=== PATIENT | female | born 1970 | race Caucasian/White ===

== ENCOUNTER 2016-12-24 16:49 | Emergency (ER) | payer OTHER ==
[~2016-12-24] VITALS: Ht 170.2 cm; Wt 71.0 kg
[~2016-12-24 16:49] MED LIST: CIPR-231 PO; CRANBERRY PILLS; OMEP20TA86 PO; OMEP40CA36 PO; ONDA4TAB9 PO; ONDA8TAB10 PO; OXYC1TAB24 PO; PREN-51 PO; TRAZ-118 PO
[2016-12-24 17:05] VITALS: BP 139/92; PULSE 101; RESP 16; O2SAT 97
[2016-12-24 17:50] LABS: EOSINOPHILS % (AUTO) 1.2 % (0-5); MONOCYTES % (AUTO) 9.7 % (4-12); Mean Corpuscular Hemoglobin 34.8 pg (27.0-35.0); NEUTROPHILS % (AUTO) 58.5 % (40-74); Platelet Count 59 bil/L (150-400)
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
[2016-12-24 19:29] VITALS: BP 134/83; PULSE 101; RESP 19; O2SAT 97
[2016-12-24] MEDS ORDERED: 0.9% Sodium Chloride 1,000 ML IV ONE (19:30)
[2016-12-24 22:37] VITALS: BP 122/77; PULSE 98; RESP 17; O2SAT 94
== END 2016-12-24 22:39 | disposition home or self-care (01) ==
LOC: SED 16:49
DX: F10.20 Alcohol dependence, uncomplicated (principal); K72.90 Hepatic failure, unspecified without coma; R17 Unspecified jaundice; I78.1 Nevus, non-neoplastic; E80.7 Disorder of bilirubin metabolism, unspecified; R74.0 Nonspecific elevation of levels of transaminase and lactic acid dehydrogenase [LDH]; E10.9 Type 1 diabetes mellitus without complications; Y90.7 Blood alcohol level of 200-239 mg/100 ml; Z87.19 Personal history of other diseases of the digestive system; Z88.0 Allergy status to penicillin; Z88.5 Allergy status to narcotic agent
CPT/HCPCS: 36415; 80053; 81025; 82075; 85025; 96361; 96374; 99284; G0480; J2060; J7030

== ENCOUNTER 2016-12-28 13:40 | Inpatient (IN) | payer OTHER ==
[~2016-12-28] VITALS: Ht 170.2 cm; Wt 72.4 kg
[2016-12-28 13:44] VITALS: BP 138/91; PULSE 96; RESP 16; O2SAT 98
[2016-12-28] MEDS ORDERED: MILK1CAP3 PO (13:48)
[2016-12-28] MEDS ORDERED: Ondansetron 2 mg/mL 2 mL Inj IVPUSH ONE (15:45)
--- NOTE | 2016-12-28 16:02 | ED.REPORT ---
HPI-General Illness Date of Service Dec 28, 2016 ED Provider: Vic Gonzalez PA-C Katerina is a 46-year-old female with a history of alcohol abuse, pancreatitis, DM who presents with chief complaint of a rash. Complains of a new rash that is worsening in her armpits. She reports that she has been trying to wean herself from alcohol but is finding it difficult. She states that she has cut her consumption by half the last 4 days. She reports that she had been drinking approximately 6 glasses of wine daily. She recently noticed a rash on her chest as well as yellow eyes. Reports right upper quadrant as well as left upper quadrant pain. She also reports frequent light-colored stools, " different colored" urine she describes as cold, heart palpitations and nosebleeds. Denies vomiting, fever, chills, melena, hematochezia, , or other symptoms. Last menstrual period was 11/21/2016. She has a history of seizures with alcohol detox. She was seen in this department approximately 4 days ago for similar complaint. Dr. josie Hannon wanted to admit her at that time but she felt she was not able to do that. She is amenable to admission at this time. Nursing Notes Stated Complaint: RASH Chief Complaint: General Complaint Nursing Notes Reviewed: Yes Allergies: Coded Allergies: Penicillins (Verified Allergy, Unknown, 12/28/16) codeine (Verified Allergy, Unknown, Rash,Itching,, 12/28/16) Scheduled Milk Thistle Seed Extract (Milk Thistle) 140 Mg Capsule 140 MG PO DAILY General Time Seen by MD: 15:25 Chief Complaint Rash Past Medical History Past Medical History Ovarian cyst Alcoholism Liver cirrhosis Reports: Diabetes mellitus Reports: Pancreatitis Past Surgical History none reported Family History Noncontributory Smoking History Never Smoker Social History Alcohol Use: In recovery Drug Use: Denies drug use Other Social History: Local resident Ambulatory Status Independent Review of Systems General: Denies fever, chills, malaise. HEENT: Denies congestion, headache, sore throat. Respiratory: Denies dyspnea, cough, shortness of breath, wheezing. Cardiovascular: Denies chest pain, palpitations. Gastrointestinal: Admits abdominal pain. Denies vomiting, diarrhea. Genitourinary: Denies frequency, urgency, dysuria, hematuria. Otherwise as noted in HPI. Physical Exam General: Well developed, well nourished, no acute distress. Head: Atraumatic, normocephalic. Eyes: As did scleral icterus. No injection. No discharge. Vision grossly intact. ENT: Voice clear, hearing grossly intact. Respiratory: Regular rate and rhythm. Breath sounds present, clear to auscultation and equal bilaterally. No respiratory distress. No increased work of breathing, speaks in complete sentences. Cardiovascular: Regular rate and rhythm, without murmur, gallop or rub. Gastrointestinal: Abdomen flat and mildly tender over right upper quadrant and left upper quadrant without guarding or rebound. Liver edge palpable 4 cm below costal margin. Bowel sounds normoactive. Skin: Jaundice. Telangiectasias over anterior chest. Warm and dry. Several 2 cm raised annular lesions in bilateral armpits with light scale. Legs: 1+ pitting edema bilaterally to mid turner. Neurological: Grossly nonfocal. Psychological: Alert and oriented. Speech appropriate, linear and logical. Behavior appropriate. Vital Signs Vital Signs Date Time Temp Pulse Resp B/P Pulse Ox O2 Delivery O2 Flow Rate FiO2 12/28/16 16:53 91 16 136/88 97 Room Air 12/28/16 16:20 91 16 136/88 97 Room Air 12/28/16 13:44 37.0 96 16 138/91 98 Room Air Initial VS: Reviewed, Vital signs normal Interpretation & Diagnostics Lab Results Interpretation Result Diagram: 12/28/16 1550 12/28/16 1550 Test 12/28/16 15:50 White Blood Count 5.5th/mm3 (3.8-10.1) Red Blood Count 3.40mil/mm3 (3.90-5.20) Hemoglobin 11.9g/dL (12.0-15.6) Hematocrit 34.6% (35.0-46.0) Mean Corpuscular Volume 101.8fL (81-100) Mean Corpuscular Hemoglobin 35.0pg (27.0-35.0) Mean Corpuscular Hemoglobin Concent 34.4% (32.0-37.0) Red Cell Distribution Width 14.1% (12.3-15.4) Platelet Count 63bil/L (150-400) Neutrophils (%) (Auto) 59.3% (40-74) Lymphocytes (%) (Auto) 27.4% (14-46) Monocytes (%) (Auto) 11.3% (4-12) Eosinophils (%) (Auto) 0.9% (0-5) Basophils (%) (Auto) 0.9% (0-3) Prothrombin Time 15.8sec (8.1-12.5) Prothromb Time International Ratio 1.47ratio Activated Partial Thromboplast Time 33.2sec (22.8-33.0) Sodium Level 138mEq/L (134-144) Potassium Level 3.2mEq/L (3.5-5.2) Chloride Level 96mEq/L (97-108) Carbon Dioxide Level 23mmol/L (18-29) Blood Urea Nitrogen 3mg/dL (6-24) Creatinine < 0.30mg/dL (0.57-1.00) Estimat Glomerular Filtration Rate 346mL/min (>59) Glucose Level 189mg/dL (60-99) Calcium Level 8.4mg/dL (8.5-10.1) Magnesium Level 1.5mg/dL (1.6-2.6) Total Bilirubin 9.2mg/dL (0.0-1.2) Aspartate Amino Transf (AST/SGOT) 357U/L (0-50) Alanine Aminotransferase (ALT/SGPT) 55U/L (0-32) Alkaline Phosphatase 184U/L (25-150) Total Protein 6.8g/dL (6.4-8.4) Albumin 3.5g/dL (3.4-5.0) Lipase 19U/L (13-60) Hold Ritchie Top Tube Received (Received) Re-Eval/Medical Decision Med Decision/Clinical Course 46-year-old female with a history of alcohol abuse, pancreatitis and diabetes mellitus presents with a chief complaint of a rash. She was in his apartment approximate 4 days ago and diagnosed with liver failure as well as alcohol addiction. She was offered admission at that time and declined preferring to treat herself outpatient. She attempted to arrange GI follow-up but was unable to until February. She is amenable to admission now. She also reports a worsening pruritic rash in her bilateral armpits. Physical examination reveals both jaundice and scleral icterus as well as telangiectasias over her anterior chest. Liver is palpable well below the costal margin and mildly tender. Mild tenderness in the left upper quadrant. Several erythematous plaques with fine scale are noted in her bilateral axilla. CBC reveals mild anemia CMP reveals elevated bilirubin 9.2, which is increased since 4 days ago. AST of 375 and ALT of 55 . Alkaline phosphatase of 184. Hypokalemia at 3.2 hypochloremia at 96 BUN of 3 creatinine of less than 0.3, hypocalcemia at 8.4 PT of 15.8 and a PTT of 33.2 WINSOME 0.08. This patient is suffering liver failure, secondary to alcoholic hepatitis and cirrhosis. I discussed this case with the hospitalist who accepts the patient for admission. Consultation : Referral / Consult Name: Kathleen Lopez MD Consulted With: Hospitalist Computer Information Systems Instructor: Accepts admit Discharge & Departure Primary Impression: Alcoholic hepatitis Ascites presence: without ascites Qualified Code: K70.10 - Alcoholic hepatitis without ascites Additional Impressions: Liver failure Liver failure chronicity: unspecified chronicity Hepatic coma status: with hepatic coma Qualified Code: K72.91 - Hepatic failure, unspecified with coma Alcohol abuse Disposition: ADMITTED TO HOSPITAL Discharge Condition All VS Reviewed: Yes Referrals: Rito Thorne MD (PCP) EDSupervising Provider for APC: Lynsey Conway MD copies to: Rito Thorne MD, Seth PA-C Dec 28, 2016 16:01
[2016-12-28 16:10] LABS: Mean Corpuscular Volume 101.8 fL (81-100)
[2016-12-28 16:14] LABS: BASOPHILS % (AUTO) 0.9 % (0-3); EOSINOPHILS % (AUTO) 0.9 % (0-5); MONOCYTES % (AUTO) 11.3 % (4-12); NEUTROPHILS % (AUTO) 59.3 % (40-74); Platelet Count 63 bil/L (150-400)
[2016-12-28 16:20] VITALS: BP 136/88; PULSE 91; RESP 16; O2SAT 97
[2016-12-28 16:28] LABS: Lipase 19 U/L (13-60)
[2016-12-28 16:53] VITALS: BP 136/88; PULSE 91; RESP 16; O2SAT 97
[2016-12-28 17:03] LABS: INR 1.47 ratio
[2016-12-28] MEDS ORDERED: Thiamine Inj 100 MG, Folic Acid Inj 1 MG, Magnesium Sulfate 50% Inj 2 GM, Multivitamins... IV ONE ×5 (17:05)
[2016-12-28] MEDS ORDERED: Polyethylene Glycol (PEG) 17 Gm Powder PO PRN (17:05)
[2016-12-28] MEDS ORDERED: Alum-Mag Hydrox-Simeth 30 mL Suspension PO PRN (17:05)
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
[2016-12-28] MEDS ORDERED: Potassium Chloride 20 mEq/15 mL 15mL Oral Soln PO ONE (17:35)
[2016-12-28] MEDS ORDERED: Glucose 40% Oral Gel 15 Gm Tube PO PRN (17:45)
--- NOTE | 2016-12-28 18:00 | NUR ---
Admit from ER Pt comes from ER via WC. A&OX4, ambulates with steady gait independently. Denies CP, SOB, Nausea. Endorses RUQ pain in ABD and some Left. as well. IV delicate but patent in Left hand. EKG being performed at this time. Ultrasounds waiting as well. Care continues
[2016-12-28 20:06] VITALS: PULSE 88
[2016-12-28] MEDS: Insulin LISPRO 300 Unit/3 mL Inj SUBQ SCH (20:27)
--- NOTE | 2016-12-28 20:33 | DRSVH ---
PROCEDURE: US ABDOMEN, LIMITED ([id number]) INDICATIONS: 46 year-old female with alcoholic cirrhosis. Assess for gallbladder pathology. TECHNIQUE: Real-time focused scanning was performed of the abdomen, with image documentation. COMPARISON: [facility], CT, CT ABD PELVIS W CON, 12/06/2015, 20:47. FINDINGS: Liver is normal in overall size, and diffusely heterogeneous in echotexture. No discrete he patic mass lesions identified. Color and pulsed Doppler interrogation demonstrates hepatofugal flow w ithin the main portal vein. No gallstones or biliary sludge. Gallbladder wall thickness is normal. No pericholecystic fluid. Extrahepatic bile duct is nondilated at 3.4 mm. Visualized portions of the pa ncreas appear unremarkable. IMPRESSION: 1. No gallbladder pathology identified. 2. Heterogeneous liver echotexture, a nonspecific finding that would be consistent with stated histor y of cirrhosis. Hepatofugal flow direction of the main portal vein would be consistent with portal hy pertension. Dictated by: Poncho Hankins M.D. on 12/28/2016 at 19:47 Approved by: Poncho Hankins M.D. on 12/28/2016 at 20:32
[2016-12-28 20:42] VITALS: BP 129/76; PULSE 93; RESP 18; O2SAT 93
[2016-12-28] MEDS: Ondansetron 2 mg/mL 2 mL Inj IVPUSH PRN (22:27)
[2016-12-29 00:47] VITALS: BP 132/76; PULSE 98; RESP 16; O2SAT 93
--- NOTE | 2016-12-29 01:20 | NUR ---
Abdominal Pain Pt has complaint of abdominal pain most of shift, receiving IV morphine Q2 hours with adequate relief. CIWA scores have remained below 10 so far this shift.
[2016-12-29 05:01] VITALS: BP 128/80; PULSE 87; RESP 16; O2SAT 94
[2016-12-29 06:36] LABS: BASOPHILS % (AUTO) 0.7 % (0-3); EOSINOPHILS % (AUTO) 1.1 % (0-5); MONOCYTES % (AUTO) 12.7 % (4-12); Mean Corpuscular Volume 103.3 fL (81-100); NEUTROPHILS % (AUTO) 63.6 % (40-74); Platelet Count 63 bil/L (150-400)
[2016-12-29] MEDS: Ondansetron 2 mg/mL 2 mL Inj IVPUSH PRN (07:53)
[2016-12-29] MEDS: Insulin LISPRO 300 Unit/3 mL Inj SUBQ SCH ×3 (08:00→17:19)
[2016-12-29] MEDS: Heparin 5,000 Unit/mL Inj SUBQ SCH ×2 (08:23→17:18)
[2016-12-29] MEDS ORDERED: Multivit-Miner-Folic Acid-Iron Tablet PO SCH (08:30)
[2016-12-29] MEDS: chlordiazePOXIDE 25 mg Capsule PO SCH ×2 (10:55→15:27)
--- NOTE | 2016-12-29 10:59 | PCM.PNMED ---
Subjective Date of Service Dec 29, 2016 Subjective Patient complains of rash on chest and in axillary region, and generalized pruritus. Abdominal pain associated with eating but radiate from the middle initial both on the right and left flank. She denies chest pain, dyspnea, nausea or vomiting. She has complaints of anxiety and insomnia. Exam Vital Signs Vital Sign - Last Date Time Temp Pulse Resp B/P Pulse Ox O2 Delivery O2 Flow Rate FiO2 12/29/16 05:01 36.8 87 16 128/80 94 Room Air Intake and Output 12/28/16 12/28/16 12/29/16 Cumulative From/Thru 15:00 23:00 07:00 12/28/16 13:44 - 12/29/16 06:44 Intake Total 1000 ml 1400 ml 2400 ml Output Total 3 ml 3 ml Balance 1000 ml 1397 ml 2397 ml Intake Oral 400 ml 400 ml IV Total 1000 ml 1000 ml 2000 ml Output Urine Total 3 ml 3 ml # Bowel Movements 0 0 Exam Gen. no acute distress, thin female initially sleeping when I saw her but easily aroused when I came back because I was told she wanted to speak to the doctor. Oriented 3 HEENT: Normocephalic atraumatic, Eyes- pupils equal round, positive scleral icterus, no drainage from either eye Neck: No JVD, no significant lymphadenopathy Cardiovascular: Normal rate Pulmonary: Normal rate no accessory muscle usage GI: Soft not distended Extremities: Trace edema bilaterally, pulses intact and equal bilaterally, good cap refill Neuro: No nerves II through XII grossly intact, no focal deficits Psych: Mood appropriate,normal speech, normal affect Skin : Raised circular erythematous lesions in the axillary region, maculopapular rash in the middle of chest slightly erythematous Lab and Diagnostics Result Diagram: 12/29/1615 12/29/16614 X-Rays, CTs and MRIs Ultrasound abdomen pending 12-lead ECG EKG pending Assessment & Plan 46-year-old female with history of alcoholic pancreatitis and alcohol withdrawal with history of seizures admitted now for alcoholic detox and abdominal pain with differential including acute cholecystitis by likely secondary to acute hepatitis, alcohol induced. #History of alcoholic withdrawal hx seizures no seizures -Patient was admitted to CCU 12/28 on CIWA protocol transfer to floor 12/29 she had tapered herself down from 3/10 L per day to 3 glasses of wine a day so her withdrawal is not going to be as bad -Starting Librium 25 mg 3 times a day, gabapentin 300 g 3 times a day, hydroxyzine 25 mg 3 times a day, and clonidine 0.1 mg twice a day hold SBP less than 110 or patient with orthostatic symptoms #Abdominal pain,likely secondary to alcoholic gastritis, possible chronic pancreatitis -no evidence of acute pancreatitis-could be chronic have recommended she start with liquids and advance to low-fat low protein diet to see how she tolerates this, -Stopping famotidine putting her back on PPI -Abdominal ultrasound shows heterogenous liver consistent with cirrhosis -Nausea meds when necessary #alcoholic hepatitis/possible cirrhosis-even at 46 seems a bit early to have developed cirrhosis without other causes therefore I am working this up. She will need outpatient follow-up with GI scheduled on discharge -Social work for [email or web address] resources -Trend liver panel -avoid hepatotoxic agents -I have sent ceruloplasmin, DIMITRY, Anca, hepatitis viral profile and transfer levels to rule out other etiologies 12/29 #Diabetes mellitus, type I, no home insulin regimen. Blood sugars have been 120s since admit -Poor PCP follow-up -Hypoglycemic protocol, insulin sliding scale -A1c 5.7 12/28 -Sliding scale, low-dose for now may need to uptitrate and may consider mealtime insulin if sugars remain elevated #Anxiety/depression- starting patient on gabapentin 300 mg 3 times a day and hydroxyzine as indicated above as well as Celexa 20 mg daily #Pruritus-prescribed hydroxyzine this is likely secondary to hyperbilirubinemia #Rash-on chest may be secondary to rosacea, axillary looks fungal in nature. I am prescribing Lotrisone with the warning that if the patient needs a refill on the cream I have provided here that likely she needs better follow-up as this medication contains both an antifungal which may be treating a fungal infection as well as a steroid which may be suppressing infection therefore if it is needed on a regular basis within a few days of discontinuing it further evaluation with primary care provider and/or developmental education instructor would be warranted. Unfortunately this patient has a plan to be at work 12/30 by 1 p.m. I am not sure we can take care of everything we need to here today or even by tomorrow. So I am starting her on a medical regimen in the hopes that she may abstain from alcohol however I do not think she has adequate support nor a good plan as she does not have an AA group that she has decided to join much less a sponsor. On the positive side she did manage to wean herself down to 3 glasses of wine per day if her story is to be believed. I had an extensive discussion with her about regarding cirrhosis and the fact that the liver can recover. She will need her labs followed up in perhaps a month's time and a visit with a draw operator if they are not resolving or any of the serologies I ordered come back positive. Other than that abstinence is her best course of action however she can maintain that. Greater than 35 minutes spent with patient evaluating and speaking with this medically complex patient GI Prophylaxis: H2 marlene, Proton Pump Inhibitor VTE Prophylaxis: Sub-Q Heparin (Unfractionated) VTE Mechanical Devices: Intermittant Pneumatic CD Resuscitation Status: CPR: Attempt Resuscitation Chirag Dey MD Dec 29, 2016 10:59
[2016-12-29] MEDS: Betameth Dip-Clotrimazole 15 Gm Cream TOPICAL SCH ×2 (11:41→11:45)
[2016-12-29] MEDS: cloNIDine 0.1 mg Tablet PO SCH ×2 (11:44→11:45)
[2016-12-29] MEDS ORDERED: Pantoprazole 40 mg ER24 Tablet PO ONE (12:30)
--- NOTE | 2016-12-29 12:54 | PCM.DIMED ---
Discharge Instructions Date of Service Dec 29, 2016 Dates of Hospitalization Dec 28, 2016 at 17:16 Discharge Diagnosis Discharge Diagnosis Alcohol withdrawal, acute alcoholic hepatitis, acute alcoholic gastritis Diet Other (low fat/low protein perhaps even just liquid and full liquid pill stomach feeling better) Activity No restrictions Call your provider Excessive diarrhea, Other (abdominal pain) Patient Instructions Abstain from alcohol Follow-up plan See primary care provider, follow-up on hepatitis serologies, all up on liver function tests after at least a month of abstinence from alcohol Follow-up Provider: Rito Thorne MD Follow-up with PCP in: 1 week Follow-up in: Other Chirag Dey MD Dec 29, 2016 12:54
[2016-12-29] MEDS ORDERED: HYDR-3797 PO (13:02)
[2016-12-29] MEDS ORDERED: CLOT15CR5 TOPICAL (13:02)
[2016-12-29] MEDS ORDERED: CITA20TA PO (13:02)
[2016-12-29] MEDS ORDERED: GABA300C PO (13:02)
[2016-12-29] MEDS ORDERED: PREN1TAB25 PO (13:02)
[2016-12-29] MEDS ORDERED: Thiamine PO (13:02)
[2016-12-29] MEDS ORDERED: CLON0.1T14 PO (13:04)
[2016-12-29] MEDS ORDERED: CHLO25CA10 PO (13:04)
[2016-12-29 14:29] VITALS: BP 102/64; PULSE 78; RESP 18; O2SAT 92
[2016-12-29] MEDS ORDERED: hydrOXYzine Pamoate 25 mg Capsule PO SCH (14:30)
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
--- NOTE | 2016-12-29 20:10 | NUR ---
Discharge At 1930 Pt asked if she was going to D/C yet. Pt said the doctor had promised her she could D/C tonight. Dr Dey had written discharge note and provided discharge order as well as instructions, but did not finalize discharge packet. This RN called night hospitalist who was kind enough to finalize discharge so packet could be printed. Pt was given packet as well as prescriptions and belonging was was escorted off floor. Iv removed by my self.
[2016-12-30 05:08] LABS: Alpha-1-Antitrypsin, Serum 152 mg/dL (90-200); Transferrin 140 mg/dL (200-370)
[2016-12-31 14:11] LABS: Antiproteinase 3 (PR-3) Abs <3.5 U/mL (0.0-3.5); Perinuclear (P-ANCA) <1:20 titer (Neg:<1:20)
[2016-12-31 17:08] LABS: Transferrin 136 mg/dL (.)
--- NOTE | 2016-12-31 18:47 | PCM.DC.MED ---
Discharge Summary Date of Service Dec 31, 2016 Dates of Hospitalization Date of Hospital Admission Dec 28, 2016 at 17:16 Date of Discharge: Dec 29, 2016 Providers: Admitting Physician: Art Arizmendi MD Primary Care Physician: Rito Thorne MD Attending Physician: Art Arizmendi MD Diagnosis at Time of Discharge Diagnosis at Time of Discharge Alcohol withdrawal, acute alcoholic hepatitis, acute alcoholic gastritis Procedures XRay, CTs & MRIs Ultrasound abdomen pending ECG 12 Lead EKG pending Brief History 46-year-old female with significant history of DM type I, not on insulin, alcohol abuse and alcoholic pancreatitis along with alcohol withdrawal seizures presenting to ER with complaints of rash and arm. And on chest. Also complaints of worsening jaundice and alcoholism, requesting detox. Hospital Course 46-year-old female with history of alcoholic pancreatitis and alcohol withdrawal with history of seizures admitted now for alcoholic detox and abdominal pain with differential including acute cholecystitis by likely secondary to acute hepatitis, alcohol induced. #History of alcoholic withdrawal hx seizures no seizures -Patient was admitted to CCU 12/28 on CIWA protocol transfer to floor 12/29 she had tapered herself down from 3/10 L per day to 3 glasses of wine a day so her withdrawal is not going to be as bad -Starting Librium 25 mg 3 times a day, gabapentin 300 g 3 times a day, hydroxyzine 25 mg 3 times a day, and clonidine 0.1 mg twice a day hold SBP less than 110 or patient with orthostatic symptoms #Abdominal pain,likely secondary to alcoholic gastritis, possible chronic pancreatitis -no evidence of acute pancreatitis-could be chronic have recommended she start with liquids and advance to low-fat low protein diet to see how she tolerates this, -Stopping famotidine putting her back on PPI -Abdominal ultrasound shows heterogenous liver consistent with cirrhosis -Nausea meds when necessary #alcoholic hepatitis/possible cirrhosis-even at 46 seems a bit early to have developed cirrhosis without other causes therefore I am working this up. She will need outpatient follow-up with GI scheduled on discharge -Social work for AA resources -Trend liver panel -avoid hepatotoxic agents -I have sent ceruloplasmin, DIMITRY, Anca, hepatitis viral profile and transfer levels to rule out other etiologies 12/29 #Diabetes mellitus, type I, no home insulin regimen. Blood sugars have been 120s since admit -Poor PCP follow-up -Hypoglycemic protocol, insulin sliding scale -A1c 5.7 12/28 -Sliding scale, low-dose for now may need to uptitrate and may consider mealtime insulin if sugars remain elevated #Anxiety/depression- starting patient on gabapentin 300 mg 3 times a day and hydroxyzine as indicated above as well as Celexa 20 mg daily #Pruritus-prescribed hydroxyzine this is likely secondary to hyperbilirubinemia #Rash-on chest may be secondary to rosacea, axillary looks fungal in nature. I am prescribing Lotrisone with the warning that if the patient needs a refill on the cream I have provided here that likely she needs better follow-up as this medication contains both an antifungal which may be treating a fungal infection as well as a steroid which may be suppressing infection therefore if it is needed on a regular basis within a few days of discontinuing it further evaluation with primary care provider and/or house principal would be warranted. Unfortunately this patient has a plan to be at work 12/30 by 1 p.m. I am not sure we can take care of everything we need to here today or even by tomorrow. So I am starting her on a medical regimen in the hopes that she may abstain from alcohol however I do not think she has adequate support nor a good plan as she does not have an AA group that she has decided to join much less a sponsor. On the positive side she did manage to wean herself down to 3 glasses of wine per day if her story is to be believed. I had an extensive discussion with her about regarding cirrhosis and the fact that the liver can recover. She will need her labs followed up in perhaps a month's time and a visit with a wrapper hands sprayer if they are not resolving or any of the serologies I ordered come back positive. Other than that abstinence is her best course of action however she can maintain that. Greater than 35 minutes spent with patient evaluating and speaking with this medically complex patient patient opted to discharge later in the evening the same day I saw her for the first time. Doesn't surprise me at all. I think it is a terrible plan which I told her that she felt very strongly that she needed to be at work the following day by 1 PM. I don't think that it matter whether she discharged on the or the 16 in the morning given the total lack of support and follow- up plan that she had. I suspect we'll see her again and she may be worse off as she relapses. Exam Vital Signs (Last) Date Time Temp Pulse Resp B/P Pulse Ox O2 Delivery O2 Flow Rate FiO2 12/29/16 14:29 36.6 78 18 102/64 92 Room Air Test 12/28/16 15:50 12/29/16 06:15 12/29/16 11:15 12/29/16 16:58 Prothrombin Time 15.8sec (8.1-12.5) Prothromb Time International Ratio 1.47ratio Activated Partial Thromboplast Time 33.2sec (22.8-33.0) Hemoglobin A1c 5.7% (4.8-5.6) Lipase 19U/L (13-60) Hold Ritchie Top Tube Received (Received) White Blood Count 5.7th/mm3 (3.8-10.1) Red Blood Count 3.37mil/mm3 (3.90-5.20) Hemoglobin 11.8g/dL (12.0-15.6) Hematocrit 34.8% (35.0-46.0) Mean Corpuscular Volume 103.3fL (81-100) Mean Corpuscular Hemoglobin 35.0pg (27.0-35.0) Mean Corpuscular Hemoglobin Concent 33.9% (32.0-37.0) Red Cell Distribution Width 14.6% (12.3-15.4) Platelet Count 63bil/L (150-400) Neutrophils (%) (Auto) 63.6% (40-74) Lymphocytes (%) (Auto) 21.7% (14-46) Monocytes (%) (Auto) 12.7% (4-12) Eosinophils (%) (Auto) 1.1% (0-5) Basophils (%) (Auto) 0.7% (0-3) Sodium Level 136mEq/L (134-144) Potassium Level 3.5mEq/L (3.5-5.2) Chloride Level 99mEq/L (97-108) Carbon Dioxide Level 23mmol/L (18-29) Blood Urea Nitrogen 4mg/dL (6-24) Creatinine < 0.30mg/dL (0.57-1.00) Estimat Glomerular Filtration Rate 346mL/min (>59) Glucose Level 128mg/dL (60-99) Calcium Level 7.4mg/dL (8.5-10.1) Total Bilirubin 9.3mg/dL (0.0-1.2) Aspartate Amino Transf (AST/SGOT) 310U/L (0-50) Alanine Aminotransferase (ALT/SGPT) 47U/L (0-32) Alkaline Phosphatase 170U/L (25-150) Total Protein 5.9g/dL (6.4-8.4) Albumin 3.0g/dL (3.4-5.0) Triglycerides Level 206mg/dL (0-149) Cholesterol Level 198mg/dL (100-199) LDL Cholesterol, Calculated 149.800mg/dL (0-99) VLDL Cholesterol 41.200mg/dL HDL Cholesterol 7mg/dL (>39) Cholesterol/HDL Ratio 28.29 (0.0-4.4) Iron Level 177ug/dL (.) Transferrin 136mg/dL (.) Transferrin % Saturation 93 (.) Myeloperoxidase <9.0U/mL (0.0-9.0) Kgncr-1-Vgtrejgzqea 152mg/dL (90-200) Ceruloplasmin 30.5mg/dL (19.0-39.0) Anti-Nuclear Antibody Screen Negative (Negative) Cytoplasmic ANCA (c-ANCA) Antibody <1:20titer (Neg:<1:20) Proteinase 3 (PR3) Antibodies <3.5U/mL (0.0-3.5) Atypical p-ANCA <1:20titer (Neg:<1:20) Perinuclear ANCA (p-ANCA) Antibody <1:20titer (Neg:<1:20) Mitochondrial/Smooth Musc Ab Titer 5.3Units (0.0-20.0) Hepatitis B Surface Antigen Negative (Negative) Hepatitis B Surface Antibody Reactive (.) Hepatitis B Core Total Antibody Negative (Negative) Hepatitis C Antibody <0.1s/co ratio (0.0-0.9) Magnesium Level 1.8mg/dL (1.6-2.6) Discharge Medications Discharge Medications ([Thiamine]) 100 MG TABLET 100 MG PO DAILY Prescribed by: JAYLEN DEY MD Chlordiazepoxide (Chlordiazepoxide) 25 Mg Capsule 25 MG PO TID Prescribed by: JAYLEN DEY MD Citalopram Hydrobromide (Celexa) 20 Mg Tablet 20 MG PO DAILY Prescribed by: JAYLEN DEY MD Clonidine (Catapres) 0.1 Mg Tablet 0.1 MG PO BID Prescribed by: JAYLEN DEY MD Clotrimazole/Betamethasone Dip (Lotrisone) 15 Gm Cream..g. 1 APPLIC TOPICAL BID Prescribed by: JAYLEN DEY MD Milk Thistle Seed Extract (Milk Thistle) 140 Mg Capsule 140 MG PO DAILY ( Reported) Vit#96/Ferrous Fum/FA ( Tablet) 1 Each Tablet 1 TABLET PO DAILY Prescribed by: JAYLEN DEY MD As needed Gabapentin (Neurontin) 300 Mg Capsule 300 MG PO TID PRN PRN For Anxiety Prescribed by: JAYLEN DEY MD Hydroxyzine Pamoate (HydrOXYzine Pamoate) 25 Mg Capsule 25 MG PO TID PRN PRN For Itching Prescribed by: JAYLEN DEY MD Followup Plan Follow-up plan See primary care provider, follow-up on hepatitis serologies, all up on liver function tests after at least a month of abstinence from alcohol Discharge Diet: Other (low fat/low protein perhaps even just liquid and full liquid pill stomach feeling better) Discharge Activity: No restrictions Patient Instructions Abstain from alcohol Follow-up Provider: Rito Thorne MD Follow-up with PCP in: 1 week Follow-up in: Other Time spent reater than 30 minutes Attending Statement i encourage the patient to stay so that we could bring her through withdrawal and, with the better plan. I send serologies for other reversible/treatable causes of hepatitis/cirrhosis. I am not optimistic about herrecovery/sustained abstinenceand expressed this to her feeling that she needed to stay in the hospital longer however she felt quite strongly that she needed to be at work the following day by 1 PM therefore I anticipated her potential discharge the same day I saw her and wrote her medications in the hope that this might help her. I feel that an additional 12 hours was not going to change the course here therefore I discharged her and did not ask for against medical advice paperwork. Jaylen Dey MD Dec 31, 2016 18:46
== END 2016-12-29 20:05 | disposition home or self-care (01) | DRG 433 ==
LOC: SED 13:40 → MPC 17:16
PROVIDERS: ADMIT Internal Medicine; ATTEND Internal Medicine
DX: K70.10 Alcoholic hepatitis without ascites (principal); F10.239 Alcohol dependence with withdrawal, unspecified; K70.40 Alcoholic hepatic failure without coma; E10.9 Type 1 diabetes mellitus without complications; K29.20 Alcoholic gastritis without bleeding

== ENCOUNTER 2017-01-05 10:42 | Emergency (ER) | payer OTHER ==
[~2017-01-05] VITALS: Ht 170.2 cm; Wt 72.7 kg
[~2017-01-05 10:42] MED LIST changes: +CHLO25CA10 PO; -CIPR-231 PO; +CITA20TA PO; +CLON0.1T14 PO; +CLOT15CR5 TOPICAL; -CRANBERRY PILLS; +GABA300C PO; +HYDR-3797 PO; +MILK1CAP3 PO; -OMEP20TA86 PO; -OMEP40CA36 PO; -ONDA4TAB9 PO; -ONDA8TAB10 PO; -OXYC1TAB24 PO; -PREN-51 PO; +PREN1TAB25 PO; -TRAZ-118 PO; +Thiamine PO
--- NOTE | 2017-01-05 11:02 | ED.REPORT ---
HPI-General Illness Date of Service Jan 05, 2017 ED Provider: Ana Marquez History of Present Illness: tired all the time, neck pain liver pain 4/10, feels abd is swollen dizzy hard time walking. primary care is ignacio. discharged Tuesday last week. started taking meds on . symptoms started"the minute she started the medication. took no medications this am. admitted for alcohol withdrawal, last drink 2 weeks ago Nursing Notes Stated Complaint: LOW BLOOD PRESSURE Chief Complaint: Neuro Symptoms/ Deficits Nursing Notes Reviewed: Yes Allergies: Coded Allergies: Penicillins (Verified Allergy, Unknown, 01/05/17) codeine (Verified Allergy, Unknown, Rash,Itching,, 01/05/17) Scheduled ([Thiamine]) 100 MG TABLET 100 MG PO DAILY Chlordiazepoxide (Chlordiazepoxide) 25 Mg Capsule 25 MG PO TID Citalopram Hydrobromide (Celexa) 20 Mg Tablet 20 MG PO DAILY Clonidine (Catapres) 0.1 Mg Tablet 0.1 MG PO BID Clotrimazole/Betamethasone Dip (Lotrisone) 15 Gm Cream..g. 1 APPLIC TOPICAL BID Milk Thistle Seed Extract (Milk Thistle) 140 Mg Capsule 140 MG PO DAILY Vit#96/Ferrous Fum/FA ( Tablet) 1 Each Tablet 1 TABLET PO DAILY Scheduled PRN Gabapentin (Neurontin) 300 Mg Capsule 300 MG PO TID PRN PRN For Anxiety Hydroxyzine Pamoate (HydrOXYzine Pamoate) 25 Mg Capsule 25 MG PO TID PRN PRN For Itching General Time Seen by MD: 10:55 Chief Complaint Not feeling well, Other (low blood pressure) Hx Obtained From: Patient Sudden in Onset?: Yes Onset Occurred: 1 week ago Past Medical History Past Medical History Ovarian cyst Alcoholism Liver cirrhosis Reports: Diabetes mellitus Reports: Pancreatitis Past Surgical History none reported Family History Noncontributory Smoking History Never Smoker Social History Alcohol Use: In recovery Drug Use: Denies drug use Other Social History: Local resident Occupation lives with parents, [place] [employer] [place] Amb[place] Status Independent Review of Systems Full Review of Systems Constitutional: Reports: Fatigue, Malaise Respiratory: Denies: Dyspnea on exertion GI: Reports: Abdominal pain Female: Denies: Flank pain Musculoskeletal: Denies: Back pain Endocrine: Denies: Cold intolerance Physical Exam Vital Signs Vital Signs Date Time Temp Pulse Resp B/P Pulse Ox O2 Delivery O2 Flow Rate FiO2 01/05/17 13:38 105/67 01/05/17 13:00 66 16 99/67 93 Room Air 01/05/17 11:09 36.4 62 12 99/53 94 Room Air Initial VS: Reviewed, Vital signs normal General/Constitutional: Well-developed, Well-nourished Head / Eyes: Atraumatic, Normocephalic, PERRL ENT: Mucous membranes moist, Conjunctiva normal, No scleral icterus Neck: Supple, Non-tender, Full range of motion Respiratory: Breath sounds normal, Clear to auscultation, No respiratory distress Cardiovascular: Regular rate & rhythm, Heart sounds normal, Intact distal pulses Abdomen / GI: Soft, Non-tender, No guarding, No rebound, No distention Back: No CVA tenderness Lymphatic: No lymphadenopathy Extremities: Vascular intact, Neuro intact, No swelling, No tenderness Skin: Warm, Dry, No cyanosis Neurologic: Alert, Oriented, Nonfocal Psychiatric: Mood/affect normal, Behavior normal, Normal thought content General/Constitutional: Awake, Alert, No acute distress, Well appearing, Well developed, Well hydrated ENT: Atraumatic, Airway patent, Mucous membranes moist, Pharynx NL Respiratory / Chest: Atraumatic, Breath sounds NL, Breath sounds = bilat, No respiratory distress Cardiovascular: Heart rate NL, Regular rhythm, Heart sounds NL, No gallop Abdomen: Atraumatic, Soft, Non-tender Organomegaly / Mass / Hernia: Positive: Hepatomegaly Interpretation & Diagnostics Lab Results Interpretation Result Diagram: 01/05/17 1109 01/05/17 1109 Test 01/05/17 11:09 01/05/17 12:25 01/05/17 12:45 White Blood Count 6.7th/mm3 (3.8-10.1) Red Blood Count 3.63mil/mm3 (3.90-5.20) Hemoglobin 12.9g/dL (12.0-15.6) Hematocrit 37.6% (35.0-46.0) Mean Corpuscular Volume 103.6fL (81-100) Mean Corpuscular Hemoglobin 35.5pg (27.0-35.0) Mean Corpuscular Hemoglobin Concent 34.3% (32.0-37.0) Red Cell Distribution Width 16.4% (12.3-15.4) Platelet Count 115bil/L (150-400) Neutrophils (%) (Auto) 56.5% (40-74) Lymphocytes (%) (Auto) 22.0% (14-46) Monocytes (%) (Auto) 18.5% (4-12) Eosinophils (%) (Auto) 2.0% (0-5) Basophils (%) (Auto) 0.8% (0-3) Sodium Level 135mEq/L (134-144) Potassium Level 3.6mEq/L (3.5-5.2) Chloride Level 97mEq/L (97-108) Carbon Dioxide Level 24mmol/L (18-29) Blood Urea Nitrogen 8mg/dL (6-24) Creatinine < 0.30mg/dL (0.57-1.00) Estimat Glomerular Filtration Rate 346mL/min (>59) Glucose Level 85mg/dL (60-99) Calcium Level 8.3mg/dL (8.5-10.1) Magnesium Level 1.6mg/dL (1.6-2.6) Total Bilirubin 9.3mg/dL (0.0-1.2) Aspartate Amino Transf (AST/SGOT) 228U/L (0-50) Alanine Aminotransferase (ALT/SGPT) 54U/L (0-32) Alkaline Phosphatase 134U/L (25-150) Ammonia 150ug/dL (18-53) Troponin T < 0.010ug/L (0.0-0.011) Total Protein 6.2g/dL (6.4-8.4) Albumin 3.0g/dL (3.4-5.0) Lipase 10U/L (13-60) Alcohols < 10mg/dL (0-10) Lactic Acid Level 0.9mmol/L (0.4-2.0) Urine Color Dark yellow (YELLOW) Urine Appearance Hazy (CLEAR,HAZY) Urine pH 6.0 (5.0-8.0) Urine Specific [place] 1.020 (1.003-1.035) Urine Protein Negativemg/dL (NEG,TRACE) Urine Glucose (UA) Negativemg/dL (NEGATIVE) Urine Ketones Tracemg/dL (NEGATIVE) Urine Occult Blood Trace (NEGATIVE) Urine Nitrite Positive (NEGATIVE) Urine Bilirubin Large (NEGATIVE) Urine Ictotest Positive (Negative) Urine Urobilinogen 8.0mg/dL (NORMAL) Urine Leukocyte Esterase Negative (NEGATIVE) Urine RBC 0-2/hpf (0-2) Urine WBC 6-10/hpf (0-5) Urine Epithelial Cells Occasional/hpf (NONE-MOD) Urine Crystals None seen (NONE SEEN) Urine Bacteria Many/hpf (NONE-FEW) Urine Hyaline Casts None/lpf (NONE) Urine Granular Casts None seen (NONE SEEN) Urine Waxy Casts None seen (NONE SEEN) Urine Red Blood Cell Casts None seen (NONE SEEN) Urine White Blood Cell Casts None seen (NONE SEEN) Urine Mucus Present (None Seen) Urine Trichomonas None seen (NONE SEEN) Urine Yeast None (NONE SEEN) Urinalysis Comment None Urine Culture Reflexed Indicated Re-Eval/Medical Decision Med Decision/Clinical Course 46 year old presents for evualation of walking difficulties. Symptoms started when she started taking discharge medication [address] is negaitve. labs are at her baseline. No sign of hematoma or abrasions Discharge & Departure Primary Impression: Drug side effects Additional Impression: Increased ammonia level Disposition: Home Discharge Condition All VS Reviewed: Yes Patient Instructions: Chlordiazepoxide (By mouth), Clonidine (By mouth) Additional Instructions: As your signs and symptoms started with taking the medication, please stop clonidine. This medication is used off label for addiction issues and causes low blood pressure and low heart rate and feeling tired. Gapabentin causes you to walk like a drunken sailer and memory loss. Chlordiazepoxide is used for alcohol withdrawal and also causes jaundice, walking like a drunken sailer and increases your liver enzymes. Your ammonia level is also elevated at 150. There are no previous numbers to compare to. It likely was high and is coming down. Lactulose will help it come down also. Please follow with primary care. Also get connected to an AA group and get a counselor. You may need to meeting shop till you find a good group that feels good. Return with any concerns. Referrals: Rito Thorne MD (PCP) EDSupervising Provider for APC: Angel Marcelo MD copies to: Rito Thorne MD, Sue ARNP Jan 05, 2017 11:02
[2017-01-05 11:09] VITALS: BP 99/53; PULSE 62; RESP 12; O2SAT 94
[2017-01-05] MEDS ORDERED: 0.9% Sodium Chloride 1,000 ML IV ONE (11:10)
[2017-01-05 11:12] LABS: BASOPHILS % (AUTO) 0.8 % (0-3); MONOCYTES % (AUTO) 18.5 % (4-12); Mean Corpuscular Hemoglobin 35.5 pg (27.0-35.0); Mean Corpuscular Volume 103.6 fL (81-100); NEUTROPHILS % (AUTO) 56.5 % (40-74); Platelet Count 115 bil/L (150-400)
[2017-01-05 11:41] LABS: Magnesium 1.6 mg/dL (1.6-2.6)
[2017-01-05 11:51] LABS: Lipase 10 U/L (13-60)
--- NOTE | 2017-01-05 11:54 | DRSVH ---
PROCEDURE: X-RAY CHEST ONE VIEW, PORTABLE ([id number]) INDICATIONS: altered mental status TECHNIQUE: One view of the chest was acquired. COMPARISON: [facility], , CHEST 1VW (PORTABLE), 04/29/2012, 12:46. FINDINGS: Surgical changes and devices: None. Lungs and pleura: 1 cm rounded nodule projected over the left upper lobe adjacent to the left second anterior lateral rib. Lungs otherwise are clear. Mediastinum: Mediastinal contours appear normal. Heart size is normal. Bones and chest wall: No suspicious bony lesions. Overlying soft tissues appear unremarkable. IMPRESSION: Possible left upper lobe nodule. When clinically feasible recommend non-urgent noncontra st chest CT scan for further characterization. Dictated by: Torey Rehman A Interpreted: Ayala Mosquera MD on 01/05/2017 at 11:53 Transcribed by: ESTRADA on 01/05/2017 at 11:54 Approved by: Ayala Mosquera MD, PhD on 01/05/2017 at 16:14
--- NOTE | 2017-01-05 11:56 | DRSVH ---
PROCEDURE: CT BRAIN WITHOUT CONTRAST ([id number]) INDICATIONS: confusion TECHNIQUE: Noncontrast 4.5 mm thick angled axial sections acquired from the foramen magnum to the vertex, with c oronal reformats. COMPARISON: [facility], CT, BRAIN W/O CONTRAST, 04/29/2012, 12:01. FINDINGS: Image quality: Excellent. CSF spaces: Basal cisterns are patent. No extra-axial fluid collections. Ventricles are normal in size and shape. Brain: No midline shift. No intracranial masses or hemorrhage. Wilkerson-white matter interface is norm al. Skull and face: Calvarium and visualized facial bones are intact, without suspicious lesions. Sinuses: Visualized sinuses and mastoids are clear. IMPRESSION: No acute intracranial abnormality. Dictated by: Favian Armstrong M.D. on 01/05/2017 at 11:54 Approved by: Favian Armstrong M.D. on 01/05/2017 at 11:55
[2017-01-05 12:00] LABS: TROPONIN T < 0.010 ug/L (0.0-0.011)
[2017-01-05 13:00] VITALS: BP 99/67; PULSE 66; RESP 16; O2SAT 93
[2017-01-05 13:35] LABS: APPEARANCE,URINE HAZY (CLEAR,HAZY); COLOR,URINE DARK YELLOW (YELLOW); OCCULT BLOOD,URINE TRACE (NEGATIVE)
[2017-01-05 13:38] VITALS: BP 105/67
[2017-01-05 13:44] LABS: ICTOTEST,URINE POSITIVE (Negative)
== END 2017-01-05 13:35 | disposition home or self-care (01) ==
LOC: EDBD 10:42 → SED 10:42
DX: R53.83 Other fatigue (principal); T46.5X5A Adverse effect of other antihypertensive drugs, initial encounter; E72.20 Disorder of urea cycle metabolism, unspecified; F10.20 Alcohol dependence, uncomplicated; E11.9 Type 2 diabetes mellitus without complications; K74.60 Unspecified cirrhosis of liver; X58.XXXA Exposure to other specified factors, initial encounter; Y93.89 Activity, other specified; Y99.8 Other external cause status; Y92.9 Unspecified place or not applicable; Z88.5 Allergy status to narcotic agent; Z88.0 Allergy status to penicillin
CPT/HCPCS: 36415; 70450; 71010; 80053; 81000; 81025; 82140; 82948; 83605; 83690; 83735; 84484; 85025; 87086; 87088; 87186; 93005; 96360; 99285; G0480; J7030

== ENCOUNTER 2017-02-14 14:27 | Inpatient (IN) | payer MEDICAID, OTHER ==
[2017-02-14] VITALS (7 sets, daily range): BP systolic 121–144; BP diastolic 77–90; PULSE 102–112; RESP 14–22; O2SAT 96–98
[~2017-02-14] VITALS: Ht 170.2 cm; Wt 64.6 kg
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
[2017-02-14] MEDS ORDERED: 0.9% Sodium Chloride 500 ML IV ONE (15:30)
[2017-02-14 15:58] LABS: BASOPHILS % (AUTO) 0.2 % (0-3); EOSINOPHILS % (AUTO) 0.9 % (0-5); MONOCYTES % (AUTO) 7.2 % (4-12); Mean Corpuscular Hemoglobin 35.9 pg (27.0-35.0); Mean Corpuscular Volume 103.1 fL (81-100); NEUTROPHILS % (AUTO) 60.6 % (40-74); Platelet Count 70 bil/L (150-400)
[2017-02-14 16:12] LABS: INR 1.5 ratio
[2017-02-14 17:18] LABS: Magnesium 1.2 mg/dL (1.6-2.6)
[2017-02-14] MEDS ORDERED: Magnesium Sulf 4 Gm/100 mL H2O 4 GM in IV Premix 1 EACH IV ONE (17:25)
[2017-02-14] MEDS ORDERED: Alum-Mag Hydrox-Simeth 30 mL Suspension PO PRN (17:55)
[2017-02-14] MEDS ORDERED: Thiamine Inj 100 MG, Folic Acid Inj 1 MG, Magnesium Sulfate 50% Inj 2 GM, Multivitamins... IV ONE ×5 (17:55)
[2017-02-14] MEDS ORDERED: Polyethylene Glycol (PEG) 17 Gm Powder PO PRN (17:55)
[2017-02-14] MEDS ORDERED: CYAN500 PO (18:02)
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
[2017-02-14] MEDS ORDERED: Glucose 40% Oral Gel 15 Gm Tube PO PRN (18:40)
[2017-02-14] MEDS: Ondansetron 2 mg/mL 2 mL Inj IVPUSH PRN (21:31)
[2017-02-14] MEDS: Insulin LISPRO 300 Unit/3 mL Inj SUBQ SCH (22:00)
[2017-02-15] VITALS (8 sets, daily range): BP systolic 107–125; BP diastolic 68–82; PULSE 92–108; RESP 18–20; O2SAT 96–97
[2017-02-15] MEDS: 0.9% Sodium Chloride 1,000 ML IV SCH ×6 (00:33→21:01)
[2017-02-15] MEDS: Ondansetron 2 mg/mL 2 mL Inj IVPUSH PRN ×4 (08:05→21:09)
[2017-02-15 08:12] LABS: Magnesium 1.5 mg/dL (1.6-2.6)
[2017-02-15] MEDS: Insulin LISPRO 300 Unit/3 mL Inj SUBQ SCH ×4 (09:15→21:08)
--- NOTE | 2017-02-15 11:19 | PCM.PNMED ---
Subjective Date of Service February 15, 2017 Subjective Patient continues to endorse general symptoms while culture all including: Generalized chills sweats shakes, some nausea with abdominal pain which has been worsened by eating. It has any dizziness or lightheadedness however. Denies any chest pains or shortness of breath. Exam Vital Signs Vital Sign - Last Date Time Temp Pulse Resp B/P Pulse Ox O2 Delivery O2 Flow Rate FiO2 02/15/17 09:38 37.1 107 18 116/76 97 Room Air Intake and Output 02/14/17 02/14/17 02/15/17 Cumulative From/Thru 15:00 23:00 07:00 02/14/17 14:40 - 02/15/17 06:49 Intake Total 500 ml 2258 ml 2758 ml Output Total 500 ml 500 ml Balance 500 ml 1758 ml 2258 ml Intake Oral 550 ml 550 ml IV Total 500 ml 1708 ml 2208 ml Output Urine Total 500 ml 500 ml # Bowel Movements 1 1 General: Alert, Oriented X3, Cooperative, Moderate Distress Chest & Lungs: Clear to auscultation & percussion Cardiovascular: Regular Rate/Rhythm Abdomen: Tender, Non-distended, Other (no guarding) Neurological: Grossly Neurologically Intact IVs and Medications Medications Reviewed: Medications were reviewed in detail Lab and Diagnostics Result Diagram: 02/14/17 1543 02/15/17 0730 Assessment & Plan Patient is a 46-year-old female past medical history significant for alcohol dependence and mood disorder presenting following alcohol relapses desire to quit, admitted for medical detoxification at this time. 1. Alcohol dependence/all withdrawal syndrome - Patient will be considered intermediate to high risk based on her past history of alcohol withdrawal seizures, addition to chronicity and quantity of volume drank over past many months. - Patient will be placed on CIWA protocol without standing Valium at this time though that may be considered if withdrawal symptoms become more severe - We will taper IVFs to 100mL per hour of normal saline in addition to banana bag daily given good PO in take of fluids. - Continue to monitor on continuous telemetry and according to CIWA protocol. 2. Mood disorder - Patient should of course consider outpatient therapy for long-term treatment of substance dependence in addition to depression and anxiety conditions/ - We will continue home Celexa. 3. Hyperbilirubinemia - As noted in problem 1 this is likely a toxic effect of alcohol liver leading to impaired functioning - Condition is imrpomving with alcohol cessation and hydration - Continue to trend, hydrate aggressively 4. Transaminitis - As noted in problem 1, weight effect of a toxicity of alcohol and liver cells , as indicated by a more significant elevation in AST - Downward trending overnight. - Again we will continue to trend, providing intravenous fluids, consider further hepatic studies only if condition does not resolve with supportive care and alcohol cessation/ Pain Evaluation: Adequate Pain Control GI Prophylaxis: Not indicated VTE Prophylaxis: Other (patient will be ambulating routinely) VTE Mechanical Devices: Intermittant Pneumatic CD Resuscitation Status: CPR: Attempt Resuscitation Time spent 25 minutes Nain Mcclain DO February 15, 2017 11:19
[2017-02-16] VITALS (8 sets, daily range): BP systolic 111–125; BP diastolic 72–81; PULSE 90–110; RESP 18–20; O2SAT 93–99
[2017-02-16] MEDS: 0.9% Sodium Chloride 1,000 ML IV SCH ×8 (01:15→23:41)
[2017-02-16] MEDS: Ondansetron 2 mg/mL 2 mL Inj IVPUSH PRN ×6 (01:34→22:54)
[2017-02-16 06:19] LABS: BASOPHILS % (AUTO) 0.3 % (0-3); Mean Corpuscular Volume 104.4 fL (81-100); Platelet Count 46 bil/L (150-400)
[2017-02-16 06:29] LABS: EOSINOPHILS % (AUTO) 1.9 % (0-5); MONOCYTES % (AUTO) 9.9 % (4-12); Mean Corpuscular Hemoglobin 35.9 pg (27.0-35.0); NEUTROPHILS % (AUTO) 54.9 % (40-74)
[2017-02-16] MEDS: Insulin LISPRO 300 Unit/3 mL Inj SUBQ SCH ×4 (07:36→22:54)
[2017-02-16 08:02] LABS: Magnesium 1.2 mg/dL (1.6-2.6)
--- NOTE | 2017-02-16 08:43 | PCM.PNMED ---
Subjective Date of Service February 16, 2017 Subjective CIWA scores of improved overnight, patient notes condition is improving, appetite is greater, she hopes to be ready to leave as early as tomorrow. No central symptoms are certainly much improved. Denies any tremulousness nausea today. Still feeling a bit weak and queasy, will try to walk around more today also to advance diet, though she does still experience some abdominal pain with eating. Exam Vital Signs Vital Sign - Last Date Time Temp Pulse Resp B/P Pulse Ox O2 Delivery O2 Flow Rate FiO2 02/16/17 05:39 36.7 99 18 116/78 93 Room Air Intake and Output 02/15/17 02/15/17 02/16/17 Cumulative From/Thru 15:00 23:00 07:00 02/14/17 14:40 - 02/16/17 06:15 Intake Total 2208 ml 1385 ml 6351 ml Output Total 650 ml 450 ml 1600 ml Balance 1558 ml 935 ml 4751 ml Intake Oral 500 ml 320 ml 1370 ml IV Total 1708 ml 1065 ml 4981 ml Output Urine Total 650 ml 450 ml 1600 ml # Voids 2 2 # Bowel Movements 1 Exam General: Alert, Oriented X3, Cooperative, Moderate Distress Chest & Lungs: Clear to auscultation & percussion Cardiovascular: Regular Rate/Rhythm Abdomen: Tender, Non-distended, No guarding) Neurological: Grossly Neurologically Intact IVs and Medications Medications Reviewed: Medications were reviewed in detail Lab and Diagnostics Result Diagram: 02/16/17 0600 02/16/17 0600 Assessment & Plan Patient is a 46-year-old female past medical history significant for alcohol dependence and mood disorder presenting following alcohol relapses desire to quit, admitted for medical detoxification at this time. 1. Alcohol dependence/all withdrawal syndrome - Patient will be considered intermediate to high risk based on her past history of alcohol withdrawal seizures, addition to chronicity and quantity of volume drank over past many months. - Patient will be placed on CIWA protocol without standing Valium at this time though that may be considered if withdrawal symptoms become more severe - We will taper IVFs to KVO given good oral intake. Continue to assess volume status - Continue to monitor on continuous telemetry and according to CIWA protocol. 2. Mood disorder - Patient should of course consider outpatient therapy for long-term treatment of substance dependence in addition to depression and anxiety conditions/ - We will continue home Celexa. 3. Hyperbilirubinemia - As noted in problem 1 this is likely a toxic effect of alcohol liver leading to impaired functioning - Condition is continuing to imrpomve with alcohol cessation and hydration - Scleral icterus is resolved - Continue to trend, hydrate aggressively, now only oral 4. Transaminitis - As noted in problem 1, weight effect of a toxicity of alcohol and liver cells , as indicated by a more significant elevation in AST - Downward trending overnight. - Again we will continue to trend with discontinuation of intravenous fluids, consider further hepatic studies only if condition does not resolve with supportive care and alcohol cessation/ 5. Hypomagnesemia - We will replete IV this morning and then continue oral supplementation - Anticipate improved levels with increased by mouth intake. Pain Evaluation: Adequate Pain Control GI Prophylaxis: Not indicated VTE Prophylaxis: Other (patient will be ambulating routinely) VTE Mechanical Devices: Intermittant Pneumatic CD Resuscitation Status: CPR: Attempt Resuscitation Time spent 30 minutes Nain Mcclain DO February 16, 2017 08:43
[2017-02-16] MEDS ORDERED: Magnesium Sulf 4 Gm/100 mL H2O 4 GM in IV Premix 1 EACH IV ONE (08:45)
[2017-02-17] VITALS (8 sets, daily range): BP systolic 107–124; BP diastolic 67–73; PULSE 97–102; RESP 18; O2SAT 95–98
[2017-02-17] MEDS: Ondansetron 2 mg/mL 2 mL Inj IVPUSH PRN ×5 (02:56→21:20)
[2017-02-17 06:39] LABS: BASOPHILS % (AUTO) 0.5 % (0-3); EOSINOPHILS % (AUTO) 1.9 % (0-5); Mean Corpuscular Hemoglobin 36.2 pg (27.0-35.0); Mean Corpuscular Volume 104.8 fL (81-100); NEUTROPHILS % (AUTO) 57.9 % (40-74); Platelet Count 55 bil/L (150-400)
[2017-02-17 06:45] LABS: Magnesium 1.4 mg/dL (1.6-2.6)
[2017-02-17] MEDS ORDERED: Magnesium Sulf 4 Gm/100 mL H2O 4 GM in IV Premix 1 EACH IV ONE (07:30)
[2017-02-17] MEDS ORDERED: KCl 40 mEq/D5W 500 mL 40 MEQ in IV Premix 1 EACH IV ONE (07:30)
[2017-02-17] MEDS: Insulin LISPRO 300 Unit/3 mL Inj SUBQ SCH ×4 (08:00→22:00)
[2017-02-17 08:40] LABS: Bilirubin, Direct 3.9 mg/dL (0.0-0.3)
--- NOTE | 2017-02-17 08:59 | PCM.PNMED ---
Subjective Date of Service February 17, 2017 Subjective Patient continues to experience abdominal pain both right and left sided when eating. He has been able to drink water and simple liquids, Jell-O, soup broth without as much complication. Overall however she feels better. She began ambulating more around hospital unit notes energy levels improved as well. As any current alcohol cravings. Readings committed to continued recovery. No chest pains or shortness of breath. Denies any dark tarry or bloody stools. Normal bladder function as well Exam Vital Signs Vital Sign - Last Date Time Temp Pulse Resp B/P Pulse Ox O2 Delivery O2 Flow Rate FiO2 02/17/17 06:27 97 02/17/17 05:04 36.3 18 108/72 97 Room Air Intake and Output 02/16/17 02/16/17 02/17/17 Cumulative From/Thru 15:00 23:00 07:00 02/14/17 14:40 - 02/17/17 05:57 Intake Total 1952 ml 802 ml 9105 ml Output Total 700 ml 2300 ml Balance 1252 ml 802 ml 6805 ml Intake Oral 1120 ml 2490 ml IV Total 832 ml 802 ml 6615 ml Output Urine Total 700 ml 2300 ml # Voids 2 4 # Bowel Movements 0 1 Exam General: Alert, Oriented X3, Cooperative, Moderate Distress Chest & Lungs: Clear to auscultation & percussion Cardiovascular: Regular Rate/Rhythm Abdomen: Tender, Non-distended, No guarding Neurological: Grossly Neurologically Intact IVs and Medications Medications Reviewed: Medications were reviewed in detail Lab and Diagnostics Result Diagram: 02/17/17 0602/17/17 06 Assessment & Plan Patient is a 46-year-old female past medical history significant for alcohol dependence and mood disorder presenting following alcohol relapses desire to quit, admitted for medical detoxification at this time. 1. Alcohol dependence/all withdrawal syndrome - Patient will be considered intermediate to high risk based on her past history of alcohol withdrawal seizures, addition to chronicity and quantity of volume drank over past many months. - Patient will be placed on CIWA protocol without standing Valium at this time though that may be considered if withdrawal symptoms become more severe - Given difficulties of by mouth intake we will continue intravenous fluid therapy at 75 mL to help supplement oral hydration - Continue to monitor on continuous telemetry and according to CIWA protocol. May consider taking patient off protocol shortly if CIWA scores contained to be downward trending. 2. Mood disorder - Patient should of course consider outpatient therapy for long-term treatment of substance dependence in addition to depression and anxiety conditions/ - We will continue home Celexa. 3. Hyperbilirubinemia - As noted in problem 1 this is likely a toxic effect of alcohol liver leading to impaired functioning - Condition is not currently improving with alcohol cessation and hydration. Level remains elevated and upward trending. - Scleral icterus is present - Continue to trend, hydrate aggressively, now only oral as well - CT scan abdomen pending to rule out obstruction or other underlying hepatic disease. - Gastroenterology has been consulted for further evaluation and consideration 4. Transaminitis - As noted in problem 1, weight effect of a toxicity of alcohol and liver cells , as indicated by a more significant elevation in AST - Numbers appear to have stabilized, both remain elevated asking more significantly. - Again we will continue to trend with discontinuation of intravenous fluids, consider further hepatic studies only if condition does not resolve with supportive care and alcohol cessation/ - As noted in problem 3 CT scans pending GI consult. 5. Hypomagnesemia - We will replete IV this morning and then continue oral supplementation - Anticipate improved levels with increased by mouth intake. 6. Hypokalemia - Again we will replete the IV supplementation continue to monitor. - Hoping for improvement with increased by mouth intake. Pain Evaluation: Adequate Pain Control GI Prophylaxis: Not indicated VTE Prophylaxis: Other (patient will be ambulating routinely) VTE Mechanical Devices: Intermittant Pneumatic CD Resuscitation Status: CPR: Attempt Resuscitation Time spent 30 minutes Nain Mcclain DO February 17, 2017 08:58
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
--- NOTE | 2017-02-17 13:13 | DRSVH ---
PROCEDURE: CT ABDOMEN AND PELVIS WITH CONTRAST ([id number]) INDICATIONS: persistent elevation of LFTs/bili and abd pain TECHNIQUE: After the administration of oral and intravenous contrast, 5 mm thick sections acquired from the diap hragms to the symphysis. 5 mm thick coronal and sagittal reformats were performed. For radiation do se reduction, the following was used: automated exposure control, adjustment of mA and/or kV accordi ng to patient size. COMPARISON: [facility], CT, CT ABD PELVIS W CON, 12/06/2015, 20:47. FINDINGS: Image quality: Diagnostic. ABDOMEN: Lung bases: Mild atelectasis is noted within the bilateral lung bases. The heart is normal in size w ithout a pericardial effusion. Bilateral breast implants are present. Solid organs: The liver is diffusely hypodense and moderately heterogeneous, when compared to the sp joe. No definite liver lesion is appreciated. The gallbladder is enlarged and has significantly in creased in size since the previous exam. There is thickening of the gallbladder wall with edema note d within the gallbladder fossa adjacent to the gallbladder itself. The common bile duct is not signi ficantly enlarged, however. The spleen, adrenals, and kidneys are unremarkable. There is no hydrone phrosis. The pancreas is small in size. No definite pancreatic lesions are appreciated. However, t he head of the pancreas is not well evident. There is edema adjacent to the tail of the pancreas. Peritoneum and bowel: Mild prominence of the wall of the distal esophagus is noted. No significant h iatal hernia is evident. The stomach is unremarkable. Borderline prominent fluid-filled proximal sm all bowel loops are present without mirza dilatation. Patchy areas of bowel wall thickening are note d involving the ascending, transverse, and descending colon. No complete bowel obstruction is eviden t. There is free fluid identified within the abdomen, which is more prominent within the right upper quadrant adjacent to the liver and within the right paracolic gutter. No loculated fluid collection s are identified. There is no definite free air. Nodes and vessels: No retroperitoneal or mesenteric adenopathy. Aorta and inferior vena cava are no rmal in caliber. Miscellaneous: No ventral hernias. PELVIS: Genitourinary: Bladder wall thickness is normal. The uterus and ovaries are not well evaluated on t his examination; however, are similar to the prior study. Miscellaneous: No inguinal hernias or adenopathy. A moderate amount of free fluid is seen within th e pelvis. No definite loculated fluid collection is evident. Bones: No suspicious bony lesions. No vertebral body compression fractures. IMPRESSION: 1. Marked enlargement of the gallbladder with wall thickening and pericholecystic edema. These find ings are suspicious for acute cholecystitis and clinical correlation is recommended. 2. Decreased density the liver is most often seen in the setting of hepatic steatosis. Clinical cor relation to exclude other chronic liver disease is recommended. 3. Multifocal areas of colonic wall thickening are suggestive of colitis, more pronounced involving the ascending colon An inflammatory or infectious process may result in this appearance. Additional ly, reactive inflammation from an acute gallbladder process may also result in this appearance. Clin ical correlation is recommended. 4. Moderate abdominal ascites is more prominent within the right upper quadrant. No loculated fluid collections. 5. Minimal edema about the pancreas probably is related to the inflammatory processes involving eith er the gallbladder or colon. However, please correlate clinically to exclude superimposed pancreatit is. Dictated by: Alfredo Gonzalez M.D. on 02/17/2017 at 11:59 Approved by: Alfredo Gonzalez M.D. on 02/17/2017 at 12:11
--- NOTE | 2017-02-17 15:07 | DRSVH ---
PROCEDURE: US ABDOMEN INDICATIONS: hepatitis TECHNIQUE: Real-time scanning was performed of the abdominal and retroperitoneal organs, with image documentatio n. COMPARISON: [facility], US, ABDOMEN SONOGRAM, 07/01/2012, 11:19. [facility], US, ABDOMEN SONOGRAM, 05/16/2011, 23:24. [facility], CT, CT ABD PELVIS W CO N, 12/06/2015, 20:47. [facility], US, ABDOMEN LTD, 12/28/2016, 17:24. FINDINGS: Liver length: 17.24 cm Gallbladder Wall Thickness: 3.20 mm CHD: 1.80 mm CBD: 5.50 mm Spleen length: 14.69 cm Right kidney length: 12.22 cm Left kidney length: 13.87 cm Aorta(Proximal): 1.94 cm Aorta(Mid): 1.71 cm Aorta(Distal): 1.57 cm RCIA: 1.24 cm LCIA: 1.03 cm Liver: Liver is normal in overall size, and diffusely heterogeneous in echotexture. No discrete hepatic mass lesions identified. Color and pulsed Doppler interrogation demonstrates hepatofugal flow within the main portal vein Gallbladder: Gallbladder sludge is present and gallbladder wall is mildly thickened measuring 3.2 mm. Biliary ducts: Intrahepatic bile ducts are non-dilated. Extrahepatic bile duct caliber is normal. Normal is 6-7 mm or less in diameter, or 10 mm or less post-cholecystectomy. Pancreas: Visualized portions of the pancreas are sonographically normal. Spleen: Spleen is enlarged in size and homogeneous in echotexture. Kidneys: Kidneys are normal in size and echotexture. No hydronephrosis or nephrolithiasis. No diaz d masses. Aorta: Visualized aorta is normal in caliber at less than 3 cm. Iliacs: Proximal common iliac arteries are normal in caliber at less than 2.5 cm. IVC: Intrahepatic inferior vena cava is patent. Miscellaneous: Mild perihepatic and perisplenic fluid. No fluid seen within the mid abdomen or pelvi s. IMPRESSION: 1. Gallbladder sludge present and gallbladder wall is mildly thickened perirectal and clinical correl ation to exclude early developing cholecystitis. 2. Heterogeneous liver echotexture redemonstrated, which is a nonspecific finding that would be consi stent with stated history of cirrhosis. 3. Hepatofugal flow direction of the main portal vein suggesting portal hypertension as was seen on p rior examination. 4. Mild perihepatic and perisplenic ascites. Dictated by: Torey DASILVA Interpreted: Favian Armstrong MD on 02/17/2017 at 15:01 Transcribed by: WILLIAM on 02/17/2017 at 15:07 Approved by: Favian Armstrong M.D. on 02/17/2017 at 15:27
[2017-02-17] MEDS: Lactulose 20 Gm/30 mL 30 mL Syrup PO SCH ×2 (15:51→19:54)
[2017-02-17] MEDS: 0.9% Sodium Chloride 1,000 ML IV SCH (17:35)
[2017-02-17] MEDS: levoFLOXacin Inj 750 MG in IV Premix 1 EACH IV SCH (19:53)
[2017-02-17] MEDS ORDERED: metroNIDAZOLE Inj 500 MG in IV Premix 1 EACH IV SCH (20:30)
[2017-02-17] MEDS: metroNIDAZOLE Inj 500 MG in IV Premix 1 EACH IV SCH (21:19)
[2017-02-18] MEDS: Ondansetron 2 mg/mL 2 mL Inj IVPUSH PRN ×4 (01:31→20:49)
[2017-02-18] MEDS: metroNIDAZOLE Inj 500 MG in IV Premix 1 EACH IV SCH ×3 (05:12→21:20)
[2017-02-18 05:14] VITALS: BP 113/73; PULSE 94; RESP 18; O2SAT 97
[2017-02-18 06:26] LABS: BASOPHILS % (AUTO) 0.2 % (0-3); EOSINOPHILS % (AUTO) 1.6 % (0-5); MONOCYTES % (AUTO) 10.5 % (4-12); Mean Corpuscular Hemoglobin 36.4 pg (27.0-35.0); Mean Corpuscular Volume 104.9 fL (81-100); NEUTROPHILS % (AUTO) 53.6 % (40-74); Platelet Count 48 bil/L (150-400)
[2017-02-18 06:46] LABS: Magnesium 1.6 mg/dL (1.6-2.6)
[2017-02-18] MEDS: Insulin LISPRO 300 Unit/3 mL Inj SUBQ SCH ×4 (08:00→21:25)
[2017-02-18 08:03] LABS: Bilirubin, Direct 4.1 mg/dL (0.0-0.3)
[2017-02-18] MEDS: Lactulose 20 Gm/30 mL 30 mL Syrup PO SCH ×3 (08:49→21:01)
--- NOTE | 2017-02-18 09:31 | PCM.PNMED ---
Subjective Date of Service February 18, 2017 Subjective GI progress note Now noted patient did well with mild reduction in abdominal pain more on the right than left. Discussed with hospitalist yesterday evening the need for surgical consult due to patient meeting criteria on imaging for acute cholecystitis along with clinical symptoms including postprandial nausea, and right upper abdominal pain. Patient has ongoing alcoholic hepatitis with liver dysfunction and is now stable but increased bilirubin. Discussion was had about transfer has patient's liver dysfunction complicates possible cholecystectomy. Patient denies fevers, chills, vomiting, chest pain, increased abdominal pain. Flatulence was started yesterday patient has responded pretty well with 5-8 bowel movements, although they seem to be small at the moment. Guaiac stool is negative This afternoon patient had a regular bowel movement and rectal exam was performed blood small hemorrhoids. Exam Vital Signs Vital Sign - Last Date Time Temp Pulse Resp B/P Pulse Ox O2 Delivery O2 Flow Rate FiO2 02/18/17 05:14 36.6 94 18 113/73 97 Room Air Intake and Output 02/17/17 02/17/17 02/18/17 Cumulative From/Thru 15:00 23:00 07:00 02/14/17 14:40 - 02/18/17 06:50 Intake Total 450 ml 2446 ml 824 ml 33728 ml Output Total 300 ml 1050 ml 8 ml 3658 ml Balance 150 ml 1396 ml 816 ml 9167 ml Intake Oral 450 ml 1440 ml 100 ml 4480 ml IV Total 1006 ml 724 ml 8345 ml Output Urine Total 300 ml 1050 ml 3650 ml Urine/Stool Mix 8 ml 8 ml # Voids 2 2 8 # Bowel Movements 0 0 1 Exam Gen.: Patient awake and sitting in bed with mild anxiety and agitation HEENT: Scleral icterus, PERRLA, mucous membranes mildly moist, neck supple Cardiac: Regular rate and rhythm Respiratory: CTA bilaterally Abdomen: Positive fluid wave, mild abdominal tenderness in the lower quadrants, moderate pain in the epigastric regions implants bilaterally Extremities: No edema, moving all 4 extremities Skin: Jaundiced; palmar erythema, spider nevi Psychiatric: Agitated and anxious. Neuro: Mild to moderate encephalopathic; no asterixis present GI: Rectal exam revealed small hemorrhoids, no blood around and as; IVs and Medications Medications Reviewed: Medications were reviewed in detail Lab and Diagnostics Result Diagram: 02/18/1745 02/18/17544 Assessment & Plan Problem list: Acute alcoholic hepatitis with suspected cirrhosis Acute versus chronic acalculous cholecystitis Hyperammonemia Hyperbilirubinemia Hypokalemia Megaloblastic anemia Elevated INR secondary to liver dysfunction Assessment/plan 46-year-old female with alcohol abuse, liver dysfunction, and acute cholecystitis. From blood work patient seems to be stabilizing and LFTs are returning to normal. Alkaline phosphatase was never elevated however acute cholecystitis is made after evaluation of CT and ultrasound of the right upper quadrant with lindy-hepatic/cholecystic fluid, increased gallbladder wall thickness, and edema. No tappable ascites was noted on ultrasound. GGT is currently pending we will wait those results. Surgical consult was discussed with hospitalist yesterday evening and we await surgery's opinion on the matter. Concern is status patient wants to be transferred due to liver dysfunction and need for cholecystitis. Patient will remain on antibiotics per hospitalist. Patient's B12 level was actually elevated suggesting that the megaloblastic anemia is due to liver dysfunction and possibly some form of bone marrow suppression or could be pseudo-megaloblastic due to release of premature red blood cells. We will continue to follow this patient. HIDA scan planned for this afternoon and pending those results will recommend transfer for intervention on 2 versus chronic acalculous cholecystitis. Thank you for allowing us to participate in the care of this interesting patient. GI Prophylaxis: Not indicated VTE Prophylaxis: Other (patient will be ambulating routinely) VTE Mechanical Devices: Intermittant Pneumatic CD Resuscitation Status: CPR: Attempt Resuscitation Arnav Stark DO February 18, 2017 09:31 5. Hypomagnesemia - We will replete IV this morning and then continue oral supplementation - Anticipate improved levels with increased by mouth intake. 6. Hypokalemia - Again we will replete the IV supplementation continue to monitor. - Hoping for improvement with increased by mouth intake. GI Prophylaxis: Not indicated VTE Prophylaxis: Other (patient will be ambulating routinely) VTE Mechanical Devices: Intermittant Pneumatic CD Resuscitation Status: CPR: Attempt Resuscitation Arnav Stark DO February 18, 2017 09:31
[2017-02-18] MEDS ORDERED: KCl 40 mEq/D5W 500 mL 40 MEQ in IV Premix 1 EACH IV ONE (11:35)
--- NOTE | 2017-02-18 11:41 | PCM.PNMED ---
Subjective Date of Service February 18, 2017 Subjective Patient reports feeling no worse this morning and yesterday. Denies still been difficult to advance she continues he only Jell-O fruit and water, concerning food more substantial does not have a ties and cause abdominal pain. Even the thought of you over to states makes her feel nauseated and trigger some spasms stomach. Denies any fever or chills however, denies any sweats or shakes. Has no chest pains or shortness of breath. Abdominal pain is intermittent and generally worsened with eating. She has been stooling more normally has a past 24 hours. Exam Vital Signs Vital Sign - Last Date Time Temp Pulse Resp B/P Pulse Ox O2 Delivery O2 Flow Rate FiO2 02/18/17 05:14 36.6 94 18 113/73 97 Room Air Intake and Output 02/17/17 02/17/17 02/18/17 Cumulative From/Thru 15:00 23:00 07:00 02/14/17 14:40 - 02/18/17 06:50 Intake Total 450 ml 2446 ml 824 ml 70553 ml Output Total 300 ml 1050 ml 8 ml 3658 ml Balance 150 ml 1396 ml 816 ml 9167 ml Intake Oral 450 ml 1440 ml 100 ml 4480 ml IV Total 1006 ml 724 ml 8345 ml Output Urine Total 300 ml 1050 ml 3650 ml Urine/Stool Mix 8 ml 8 ml # Voids 2 2 8 # Bowel Movements 0 0 1 Exam General: Alert, Oriented X3, Cooperative, Moderate Distress HEENT: Scleral icterus present. Chest & Lungs: Clear to auscultation & percussion Cardiovascular: Regular Rate/Rhythm Abdomen: Tender, Non-distended, No guarding Neurological: Grossly Neurologically Intact IVs and Medications Medications Reviewed: Medications were reviewed in detail Lab and Diagnostics Result Diagram: 02/18/17 0545 02/18/17 0545 Assessment & Plan Patient is a 46-year-old female past medical history significant for alcohol dependence and mood disorder presenting following alcohol relapses desire to quit, admitted for medical detoxification at this time. #Abdominal pain /suspected Acute cholecystitis - This diagnosis remains in question but is certainly possible supported most by imaging studies patient's persistent right upper abdominal pain exacerbated with eating. - No lab findings and lack of acute vital sign changes supportive of infection with this diagnosis in question, it may be patient's chronic liver disease and immunocompromised state as a result have resulted in an attenuated response. - We have initiated patient on antibiotic therapy, Levaquin and Flagyl due to penicillin allergy, and continue to consider possible treatment options including surgical versus expectant management and medication therapy. - Patient remains clinically stable however, which is reassuring. Continue to discuss case with GI his consultation is appreciated, additional review case with infectious disease specialist Dr. Gudino for further recommendations. #. Hyperbilirubinemia - Likely a toxic effect of alcohol liver leading to impaired functioning. Patient's underlying chronic liver disease may also be playing a role. - Based on direct bilirubin levels this appears to be an obstructive type of hyperbilirubinemia, the source of impaired clearance is not yet clear - Condition is not currently improving with alcohol cessation and hydration. Level remains elevated and direct bili is upward trending. - Scleral icterus is still present - Continue to trend, hydrate aggressively twice a day and when necessary -HIDA scan pending for later today to assess gallbladder drainage #. Transaminitis with chronic liver disease/( - As noted in problem 1, weight effect of a toxicity of alcohol and liver cells , as indicated by a more significant elevation in AST - Numbers appear to have stabilized, both remain elevated AST more significantly. - So certainly an acute on chronic process as indicated by impaired clotting function. Continue to monitor closely, the assistance of GI consult. #. Alcohol dependence/all withdrawal syndrome - Patient will be considered intermediate to high risk based on her past history of alcohol withdrawal seizures, addition to chronicity and quantity of volume drank over past many months. - Patient will be placed on CIWA protocol without standing Valium at this time though that may be considered if withdrawal symptoms become more severe - Given difficulties of by mouth intake we will continue intravenous fluid therapy at 75 mL to help supplement oral hydration - Given negative scoring patient be discontinued and she will protocol. Also she has demonstrated reassuring heart rhythms and we will discontinue telemetry. - Acute risk of withdrawal seems to have resolved, she will certainly require continued behavioral support and therapy occasion long-term cessation of alcohol use. #. Mood disorder - Patient should of course consider outpatient therapy for long-term treatment of substance dependence in addition to depression and anxiety conditions/ - We will continue home Celexa. #. Hypomagnesemia - We will replete IV this morning and then continue oral supplementation - Anticipate improved levels with increased by mouth intake. #. Hypokalemia - Again we will replete the IV supplementation continue to monitor. - Hoping for improvement with increased by mouth intake. Pain Evaluation: Adequate Pain Control GI Prophylaxis: Not indicated VTE Prophylaxis: Other (patient will be ambulating routinely) VTE Mechanical Devices: Intermittant Pneumatic CD Resuscitation Status: CPR: Attempt Resuscitation Time spent 35 minutes Nain Mcclain DO February 18, 2017 11:41
[2017-02-18] MEDS ORDERED: 0.9% Sodium Chloride 0 ML ONE (12:38)
[2017-02-18] MEDS: 0.9% Sodium Chloride 1,000 ML IV SCH ×2 (12:44→16:44)
[2017-02-18 13:29] VITALS: BP 119/74; PULSE 92; RESP 16; O2SAT 100
--- NOTE | 2017-02-18 16:39 | DRSVH ---
PROCEDURE: NM HIDA SCAN WITH CCK PHARMACEUTICAL: 5.7 mCi Tc-99m mebrofenin IV; 1.3 mcg CCK IV. INDICATIONS: Cholecystitis. TECHNIQUE: Following intravenous administration of Tc-99m mebrofenin, sequential anterior abdominal images were obtained. To evaluate the contractile response of the gallbladder in response to Cholecystokinin (CC K), sincalide (0.02 g/kg) was administered by slow intravenous infusion approximately 60 minutes aft er the administration of the radiopharmaceutical. Sequential imaging was continued for [address] the start of CCK infusion. Gallbladder ejection fraction was calculated. COMPARISON: None. FINDINGS: Biliary scan: There is normal tracer uptake and excretion by the liver. There is normal visualizati on of the intrahepatic ducts, common bile duct, and gallbladder. There is normal tracer transit into the duodenum. CCK stimulation: There is diminished contractile response of the gallbladder to CCK infusion. The c alculated gallbladder ejection fraction is 23.9%; normal values are above 35%. It has been shown that any patient abdominal pain after CCK administration is related to the rate of CCK injection, rather than to any underlying gallbladder disease (Clinical Nuclear Medicine 2012; 37: 63-70. Journal of Nuclear Medicine 2014; 55: 1-9). IMPRESSION: 1. Normal hepatobiliary scan. 2. Hypokinetic gallbladder with ejection fraction of 23.9% Dictated by: Ja Merino M.D. on 02/18/2017 at 16:36 Approved by: Ja Merino M.D. on 02/18/2017 at 16:38
[2017-02-18] MEDS: Pantoprazole 4 mg/mL 10 mL Inj IVPUSH SCH (16:47)
[2017-02-18] MEDS: levoFLOXacin Inj 750 MG in IV Premix 1 EACH IV SCH (17:50)
--- NOTE | 2017-02-18 17:50 | CONS ---
[address] [address] CONSULTATION REPORT PATIENT: NICOLE PEREZ : 1970 MR#: [id number] ADMIT: 02/14/2017 JOB ID: [id number] INFECTIOUS DISEASE CONSULTATION: DATE OF SERVICE: 02/18/[address] Mcclain for this timely consult. REASON FOR CONSULTATION: Possible cholecystitis. HISTORY OF PRESENT ILLNESS: The patient is a 46-year-old woman with a longstanding history of heavy alcohol consumption with resultant alcoholic cirrhosis and recurrent pancreatitis. She also has underlying history of diabetes and is known to have advanced complications of cirrhosis including a history of ascites, portal hypertension, and possible encephalopathy. The patient was admitted to this facility back on February 14 asking for help with alcohol detoxication. The patient reports she has had a lot of life stress and has been drinking alcohol very heavily for many months. She noted she was also started to have some pain on the right side of her abdomen and also noticed for the first time that she had some scleral icterus. Her last drink was in fact on February 14 before she decided to come to the emergency department and was therefore admitted. At the time she was admitted, she was afebrile and complained of some nausea, as well as some right upper quadrant and right flank pain. Since she started to withdraw and stop drinking, she has also developed quite severe headaches and diarrhea which is manmade which is iatrogenic and due to lactulose for very elevated ammonia level. During the course of her admission, there has been increasing concerns about possible cholecystitis and that is the reason ID was involved in this case. The patient states that she had quite severe right upper quadrant pain with nausea, but that this has gradually shifted and now she has pain all across her upper abdomen but is clearly worse on the left than the right the past two or three days. The patient notes this afternoon that she has continued nausea without vomiting and continues to have the lactulose induced diarrhea. The abdominal pain is moderately severe, but in spite of all this she is inquiring about dinner and wondered if she can eat as she is now hungry. She has not had fevers or chills with this process, though she does get some shaking when she withdraws from alcohol. She has considerable headache but no visual change and she often gets the headaches when she withdraws from alcohol. She denies significant sore throat, cough, chest pain, and she has had no genitourinary symptoms such as dysuria, though she has noticed her urine is unusually yellow/orange. No significant lesions on the lower extremities. PAST MEDICAL HISTORY: 1. Alcoholism with history of alcohol-withdrawal seizures and alcohol withdrawal syndrome. 2. Alcoholic liver disease. a. Ascites. b. Portal hypertension. c. Possible encephalopathy. 3. Diabetes mellitus. 4. Recurrent and now chronic pancreatitis. SOCIAL HISTORY: The patient is a heavy consumer of wine and tells us she drinks one or two of the half boxes of wine per day which is the equivalent of 6-12 glasses of wine. She does not smoke cigarettes and does not use other substances. 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 FAMILY HISTORY: Negative for tuberculosis in first and second-degree relatives. REVIEW OF SYSTEMS: The patient notes that she has considerable headache which she attributes to alcohol withdrawal. She has no visual changes. She denies sore throat, trouble swallowing, cough, shortness of breath or chest pain. She had right upper quadrant pain when she came in, but now she has generalized upper abdominal pain, perhaps worse on the left. She has considerable nausea, but in spite of that is hungry at times. No vomiting. She has diarrhea which started only after admission and the institution of lactulose. She has bright yellow urine and has some dysuria she reports, but no urgency or frequency. She denies pain in the joints. She denies weakness in the extremities. She has not had any seizures during this admission. Remainder of the review of systems negative. PHYSICAL EXAMINATION: Reveals an afebrile woman. Temperature 36.8 C. Interestingly she has been afebrile since her admission now five full days ago. Pulse 92, respiratory rate 16, blood pressure 119/74. She is saturating 100% on room air. Mental status is completely clear. She is lucid and a compelling historian. Head without trauma. Eyes with obvious scleral icterus which is immediately noticeable when one walks into the room. Nose is normal. Oral cavity: No thrush or pharyngitis. Teeth in good repair. Neck is supple. No adenopathy. Her upper anterior chest is covered with spider angiomata. She has clear lung barton. Cardiac tones regular rate and rhythm without murmurs, rubs, or gallops. She has a slightly distended and diffusely tender abdomen. It is especially tender in the upper quadrants both right and left. There is no evidence for massive ascites however, and no hepatosplenomegaly is appreciated. She does not have a Siddiqui catheter. She does not have a caput medusa. She does not have suprapubic tenderness. She does not have evidence of any synovitis or lymphadenopathy. Her skin is normal except for the appearance of the extensive spiders on her upper chest. Her feet are well perfused with good peripheral pulses. Neurologically she is intact. LABORATORY DATA: Labs include white count of 4500 with normal diff, platelets are low 48,000. Creatinine less than 0.3. Hemoglobin A1c is 5.5. Bilirubin is 7.4, direct is 4.1, GGT is pending but the AST is 144, ALT 31, alk phos 81. Ammonia level 180. Albumin 2.7. Urinalysis not done yet but we just ordered it. Alcohol level 290 on admission and it is worth noting that was done about 3 in the afternoon. Stool was without blood. Blood cultures are negative. IMAGING DATA: HIDA scan was just completed within the last hour. I have spoken personally to the radiologist about it. He calls it a normal scan with a somewhat hypokinetic gallbladder but no evidence of cholecystitis. Abdominal ultrasound shows gallbladder sludge, mildly thickened gallbladder wall. There is evidence of portal hypertension and cirrhosis and there is a minimal amount of perihepatic and perisplenic ascites. CT scan of the abdomen was also done and that shows an enlarged gallbladder with some wall thickening and trace cholecystic edema. This could be consistent with acute cholecystitis, hepatic steatosis, or alcoholic hepatitis is also noted. There are areas of colonic wall thickening as well. Also noted is edema adjacent to the tail of the pancreas which could be consistent of course with pancreatitis. The patient has a history of life-threatening ALLERGY TO PENICILLIN which apparently precipitated respiratory arrest. IMPRESSION: This unfortunate patient has advanced complications of alcoholic liver disease. She now presents with alcoholic hepatitis superimposed on her baseline cirrhosis. She has considerable abdominal pain which could be compatible with pancreatitis. Her lipase is normal but this can be seen in patients with chronic pancreatitis who continue to drink and pancreas is simply burned out and they do not produce elevated pancreatic enzymes. I doubt that the patient has cholecystitis based upon the ultrasound which showed only mild thickening of the wall and the negative HIDA scan. It is difficult to read the ultrasound or CT scans of the gallbladder in the presence of ascitic fluid and advanced liver disease as well often appear to be thickening of the wall or some minimal surrounding fluid. The patient did describe right upper quadrant pain when she came in, but since it has migrated mainly to the left which does not does not make sense. Additionally she has no fever, no leukocytosis, no elevation of the alkaline phosphatase, and her tenderness is no greater on the right than the left this afternoon. These findings combined with the HIDA scan make me doubt the diagnosis of cholecystitis. RECOMMENDATIONS: 1. Antibiotics could be continued until the MRCP is done to further help to exclude the diagnosis of cholecystitis. 2. Once cholecystitis has been conclusively ruled out, I would stop the antibiotics. Both quinolones and metronidazole on occasion can cause or worsen pancreatitis, and I do not see any reason beyond our rapidly diminishing suspicion of cholecystitis to continue these antibiotics in this woman. 3. If the various consultants feel that there is really no chance of cholecystitis and an MRCP will not be done, then I would simply stop antibiotics. This case discussed with Dr. Mcclain.
[2017-02-18 20:59] VITALS: BP 106/68; PULSE 92; RESP 16; O2SAT 96
--- NOTE | 2017-02-18 21:06 | DRSVH ---
PROCEDURE: MR ABDOMEN MRCP INDICATIONS: possible cholecystitis TECHNIQUE: Coronal HASTE through the abdomen, axial 2-D FLASH in- and [id number]-elpnd, and breath-hold T2 FSE with fat saturation through the biliary system and pancreas. Oblique coronal and axial thin-slice HASTE, radial thick-slab HASTE centered on the extrahepatic bile ducts. Intravenous secretin: Not requested. COMPARISON: [facility], NM, NM HIDA SCAN W CCK STD, 02/18/2017, 15:03. [facility], US, US ABDOMEN, 02/17/2017, 14:09. [facility], CT, CT ABD PELVIS W CON, 02/17/2017, 12:27. FINDINGS: Image quality: Partially degraded by motion artifact. Pancreas and biliary system: Intra- and extra-hepatic biliary ducts are non dilated. Pancreas is no rmal in morphology, without adjacent soft tissue edema. Pancreatic duct is normal in caliber, withou t developmental anomalies. Gallbladder wall is mildly thickened, as seen by ultrasound examination. Gallbladder sludge is present.. Other solid organs: Liver and spleen are normal in size. No adrenal nodules. Both kidneys are norm al in size, without hydronephrosis. Nodes and vessels: No retroperitoneal or mesenteric adenopathy by size criteria. Aorta and inferior vena cava are normal in size. Bowel and peritoneum: Unenhanced bowel loops are normal in caliber. There is a small amount of ascit es. Lung bases: No basal pleural effusions. Heart size is normal. Bones and soft tissues: No ventral hernias. Bone marrow is of normal overall signal. IMPRESSION: 1. Mild gallbladder wall thickening and gallbladder sludge. However, HIDA scan from same day is not c onsistent with acute cholecystitis. Thus, this may be secondary to portal hypertension. 2. Small amount of ascites. 3. No biliary ductal dilatation. Dictated by: Favian Armstrong M.D. on 02/18/2017 at 21:00 Approved by: Favian Armstrong M.D. on 02/18/2017 at 21:04
[2017-02-19] MEDS: Ondansetron 2 mg/mL 2 mL Inj IVPUSH PRN ×4 (01:54→23:03)
[2017-02-19] MEDS: metroNIDAZOLE Inj 500 MG in IV Premix 1 EACH IV SCH (04:35)
[2017-02-19 05:57] LABS: BASOPHILS % (AUTO) 0.3 % (0-3); EOSINOPHILS % (AUTO) 1.5 % (0-5); Mean Corpuscular Hemoglobin 36.5 pg (27.0-35.0); Mean Corpuscular Volume 105.9 fL (81-100); NEUTROPHILS % (AUTO) 49.4 % (40-74); Platelet Count 50 bil/L (150-400)
[2017-02-19] MEDS: 0.9% Sodium Chloride 1,000 ML IV SCH ×3 (06:04→23:16)
[2017-02-19 06:25] LABS: Bilirubin, Direct 3.4 mg/dL (0.0-0.3); Magnesium 1.3 mg/dL (1.6-2.6)
[2017-02-19 06:42] VITALS: BP 103/67; PULSE 91; RESP 18; O2SAT 95
[2017-02-19] MEDS: Insulin LISPRO 300 Unit/3 mL Inj SUBQ SCH ×4 (08:00→23:15)
[2017-02-19] MEDS ORDERED: metroNIDAZOLE Inj 500 MG in IV Premix 1 EACH IV SCH (08:05)
[2017-02-19] MEDS ORDERED: levoFLOXacin Inj 750 MG in IV Premix 1 EACH IV SCH (08:30)
[2017-02-19] MEDS: Pantoprazole 4 mg/mL 10 mL Inj IVPUSH SCH ×2 (08:42→17:28)
[2017-02-19] MEDS: Lactulose 20 Gm/30 mL 30 mL Syrup PO SCH ×3 (08:42→20:16)
--- NOTE | 2017-02-19 10:16 | PCM.PNMED ---
Subjective Date of Service February 19, 2017 Subjective Patient feels more awake alert. She felt better so she decided some makeup on. However she is still complaining of postprandial abdominal pain. Exam Vital Signs Vital Sign - Last Date Time Temp Pulse Resp B/P Pulse Ox O2 Delivery O2 Flow Rate FiO2 02/19/17 06:42 36.9 91 18 103/67 95 Room Air Intake and Output 02/18/17 02/18/17 02/19/17 Cumulative From/Thru 15:00 23:00 07:00 02/14/17 14:40 - 02/18/17 18:23 Intake Total 1019 ml 65684 ml Output Total 3658 ml Balance 1019 ml 46334 ml Intake Oral 640 ml 5120 ml IV Total 379 ml 8724 ml Output Urine Total 3650 ml Urine/Stool Mix 8 ml # Voids 6 14 # Bowel Movements 8 9 Exam The patient is alert and oriented comfortable. Head and Neck icterus Lungs clear Cardiovascular regular rate and rhythm with normal S1-S2 Abdomen soft abdominal tenderness in the upper quadrant mostly on the right. Positive Odom sign. Nondistended with normoactive bowel sounds. No guarding rebound or firmness. Skin shows jaundice Lab and Diagnostics Result Diagram: 02/19/17 0535 02/19/17 0535 Assessment & Plan 46-year-old female with alcohol abuse, liver dysfunction, and biliary dyskinesia. From blood work patient seems to be stabilizing and LFTs.46-year- old female with alcohol abuse, liver dysfunction, and acute cholecystitis. From blood work patient seems to be stabilizing and LFTs and total bilirubin improving. Hida scan reviewed. Low EF. MRCP was also unremarkable. EGD recommended but again agreed to think about it.She wants to speak with the surgeon first. She should have US guided tap of the fluid collection. She again declined but agreed to think about it. Actually I am not sure if there is enough fluids to tap. If she agrees, then we can formally request tap to the radiologist. Patient will remain on antibiotics per hospitalist. We will continue to follow this patient. LFTs and bilirubin improving; total bili 7.4-6.1. AST 129 ALT 29. Hemoglobin 9.3 this morning GGT elevated which could be due to the alcohol. At this point because the gallbladder filled, its reassuring. We will await her decision about the EGD and possible ascites tap if possible. If you agree to the we will proceed and if she agrees to the ascites tap, please send a formal requests for ascites test. Again I am having bouts whether or not this is tap or not. But we should formally ask the radiologist. Finally if she has persistent diarrhea decreased the lactulose by another half and continue rifaximin 550 twice a day. She has no asterixis on today's examination. GI Prophylaxis: Not indicated VTE Prophylaxis: Other (patient will be ambulating routinely) VTE Mechanical Devices: Intermittant Pneumatic CD Resuscitation Status: CPR: Attempt Resuscitation Dylan Smith MD February 19, 2017 10:16
--- NOTE | 2017-02-19 11:05 | PCM.PNMED ---
Subjective Date of Service February 19, 2017 Subjective Patient stable overnight. She denies fever chills. No chest pains or shortness of breath. Appetite actually somewhat improved, is to eat broccoli and potatoes last night with dinner, first FOOD IN SOME TIME. Still having a significant amount of abdominal discomfort pain approximately 5-10 in severity. Denies any nausea or vomiting however. Some loose stools. Exam Vital Signs Vital Sign - Last Date Time Temp Pulse Resp B/P Pulse Ox O2 Delivery O2 Flow Rate FiO2 02/19/17 06:42 36.9 91 18 103/67 95 Room Air Intake and Output 02/18/17 02/18/17 02/19/17 Cumulative From/Thru 15:00 23:00 07:00 02/14/17 14:40 - 02/18/17 18:23 Intake Total 1019 ml 43525 ml Output Total 3658 ml Balance 1019 ml 54517 ml Intake Oral 640 ml 5120 ml IV Total 379 ml 8724 ml Output Urine Total 3650 ml Urine/Stool Mix 8 ml # Voids 6 14 # Bowel Movements 8 9 Exam General: Alert, Oriented X3, Cooperative, Moderate Distress HEENT: Scleral icterus still present. Chest & Lungs: Clear to auscultation & percussion Cardiovascular: Regular Rate/Rhythm Abdomen: Tender, mildly distended, No guarding. Positive bowel sounds. No overt organomegaly. Neurological: Grossly Neurologically Intact IVs and Medications Medications Reviewed: Medications were reviewed in detail Lab and Diagnostics Result Diagram: 02/19/17 0535 02/19/17 0535 Assessment & Plan Patient is a 46-year-old female past medical history significant for alcohol dependence and mood disorder presenting following alcohol relapses desire to quit, admitted for medical detoxification at this time. #Abdominal pain - This diagnosis is unclear . CT scan initially suggestive of cholecystitis however all additional studies have not supported this diagnosis . - Patient remains afebrile , without leukocytosis , nontoxic appearance , with persistent abdominal pain . -That has finally been advanced however which is encouraging, though typically abdominal pain has been worsened with eating. - Continue close observation, consider further evaluation pending blood cultures and patient condition. #. Hyperbilirubinemia - Likely a toxic effect of alcohol liver leading to impaired functioning. Patient's underlying chronic liver disease may also be playing a role. - Based on direct bilirubin levels this appears to be an obstructive type of hyperbilirubinemia, the source of impaired clearance is not yet clear - Condition is finally improving with alcohol cessation and hydration. Total and direct bilirubin are now downward trending - Scleral icterus is still present - Continue to trend, hydrate aggressively -HIDA scan demonstrated delayed but sufficient gallbladder emptying, MRCP showed no evidence of acute infection or obstruction. #. Transaminitis with chronic liver disease/( - As noted in problem 1, weight effect of a toxicity of alcohol and liver cells , as indicated by a more significant elevation in AST - Numbers appear to have stabilized, continue to slowly downward trend - So certainly an acute on chronic process as indicated by impaired clotting function. Continue to monitor closely, the assistance of GI consult. #Gram-positive bacteremia - Possible contaminant does not fit with diagnosis of cholecystitis or other GI pathology - Waiting speciation have obtained an additional 2 sets of blood cultures - Discontinue Levaquin and metronidazole this time is GI infection appears less likely based on follow-up imaging studies - Consider initiation of a gram positive antibiotic should patient demonstrates symptoms of infection, or repeat blood cultures support diagnosis of a true gram -positive bacteremia #. Alcohol dependence/all withdrawal syndrome - Patient will be considered intermediate to high risk based on her past history of alcohol withdrawal seizures, addition to chronicity and quantity of volume drank over past many months. - Patient will be placed on CIWA protocol without standing Valium at this time though that may be considered if withdrawal symptoms become more severe - Given difficulties of by mouth intake we will continue intravenous fluid therapy at 75 mL to help supplement oral hydration - Given negative scoring patient be discontinued and she will protocol. Also she has demonstrated reassuring heart rhythms and we will discontinue telemetry. - Acute risk of withdrawal seems to have resolved, she will certainly require continued behavioral support and therapy occasion long-term cessation of alcohol use. #. Mood disorder - Patient should of course consider outpatient therapy for long-term treatment of substance dependence in addition to depression and anxiety conditions/ - We will continue home Celexa. #. Hypomagnesemia - We will replete IV this morning and then continue oral supplementation - Anticipate improved levels with increased by mouth intake. #. Hypokalemia - Again we will replete orally at this time - Hoping for improvement with increased by mouth intake. Pain Evaluation: Adequate Pain Control GI Prophylaxis: Not indicated VTE Prophylaxis: Other (patient will be ambulating routinely) VTE Mechanical Devices: Intermittant Pneumatic CD Resuscitation Status: CPR: Attempt Resuscitation Time spent 30 minutes Nain Mcclain DO February 19, 2017 11:05
[2017-02-19 20:15] VITALS: BP_SYST 102; BP_DIAS 4; BP_DIAS 64; PULSE 81; RESP 16; O2SAT 98
[2017-02-20] MEDS: Ondansetron 2 mg/mL 2 mL Inj IVPUSH PRN (04:16)
[2017-02-20 05:35] VITALS: BP 117/76; PULSE 89; RESP 16; O2SAT 96
[2017-02-20 05:57] LABS: APPEARANCE,URINE CLEAR (CLEAR,HAZY); COLOR,URINE DARK YELLOW (YELLOW); OCCULT BLOOD,URINE NEGATIVE (NEGATIVE); UROBILINOGEN,URINE NORMAL (NORMAL)
[2017-02-20 05:58] LABS: ICTOTEST,URINE POSITIVE (Negative)
[2017-02-20 06:28] LABS: BASOPHILS % (AUTO) 0.3 % (0-3); EOSINOPHILS % (AUTO) 1.9 % (0-5); MONOCYTES % (AUTO) 13.5 % (4-12); Mean Corpuscular Hemoglobin 36.2 pg (27.0-35.0); Mean Corpuscular Volume 107.1 fL (81-100); Platelet Count 51 bil/L (150-400)
[2017-02-20 07:51] LABS: Magnesium 1.2 mg/dL (1.6-2.6)
[2017-02-20] MEDS ORDERED: Magnesium Sulf 4 Gm/100 mL H2O 4 GM in IV Premix 1 EACH IV ONE (08:05)
[2017-02-20] MEDS ORDERED: KCl 40 mEq/D5W 500 mL 40 MEQ in IV Premix 1 EACH IV ONE (08:05)
--- NOTE | 2017-02-20 08:08 | PCM.PNMED ---
Subjective Date of Service February 20, 2017 Subjective Pt still endorsing some abdominal pains, worsening with eating in addition to abdominal bloating, which is not better, perhaps a little worse. She has been eating a little more at least. Denies fever/chills. Denies shortness of breath or chest pains. NO other acute complaints. Hopeful to go home, but understanding of need for more time. On IVFs overnight, but states she is drinking/eating a good amount more in addition. Exam Vital Signs Vital Sign - Last Date Time Temp Pulse Resp B/P Pulse Ox O2 Delivery O2 Flow Rate FiO2 02/20/17 05:35 37.2 89 16 117/76 96 Room Air Intake and Output 02/19/17 02/19/17 02/20/17 Cumulative From/Thru 15:00 23:00 07:00 02/14/17 14:40 - 02/20/17 05:35 Intake Total 236 ml 1072 ml 1001 ml 87849 ml Output Total 1500 ml 450 ml 1200 ml 6808 ml Balance -1264 ml 622 ml -199 ml 9345 ml Intake Oral 236 ml 1072 ml 200 ml 6628 ml IV Total 801 ml 9525 ml Output Urine Total 850 ml 500 ml 5000 ml Stool Total 200 ml 200 ml Urine/Stool Mix 650 ml 450 ml 500 ml 1608 ml # Voids 3 17 # Bowel Movements 1 10 General: Alert, Oriented X3, Cooperative, No Acute Distress Eyes: PERRLA, Scleral Icterus Mouth: Mucous Membr Moist/[place] Cardiovascular: Regular Rate/Rhythm Abdomen: Tender, Distended, Other (B/L upper quadrants tender, without overt organomegally. (+)BS) Extremities: No cyanosis/clubbing/edma bilat Neurological: Grossly Neurologically Intact IVs and Medications Medications Reviewed: Medications were reviewed in detail Lab and Diagnostics Result Diagram: 02/20/1710 02/20/1710 Assessment & Plan Patient is a 46-year-old female past medical history significant for alcohol dependence and mood disorder presenting following alcohol relapses desire to quit, admitted for medical detoxification at this time. #Abdominal pain - This diagnosis is unclear . CT scan initially suggestive of cholecystitis however all additional studies have not supported this diagnosis . - Patient remains afebrile , without leukocytosis , nontoxic appearance , with persistent abdominal pain . -That has finally been advanced however which is encouraging, though typically abdominal pain has been worsened with eating. - Continue close observation, consider further evaluation pending blood cultures (inital samples show likely contaminant) and patient condition. #. Hyperbilirubinemia - Likely a toxic effect of alcohol liver leading to impaired functioning. Patient's underlying chronic liver disease may also be playing a role. - Based on direct bilirubin levels this appears to be an obstructive type of hyperbilirubinemia, the source of impaired clearance is not yet clear - Condition is finally improving with alcohol cessation and hydration. Total and direct bilirubin are continuing to be downward trending - Scleral icterus is still present but improved, lesser degree than previous. - Continue to trend, hydrate aggressively. -HIDA scan demonstrated delayed but sufficient gallbladder emptying, MRCP showed no evidence of acute infection or obstruction. #. Transaminitis with chronic liver disease/( - As noted in problem 1, effect of a toxicity of alcohol and liver cells as indicated by a more significant elevation in AST - Numbers appear to have stabilized, continue to slowly downward trend, now ALT normal. - So certainly an acute on chronic process as indicated by impaired clotting function. Continue to monitor closely, the assistance of GI consult. #Gram-positive bacteremia - Possible contaminant does not fit with diagnosis of cholecystitis or other GI pathology - Waiting speciation have obtained an additional 2 sets of blood cultures - Discontinue Levaquin and metronidazole discontinued - Consider initiation of a gram positive antibiotic should patient demonstrates symptoms of infection, or repeat blood cultures support diagnosis of a true gram -positive bacteremia #. Alcohol dependence/all withdrawal syndrome - Patient will be considered intermediate to high risk based on her past history of alcohol withdrawal seizures, addition to chronicity and quantity of volume drank over past many months. - Patient will be placed on CIWA protocol without standing Valium at this time though that may be considered if withdrawal symptoms become more severe - Given difficulties of by mouth intake we will continue intravenous fluid therapy at 75 mL to help supplement oral hydration - Given negative scoring patient be discontinued and she will protocol. Also she has demonstrated reassuring heart rhythms and we will discontinue telemetry. - Acute risk of withdrawal seems to have resolved, she will certainly require continued behavioral support and therapy occasion long-term cessation of alcohol use. #. Mood disorder - Patient should of course consider outpatient therapy for long-term treatment of substance dependence in addition to depression and anxiety conditions/ - We will continue home Celexa. #. Hypomagnesemia - We will replete IV this morning and then continue oral supplementation - Anticipate improved levels with increased by mouth intake. #. Hypokalemia - Again we will replete orally at this time follow IV infusion. - Also anticipating improvement with increased by mouth intake. Pain Evaluation: Adequate Pain Control GI Prophylaxis: Not indicated VTE Prophylaxis: Other (patient will be ambulating routinely) VTE Mechanical Devices: Intermittant Pneumatic CD Resuscitation Status: CPR: Attempt Resuscitation Time spent 30 minutes Nain Mcclain DO February 20, 2017 08:08
[2017-02-20] MEDS: Potassium Chloride 20 mEq SR Tablet PO SCH (08:22)
[2017-02-20] MEDS: Lactulose 20 Gm/30 mL 30 mL Syrup PO SCH ×3 (08:23→19:47)
[2017-02-20] MEDS: Pantoprazole 4 mg/mL 10 mL Inj IVPUSH SCH ×2 (08:23→17:32)
[2017-02-20] MEDS: Insulin LISPRO 300 Unit/3 mL Inj SUBQ SCH ×4 (08:24→22:14)
--- NOTE | 2017-02-20 10:08 | PCM.PNMED ---
Subjective Date of Service February 20, 2017 Subjective Overnight patient did well. Still having some abdominal pain but overall mood and general wellness are improved. Patient still going back and forth about whether or not she wants EGD or fluid sampling by radiology. Exam Vital Signs Vital Sign - Last Date Time Temp Pulse Resp B/P Pulse Ox O2 Delivery O2 Flow Rate FiO2 02/20/17 05:35 37.2 89 16 117/76 96 Room Air Intake and Output 02/19/17 02/19/17 02/20/17 Cumulative From/Thru 15:00 23:00 07:00 02/14/17 14:40 - 02/20/17 05:35 Intake Total 236 ml 1072 ml 1001 ml 73439 ml Output Total 1500 ml 450 ml 1200 ml 6808 ml Balance -1264 ml 622 ml -199 ml 9345 ml Intake Oral 236 ml 1072 ml 200 ml 6628 ml IV Total 801 ml 9525 ml Output Urine Total 850 ml 500 ml 5000 ml Stool Total 200 ml 200 ml Urine/Stool Mix 650 ml 450 ml 500 ml 1608 ml # Voids 3 17 # Bowel Movements 1 10 Exam Gen.: The patient is alert and oriented comfortable. HEENT: Head and Neck icterus Respiratory: CTA bilaterally Cardio: Regular rate and rhythm Abdomen: soft; Positive Odom sign. Nondistended with normoactive bowel sounds. No guarding rebound or firmness. Skin: shows jaundice Psych: Patient appears more clear in mentation IVs and Medications Medications Reviewed: Medications were reviewed in detail Lab and Diagnostics Result Diagram: 02/20/17 0610 02/20/17 0610 Assessment & Plan Assessment/plan 46-year-old female with alcoholic hepatitis and gallbladder dyskinesia who is improving daily. Current LFTs and bilirubin are improving and/or normal. Recommendations are for the patient to undergo EGD to rule out possible gastric or duodenal causes to her postprandial nausea and abd pain and possible diagnostic tap of the fluids around the gallbladder if radiology can obtain the fluids. This been discussed with the patient 3 different occasions in the last 3 days and she remains on the fence, with requesting a second opinion from other doctors including the hospitalist. Patient continues to fluctuate on whether or not she actually wants to move forward with recommendations. At this time we will sign off. Should the patient decided she was not EGD please contact us or reconsult. I saw and examine the patient with the resident and agree with above. Thank you for allowing us participate in the care of this patient GI Prophylaxis: Not indicated VTE Prophylaxis: Other (patient will be ambulating routinely) VTE Mechanical Devices: Intermittant Pneumatic CD Resuscitation Status: CPR: Attempt Resuscitation Arnav Stark DO February 20, 2017 10:07 Dylan Smith MD February 20, 2017 13:57
[2017-02-20 15:01] VITALS: BP 108/70; PULSE 83; RESP 16; O2SAT 95
[2017-02-20 20:34] VITALS: BP 112/74; PULSE 83; RESP 16; O2SAT 99
[2017-02-21] VITALS (7 sets, daily range): BP systolic 88–107; BP diastolic 54–72; PULSE 74–86; RESP 16–18; O2SAT 94–99
[2017-02-21 06:05] LABS: BASOPHILS % (AUTO) 0.6 % (0-3); EOSINOPHILS % (AUTO) 1.7 % (0-5); MONOCYTES % (AUTO) 15.7 % (4-12); Mean Corpuscular Hemoglobin 36.4 pg (27.0-35.0); Mean Corpuscular Volume 107.7 fL (81-100); NEUTROPHILS % (AUTO) 43.4 % (40-74); Platelet Count 58 bil/L (150-400)
[2017-02-21 06:32] LABS: Magnesium 1.5 mg/dL (1.6-2.6)
[2017-02-21] MEDS ORDERED: Magnesium Sulf 4 Gm/100 mL H2O 4 GM in IV Premix 1 EACH IV ONE (07:20)
[2017-02-21] MEDS ORDERED: Potassium Chloride 20 mEq SR Tablet PO ONE (07:20)
[2017-02-21] MEDS ORDERED: KCl 40 mEq/D5W 500 mL 40 MEQ in IV Premix 1 EACH IV ONE (07:20)
[2017-02-21] MEDS: Pantoprazole 4 mg/mL 10 mL Inj IVPUSH SCH ×2 (07:59→17:09)
[2017-02-21] MEDS: Insulin LISPRO 300 Unit/3 mL Inj SUBQ SCH ×4 (08:00→22:00)
[2017-02-21] MEDS: Potassium Chloride 20 mEq SR Tablet PO SCH (08:00)
[2017-02-21] MEDS ORDERED: Propofol 10,000 mCg/mL 20 mL Inj ONE (08:11)
[2017-02-21] MEDS ORDERED: fentaNYL-PF 50 mCg/mL 2 mL Inj ONE (08:11)
[2017-02-21] MEDS ORDERED: Ketamine 10 mg/mL 20 mL Inj ONE (08:11)
[2017-02-21] MEDS: Lactulose 20 Gm/30 mL 30 mL Syrup PO SCH ×3 (08:30→20:30)
[2017-02-21] MEDS: Ondansetron 2 mg/mL 2 mL Inj IVPUSH PRN ×2 (11:24→19:04)
[2017-02-21] MEDS: Lactated Ringer's 1,000 ML IV SCH ×2 (13:36→15:44)
[2017-02-21] MEDS ORDERED: Lactated Ringer's 500 ML IV PRN (13:36)
[2017-02-21] MEDS ORDERED: Phenylephrine 10,000 mCg/mL Inj IVPUSH PRN (13:40)
[2017-02-21] MEDS ORDERED: hydrALAZINE 20 mg/mL Inj IVPUSH PRN (13:40)
[2017-02-21] MEDS ORDERED: Labetalol 5 mg/mL 4 mL Inj IV PRN (13:40)
[2017-02-21] MEDS ORDERED: EPHEDrine Sulfate 50 mg/mL Inj IVPUSH PRN (13:40)
[2017-02-21] MEDS ORDERED: Ondansetron 2 mg/mL 2 mL Inj IVPUSH PRN (13:40)
[2017-02-21] MEDS ORDERED: MetoCLOpramide 5 mg/mL 2 mL Inj IVPUSH PRN (13:40)
[2017-02-21] MEDS ORDERED: Dexamethasone 4 mg/mL Inj IVPUSH PRN (13:40)
[2017-02-21] MEDS ORDERED: fentaNYL-PF 50 mCg/mL 2 mL Inj IVPUSH PRN (13:40)
[2017-02-21] MEDS ORDERED: HYDROmorphone 1 mg/mL Inj IVPUSH PRN (13:40)
--- NOTE | 2017-02-21 15:32 | PCM.HPANE ---
Patient Data Date of Service: February 21, 2017 Surgeon Admitting Provider:Nain Mcclain DO Attending Provider:Nain Mcclain DO Primary Care Physician:Rito Thorne MD Other Provider: Reason for Visit Acute Liver Failure,Hypomagnesemia,Alcohol Abuse ACUTE LIVER FAILURE,HYPOMAGNESEMIA,ALCOHOL ABUSE Ht/WT & BMI Height (Feet): 5 Height (Inches): 7.00 Weight (Kilograms): 64.600 Body Mass Index 22.00 Allergies Coded Allergies: Penicillins (Verified Allergy, Unknown, 01/05/17) codeine (Verified Allergy, Unknown, Rash,Itching,, 01/05/17) Past Anesthesia History Anesthesia History: Denies:: Anesthesia Reactions Diabetes History Hx Diabetes?: Yes Current Bedside Blood Glucose: 139 MRSA MRSA: No Medications Active Scripts Chlordiazepoxide 25 Mg [id number] Mg PO TID #40 CAPSULE Prov:Chirag Dey MD 12/29/16 Clonidine (Catapres)0.1 Mg Tablet0.1 Mg PO BID #30 TABLET Prov:Chirag Dey MD 12/29/16 Vit#96/Ferrous Fum/FA ( Tablet)1 Each Tablet1 Tablet PO DAILY # 90 TABLET Prov:Chirag Dey MD 12/29/16 Clotrimazole/Betamethasone Dip (Lotrisone)15 Gm Cream..g.1 Applic TOPICAL BID rash #30 GM Prov:Chirag Dey MD 12/29/16 Hydroxyzine Pamoate (HydrOXYzine Pamoate)25 Mg [id number] Mg PO TID PRN For Itching #90 CAPSULE Prov:Chirag Dey MD 12/29/16 Gabapentin (Neurontin)300 Mg [id number] Mg PO TID PRN For Anxiety #90 CAPSULE Ref 3 Prov:Chirag Dey MD 12/29/16 Citalopram Hydrobromide (Celexa)20 Mg Cbuyfr43 Mg PO DAILY #90 TABLET Ref 3 Prov:Chirag Dey MD 12/29/16 Reported Medications Cyanocobalamin (Vitamin B12)500 Mcg Tablet1,000 Mcg PO DAILY 02/14/17 Discontinued Reported Medications Milk Thistle Seed Extract (Milk Thistle)140 Mg [id number] Mg PO DAILY 12/28/16 Discontinued Scripts [Thiamine] (Vitamin B1)100 MG TABLET No Conflict Efqnh495 Mg PO DAILY #90 Prov:Chirag Dey MD 12/29/16 History History of ENT Problems?: No HEENT History: Denies:: Cataracts Dysphagia Sinus Problem Denture Type: None Teeth Condition: Within Normal Limits Hx of Heart Problems?: Yes Cardiovascular History: Positive for:: Irregular Heartbeat (palpitations with detox) Denies:: AICD Cardiac Surgery Chest Pain Congestive Heart Failure Edema Heart Murmur Hypertension Pacemaker Thrombophlebitis Valvular Heart Disease Hx of Respiratory Problem?: No Respiratory History: Positive for:: Asthma ("as a child") Denies:: COPD Chest Surgery Dyspnea Emphysema Hemoptysis Pneumonia Tuberculosis Hx Neurologic Problems?: Yes Neurological History: Positive for:: Dizziness (with detox) Headaches Seizures (from alcohol withdrawal.) Denies:: Alzheimer's Disease CVA Dementia Parkinson's Disease Hx of GI Problems?: Yes Gastrointestinal History: Positive for:: Cirrhosis Other GI Pertinent History: liver cirrhosis and pancreatitis Hx of Problems?: No Genitourinary History: Positive for:: Kidney Stones Urinary Tract Infection Denies:: HX of Hemodialysis HX of Peritoneal Dialysis: No Female Hx: Denies:: Currently Endometriosis Pelvic Inflammatory Problems with Breasts? Hx Musculoskeletal Problems?: No Musculoskeletal History: Denies:: Back Injury Joint Replacement Musculoskeletal Trauma Hx of Psycho/Social Problems?: Yes Psycho Social History: Positive for:: Anxiety (worried about ex boyfriend) Hx Depression Denies:: Bipolar Disorder Suicide Attempt Hx Surgeries?: No (OVARIAN CYST and breast implants) Hx Any Other Health Problems?: No Other History: Positive for:: Endocrine Disease Hospitalization Denies:: Cancer Thyroid Disease History Blood Transfusions: Positive for:: Accept Blood Products? Denies:: Blood Transfuse Reaction Blood Transfusions Hx Diabetes: YesBedside Blood Glucose: 139 Hx Alcohol Use: Yes (6 glasses of wine daily)Alcoholic Drinks Per Day: date of admission Hx Substance Use: No Smoking Status: Never Smoker Have You Smoked inLast 12 mo: No Stop/Bang Treated for Sleep Apnea?: No Do You Have a CPAP Machine?: No S-Snoring: Do You Snore Loudly: No T-Tired: feel tired, fatigued: No O-Obsered: Observed not breath: No P-Blood Pressure: treated: No B- Body Mass Index > 35 kg/m2: No A- Age over 50: No N- Neck Large Circumference: No G- Gender Male: No MANOLO Total Score: 0 MANOLO Risk Assessment: Low Risk, <3 Yes Risk Assessment Category Category 1A: Patient has history of documented sleep apnea, and HAS NOT received any narcotic, sedative or anesthesia administration during this stay. Category 1B: Patient has history of documented sleep apnea, and HAS received any narcotic , sedative or anesthesia administration during this stay Category 2: Patient has SUSPECTED Obstructive Sleep Apnea, and HAS received any narcotic , sedative or anesthesia administration during this stay. Category 3: Patient has SUSPECTED Obstructive Sleep Apnea and HAS NOT received narcotic, sedative or anesthesia administration during this stay. Category 4: Outpatient in Procedural Areas with known sleep apnea or who screen positive for High Risk via the STOP/BANG questionnaire. Exam Exam Vital Signs Vital Signs Date Time Temp Pulse Resp B/P Pulse Ox O2 Delivery O2 Flow Rate FiO2 02/21/17 15:24 36.9 77 16 99/63 98 Room Air 02/21/17 14:24 36.8 79 18 107/72 97 Room Air General Appearance: Alert, Oriented X3, Cooperative, No Acute Distress HEENT/AIRWAY: MP 2 Lungs: Clear to Auscultation, Normal Air Movement Heart: Exam Unremarkable, Regular Rate/Rhythm, No Murmurs/Rubs/Gallops Meds/Labs/Diagnostics Admission Meds Current Medications Potassium Chloride In D5W 40 meq/Premix 500 ml @ 125 mls/hr Q4H ONCE IV Last administered on 02/21/17 08:00; Start 02/21/17 at 07:20; Stop 02/21/17 at 11:19; Status DC Magnesium Sulfate/ Premix (Magnesium Sulf 4 Gm/100 mL H2O/ IV Premix) 100 ml @ 33.333 mls/ hr ONCE ONCE IV Last administered on 02/21/17 07:59; Start at 07:20; Stop 02/21/17 at 10:19; Status DC Bedside Blood Glucose: 139 Labs Test 02/14/17 15:43 02/14/17 16:00 02/17/17 06:01 02/18/17 14:15 Prothrombin Time 16.2sec (8.1-12.5) Prothromb Time International Ratio 1.50ratio Activated Partial Thromboplast Time 34.1sec (22.8-33.0) Hemoglobin A1c 5.5% (4.8-5.6) Alcohols 290mg/dL (0-10) Hold Urine Received (Received) Lipase 10U/L (13-60) Vitamin B12 Level 1376pg/mL (211-946) Folate 9.1ng/mL (>3.0) HCG Beta Subunit < 0.500mIU/mL Gamma Glutamyl Transpeptidase 313IU/L (0-60) Test 02/20/17 05:35 02/20/17 06:10 02/21/17 05:55 Urine Color Dark yellow (YELLOW) Urine Appearance Clear (CLEAR,HAZY) Urine pH 6.0 (5.0-8.0) Urine Specific Melvin 1.008 (1.003-1.035) Urine Protein Negativemg/dL (NEG,TRACE) Urine Glucose (UA) Negativemg/dL (NEGATIVE) Urine Ketones Negativemg/dL (NEGATIVE) Urine Occult Blood Negative (NEGATIVE) Urine Nitrite Negative (NEGATIVE) Urine Bilirubin Moderate (NEGATIVE) Urine Ictotest Positive (Negative) Urine Urobilinogen Normalmg/dL (NORMAL) Urine Leukocyte Esterase Negative (NEGATIVE) Urine RBC 0-2/hpf (0-2) Urine WBC 0-5/hpf (0-5) Urine Epithelial Cells Moderate/hpf (NONE-MOD) Urine Crystals None seen (NONE SEEN) Urine Bacteria None/hpf (NONE-FEW) Urine Hyaline Casts None/lpf (NONE) Urine Granular Casts None seen (NONE SEEN) Urine Waxy Casts None seen (NONE SEEN) Urine Red Blood Cell Casts None seen (NONE SEEN) Urine White Blood Cell Casts None seen (NONE SEEN) Urine Mucus None seen (None Seen) Urine Trichomonas None seen (NONE SEEN) Urine Yeast None (NONE SEEN) Urine Culture Reflexed Not indicated Direct Bilirubin 3.0mg/dL (0.0-0.3) Ammonia 113ug/dL (18-53) White Blood Count 3.5th/mm3 (3.8-10.1) Red Blood Count 2.61mil/mm3 (3.90-5.20) Hemoglobin 9.5g/dL (12.0-15.6) Hematocrit 28.1% (35.0-46.0) Mean Corpuscular Volume 107.7fL (81-100) Mean Corpuscular Hemoglobin 36.4pg (27.0-35.0) Mean Corpuscular Hemoglobin Concent 33.8% (32.0-37.0) Red Cell Distribution Width 19.8% (12.3-15.4) Platelet Count 58bil/L (150-400) Neutrophils (%) (Auto) 43.4% (40-74) Lymphocytes (%) (Auto) 38.3% (14-46) Monocytes (%) (Auto) 15.7% (4-12) Eosinophils (%) (Auto) 1.7% (0-5) Basophils (%) (Auto) 0.6% (0-3) Sodium Level 139mEq/L (134-144) Potassium Level 3.2mEq/L (3.5-5.2) Chloride Level 103mEq/L (97-108) Carbon Dioxide Level 25mmol/L (18-29) Blood Urea Nitrogen 2mg/dL (6-24) Creatinine < 0.30mg/dL (0.57-1.00) Estimat Glomerular Filtration Rate mL/min (>59) Glucose Level 124mg/dL (60-99) Calcium Level 8.0mg/dL (8.5-10.1) Magnesium Level 1.5mg/dL (1.6-2.6) Total Bilirubin 4.7mg/dL (0.0-1.2) Aspartate Amino Transf (AST/SGOT) 99U/L (0-50) Alanine Aminotransferase (ALT/SGPT) 24U/L (0-32) Alkaline Phosphatase 76U/L (25-150) Total Protein 5.6g/dL (6.4-8.4) Albumin 2.6g/dL (3.4-5.0) Plan Impression Patient chart reviewed, patient interviewed and anesthestic plan with risks, benefits, and alternatives discussed, and informed consent obtained. NPO per Anesth. Guidelines: Yes ASA Physical Status: ASA2 Mod Systemic Disease Anesthetic Plan: GA Bene/Risks/Altern/Consents: Yes HP Complete Prior to Induction: Yes Clay Osullivan MD February 21, 2017 15:32
--- NOTE | 2017-02-21 15:56 | PCM.ENDEGD ---
EGD Date of Service: February 21, 2017 Physician Nain Mcclain DO Pre Procedure Diagnosis: Abdominal pain Post Procedure Dx & Findings: Gastritis gastric erosions and healing ulcers Procedure Esophagogastroduodenoscopy PROCEDURE IN DETAIL: After proper sedation, Olympus video endoscope was inserted into patient's mouth and esophagus was successfully intubated. Scope introduced esophagus. Esophagus showed normal shiny whitish mucosa consistent with squamous cell component. Z line was intact at 40 cm from the incisors. Scope advanced to the stomach. Cardia and fundus as well as the body of the stomach showed snakeskin pattern consistent with portal hypertensive gastropathy. The antrum, multiple erosions and clean base as well as healing ulcers noted. There was also surrounding inflammation consistent with gastritis. Several biopsies obtained at the erosion gastritis and healing ulcer. Cardia fundus body antrum pylorus were all visualized. Retroflexion was done. Stomach was easily inflated and deflatable using air. Scope further events to the distal duodenum. Duodenum revealed normal villous structures with normal appearing folds without any mass ulcer erosion. Impression Gastritis gastric erosion and healing gastric ulcer Recommendation Carafate 10 mL by mouth 3 times a day Prilosec 20 mg twice a day Discontinue The IV Protonix Advance diet as tolerated Consider CT or ultrasound-guided tap of the fluid in the abdomen if tapable and sent for cell count with differential as well as culture as well as the albumin and total protein level. Presedation Assessment Risks and Benefits Informed consent was obtained from the patient after all risks and benefits including but not limited to drug reaction, infection, pain, bleeding, perforation, as well as alternatives were discussed. Patient monitoring Continuous pulse oximetry, cardiac monitoring, blood pressure monitoring, IV access, and oxygen at 2L per nasal cannula. Complications There were no periprocedural complications identified. Post Procedure Plan Post Procedure Recommendations 1. Restrict activities today. 2. Resume normal activities in the morning. 3. Resume medications. 4. GERD behavioral modification: - Avoid fatty, acidic, spicy, large meals - Do not lie down after meals - Do not eat or drink anything for at least 2 1/2 hours before going to bed at night - Discontinue tobacco and alcohol - Decrease or avoid caffeine - Avoid chocolate and mints - Decrease weight - Avoid aspirin and non steroidal anti-inflammatory agents (NSAID) such as Aleve, Advil, Mobic, Naproxen, Ibuprofen, etc 5. Add proton pump inhibitor. Take 30 minutes before 1st meal of the day. 6. Patient informed of normal post procedure side effects as bloating, drowsiness, blood streaking in the stool 7. If gastric biopsy reveal H.pylori, continue with appropriate treatment 8. If small bowel biopsy reveals celiac, continue with appropriate treatment 9. Please don't hesitate to call me with any questions Dylan Smith MD February 21, 2017 15:56
--- NOTE | 2017-02-21 19:36 | PCM.PNMED ---
Subjective Date of Service February 21, 2017 Subjective Patient was seen and examined at bedside today. Patient denies any chest pain, shortness of breath, nausea, vomiting, diarrhea. Patient still complains of abdominal pain Overnight events: None Exam Vital Signs Vital Sign - Last Date Time Temp Pulse Resp B/P Pulse Ox O2 Delivery O2 Flow Rate FiO2 02/21/17 16:18 78 16 97/59 97 Room Air 02/21/17 15:58 36.7 Intake and Output 02/20/17 02/20/17 02/21/17 Cumulative From/Thru 15:00 23:00 07:00 02/14/17 14:40 - 02/21/17 04:58 Intake Total 842 ml 1636 ml 500 ml 41017 ml Output Total 700 ml 300 ml 7808 ml Balance 842 ml 936 ml 200 ml 54803 ml Intake Oral 1636 ml 500 ml 8764 ml IV Total 842 ml 71056 ml Output Urine Total 700 ml 300 ml 6000 ml Stool Total 200 ml Urine/Stool Mix 1608 ml # Voids 17 # Bowel Movements 3 2 15 Exam Physical Exam: GEN: Patient was awake, alert, responding appropriately to questions HEENT: Pupils equal round and reactive to light, extraocular eye muscles intact , Neck soft supple, trachea midline, nomocephalic/atraumatic CV: +S1/S2, regular rate and rhythm, no murmurs auscultated Respiratory: CTAB, no wheezes, rales, rhonchi GI: +bowel sounds x4, soft, compressible, tender to palpation EXT: no clubbing, cyanosis, edema Neuro: Cranial nerves II-XII grossly intact Psych: mood and affect were appropriate IVs and Medications Medications Reviewed: Medications were reviewed in detail Lab and Diagnostics Result Diagram: 02/21/17 0555 02/21/17 0555 Assessment & Plan Patient is a 46-year-old female past medical history significant for alcohol dependence and mood disorder presenting following alcohol relapses desire to quit, admitted for medical detoxification at this time. Abdominal pain - This diagnosis is unclear . CT scan initially suggestive of cholecystitis however all additional studies have not supported this diagnosis . - Patient remains afebrile , without leukocytosis , nontoxic appearance , with persistent abdominal pain . -That has finally been advanced however which is encouraging, though typically abdominal pain has been worsened with eating. - Continue close observation, consider further evaluation pending blood cultures (inital samples show likely contaminant) and patient condition. -EGD scheduled for today Hyperbilirubinemia - Likely a toxic effect of alcohol liver leading to impaired functioning. Patient's underlying chronic liver disease may also be playing a role. - Based on direct bilirubin levels this appears to be an obstructive type of hyperbilirubinemia, the source of impaired clearance is not yet clear - Condition is finally improving with alcohol cessation and hydration. Total and direct bilirubin are continuing to be downward trending - Scleral icterus is still present but improved, lesser degree than previous. - Continue to trend, hydrate aggressively. -HIDA scan demonstrated delayed but sufficient gallbladder emptying, MRCP showed no evidence of acute infection or obstruction. Transaminitis with chronic liver disease - As noted in problem 1, effect of a toxicity of alcohol and liver cells as indicated by a more significant elevation in AST - Numbers appear to have stabilized, continue to slowly downward trend, now ALT normal. - So certainly an acute on chronic process as indicated by impaired clotting function. Continue to monitor closely, the assistance of GI consult. Gram-positive bacteremia - Possible contaminant does not fit with diagnosis of cholecystitis or other GI pathology - Waiting speciation have obtained an additional 2 sets of blood cultures - Discontinue Levaquin and metronidazole discontinued - Consider initiation of a gram positive antibiotic should patient demonstrates symptoms of infection, or repeat blood cultures support diagnosis of a true gram -positive bacteremia Alcohol dependence/all withdrawal syndrome - Patient will be considered intermediate to high risk based on her past history of alcohol withdrawal seizures, addition to chronicity and quantity of volume drank over past many months. - Patient will be placed on CIWA protocol without standing Valium at this time though that may be considered if withdrawal symptoms become more severe - Given difficulties of by mouth intake we will continue intravenous fluid therapy at 75 mL to help supplement oral hydration - Given negative scoring patient be discontinued and she will protocol. Also she has demonstrated reassuring heart rhythms and we will discontinue telemetry. - Acute risk of withdrawal seems to have resolved, she will certainly require continued behavioral support and therapy occasion long-term cessation of alcohol use. Mood disorder - Patient should of course consider outpatient therapy for long-term treatment of substance dependence in addition to depression and anxiety conditions/ - We will continue home Celexa. Hypomagnesemia - We will replete IV this morning and then continue oral supplementation - Anticipate improved levels with increased by mouth intake. Hypokalemia - Again we will replete orally at this time follow IV infusion. - Also anticipating improvement with increased by mouth intake. Disposition: Patient states that she is ready for the EGD and would like to find a more answers about this abdominal pain. We will continue to follow up with the patient and treat as medically necessary. GI Prophylaxis: Not indicated VTE Prophylaxis: Other (patient will be ambulating routinely) VTE Mechanical Devices: Intermittant Pneumatic CD Resuscitation Status: CPR: Attempt Resuscitation Leyla Oden DO February 21, 2017 19:36
[2017-02-22 04:36] VITALS: BP 95/60; PULSE 76; RESP 16; O2SAT 95
[2017-02-22 06:28] LABS: Mean Corpuscular Hemoglobin 35.4 pg (27.0-35.0); Mean Corpuscular Volume 108.7 fL (81-100)
[2017-02-22 06:40] LABS: Magnesium 1.6 mg/dL (1.6-2.6)
--- NOTE | 2017-02-22 06:45 | PROG NOTE ---
[address] [address] PROGRESS NOTE PATIENT: NICOLE PEREZ : 1970 MR#: [id number] ADMIT: 02/14/2017 JOB ID: [id number] DATE: 02/21/2017 REASON FOR FOLLOWUP: Possible cholecystitis, now with bacteremia. INTERVAL HISTORY: Over the weekend, the patient has done relatively well and without any antibiotics. Recall that on Tuesday, a HIDA scan was returned negative and overall conclusion was she did not have a cholecystitis but rather some abdominal pain, possibly due to pancreatitis or alcoholic hepatitis or gastritis. Today, she had an EGD which confirmed that she does indeed also have gastritis. The patient reports no fevers, chills, or sweats. No shortness of breath. No nausea, vomiting, diarrhea. She is sitting up, having dinner tonight. She still has some abdominal pain. Her right upper quadrant pain is described as right upper quadrant baseline, left upper quadrant with food. PHYSICAL EXAMINATION: Reveals an afebrile woman. She has been afebrile throughout her hospital stay. Current temp 36.7, pulse 78, respiratory rate 16, blood pressure 97/59, no acute distress. The eyes are yellow. Oral cavity without thrush or pharyngitis. Lungs: Relatively clear. Cardiac tones: Regular rate and rhythm without murmur. No peripheral stigmata of endocarditis. Her abdomen is soft and nontender. LABORATORIES: Include white count 3500, hematocrit 28, platelet count 58 consistent with alcoholic pancytopenia, creatinine 0.3. AST is gradually coming down now at 99. Ammonia level 113. Urinalysis 0-5 white cells. Blood cultures from admission were of interest. One bottle in each of the two sets grew Staph epidermidis which was penicillin susceptible. Two sets of blood cultures repeated on the after I was contacted at home on the weekend have come back negative. Studies include an MRCP which showed mild gallbladder wall thickening and some sludge. Recall that the HIDA scan was negative. IMPRESSION: I see no evidence for cholecystitis or any infection in this patient at this time. It is unusual for two separate sets of blood cultures to grow coag-negative staph, but given the fact she has no evidence clinically of infection and the fact that the followup blood cultures were negative, I still feel reasonably confident in saying these likely represent contaminants. RECOMMENDATIONS: 1. No antibiotics. 2. ID will sign off at this time. Please call if there are questions or problems.
--- NOTE | 2017-02-22 07:14 | PCM.ANEP1 ---
Post Anesthesia Phase 1 PACU Phase 1 Assessment Date of Service: February 21, 2017 Vital Signs Vital Signs Date Time Temp Pulse Resp B/P Pulse Ox O2 Delivery O2 Flow Rate FiO2 02/22/17 04:36 37.2 76 16 95/60 95 Room Air Level of Alertness: Awake, talking Pain: Yes (Level 7 - rt lower side) Pain Scale Score: 8 Nausea or Vomiting: No Oxygen Delivery: Room Air Lungs: Clear to Auscultation, Normal Air Movement Complications: No Clay Osullivan MD February 22, 2017 07:14
[2017-02-22] MEDS ORDERED: Magnesium Sulf 2 Gm/50mL Water 2 GM in IV Premix 1 EACH IV ONE (07:25)
[2017-02-22] MEDS: Insulin LISPRO 300 Unit/3 mL Inj SUBQ SCH ×2 (08:00→11:31)
[2017-02-22] MEDS: Pantoprazole 4 mg/mL 10 mL Inj IVPUSH SCH (08:31)
[2017-02-22] MEDS: Potassium Chloride 20 mEq SR Tablet PO SCH (08:35)
[2017-02-22] MEDS: Lactulose 20 Gm/30 mL 30 mL Syrup PO SCH (08:36)
[2017-02-22 12:20] VITALS: BP 109/66; PULSE 73; RESP 19; O2SAT 97
[2017-02-22] MEDS ORDERED: OMEP40CA36 PO (13:42)
[2017-02-22] MEDS ORDERED: CALC500T9 PO (13:42)
[2017-02-22] MEDS ORDERED: OXYC1TAB24 PO (13:42)
--- NOTE | 2017-02-22 13:47 | PCM.DIMED ---
Discharge Instructions Date of Service February 22, 2017 Dates of Hospitalization February 14, 2017 at 17:58 Discharge Diagnosis Discharge Diagnosis Abdominal pain Hyperbilirubinemia Transaminitis Gram-positive bacteremia (coagulase negative staphylococcus) Alcohol dependence/withdrawal syndrome Mood disorder Hypomagnesemia Hypokalemia Diet Low fat, Low Sodium Activity No restrictions Call your provider Fever or Chills, Chest pain, Weakness (unilateral) Patient Instructions Follow-up Provider: Rito Thorne MD Follow-up with PCP in: 1 week (if an appointment has not been made please call to schedule an appointment) Provider: Dylan Smith MD Follow-up in: 2 weeks (please call to schedule appointment with Dr. Smith for your final results of your biopsy) Additional Information Please continue with alcohol sobriety and follow-up services. Leyla Oden DO February 22, 2017 13:47
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
--- NOTE | 2017-02-23 16:46 | PATH ---
SURGICAL PATHOLOGY Attending Physician:Dylan Smith M.D. CASE STATUS: Signed Out PATIENT NAME: NICOLE PEREZ PID: [id number] : 1970 DATE COLLECTED:02/21/2017 00:00 SPECIMEN: Stomach, Antrum, Biopsy CLINICAL HISTORY: 1). GASTRIC ANTRUM FINAL DIAGNOSIS: Gastric Antrum, Biopsy: Portions of gastric antral mucosa with features of reactive gastropathy and mild chronic gastritis. Negative for intestinal metaplasia, dysplasia, and malignancy. Negative for Helicobacter organisms by H&E stain. Immunohistochemistry studies are pending; results will be reported as an addendum. ICD10: K29.7 GROSS DESCRIPTION: The specimen is received in one formalin filled container labeled with the patient's name, sublabeled "gastric antrum" and consists of a 0.3 x 0.3 x 0.3 CM portion of tissue which is entirely submitted in one cassette. 02/22/2017 [facility] ICD-9 CODES: CPT CODES: 1: 86847, 60618 PROCEDURE/ADDENDA: Immunohistochemistry SPI Interpretation {Not Entered} Results-Comments The gastric mucosa was stained by immunohistochemical technique with monoclonal antibody to Helicobacter pylori (SP48). Positive and negative controls stain appropriately. Result: The patient tissue shows no staining. Interpretation: The gastric mucosa is negative for Helicobacter organisms by immunohistochemical stains. This test was developed and its performance characteristics determined by [facility]. It has not been cleared or approved by the U. S. Food and Drug Administration. The FDA has determined that such clearance or approval is not necessary. This test is used for clinical purposes. It should not be regarded as investigational or for research. Electronically Signed Out Brooke Ashton MD Electronically Signed Out Yesenia Vazquez MD [facility] Pathology [facility] [address], [place] [address] Technical component performed at [facility], [address] [place] [address] Ave[address], [place], [address]
== END 2017-02-22 16:20 | disposition home or self-care (01) | DRG 897 ==
LOC: SED 14:27 → MPC 17:58
PROVIDERS: ADMIT Family Medicine; ATTEND Family Medicine
PROC: 0DB68ZX Excision of Stomach, Via Natural or Artificial Opening Endoscopic, Diagnostic (ICD-10-PCS; principal; 2017-02-21 14:45)
DX: F10.239 Alcohol dependence with withdrawal, unspecified (principal); K76.6 Portal hypertension; E72.20 Disorder of urea cycle metabolism, unspecified; E83.42 Hypomagnesemia; K86.0 Alcohol-induced chronic pancreatitis; D53.1 Other megaloblastic anemias, not elsewhere classified; K25.9 Gastric ulcer, unspecified as acute or chronic, without hemorrhage or perforation; K29.70 Gastritis, unspecified, without bleeding; E87.6 Hypokalemia; Y90.8 Blood alcohol level of 240 mg/100 ml or more; E11.9 Type 2 diabetes mellitus without complications; F39 Unspecified mood [affective] disorder; K31.89 Other diseases of stomach and duodenum

== ENCOUNTER 2017-02-28 10:40 | Emergency (ER) | payer OTHER ==
[~2017-02-28] VITALS: Ht 170.2 cm; Wt 77.3 kg
[~2017-02-28 10:40] MED LIST changes: +CALC500T9 PO; +CYAN500 PO; -MILK1CAP3 PO; +OMEP40CA36 PO; +OXYC1TAB24 PO; -Thiamine PO
[2017-02-28 10:48] VITALS: BP 97/65; PULSE 79; RESP 18; O2SAT 100
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
[2017-02-28] MEDS ORDERED: Furosemide 10 mg/mL 2 mL Inj IVPUSH ONE (11:15)
[2017-02-28 11:30] LABS: BASOPHILS % (AUTO) 0.7 % (0-3); EOSINOPHILS % (AUTO) 0.9 % (0-5); MONOCYTES % (AUTO) 9.5 % (4-12); Mean Corpuscular Hemoglobin 36.2 pg (27.0-35.0); NEUTROPHILS % (AUTO) 65.2 % (40-74); Platelet Count 110 bil/L (150-400)
[2017-02-28 11:50] LABS: INR 1.52 ratio
[2017-02-28 11:57] LABS: Magnesium 1.3 mg/dL (1.6-2.6)
[2017-02-28] MEDS ORDERED: Magnesium Chloride SR 64 mg ER24 Tablet PO ONE (12:50)
[2017-02-28 13:34] VITALS: BP 104/67; PULSE 65; RESP 20; O2SAT 98
[2017-02-28] MEDS ORDERED: LidocaineVisc 2%:Antacid 1:1 10 mL Syringe PO SCH (14:05)
[2017-02-28] MEDS ORDERED: FURO-129 PO (14:44)
[2017-02-28] MEDS ORDERED: SPRN50T PO (14:44)
[2017-02-28] MEDS ORDERED: OXYC-474 PO (14:44)
[2017-02-28] MEDS ORDERED: SLO64 PO (14:44)
[2017-02-28] MEDS: Ondansetron 2 mg/mL 2 mL Inj IVPUSH PRN ×2 (14:53→14:54)
[2017-02-28 14:55] VITALS: BP 111/70; PULSE 69; RESP 20; O2SAT 98
--- NOTE | 2017-02-28 15:19 | DRSVH ---
PROCEDURE: US ABDOMEN, LIMITED ([id number]) INDICATIONS: abd pain ascites TECHNIQUE: Real-time focused scanning was performed of the abdomen, with image documentation. COMPARISON: [facility], US, ABDOMEN LTD, 12/28/2016, 17:24. [facility], US, US ABDOMEN, 02/17/2017, 14:09. FINDINGS: Liver is diffusely increased in echogenicity. No focal hepatic abnormalities identified. Normal hepatic size. Sludge within the gallbladder. No stones or wall thickening. No biliary dilat ation. Mild amount of perihepatic and perisplenic fluid. IMPRESSION: 1. Increased hepatic echogenicity noted likely related to fatty infiltration of the liver but other s ources of hepatocellular disease cannot be excluded. Recommend clinical correlation. 2. Gallbladder sludge. 3. Mild amount of perihepatic and perisplenic fluid. Dictated by: Torey Rehman [facility] Interpreted: Tyrell Dalton MD on 02/28/2017 at 15:15 Transcribed by: TEOFILO on 02/28/2017 at 15:19 Approved by: Tyrell Dalton M.D. on 02/28/2017 at 16:16
[2017-03-01] MEDS ORDERED: PREN1.4T2 PO (23:02)
[2017-03-01] MEDS ORDERED: LACT10SO27 PO (23:04)
== END 2017-02-28 14:56 | disposition home or self-care (01) ==
LOC: SED 10:40
DX: K74.60 Unspecified cirrhosis of liver (principal); E11.9 Type 2 diabetes mellitus without complications; Z88.0 Allergy status to penicillin; Z88.5 Allergy status to narcotic agent

== ENCOUNTER 2017-03-01 16:08 | Inpatient (IN) | payer OTHER ==
[~2017-03-01] VITALS: Ht 170.2 cm; Wt 76.8 kg
[~2017-03-01 16:08] MED LIST changes: +FURO-129 PO; +OXYC-474 PO; +SLO64 PO; +SPRN50T PO
[2017-03-01 16:36] VITALS: BP 118/73; PULSE 79; RESP 18; O2SAT 100
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
[2017-03-01 19:38] LABS: BASOPHILS % (AUTO) 1.1 % (0-3); EOSINOPHILS % (AUTO) 1.5 % (0-5); MONOCYTES % (AUTO) 11.1 % (4-12); Mean Corpuscular Hemoglobin 35.1 pg (27.0-35.0); Mean Corpuscular Volume 106.1 fL (81-100); NEUTROPHILS % (AUTO) 48.4 % (40-74); Platelet Count 109 bil/L (150-400)
[2017-03-01 19:44] LABS: APPEARANCE,URINE CLEAR (CLEAR,HAZY); COLOR,URINE YELLOW (YELLOW); OCCULT BLOOD,URINE NEGATIVE (NEGATIVE); PH,URINE 5.5 (5.0-8.0); UROBILINOGEN,URINE NORMAL (NORMAL)
[2017-03-01 19:57] LABS: INR 1.5 ratio
[2017-03-01] MEDS: HYDROmorphone 0.5 mg/0.5 mL iSecure Syringe IVPUSH PRN ×2 (20:21→21:41)
[2017-03-01] MEDS ORDERED: Magnesium Sulf 2 Gm/50mL Water 2 GM in IV Premix 1 EACH IV ONE ×2 (20:25→20:35)
[2017-03-01] MEDS ORDERED: Potassium Chloride 20 mEq SR Tablet PO ONE (20:25)
[2017-03-01] MEDS ORDERED: Potassium Chloride Inj 20 MEQ in Dextrose 5% 250 ML IV ONE (21:00)
[2017-03-01] MEDS ORDERED: 0.9% Sodium Chloride 1,000 ML IV ONE (22:15)
[2017-03-01 22:24] VITALS: BP 108/64; PULSE 81; RESP 17; O2SAT 99
[2017-03-01] MEDS ORDERED: Polyethylene Glycol (PEG) 17 Gm Powder PO PRN (22:35)
[2017-03-01] MEDS ORDERED: Alum-Mag Hydrox-Simeth 30 mL Suspension PO PRN (22:35)
[2017-03-01] MEDS ORDERED: Promethazine Inj 12.5 MG in 0.9% Sodium Chloride-Pha MIX 100 ML IV ONE (22:35)
[2017-03-01] MEDS ORDERED: PREN1.4T2 PO (23:02)
[2017-03-01] MEDS ORDERED: LACT10SO27 PO (23:04)
[2017-03-01 23:07] VITALS: BP 98/54; PULSE 71; RESP 16; O2SAT 99
[2017-03-01 23:18] VITALS: BP 98/54; PULSE 71; RESP 16; O2SAT 99
[2017-03-01 23:58] VITALS: BP 115/78; PULSE 79; RESP 18; O2SAT 100
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
[2017-03-02] MEDS: Ondansetron 2 mg/mL 2 mL Inj IVPUSH PRN ×4 (00:30→20:09)
[2017-03-02] MEDS: HYDROmorphone 1 mg/mL Inj IVPUSH PRN ×2 (00:30→04:03)
[2017-03-02] MEDS: Heparin 5,000 Unit/mL Inj SUBQ SCH ×3 (00:30→17:07)
[2017-03-02 01:00] VITALS: PULSE 76
--- NOTE | 2017-03-02 01:54 | NUR ---
Admit Note pt arrived to [facility] around 23:25. pt belongings came with pt from the ED. IV x2 are patent, IVF infusing upon arrival to the room. pt is A&Ox3, admission questions/history completed by previous admission recall and pt's verbal recall. Med Rec completed in ED prior to pt's arrival to the room. pt requested that home medications be taken home in AM by mother and father. MD in room around 23:30. pt verbalized understanding of call light use, placed within reach. hourly rounding in effect.
[2017-03-02 02:14] LABS: Magnesium 0.7 mg/dL (1.6-2.6)
[2017-03-02] MEDS ORDERED: KCl 40 mEq/D5W 500 mL 40 MEQ in IV Premix 1 EACH IV ONE (02:30)
[2017-03-02] MEDS ORDERED: Magnesium Sulf 4 Gm/100 mL H2O 4 GM in IV Premix 1 EACH IV ONE (02:30)
[2017-03-02 03:20] LABS: Magnesium 1.4 mg/dL (1.6-2.6)
[2017-03-02 03:56] VITALS: BP 103/69; PULSE 85; RESP 18; O2SAT 99
[2017-03-02] MEDS ORDERED: Morphine PF 1 mg/mL 10 mL Inj IV PRN (07:50)
[2017-03-02] MEDS: Pantoprazole 40 mg ER24 Tablet PO SCH (08:26)
[2017-03-02] MEDS: Magnesium Chloride SR 64 mg ER24 Tablet PO SCH (08:26)
[2017-03-02] MEDS ORDERED: Lactulose 20 Gm/30 mL 30 mL Syrup PO SCH (08:30)
[2017-03-02 08:58] VITALS: BP_SYST 121; BP_SYST 93; BP_DIAS 60; BP_DIAS 72; PULSE 80; PULSE 83; RESP 18; O2SAT 97; O2SAT 99
--- NOTE | 2017-03-02 09:08 | NUR ---
Social Work: Screening Data: Pt is a 46 y/o female admitted for hypokalemia, hypomagnesemia, anasarca. Pt's PCP is Dr Thorne, pt's insurance is [facility]. EMR reviewed. Readmit score not listed. Pt was recently hospitalized for similar reason. Pt was connected with CD resources last hospitalization. LEAN PROCESS DEPLOYMENT CONSULTANT will check in with pt regarding CD resource follow up and assess for needs. LEAN PROCESS DEPLOYMENT CONSULTANT will continue to follow. Assessment: Pt who is independent at baseline. Alcohol use. Plan: Pt will d/c home via POV when medically stable. LEAN PROCESS DEPLOYMENT CONSULTANT will check in with pt regarding CD resource follow up and assess for needs. LEAN PROCESS DEPLOYMENT CONSULTANT will continue to follow. BENY Baptiste
[2017-03-02 09:31] LABS: EOSINOPHILS % (AUTO) 1.7 % (0-5); MONOCYTES % (AUTO) 13.5 % (4-12); Mean Corpuscular Hemoglobin 35.8 pg (27.0-35.0); Mean Corpuscular Volume 104.7 fL (81-100); NEUTROPHILS % (AUTO) 48.8 % (40-74); Platelet Count 112 bil/L (150-400)
[2017-03-02 09:53] LABS: Magnesium 1.9 mg/dL (1.6-2.6)
[2017-03-02 11:27] VITALS: PULSE 83
[2017-03-02 16:40] VITALS: BP 126/71; PULSE 89; RESP 18; O2SAT 96
[2017-03-02] MEDS ORDERED: Furosemide 10 mg/mL 2 mL Inj IVPUSH ONE (17:25)
--- NOTE | 2017-03-02 19:13 | NUR ---
Pain Pt c/o of pain in RUQ 8/10 pain most of the day, pt given PRN Morphine 2 mg with little relief. MD notified, given new order of Morphine 4mg q4, for pain. Pt received first dose of increased Morphine, per pt helped almost immediately, and reported 2/10 pain. Intentional rounding.
[2017-03-02 19:49] VITALS: BP 102/66; PULSE 82; RESP 18; O2SAT 97
[2017-03-02] MEDS: Lactulose 20 Gm/30 mL 30 mL Syrup PO SCH (20:09)
--- NOTE | 2017-03-02 23:30 | PCM.PNMED ---
Subjective Date of Service March 02, 2017 Subjective Patient is seen and examined. She states that she is so swollen and tight that she has pain in her upper abdomen and the legs. States that she had such bad pain when she went home and she does not know what to do for pain relief. Exam Vital Signs Vital Sign - Last Date Time Temp Pulse Resp B/P Pulse Ox O2 Delivery O2 Flow Rate FiO2 03/02/17 19:49 36.2 82 18 102/66 97 Room Air Intake and Output 03/01/17 03/01/17 03/02/17 Cumulative From/Thru 15:00 23:00 07:00 03/01/17 16:36 - 03/02/17 06:32 Intake Total 50 ml 2971 ml 3021 ml Output Total 100 ml 100 ml Balance 50 ml 2871 ml 2921 ml Intake Oral 320 ml 320 ml IV Total 50 ml 2651 ml 2701 ml Output Urine Total 100 ml 100 ml # Voids 1 1 # Bowel Movements 1 1 Exam Gen.: No acute distress she is sitting on the bed knitting HEENT icteric sclera, pale Heart: Regular rate and rhythm no S3-S4 murmurs Lungs: Clear to auscultation no crackles or wheezes Abdomen: Very slight distention non-tympanic to percussion, endorsing pain over the liver as well as epigastrium Extremities: Remarkable for nonpitting edema symmetric, dorsalis pedis not palpable Skin is warm and dry Neck trachea central Psych: Negative for anxiety neuro: No focal deficits IVs and Medications IV Fluids None Medications Reviewed: Medications were reviewed in detail Lab and Diagnostics Result Diagram: 03/02/1791503/02/17 0916 X-Rays, CTs and MRIs Abdominal ultrasound from 02/28 IMPRESSION: 1. Increased hepatic echogenicity noted likely related to fatty infiltration of the liver but other sources of hepatocellular disease cannot be excluded. Recommend clinical correlation. 2. Gallbladder sludge. 3. Mild amount of perihepatic and perisplenic fluid. Dictated by: Torey DASILVA Interpreted: Tyrell Dalton MD on 02/28/2017 at 15:15 Transcribed by: TEOFILO on 02/28/2017 at 15:19 Approved by: Tyrell Dalton M.D. on 02/28/2017 at 16:16 Assessment & Plan Patient is a 46 year old with a history significant for alcohol dependence, liver cirrhosis, and chronic pancreatitis who was seen yesterday at the ED for the same complaint. She presents today to the ED complaining of abdominal pain, flank pain, ankle swelling, nausea and fever. The patient was also seen 9 days ago for alcohol detox, and has remained sober. Abdominal pain, present on admission. Acute. - recent (02/14- hospitalization with HIDA scan negative for cholecystitis, EGD during hospitalization showed gastric erosion with healing ulcers - patient afebrile, no leukocytosis, most likely due to liver cirrhosis with possible ascites -Pain medication is changed to morphine IV -- Patient is a high risk for cholecystectomy. Hypokalemia, present on admission. Acute. - Repleted orally at this time follow IV infusion in ED - on telemetry - recheck pending - promote oral intake -Resolved Hypomagnesemia, present on admission. Acute: Resolved - patient states she picked up her OTC supplement and started taking just yesterday - Repleted IV in ED - recheck pending - will continue oral supplementation - Anticipate improved levels with increased by mouth intake - Lab in am: Normal Hyperbilirubinemia/jaundice, present on admission. Chronic, Stable. - Patient at baseline. Likely a toxic effect of alcohol liver leading to impaired functioning. Patient's underlying chronic liver disease may also be playing a role. - HIDA scan demonstrated delayed but sufficient gallbladder emptying, MRCP showed no evidence of acute infection or obstruction. Elevated AST with chronic liver disease - As noted in problem above, effect of a toxicity of alcohol and liver cells as indicated by a more significant elevation in AST - Numbers appear to have stabilized, AST was in the 400s 12/24/16 continuously trending down currently 77 , ALT now normal. -- titrated lactulose down says that she is going a lot more than 3-4 times a day -- We will consider rifamixin if she continues to be confused Alcohol dependence - Patient states she has remained sober since last admit 02/14, pending alcohol levels - unlikely need CIWA protocol at this time, but will continue to monitor closely Lactic acidosis, present on admission: Secondary to liver disease -- Anion gap normal. Continue to follow Encephalopathy: Hepatic in origin versus pain medication -- Patient described to me that Dr. Smith may revisit, a rectal examination was performed. Upon calling Dr. Smith he denies being in the hospital today, does not even recall the patient. He asks that the GI thermostatic controls supervisor be contacted -- Dr. Katz was contacted, he states that patient can be given low salt diet, she can be diuresed further carefully given her low blood pressure. She can continue lactulose and Aldactone -- 1 time dose of furosemide 20 mg IV Lasix as ordered, will consider albumin infusion. Per GI recommendation. Acetaminophen-fever/headache/mild/moderate pain Antiemetics, as needed Bowel regimen, as needed. Patient status: Patient was admitted under inpatient status with expected length of stay greater than to midnights due to severity of presenting symptoms , risk of adverse event, and complexity of treatment plan. Pain Evaluation: Pain not Controlled VTE Prophylaxis: Sub-Q Heparin (Unfractionated) Resuscitation Status: CPR: Attempt Resuscitation Time spent Half hour Angie Cutler DO March 02, 2017 23:30
[2017-03-03] VITALS (8 sets, daily range): BP systolic 95–118; BP diastolic 60–71; PULSE 74–97; RESP 16–18; O2SAT 93–98
[2017-03-03] MEDS: Heparin 5,000 Unit/mL Inj SUBQ SCH ×3 (00:52→16:38)
[2017-03-03 07:26] LABS: Magnesium 1.4 mg/dL (1.6-2.6)
[2017-03-03] MEDS: Pantoprazole 40 mg ER24 Tablet PO SCH (08:28)
[2017-03-03] MEDS: Lactulose 20 Gm/30 mL 30 mL Syrup PO SCH ×2 (08:32→20:54)
[2017-03-03] MEDS: Magnesium Chloride SR 64 mg ER24 Tablet PO SCH (09:15)
[2017-03-03] MEDS ORDERED: Magnesium Sulf 2 Gm/50mL Water 2 GM in IV Premix 1 EACH IV ONE (09:45)
[2017-03-03] MEDS ORDERED: Furosemide 10 mg/mL 2 mL Inj IVPUSH ONE (09:55)
--- NOTE | 2017-03-03 11:54 | NUR ---
Social Work: Continued d/c planning Data: Pt is on day 2 of hospitalization. EMR reviewed. Pt previously worked with [facility] CDP and is willing to meet with her again. Current LEOBARDO with CDP. CDP met with pt and reported back that pt wants to meet with her every 2 days and continue working on outpt CD treatment for alcohol use. STRAINER TENDER will continue to follow. Plan: Pt will d/c home via POV when medically stable. CDP to follow. STRAINER TENDER will continue to follow. BENY Baptiste
--- NOTE | 2017-03-03 15:43 | PCM.PNMED ---
Subjective Date of Service March 03, 2017 Subjective Patient is seen and examined. Parents were present in the room today. She states that she is feeling a little bit better as she was able to diurese with Lasix. He has a right upper quadrant pain seems to be a continued concern for her. I discussed possible cholecystostomy (as she was previously seen a as a high risk candidate for cholecystectomy). She wants to try oral medication to go home on to control her pain better. And she wants to see a reconciler soon as possible to understand her she could improve her quality of life. Exam Vital Signs Vital Sign - Last Date Time Temp Pulse Resp B/P Pulse Ox O2 Delivery O2 Flow Rate FiO2 03/03/17 05:35 84 03/03/17 05:10 36.4 18 95/60 97 Room Air Intake and Output 03/02/17 03/02/17 03/03/17 Cumulative From/Thru 15:00 23:00 07:00 03/01/17 16:36 - 03/03/17 06:52 Intake Total 391 ml 1154 ml 422 ml 4988 ml Output Total 4 ml 1200 ml 1304 ml Balance 391 ml 1150 ml -778 ml 3684 ml Intake Oral 952 ml 300 ml 1572 ml IV Total 391 ml 202 ml 122 ml 3416 ml Output Urine Total 1200 ml 1300 ml Urine/Stool Mix 4 ml 4 ml # Voids 1 # Bowel Movements 4 5 Exam Gen.: No acute distress Eyes left icteric normal extraocular movements Heart: Regular rate and rhythm no S3-S4 sounds Lungs clear to auscultation no crackles or wheezes Abdomen: Not much change in belly size normal. Soft nondistended Extremities: Improved edema bilaterally Neck: Trachea central Psych: No anxiety Neuro: No focal deficits IVs and Medications IV Fluids None Medications Reviewed: Medications were reviewed in detail Lab and Diagnostics Result Diagram: 03/02/17 0916 03/03/17 0635 X-Rays, CTs and MRIs Abdominal ultrasound from 02/28 IMPRESSION: 1. Increased hepatic echogenicity noted likely related to fatty infiltration of the liver but other sources of hepatocellular disease cannot be excluded. Recommend clinical correlation. 2. Gallbladder sludge. 3. Mild amount of perihepatic and perisplenic fluid. Dictated by: Torey DASILVA Interpreted: Tyrell Dalton MD on 02/28/2017 at 15:15 Transcribed by: TEOFILO on 02/28/2017 at 15:19 Approved by: Tyrell Dalton M.D. on 02/28/2017 at 16:16 Assessment & Plan "Patient" he somewhat W I got a couple of days so for patient back liver failure we discussed I and Subjective cholecystectomy so I will see her if she feels that she could he is currently her symptoms at all this allergies patient wants to go and he states he did not that and the patient is but some as is a 46 year old with a history significant for alcohol dependence, liver cirrhosis, and chronic pancreatitis who was seen yesterday at the ED for the same complaint. She presents today to the ED complaining of abdominal pain, flank pain, ankle swelling, nausea and fever. The patient was also seen 9 days ago for alcohol detox, and has remained sober. Abdominal pain, present on admission. Acute. - recent (02/14- hospitalization with HIDA scan negative for cholecystitis, EGD during hospitalization showed gastric erosion with healing ulcers - patient afebrile, no leukocytosis, most likely due to liver cirrhosis with possible ascites -Pain medication is changed to morphine IV -- Meld score of 15-16 -- Patient is a high risk for cholecystectomy. Consulted general surgery. Dr. Haji saw the patient and says due to high meld score she still had his current candidate for cholecystostomy, he would like for us to consider more GI involvement versus paracentesis for pain relief. We appreciate his recommendations -- Discussed case with Dr. Katz over the phone. He also notes the mild ascites from the abdominal ultrasound on the ( prior abdominal CT showed moderate ascites) -- We contacted [facility] for hepatology to help speed up patient's follow- up, they cannot take patient's insurance. We will try [place] -- Patient is given IV 20 mg Lasix on 03/03 a.m. Hypokalemia, present on admission. Acute. - Repleted orally at this time follow IV infusion in ED - on telemetry - recheck pending - promote oral intake -Resolved Hypomagnesemia, present on admission. Acute: Resolved - patient states she picked up her OTC supplement and started taking just yesterday - Repleted IV in ED - recheck pending - will continue oral supplementation - Anticipate improved levels with increased by mouth intake - Lab in am: Normal -- She is given a 2 g repletion on 03/03 Hyperbilirubinemia/jaundice, present on admission. Chronic, Stable. - Patient at baseline. Likely a toxic effect of alcohol liver leading to impaired functioning. Patient's underlying chronic liver disease may also be playing a role. - HIDA scan demonstrated delayed but sufficient gallbladder emptying, MRCP showed no evidence of acute infection or obstruction. -- Consulted general surgery as above: Appreciate Dr. Haji's recommendations Elevated AST with chronic liver disease - As noted in problem above, effect of a toxicity of alcohol and liver cells as indicated by a more significant elevation in AST - Numbers appear to have stabilized, AST was in the 400s 12/24/16 continuously trending down currently 77 , ALT now normal. -- titrated lactulose down says that she is going a lot more than 3-4 times a day -- We will consider rifamixin if she continues to be confused: She appears to be very clear and oriented on 03/03 Alcohol dependence - Patient states she has remained sober since last admit 02/14, pending alcohol levels - unlikely need CIWA protocol at this time, but will continue to monitor closely Lactic acidosis, present on admission: Secondary to liver disease -- Anion gap normal. Continue to follow Encephalopathy: Hepatic in origin versus pain medication -- Patient described to me that Dr. Smith may revisit, a rectal examination was performed. Upon calling Dr. Smith he denies being in the hospital today, does not even recall the patient. He asks that the GI armor reconnaissance specialist be contacted -- Dr. Katz was contacted, he states that patient can be given low salt diet, she can be diuresed further carefully given her low blood pressure. She can continue lactulose and Aldactone -- 1 time dose of furosemide 20 mg IV Lasix as ordered, will consider albumin infusion. Per GI recommendation. Elevated INR: -- While DVT prophylaxis is recommended for somebody with liver disease, there is no clear consensus and vitamin K unless there is a active bleed. Hyperglycemia: Acetaminophen-fever/headache/mild/moderate pain Antiemetics, as needed Bowel regimen, as needed. Patient status: Patient was admitted under inpatient status with expected length of stay greater than to midnights due to severity of presenting symptoms , risk of adverse event, and complexity of treatment plan. Pain Evaluation: Adequate Pain Control VTE Prophylaxis: Sub-Q Heparin (Unfractionated) Resuscitation Status: CPR: Attempt Resuscitation Time spent 30 minutes Angie Cutler DO March 03, 2017 07:46
[2017-03-04] VITALS (8 sets, daily range): BP systolic 91–105; BP diastolic 58–72; PULSE 79–99; RESP 16–18; O2SAT 92–95
[2017-03-04] MEDS: Heparin 5,000 Unit/mL Inj SUBQ SCH ×3 (00:39→17:03)
[2017-03-04 07:12] LABS: INR 1.65 ratio
[2017-03-04] MEDS: Pantoprazole 40 mg ER24 Tablet PO SCH (08:32)
[2017-03-04] MEDS: Lactulose 20 Gm/30 mL 30 mL Syrup PO SCH ×2 (08:38→20:26)
--- NOTE | 2017-03-04 08:42 | CONS ---
[address] [address] CONSULTATION REPORT PATIENT: NICOLE PEREZ : 1970 MR#: [id number] ADMIT: 03/01/2017 JOB ID: [id number] DATE OF SERVICE: 03/03/2017 CHIEF COMPLAINT: Right upper quadrant pain. HISTORY OF PRESENT ILLNESS: The patient is a 46-year-old female, who was admitted to the hospital two days ago due to abdominal pain. The patient was recently hospitalized here from February 14 to February 22 due to similar issues. The patient has underlying cirrhosis and alcoholic liver disease and chronic pancreatitis and ankle swelling. The patient has been having ongoing right upper quadrant pain, worse after eating. It is described as sharp and it makes it difficult for her to get some sleep. Also feels like there is some pressure feeling in the right upper quadrant. There was quite a bit of workup during her last hospitalization here at [facility] which included a CT scan on February 17, an abdominal ultrasound on February 17, a HIDA scan on February 18, and a MRCP on February 18. A consultation was requested today by the hospitalist, Dr. Cutler. The prior abdominal ultrasound on February 17 shows gallbladder sludge present and there is mild thickened gallbladder wall, mild ascites. There is hepatofugal flow direction of the main portal vein, suggesting portal hypertension. The CT scan on February 17 shows marked enlargement of the gallbladder with wall thickening and pericholecystic edema. Moderate ascites. The HIDA scan on February 18 shows that there is visualization of the gallbladder and the ejection fraction is 23.9%. The MRCP on February 18 shows mild gallbladder wall thickening and gallbladder sludge. The patient was seen by the GI service during her last hospitalization and actually an EGD was performed on February [address] Dylan Smith who discovered some gastritis. Biopsies were negative for H. pylori. After discharge on February 22, the patient continued to have symptoms which prompted another visit back to the emergency department and subsequent readmission. PAST MEDICAL HISTORY: 1. Alcoholic liver disease. 2. Ovarian cyst removal. 3. Liver cirrhosis with portal hypertension. 4. Seizures. 5. Diabetes. 6. Chronic pancreatitis. 7. Breast implants. HOME MEDICATIONS: Include Tums, Lasix, lactulose, magnesium, omeprazole, oxycodone, Aldactone. ALLERGIES: To PENICILLIN and CODEINE. SOCIAL HISTORY: The patient lives in [place]. She is . She has no children. She used to work for [employer]. FAMILY HISTORY: Positive for diabetes. REVIEW OF SYSTEMS: Positive for the postprandial right upper quadrant pain and discomfort. No recent nausea, vomiting. PHYSICAL EXAMINATION: The patient is in no acute distress. Her BMI is 26.7. Head is normocephalic, atraumatic. Eyes are mildly jaundiced. Neck is supple. Heart is regular. Lungs are clear. Abdomen is mildly distended. There is no obvious tenderness to palpation in the right upper quadrant today or in the epigastric region. There is no peritonitis. Extremities show no clubbing and no cyanosis. The ankles are slightly swollen bilaterally. Neurologically the patient is awake and alert and answers appropriately. LABORATORY EXAMINATION: Yesterday shows a white blood count of 4.8, hematocrit 31 and platelet count is 112. Sodium is 138, potassium 3.8, creatinine 0.31, total bilirubin 3.8. Her lipase level on the was 11. Her total bilirubin was 4.0 on the day of admission. The ultrasound report from February 28 shows fatty infiltration, gallbladder sludge and mild ascites. Per my calculation, her MELD score is 16. Her seven day postoperative mortality rate is 1.4% and her 30 day postoperative mortality rate is 5.66%. ASSESSMENT: This is a 46-year-old female with cirrhosis and possible portal hypertension who has symptomatic right upper quadrant postprandial pain. Her recent HIDA scan was negative and showed an ejection fraction of 23.9%. The patient does have a MELD score of 16 and carries an elevated postop surgical mortality risk. I have discussed the case with her hospitalist, Dr. Cutler, today. I would like to have GI reinvolved in her care. Consideration can be given to therapeutic paracentesis to see if this will decrease her right upper quadrant discomfort. The patient is encouraged to followup with a custom car builder. I would not recommend proceeding to laparoscopic cholecystectomy at this time given her elevated postop mortality risk.
[2017-03-04] MEDS: Magnesium Chloride SR 64 mg ER24 Tablet PO SCH (08:45)
[2017-03-04] MEDS ORDERED: Magnesium Sulf 4 Gm/100 mL H2O 4 GM in IV Premix 1 EACH IV ONE ×2 (08:45→20:20)
--- NOTE | 2017-03-04 09:12 | NUR ---
Social Work: Brief Note CDP from [place] met with pt, pt willing to meet with CDP durring stay and to continue with resources regarding outpt CD treatment post d/c. BENY Baptiste
[2017-03-04] MEDS ORDERED: 0.9% Sodium Chloride 100 ML ONE (09:14)
--- NOTE | 2017-03-04 12:15 | PCM.PNSURG ---
Subjective Date of Service: March 04, 2017 Date of Service: March 04, 2017 Visit Information: Reason for Visit Hypokalemia,Hypomagnesemia,Anasarca Surgery/Surgery Date Post-Op Day # Date of Admission: March 01, 2017 at 22:44 Hospital Day # 4 Subjective: Patient describes good appetite and good bowel function without nausea or vomiting. Upset about her swollen condition and desires to have further evaluation of possibility of drawing fluid off her abdomen. Wishes to discontinue EtOH and says she has a plan to overcome this setback. Notes baseline ruq abdominal pain and lower abdominal pain postprandially. Denies fevers, chills, chest pain and sob. Postop General: No Shortness of Breath, No Chest Pain Gastrointestinal: Good Appetite, No N/V, Normal Bowel Movement Pain Management: Continued Pain Issues Postop Activity: Ambulating Independently Objective Vital Sign- Last 8 Hours Date Time Temp Pulse Resp B/P Pulse Ox O2 Delivery O2 Flow Rate FiO2 03/04/17 10:01 37.0 82 18 100/66 95 Room Air 03/04/17 08:00 79 03/04/17 06:21 99 03/04/17 05:08 37.0 91 16 98/58 93 Room Air Intake and Output- Last 8 Hour 03/04/17 Cumulative From/Thru 07:00 03/01/17 16:36 - 03/04/17 05:08 Intake Total 6593 ml Output Total 2204 ml Balance 4389 ml Intake Oral 3152 ml IV Total 3441 ml Output Urine Total 2200 ml Urine/Stool Mix 4 ml # Voids 2 # Bowel Movements 5 General: Oriented X3 Lungs: Clear to Auscultation Heart: Regular Rate/Rhythm Abdomen: Soft, Normoactive bowel tones, Other (mildly tender to palpation in ruq without guarding) Result Diagram: 03/02/17 0916 03/04/17 0610 Assessment & Plan Impression 1. right upper quadrant pain Problems: Plan Surgery continues to recommend GI consult for consideration of non surgical options including therapeutic paracentesis. We will continue to follow. Pain Management: Morphine IV VTE Prophylaxis: Sub-Q Heparin (Unfractionated) Resuscitation Status: CPR: Attempt Resuscitation Papito Howard PA-C March 04, 2017 12:15
[2017-03-04] MEDS ORDERED: Furosemide 10 mg/mL 2 mL Inj IVPUSH SCH (17:35)
[2017-03-04] MEDS: Furosemide 10 mg/mL 2 mL Inj IVPUSH SCH (18:12)
[2017-03-05] VITALS (8 sets, daily range): BP systolic 91–109; BP diastolic 57–72; PULSE 80–87; RESP 16–18; O2SAT 92–97
--- NOTE | 2017-03-05 01:18 | PCM.PNMED ---
Subjective Date of Service March 04, 2017 Subjective Patient states that she is still having abdominal pain though not as bad as when she came in she is able to take by mouth intake. Not actively nauseated or vomiting. States she has had 3 bowel movements today. She is agreeable to discussing paracentesis. She is aware that she is too high risk for cholecystostomy or cholecystectomy. Exam Vital Signs Vital Sign - Last Date Time Temp Pulse Resp B/P Pulse Ox O2 Delivery O2 Flow Rate FiO2 03/04/17 06:21 99 03/04/17 05:08 37.0 16 98/58 93 Room Air Intake and Output 03/03/17 03/03/17 03/04/17 Cumulative From/Thru 15:00 23:00 07:00 03/01/17 16:36 - 03/04/17 05:08 Intake Total 25 ml 1580 ml 6593 ml Output Total 900 ml 2204 ml Balance 25 ml 680 ml 4389 ml Intake Oral 1580 ml 3152 ml IV Total 25 ml 3441 ml Output Urine Total 900 ml 2200 ml Urine/Stool Mix 4 ml # Voids 1 2 # Bowel Movements 5 Exam Gen.: No acute distress Eyes left icteric normal extraocular movements Heart: Regular rate and rhythm no S3-S4 sounds Lungs clear to auscultation no crackles or wheezes Abdomen: Not much change in belly size normal. Soft nondistended Extremities: Improved edema bilaterally Neck: Trachea central Psych: No anxiety Neuro: No focal deficits IVs and Medications IV Fluids None Medications Reviewed: Medications were reviewed in detail Lab and Diagnostics Result Diagram: 03/02/17 0916 03/04/17 0610 X-Rays, CTs and MRIs Abdominal ultrasound from 02/28 IMPRESSION: 1. Increased hepatic echogenicity noted likely related to fatty infiltration of the liver but other sources of hepatocellular disease cannot be excluded. Recommend clinical correlation. 2. Gallbladder sludge. 3. Mild amount of perihepatic and perisplenic fluid. Dictated by: Torey DASILVA Interpreted: Tyrell Dalton MD on 02/28/2017 at 15:15 Transcribed by: TEOFILO on 02/28/2017 at 15:19 Approved by: Tyrell Dalton M.D. on 02/28/2017 at 16:16 Assessment & Plan "Patient" he somewhat W I got a couple of days so for patient back liver failure we discussed I and Subjective cholecystectomy so I will see her if she feels that she could he is currently her symptoms at all this allergies patient wants to go and he states he did not that and the patient is but some as is a 46 year old with a history significant for alcohol dependence, liver cirrhosis, and chronic pancreatitis who was seen yesterday at the ED for the same complaint. She presents today to the ED complaining of abdominal pain, flank pain, ankle swelling, nausea and fever. The patient was also seen 9 days ago for alcohol detox, and has remained sober. Abdominal pain, present on admission. Acute.: Thought to be secondary to the ascites versus biliary colic versus alcoholism - recent (02/14- hospitalization with HIDA scan negative for cholecystitis, EGD during hospitalization showed gastric erosion with healing ulcers - patient afebrile, no leukocytosis, most likely due to liver cirrhosis with possible ascites -Pain medication is changed to morphine IV -- Meld score of 15-16 -- Patient is a high risk for cholecystectomy. Consulted general surgery. Dr. Haji saw the patient and says due to high meld score she still had his current candidate for cholecystostomy, he would like for us to consider more GI involvement versus paracentesis for pain relief. We appreciate his recommendations -- Discussed case with Dr. Katz over the phone. He also notes the mild ascites from the abdominal ultrasound on the ( prior abdominal CT showed moderate ascites): No official consult is placed for Dr. Pham on 03/04. Agreed to see the patient. We appreciate his recommendations -- We contacted [facility], [place] for hepatology to help speed up patient's follow- up, they cannot take patient's insurance. We will try [place]: SHe states that she will talk to her parents -- Patient is given IV 20 mg Lasix on 03/03 a.m. -- Patient is given IV 10 mg Lasix on 03/04 a.m. Hypokalemia, present on admission. Acute. - Repleted orally at this time follow IV infusion in ED - on telemetry - recheck pending - promote oral intake -Resolved Hypomagnesemia, present on admission. Acute: Resolved - patient states she picked up her OTC supplement and started taking just yesterday - Repleted IV in ED - recheck pending - will continue oral supplementation - Anticipate improved levels with increased by mouth intake - Lab in am: Normal -- She is given a 2 g repletion on 03/03 -- Patient is given a total of 8 mg the patient on 03/04: 52 recommend weekly infusions for magnesium as she has proven to be hypomagnesemic while on by mouth repletion Hyperbilirubinemia/jaundice, present on admission. Chronic, Stable. - Patient at baseline. Likely a toxic effect of alcohol liver leading to impaired functioning. Patient's underlying chronic liver disease may also be playing a role. - HIDA scan demonstrated delayed but sufficient gallbladder emptying, MRCP showed no evidence of acute infection or obstruction. -- Consulted general surgery as above: Appreciate Dr. Haji's recommendations. With a meld score of 16 patient is deemed high risk for either cholecystostomy R cholecystectomy Elevated AST with chronic liver disease - As noted in problem above, effect of a toxicity of alcohol and liver cells as indicated by a more significant elevation in AST - Numbers appear to have stabilized, AST was in the 400s 12/24/16 continuously trending down currently 77 , ALT now normal. -- titrated lactulose down says that she is going a lot more than 3-4 times a day -- We will consider rifamixin if she continues to be confused: She appears to be very clear and oriented on 03/03, 03/04 Alcohol dependence - Patient states she has remained sober since last admit 02/14, pending alcohol levels - unlikely need CIWA protocol at this time, but will continue to monitor closely Lactic acidosis, present on admission: Secondary to liver disease -- Anion gap normal. Continue to follow Encephalopathy: Hepatic in origin versus pain medication resolved -- Patient described to me that Dr. Smith may revisit, a rectal examination was performed. Upon calling Dr. Smith he denies being in the hospital today, does not even recall the patient. He asks that the GI artist relationship manager be contacted -- Dr. Katz was contacted, he states that patient can be given low salt diet, she can be diuresed further carefully given her low blood pressure. She can continue lactulose and Aldactone -- 1 time dose of furosemide 20 mg IV Lasix as ordered, will consider albumin infusion. Per GI recommendation. -- Continue to target 2-4 stools per day with lactulose, add rifamixin for prophylaxis if no improvement Elevated INR: -- While DVT prophylaxis is recommended for somebody with liver disease, there is no clear consensus and vitamin K unless there is a active bleed. Hyperglycemia: A1C< 6.5, she is not a diabetic Acetaminophen-fever/headache/mild/moderate pain Antiemetics, as needed Bowel regimen, as needed. Patient status: Patient was admitted under inpatient status with expected length of stay greater than to midnights due to severity of presenting symptoms , risk of adverse event, and complexity of treatment plan. Goal is to get the patient's pain under control, if paracentesis helps that is the procedure to be performed. Patient will need weekly magnesium infusions. We will discuss hyperbilirubinemia with Dr. Katz again will DC to home on 03/06. Pain Evaluation: Adequate Pain Control VTE Prophylaxis: Sub-Q Heparin (Unfractionated) Resuscitation Status: CPR: Attempt Resuscitation Time spent 25 min Angie Cutler DO March 04, 2017 07:37
[2017-03-05] MEDS: Heparin 5,000 Unit/mL Inj SUBQ SCH ×3 (01:53→15:36)
[2017-03-05 06:37] LABS: Mean Corpuscular Hemoglobin 35.4 pg (27.0-35.0)
--- NOTE | 2017-03-05 07:20 | NUR ---
Pain Pt continues to experience abdominal pain requiring Q4 hour morphine, pt states this is effective. BP borderline but maintaining SBP above 90. Pt denies any symptoms of hypotension.
[2017-03-05] MEDS: Furosemide 10 mg/mL 2 mL Inj IVPUSH SCH (07:41)
[2017-03-05] MEDS: Pantoprazole 40 mg ER24 Tablet PO SCH (07:42)
[2017-03-05] MEDS: Lactulose 20 Gm/30 mL 30 mL Syrup PO SCH ×2 (07:42→20:19)
[2017-03-05] MEDS: Magnesium Chloride SR 64 mg ER24 Tablet PO SCH (07:48)
[2017-03-05] MEDS ORDERED: Potassium Chloride 20 mEq SR Tablet PO ONE (08:00)
--- NOTE | 2017-03-05 12:08 | NUR ---
Social Work-readiness for discharge: Data:EMR reviewed. Pt is on day 4 of hospitalization for hypokalemia per H&P. Pt is not medically stable, anticipate 1-2 more days. Pt resides at home with family and has been seen by AURELIO Chaparro. Pt to follow with outpt services through [facility] post discharge. Per RN notes, pt has been up independent in her room. No anticipate discharge needs. SW will continue to follow if needs arise. Assessment:Pt who is independent at baseline. Plan:Pt to discharge home when medically stable via POV. Pt to continue to follow with [facility] as an oupt. No anticipate discharge needs. SW will continue to follow if needs arise. BENY Yee
--- NOTE | 2017-03-05 17:10 | NUR ---
BP/Pain Pt with low BP, AM BP meds held, MD notified. Medicating with IV Morpine q4hrs for R sided abd pain.
--- NOTE | 2017-03-05 17:33 | DRSVH ---
CORRECTED PROCEDURE NAME AND ACCESSION/PLACER NUMBER ON 03/09/17 PROCEDURE: US ABDOMEN, LIMITED ([id number]) INDICATIONS: ascites TECHNIQUE: Limited sonographic images of the abdomen were obtained. FINDINGS: Minimal right upper quadrant and minimal to mild right lower fluid is present. Fluid appear s less prominent when compared to prior exams. IMPRESSION: Minimal to mild abdominal fluid as above. No paracentesis was performed. Dictated by: Palma Brown M.D. on 03/05/2017 at 17:13 Approved by: Palma Brown M.D. on 03/05/2017 at 17:31
--- NOTE | 2017-03-05 20:30 | NUR ---
pain patient watching tv. no distress. rates right upper quadrant abd discomfort a 5 requests additional pain medication. notified night hospitalist of above. dr hammer called back, plans to increase the oxycodone to 10 mg. notified patient.
--- NOTE | 2017-03-06 00:05 | PCM.PNMED ---
Subjective Date of Service March 05, 2017 Subjective Patient states that her pain is slightly better swelling has gotten better. She has received a abdominal ultrasound this a.m. in preparation for a paracentesis, after reviewing the scan Dr. Santamaria, radiologist says that she patient just does not have enough effusion to tap. This has been communicated to the patient. Patient was also seen by Dr. carrera. She states that she is appreciative of our medical measures but, she cannot possibly follow with [facility] or any place in [place] at this time as she does not have rides. She wanted to go to's [facility] hepatology however her insurance does not cover these results Exam Vital Signs Vital Sign - Last Date Time Temp Pulse Resp B/P Pulse Ox O2 Delivery O2 Flow Rate FiO2 03/05/17 05:48 85 03/05/17 04:56 36.8 18 91/57 92 Room Air Intake and Output 03/04/17 03/04/17 03/05/17 Cumulative From/Thru 15:00 23:00 07:00 03/01/17 16:36 - 03/05/17 06:01 Intake Total 528 ml 1072 ml 800 ml 8993 ml Output Total 450 ml 900 ml 450 ml 4004 ml Balance 78 ml 172 ml 350 ml 4989 ml Intake Oral 418 ml 1072 ml 800 ml 5442 ml IV Total 110 ml 3551 ml Output Urine Total 450 ml 900 ml 450 ml 4000 ml Urine/Stool Mix 4 ml # Voids 3 5 # Bowel Movements 0 5 Exam Gen.: No acute distress Eyes left icteric normal extraocular movements Heart: Regular rate and rhythm no S3-S4 sounds Lungs clear to auscultation no crackles or wheezes Abdomen: Not much change in belly size normal. Soft nondistended, normal bowel sounds Extremities: Improved edema bilaterally Neck: Trachea central Psych: No anxiety Neuro: No focal deficits IVs and Medications IV Fluids none Medications Reviewed: Medications were reviewed in detail Lab and Diagnostics Result Diagram: 03/05/1710 03/05/1710 X-Rays, CTs and MRIs Abdominal ultrasound from 02/28 IMPRESSION: 1. Increased hepatic echogenicity noted likely related to fatty infiltration of the liver but other sources of hepatocellular disease cannot be excluded. Recommend clinical correlation. 2. Gallbladder sludge. 3. Mild amount of perihepatic and perisplenic fluid. Dictated by: Torey DASILVA Interpreted: Tyrell Dalton MD on 02/28/2017 at 15:15 Transcribed by: TEOFILO on 02/28/2017 at 15:19 Approved by: Tyrell Dalton M.D. on 02/28/2017 at 16:16 Assessment & Plan "Patient" he somewhat W I got a couple of days so for patient back liver failure we discussed I and Subjective cholecystectomy so I will see her if she feels that she could he is currently her symptoms at all this allergies patient wants to go and he states he did not that and the patient is but some as is a 46 year old with a history significant for alcohol dependence, liver cirrhosis, and chronic pancreatitis who was seen yesterday at the ED for the same complaint. She presents today to the ED complaining of abdominal pain, flank pain, ankle swelling, nausea and fever. The patient was also seen 9 days ago for alcohol detox, and has remained sober. Abdominal pain, present on admission. Acute.: Thought to be secondary to the ascites versus biliary colic versus alcoholism - recent (02/14- hospitalization with HIDA scan negative for cholecystitis, EGD during hospitalization showed gastric erosion with healing ulcers - patient afebrile, no leukocytosis, most likely due to liver cirrhosis with possible ascites -Pain medication is changed to morphine IV -- Meld score of 15-16 -- Patient is a high risk for cholecystectomy. Consulted general surgery. Dr. Haji saw the patient and says due to high meld score she still had his current candidate for cholecystostomy, he would like for us to consider more GI involvement versus paracentesis for pain relief. We appreciate his recommendations -- Discussed case with Dr. Katz over the phone. He also notes the mild ascites from the abdominal ultrasound on the ( prior abdominal CT showed moderate ascites): No official consult is placed for Dr. Pham on 03/04. Agreed to see the patient. We appreciate his recommendations -- We contacted [facility] for hepatology to help speed up patient's follow- up, they cannot take patient's insurance. We will try [facility]: SHe states that she will talk to her parents -- Patient is given IV 20 mg Lasix on 03/03 a.m. -- Patient is given IV 10 mg Lasix on 03/04 a.m. -- Patient is seen by GI specialist Dr. alagurusamy. We will await his recommendations -- Interventional radiology reviewed today's ultrasound and status at that patient does not have enough effusions to tap, thus this is not an option for patient at this time -- This patient back on her by mouth home medications in preparation for her discharge -- Once again I offered her to speed up the follow-up that we will set up in the required hepatology appointments for her but because of her family situation she does not want to pursue this at this time Hypokalemia, present on admission. Acute. - Repleted orally at this time follow IV infusion in ED - on telemetry - recheck pending - promote oral intake -- Patient needed by mouth 40 meq potassium this a.m. per repletion Hypomagnesemia, present on admission. Acute: Resolved - patient states she picked up her OTC supplement and started taking just yesterday - Repleted IV in ED - recheck pending - will continue oral supplementation - Anticipate improved levels with increased by mouth intake - Lab in am: Normal -- She is given a 2 g repletion on 03/03 -- Patient is given a total of 8 mg the patient on 03/04: 52 recommend weekly infusions for magnesium as she has proven to be hypomagnesemic while on by mouth repletion -- The patient needed 4 g of magnesium again this a.m. on 03/05 -- Have advised to her that she will likely need weekly magnesium infusions as she has been chronically low Hyperbilirubinemia/jaundice, present on admission. Chronic, Stable. - Patient at baseline. Likely a toxic effect of alcohol liver leading to impaired functioning. Patient's underlying chronic liver disease may also be playing a role. - HIDA scan demonstrated delayed but sufficient gallbladder emptying, MRCP showed no evidence of acute infection or obstruction. -- Consulted general surgery as above: Appreciate Dr. Haji's recommendations. With a meld score of 16 patient is deemed high risk for either cholecystostomy R cholecystectomy: General surgery has signed off Elevated AST with chronic liver disease - As noted in problem above, effect of a toxicity of alcohol and liver cells as indicated by a more significant elevation in AST - Numbers appear to have stabilized, AST was in the 400s 12/24/16 continuously trending down currently 77 , ALT now normal. -- titrated lactulose down says that she is going a lot more than 3-4 times a day -- We will consider rifamixin if she continues to be confused: She appears to be very clear and oriented on 03/03, 03/04 -- It appears that she is not having of stools and 03/05 increase her lactulose back to her home dose to meet the goal of 3 stools per day Alcohol dependence - Patient states she has remained sober since last admit 02/14, pending alcohol levels - unlikely need CIWA protocol at this time, but will continue to monitor closely Lactic acidosis, present on admission: Secondary to liver disease -- Anion gap normal. Continue to follow Encephalopathy: Hepatic in origin versus pain medication resolved -- Patient described to me that Dr. Smith may revisit, a rectal examination was performed. Upon calling Dr. Smith he denies being in the hospital today, does not even recall the patient. He asks that the GI vp production be contacted -- Dr. Katz was contacted, he states that patient can be given low salt diet, she can be diuresed further carefully given her low blood pressure. She can continue lactulose and Aldactone -- 1 time dose of furosemide 20 mg IV Lasix as ordered, will consider albumin infusion. Per GI recommendation. -- Continue to target 2-4 stools per day with lactulose, add rifamixin for prophylaxis if no improvement Elevated INR: -- While DVT prophylaxis is recommended for somebody with liver disease, there is no clear consensus and vitamin K unless there is a active bleed. Hyperglycemia: A1C< 6.5, she is not a diabetic Acetaminophen-fever/headache/mild/moderate pain Antiemetics, as needed Bowel regimen, as needed. Patient status: Patient was admitted under inpatient status with expected length of stay greater than to midnights due to severity of presenting symptoms , risk of adverse event, and complexity of treatment plan. Goal is to get the patient's pain under control, if paracentesis helps that is the procedure to be performed. Patient will need weekly magnesium infusions. VTE Prophylaxis: Sub-Q Heparin (Unfractionated) Resuscitation Status: CPR: Attempt Resuscitation Time spent 25 min Angie Cutler DO March 05, 2017 07:59
[2017-03-06] MEDS: Heparin 5,000 Unit/mL Inj SUBQ SCH ×2 (00:26→07:31)
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
[2017-03-06 04:51] VITALS: BP 96/53; PULSE 82; RESP 16; O2SAT 92
[2017-03-06 05:23] VITALS: PULSE 82
[2017-03-06] MEDS: Pantoprazole 40 mg ER24 Tablet PO SCH (07:31)
[2017-03-06] MEDS: Lactulose 20 Gm/30 mL 30 mL Syrup PO SCH (07:31)
[2017-03-06 07:49] VITALS: PULSE 90
[2017-03-06 08:43] LABS: Magnesium 1.2 mg/dL (1.6-2.6)
[2017-03-06] MEDS ORDERED: Magnesium Sulf 4 Gm/100 mL H2O 4 GM in IV Premix 1 EACH IV ONE ×2 (08:50→12:05)
[2017-03-06] MEDS ORDERED: Magnesium Chloride SR 64 mg ER24 Tablet PO SCH ×2 (09:00→14:30)
[2017-03-06 09:15] VITALS: BP 103/67; PULSE 82; RESP 16; O2SAT 95
[2017-03-06] MEDS ORDERED: FURO40TA4 PO (09:22)
[2017-03-06] MEDS ORDERED: MAGN64TA7 PO (09:22)
[2017-03-06] MEDS ORDERED: [UNRECOGNIZED DRUG - CODE] IV (09:22)
[2017-03-06] MEDS ORDERED: FAMO20T PO (09:22)
[2017-03-06] MEDS ORDERED: Phytonadione (Adult) 10 mg/1 mL Inj PO ONE (10:20)
[2017-03-06 11:35] LABS: Unsaturated Iron Binding 52.9 ug/dL
[2017-03-06] MEDS ORDERED: hydrOXYzine Pamoate 25 mg Capsule PO PRN (11:40)
[2017-03-06] MEDS ORDERED: HYDR-3797 PO (11:55)
[2017-03-06] MEDS ORDERED: OXYC5TAB72 PO (12:00)
[2017-03-06] MEDS ORDERED: PHYT1LIQ MC (12:01)
[2017-03-06 12:14] VITALS: BP 102/69; PULSE 78; RESP 16; O2SAT 96
--- NOTE | 2017-03-06 12:15 | PCM.DIMED ---
Discharge Instructions Date of Service March 06, 2017 Dates of Hospitalization March 01, 2017 at 22:44 Discharge Diagnosis Discharge Diagnosis Hepatic Encephalopathy, Alcoholic Liver Disease, Hyperbillirubinemia, leg edema Diet Other (2 g sodium restriction and small meals) Activity No restrictions Call your provider Fever or Chills, Shortness of breath, Bleeding, Chest pain, Vomitting, Excessive diarrhea, Weakness (unilateral), Other Patient Instructions Please take your lactulose as prescribed to achieve 3-4 stools daily. May take 10 mg BID if having too many stools. Take two more days of vitamin K and stop. Please use hydroxyzine for itching. May use ice packs for your L hip hematoma. Please note the increased magnesium dose 2 g sodium limitation with diet. Eat small meals to avoid pain. Obtain magnesium lab work and have the lab be verified by the GI specialist Dr. Smith, he will decise if you will need weekly infusions.. Follow-up plan F/U with Dr. Smith in 2-3 days upon discharge from the hospital. He will review your Mag lab and order infusions as needed. F/U with your PCP in one week. Discuss appointment with [facility] with Dr. Smith. Angie Cutler DO March 06, 2017 12:15
--- NOTE | 2017-03-06 12:18 | NUR ---
Social Work-discharge: Data:EMR reviewed. Pt is on day 5 of hospitalization for hypokalemia per H&P. Pt is medically stable to discharge home today. Pt resides at home with family and has been seen by AURELIO Chaparro. Per RN notes, pt has been up independent in her room Pt to follow with outpt services through [facility] post discharge. No anticipate discharge needs. All updated and agreeable to plan. Assessment:Pt who is independent at baseline. Plan:Pt to discharge home today via POV. Pt to continue to follow with [facility] as an oupt. No anticipate discharge needs. All updated and agreeable to plan. BENY Yee
[2017-03-06 15:51] VITALS: BP 107/67; PULSE 76; RESP 16; O2SAT 96
--- NOTE | 2017-03-06 17:49 | NUR ---
Discharge Pt d/c home at 1650 with both parents, ambulating out with primary RN. Pt medicated for pain prior to leaving and IV d/c. All discharge info discussed with pt and later while parents present. All questions answered. OP requisition given for f/u lab Mg+ check. Pt strongly encouraged to f/u with PCP and GI. stated she didn't want to be admitted again, lots of education provided re medication/etoh/diet compliance. Pt seemed eager to stay on track, reported to have a good support system set up.
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
== END 2017-03-06 16:50 | disposition home or self-care (01) | DRG 280 ==
LOC: SED 16:08 → MPC 22:44
PROVIDERS: ADMIT Hospitalist; ATTEND Hospitalist
DX: K70.31 Alcoholic cirrhosis of liver with ascites (principal); K72.00 Acute and subacute hepatic failure without coma; E87.2 Acidosis; E87.6 Hypokalemia; E83.42 Hypomagnesemia; F10.20 Alcohol dependence, uncomplicated; R73.9 Hyperglycemia, unspecified

== ENCOUNTER 2017-03-23 11:06 | Inpatient (IN) | payer OTHER ==
[2017-03-23] VITALS (8 sets, daily range): BP systolic 109–125; BP diastolic 67–80; PULSE 78–94; RESP 12–19; O2SAT 85–99
[~2017-03-23] VITALS: Ht 170.2 cm; Wt 68.7 kg
[~2017-03-23 11:06] MED LIST changes: -CHLO25CA10 PO; -CITA20TA PO; -CLON0.1T14 PO; +FAMO20T PO; -FURO-129 PO; +FURO40TA4 PO; -GABA300C PO; +LACT10SO27 PO; +MAGN64TA7 PO; -OMEP40CA36 PO; -OXYC-474 PO; -OXYC1TAB24 PO; +OXYC5TAB72 PO; +PHYT1LIQ MC; +PREN1.4T2 PO; -PREN1TAB25 PO; -SLO64 PO
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
[2017-03-23] MEDS ORDERED: Thiamine Inj 100 MG, Folic Acid Inj 1 MG, Magnesium Sulfate 50% Inj 2 GM, Multivitamins... IV ONE ×5 (12:30)
[2017-03-23] MEDS ORDERED: Ondansetron 2 mg/mL 2 mL Inj IVPUSH PRN (12:30)
[2017-03-23 13:13] LABS: BASOPHILS % (AUTO) 0.6 % (0-3); EOSINOPHILS % (AUTO) 0.6 % (0-5); MONOCYTES % (AUTO) 6.3 % (4-12); Mean Corpuscular Hemoglobin 35.1 pg (27.0-35.0); Mean Corpuscular Volume 100.6 fL (81-100); Platelet Count 108 bil/L (150-400)
[2017-03-23 13:29] LABS: INR 1.41 ratio
[2017-03-23 13:43] LABS: Lipase 26 U/L (13-60)
[2017-03-23] MEDS ORDERED: Alum-Mag Hydrox-Simeth 30 mL Suspension PO PRN (16:00)
[2017-03-23] MEDS ORDERED: Polyethylene Glycol (PEG) 17 Gm Powder PO PRN (16:00)
[2017-03-23] MEDS ORDERED: Magnesium Sulf 2 Gm/50mL Water 2 GM in IV Premix 1 EACH IV ONE (16:15)
[2017-03-23] MEDS ORDERED: Glucose 40% Oral Gel 15 Gm Tube PO PRN (16:15)
[2017-03-23] MEDS ORDERED: KCl 40 mEq/D5W 500 mL 40 MEQ in IV Premix 1 EACH IV ONE (16:15)
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
[2017-03-23] MEDS: Insulin LISPRO 300 Unit/3 mL Inj SUBQ SCH ×2 (17:08→21:09)
[2017-03-23] MEDS: Multivit-Miner-Folic Acid-Iron Tablet PO SCH (17:21)
[2017-03-23] MEDS: 0.9% Sodium Chloride 1,000 ML IV SCH (17:22)
[2017-03-23 17:27] LABS: APPEARANCE,URINE CLEAR (CLEAR,HAZY); COLOR,URINE YELLOW (YELLOW); PH,URINE 6.5 (5.0-8.0)
[2017-03-23 17:28] LABS: OCCULT BLOOD,URINE NEGATIVE (NEGATIVE)
[2017-03-23] MEDS: Thiamine Inj 100 MG in 0.9% Sodium Chloride 100 ML IV SCH (18:28)
--- NOTE | 2017-03-23 19:19 | NUR ---
Admit Patient arrived in [facility] after 1700 today. Patient was awake and oriented x3. Patient denied having any other complained than a headache/head fullness 5-6/10. After about 20min patient started to complain of having mild nausea. CIWA at the time was 7-8. Patient was medicated with valium 5mg IV x1- symptoms improved; nausea stopped and headache decreased to 2-3/10. At the time patient called for her dinner tray and stated feeling hungry. Blood glucose per finger stick was 127- no insulin coverage was given. Patient appeared to have a generally constrictive behavior. Stated that she had not been drinking alcohol for some months but recent stress caused her to relapse. Patient was encouraged to seek community support groups. Patient stated that she has been involve with her judaism group.
[2017-03-23] MEDS: Ondansetron 2 mg/mL 2 mL Inj IVPUSH PRN (21:11)
[2017-03-24] VITALS (7 sets, daily range): BP systolic 109–126; BP diastolic 68–78; PULSE 76–96; RESP 16–20; O2SAT 95–100
[2017-03-24] MEDS: Ondansetron 2 mg/mL 2 mL Inj IVPUSH PRN ×4 (01:52→22:33)
--- NOTE | 2017-03-24 02:07 | NUR ---
CIWA protocol P: ciwa score 13, mild tremors and moderately anxious, a/o x 3, appropriate. c/o headache and nausea. I: given valium IV prn, morphine 1mg IV for pain and zofran IV for nausea. E: Pain down to 3-4/10, no vomiting, ciwa score down to 9, vital signs stable. s: Pt using call light for assistance. Addendum: 03/24/17 at 0624 by JOELLE MANCIA RN AM K+ 3.4, Mg 1.6, paged Dr. Clemons of results, awaiting for callback or new order.
[2017-03-24 02:35] LABS: BASOPHILS % (AUTO) 0.6 % (0-3); EOSINOPHILS % (AUTO) 1.3 % (0-5); MONOCYTES % (AUTO) 6.6 % (4-12); Mean Corpuscular Volume 101.3 fL (81-100); NEUTROPHILS % (AUTO) 54.1 % (40-74); Platelet Count 88 bil/L (150-400)
[2017-03-24] MEDS: 0.9% Sodium Chloride 1,000 ML IV SCH ×3 (03:26→23:58)
[2017-03-24] MEDS: Thiamine Inj 100 MG in 0.9% Sodium Chloride 100 ML IV SCH (08:43)
[2017-03-24] MEDS: Insulin LISPRO 300 Unit/3 mL Inj SUBQ SCH ×4 (08:43→22:00)
[2017-03-24] MEDS: Multivit-Miner-Folic Acid-Iron Tablet PO SCH (09:21)
[2017-03-24] MEDS ORDERED: Potassium Chloride 20 mEq SR Tablet PO ONE (10:40)
--- NOTE | 2017-03-24 10:40 | PCM.PNMED ---
Subjective Date of Service Mar 24, 2017 Subjective She had a difficult night. Some hallucinations which are better now. Suffered insomnia. She continues to be anxious and shaky. She is also having some abdominal cramping but no dyspepsia. A lot of flatus. No diarrhea. No overnight events Exam Vital Signs Vital Sign - Last Date Time Temp Pulse Resp B/P Pulse Ox O2 Delivery O2 Flow Rate FiO2 03/24/17 08:00 93 03/24/17 02:24 36.7 16 126/68 95 Room Air Intake and Output 03/23/17 03/23/17 03/24/17 Cumulative From/Thru 15:00 23:00 07:00 03/23/17 11:23 - 03/24/17 05:22 Intake Total 1500 ml 1600 ml 3100 ml Output Total 175 ml 600 ml 775 ml Balance 1325 ml 1000 ml 2325 ml Intake Oral 200 ml 140 ml 340 ml IV Total 1300 ml 1460 ml 2760 ml Output Urine Total 175 ml 600 ml 775 ml # Voids 1 1 # Bowel Movements 0 0 Exam Alert and oriented -3, no distress. Fluent speech, anxious in appearance Icteric sclera. Lungs are clear with normal rate and effort Heart is regular without murmur gallop or rub Abdomen soft nontender, flat Extremities are free of edema. Skin is free of rash or lesions. IVs and Medications Medications Reviewed: Medications were reviewed in detail Lab and Diagnostics Result Diagram: 03/24/1722303/24/17223 Assessment & Plan Acute alcohol withdrawal, POA. Active with a CIWA score 13 this morning. Continue the old cold all protocol. Remote alcohol fall seizures. Plan is as above, seizure precautions. Volume depletion, POA and improved.. Fluid resuscitation with crystalloids Hypokalemia, POA and still active.. Replete and follow Hypomagnesemia, POA, resolved. Replete and follow Remote hepatic encephalopathy. Follow clinically and treat as indicated. There is no indication of encephalopathy at this time. Liver cirrhosis, POA. Follow clinically and avoid hepatotoxic agents. Her liver function tests. Be stable at this time. Diabetes mellitus 2, POA. Correctional lispro added glargine as indicated She is full resuscitation Inpatient status with an estimated length of stay over 2 nights Resuscitation Status: CPR: Attempt Resuscitation João Hoskins MD Mar 24, 2017 10:40
--- NOTE | 2017-03-24 17:52 | NUR ---
ETOH withdrawal.. CIWA has been 12-13. Has been given Valium IV and this has been effective in keeping withdrawal sxs down per pt. Pt has had persistent headache and intermittent nausea.. has been given Morphine and Zofran. Pt is willing to try oral pain medication as nausea was noted soon after Morphine dose. Dr Hoskins updated and Oxycodone ordered.
[2017-03-25] VITALS (7 sets, daily range): BP systolic 99–117; BP diastolic 65–74; PULSE 78–88; RESP 12–18; O2SAT 93–98
[2017-03-25] MEDS ORDERED: diphenhydrAMINE 25 mg Capsule PO ONE (01:25)
[2017-03-25] MEDS: Multivit-Miner-Folic Acid-Iron Tablet PO SCH (07:42)
[2017-03-25] MEDS: Insulin LISPRO 300 Unit/3 mL Inj SUBQ SCH ×4 (07:42→20:02)
[2017-03-25] MEDS: Thiamine Inj 100 MG in 0.9% Sodium Chloride 100 ML IV SCH (09:06)
[2017-03-25] MEDS: 0.9% Sodium Chloride 1,000 ML IV SCH ×2 (09:07→20:01)
[2017-03-25] MEDS ORDERED: diphenhydrAMINE 50 mg Capsule PO PRN (09:30)
[2017-03-25] MEDS: diphenhydrAMINE 25 mg Capsule PO PRN (10:24)
--- NOTE | 2017-03-25 11:04 | PCM.PNMED ---
Subjective Date of Service Mar 25, 2017 Subjective She is doing little bit better today. She still anxious and somewhat lethargic. No hallucinations. No nausea or vomiting or diarrhea. No abdominal chest pain or shortness of breath. No overnight events Exam Vital Signs Vital Sign - Last Date Time Temp Pulse Resp B/P Pulse Ox O2 Delivery O2 Flow Rate FiO2 03/25/17 08:00 79 03/25/17 07:30 36.6 14 117/74 93 Room Air Intake and Output 03/24/17 03/24/17 03/25/17 Cumulative From/Thru 15:00 23:00 07:00 03/23/17 11:23 - 03/25/17 05:32 Intake Total 1660 ml 1566 ml 6326 ml Output Total 1100 ml 700 ml 2575 ml Balance 560 ml 866 ml 3751 ml Intake Oral 550 ml 400 ml 1290 ml IV Total 1110 ml 1166 ml 5036 ml Output Urine Total 1100 ml 700 ml 2575 ml # Voids 1 # Bowel Movements 0 0 0 Exam Alert and oriented -3, no distress. Fluent speech, somewhat lethargic Anicteric sclera. Lungs are clear with normal rate and effort Heart is regular without murmur gallop or rub Abdomen soft nontender, flat Extremities are free of edema. Skin is free of rash or lesions. IVs and Medications Medications Reviewed: Medications were reviewed in detail Lab and Diagnostics Result Diagram: 03/24/1722303/24/17223 Assessment & Plan Acute alcohol withdrawal, POA. Active with a CIWA score 13 this morning. She is slowly improving we will continue her withdrawal protocol. Remote alcohol fall seizures. Plan is as above, seizure precautions. Volume depletion, POA resolved. Stop IV fluids. Hypokalemia, POA and resolved replete and follow Hypomagnesemia, POA, resolved. Replete and follow Remote hepatic encephalopathy. Follow clinically and treat as indicated. There is no indication of encephalopathy at this time. Liver cirrhosis, POA. Follow clinically and avoid hepatotoxic agents. Her liver function tests. Be stable at this time. Diabetes mellitus 2, POA. Correctional lispro added glargine as indicated She is full resuscitation Inpatient status with an estimated length of stay over 2 nights VTE Mechanical Devices: Intermittant Pneumatic CD Resuscitation Status: CPR: Attempt Resuscitation João Hoskins MD Mar 25, 2017 11:04
[2017-03-25 12:41] LABS: Magnesium 1.2 mg/dL (1.6-2.6)
[2017-03-25] MEDS ORDERED: Magnesium Sulf 2 Gm/50mL Water 2 GM in IV Premix 1 EACH IV ONE (12:45)
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
--- NOTE | 2017-03-25 17:52 | NUR ---
ETOH withdrawl CIWAs 11 to 13 prior to receiving IV valium, decreased to 5 or 6 post medication. Breakthrough headache controlled with PRN oxycodone. Patient sleeping majority of shift, easily awakens to voice. Oriented to person, place and occasionally time. Itching resolved with po benadryl. Sub-optimal po intake, IVFs continued per orders. Up with SBA to bathroom, steady gait. Voiding adequately. Will continue to monitor.
[2017-03-25] MEDS ORDERED: Potassium Chloride 20 mEq SR Tab(K 3 - 3.7 & Cr 2.1 - 2.9) PO ONE (20:55)
[2017-03-25] MEDS: Ondansetron 2 mg/mL 2 mL Inj IVPUSH PRN (23:03)
[2017-03-26] VITALS (7 sets, daily range): BP systolic 100–119; BP diastolic 68–78; PULSE 81–90; RESP 16–20; O2SAT 96–99
[2017-03-26] MEDS: Ondansetron 2 mg/mL 2 mL Inj IVPUSH PRN ×2 (03:22→09:26)
[2017-03-26] MEDS: 0.9% Sodium Chloride 1,000 ML IV SCH (04:59)
--- NOTE | 2017-03-26 05:36 | NUR ---
CIWA/Pain/Readiness to Learn Pt initial CIWA score was a 5 and no Valium was given at this time. Pt second CIWA score was 11 and pt was given 10mg Valium. Pt continues to have pain 7/10 that is relieved momentarily by 2-4mg of morphine IVP. The pt's pain is primarily in the RUQ of the abdomen. Pt appears ready to learn about how the alcohol has been affecting her health. Pt has been asking questions related to her health that have been affected by the excessive alcohol consumption.
[2017-03-26] MEDS: Insulin LISPRO 300 Unit/3 mL Inj SUBQ SCH ×4 (08:00→22:00)
[2017-03-26] MEDS: Multivit-Miner-Folic Acid-Iron Tablet PO SCH (09:04)
--- NOTE | 2017-03-26 11:40 | PCM.PNMED ---
Subjective Date of Service Mar 26, 2017 Subjective No problems overnight, less anxiety. No hallucinations. Less abdomen pain. No diarrhea. No overnight events. Exam Vital Signs Vital Sign - Last Date Time Temp Pulse Resp B/P Pulse Ox O2 Delivery O2 Flow Rate FiO2 03/26/17 08:52 36.8 86 18 100/68 96 Room Air Intake and Output 03/25/17 03/25/17 03/26/17 Cumulative From/Thru 15:00 23:00 07:00 03/23/17 11:23 - 03/26/17 06:45 Intake Total 1711 ml 1269 ml 9306 ml Output Total 600 ml 400 ml 3575 ml Balance 1111 ml 869 ml 5731 ml Intake Oral 350 ml 200 ml 1840 ml IV Total 1361 ml 1069 ml 7466 ml Output Urine Total 600 ml 400 ml 3575 ml Other 0 ml 0 ml # Voids 1 2 # Bowel Movements 0 Exam Alert and oriented -3, no distress. Fluent speech Anicteric sclera. Lungs are clear with normal rate and effort Heart is regular without murmur gallop or rub Abdomen soft nontender, flat Extremities are free of edema. Skin is free of rash or lesions. IVs and Medications Medications Reviewed: Medications were reviewed in detail Lab and Diagnostics Result Diagram: 03/24/17 0224 03/26/17 0310 Assessment & Plan Acute alcohol withdrawal, POA. Much improved with a CIWA score 3 this morning. She is slowly improving we will continue her withdrawal protocol. Remote alcohol fall seizures. Plan is as above, seizure precautions. Volume depletion, POA resolved. Stop IV fluids. Hypokalemia, POA and resolved replete and follow Hypomagnesemia, POA, resolved. Stable today. Remote hepatic encephalopathy. Follow clinically and treat as indicated. There is no indication of encephalopathy at this time. Liver cirrhosis, POA. Follow clinically and avoid hepatotoxic agents. Her liver function tests. Be stable at this time. Diabetes mellitus 2, POA. Correctional lispro added glargine as indicated She is full resuscitation Inpatient status with an estimated length of stay over 2 nights VTE Mechanical Devices: Intermittant Pneumatic CD Resuscitation Status: CPR: Attempt Resuscitation João Hoskins MD Mar 26, 2017 11:40
--- NOTE | 2017-03-26 15:42 | NUR ---
CIWA/Pain/Activity/Mood Pt initial CIWA score 2 for mild anxiety and restlessness. Pt has had no other symptoms of withdrawal during this shift. Pt continues to complain of pain in her RUQ rated at 8/10. Pt was administered Oxycodone with some relief and approximately 2 hours later she was administered 4mg of morphine with relief. At that time the pt also tried to have a bowel movement with no results, but did experience a large amount of flatus. Pt has been encouraged today to get out of bed and walk. She has walked around unit approximately 4 times and was also able to independently take a shower. Pt mood is still somewhat depressed, however she states that she is feeling much better and looking forward to her alcohol rehab program. Pt also stated that she has enjoyed her meetings with her SW Krysta. Addendum: 03/26/17 at 1829 by PAZ WELLS RN Medication administration Computer in pt's room has not working since approximately 1200. Unable to barcode for medication administration. Charge nurse aware.
[2017-03-26] MEDS: diphenhydrAMINE 25 mg Capsule PO PRN (23:36)
--- NOTE | 2017-03-27 03:24 | NUR ---
UA Sent/Constipation/Pain Pt c/o burning and pain when urinating. Pt also c/o urgency and frequency along with painful urination. Pt's urine is neris in color and is tinged pink. Pt no longer has IV fluids running and is being encouraged to increase PO intake. Pt has not had a BM since the . Pt was given Miralax tonight along with encouraging the pt to increase PO intake. Pt continues to c/o RUQ abdominal pain. Pt says that the pain gets worse when she eats. Pt received 10mg of Roxicodone which took pt's pain from 06/26 to 04/25.
[2017-03-27 03:32] VITALS: BP 101/66; PULSE 82; RESP 16; O2SAT 94
[2017-03-27 03:40] LABS: APPEARANCE,URINE CLEAR (CLEAR,HAZY); COLOR,URINE DARK YELLOW (YELLOW); OCCULT BLOOD,URINE NEGATIVE (NEGATIVE)
[2017-03-27 03:41] LABS: ICTOTEST,URINE POSITIVE (Negative)
[2017-03-27] MEDS: Multivit-Miner-Folic Acid-Iron Tablet PO SCH (07:33)
[2017-03-27 07:34] VITALS: BP 105/67; PULSE 85; O2SAT 100
[2017-03-27] MEDS: Insulin LISPRO 300 Unit/3 mL Inj SUBQ SCH (08:00)
--- NOTE | 2017-03-27 10:29 | PCM.DIMED ---
Discharge Instructions Date of Service Mar 27, 2017 Dates of Hospitalization Mar 23, 2017 at 16:17 Discharge Diagnosis Discharge Diagnosis Acute alcohol withdrawal, resolved. Remote alcohol fall seizures. Volume depletion, resolved. Hypokalemia, resolved . Hypomagnesemia, resolved. Remote hepatic encephalopathy. Liver cirrhosis, stable. Diabetes mellitus 2. Chronic pancreatitis and abdomen pain Diet Discharge Diet: Low fat, Low Sodium Activity Discharge Activity: No restrictions Call your provider Call your provider for: Fever or Chills, Vomitting Patient Instructions Patient Instructions Follow up with [facility] as scheduled on Tuesday No alcohol. Follow-up Provider: Patrick Thorne DO Follow-up with PCP in: 1 week João Hoskins MD Mar 27, 2017 10:29
[2017-03-27] MEDS ORDERED: OXYC5TAB72 PO (10:32)
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
--- NOTE | 2017-03-27 12:44 | NUR ---
Discharge Pt discharged to home with transportation provided by her father. Pt's IV's were dc'd intact. Pt's discharge instructions and follow up appointments were reviewed. All questions were answered and pt voiced understanding. Pt's belongings were gathered for transportation home with pt. Pt was escorted off unit by RN [facility] her father, per pt request.
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
== END 2017-03-27 11:35 | disposition home or self-care (01) | DRG 775 ==
LOC: SED 11:06 → PCC 16:17
PROVIDERS: ADMIT Hospitalist; ATTEND Hospitalist
DX: F10.239 Alcohol dependence with withdrawal, unspecified (principal); F10.251 Alcohol dependence with alcohol-induced psychotic disorder with hallucinations; E83.42 Hypomagnesemia; K70.30 Alcoholic cirrhosis of liver without ascites; E87.6 Hypokalemia; E11.9 Type 2 diabetes mellitus without complications; Y90.8 Blood alcohol level of 240 mg/100 ml or more

== ENCOUNTER 2017-04-08 21:32 | Emergency (ER) | payer OTHER ==
[~2017-04-08] VITALS: Ht 170.2 cm; Wt 68.9 kg
[~2017-04-08 21:32] MED LIST changes: -FURO40TA4 PO; -HYDR-3797 PO; -LACT10SO27 PO; -PHYT1LIQ MC; -SPRN50T PO
[2017-04-08 21:46] VITALS: BP 111/74; PULSE 98; RESP 16; O2SAT 100
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
[2017-04-08 22:35] LABS: BASOPHILS % (AUTO) 0.3 % (0-3); EOSINOPHILS % (AUTO) 1.4 % (0-5); Mean Corpuscular Hemoglobin 34.1 pg (27.0-35.0); Mean Corpuscular Volume 100.3 fL (81-100); NEUTROPHILS % (AUTO) 68.4 % (40-74); Platelet Count 113 bil/L (150-400)
[2017-04-08] MEDS ORDERED: 0.9% Sodium Chloride 1,000 ML IV ONE (22:45)
[2017-04-08] MEDS ORDERED: HYDROmorphone 0.5 mg/0.5 mL iSecure Syringe IVPUSH ONE (22:45)
[2017-04-08] MEDS ORDERED: Ondansetron 2 mg/mL 2 mL Inj IVPUSH ONE ×2 (22:45→23:35)
[2017-04-09] MEDS ORDERED: OXYC5TAB72 PO (00:29)
[2017-04-09 00:42] VITALS: BP 118/71; PULSE 70; RESP 16; O2SAT 99
--- NOTE | 2017-04-09 08:10 | DRSVH ---
PROCEDURE: US ABDOMEN, LIMITED ([id number]) INDICATIONS: 46 year-old female with right upper quadrant abdominal pain and tenderness. TECHNIQUE: Real-time focused scanning was performed of the abdomen, with image documentation. COMPARISON: [facility], US, ABDOMEN LTD, 03/05/2017, 16:57. [facility], US, ABDOMEN LTD, 02/28/2017, 13:08. [facility], MR, MR ABD MRCP, 02/18/2017, 20:00. [facility], NM, NM HIDA SCAN W CCK STD, 02/18/2017, 15:03. [facility], US, US ABDOMEN, 02/17/2017, 14:09. [facility], CT, CT ABD PELVIS W CON, 02/17/2017, 12:27. FINDINGS: Preliminary interpretation rendered by [facility]. Liver is diffusely heterogeneous in echotexture. The gallbladder is partially contracted at the time of scan, with wall thickness of up to 4 mm. Sonographic Odom's sign was noted on real-time scanning . No pericholecystic fluid. IMPRESSION: Suboptimal overall examination due to postprandial gallbladder contraction. Sonographic M urphy's sign may suggest chronic acalculous cholecystitis in conjunction with previous imaging findin gs back to February 17, 2017. Dictated by: Poncho Hankins M.D. on 04/09/2017 at 8:04 Approved by: Poncho Hankins M.D. on 04/09/2017 at 8:09
== END 2017-04-09 00:42 | disposition home or self-care (01) ==
LOC: SED 21:32
DX: R10.11 Right upper quadrant pain (principal); R11.0 Nausea; E11.9 Type 2 diabetes mellitus without complications; Z88.0 Allergy status to penicillin; Z88.5 Allergy status to narcotic agent
CPT/HCPCS: 36415; 76705; 80053; 81025; 83690; 85025; 96361; 96374; 96375; 96376; 99285; J1170; J2405; J7030

== ENCOUNTER 2017-04-19 21:39 | Inpatient (IN) | payer OTHER ==
[~2017-04-19] VITALS: Ht 170.2 cm; Wt 68.7 kg
[2017-04-19 21:41] VITALS: BP 127/84; PULSE 96; RESP 16; O2SAT 98
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
[2017-04-19] MEDS ORDERED: Thiamine Inj 100 MG, Folic Acid Inj 1 MG, Magnesium Sulfate 50% Inj 2 GM, Multivitamins... IV ONE ×5 (22:50)
[2017-04-19 23:21] LABS: BASOPHILS % (AUTO) 0.4 % (0-3); EOSINOPHILS % (AUTO) 1.3 % (0-5); MONOCYTES % (AUTO) 4.5 % (4-12); Mean Corpuscular Volume 97.1 fL (81-100); NEUTROPHILS % (AUTO) 43.3 % (40-74); Platelet Count 104 bil/L (150-400)
[2017-04-19 23:43] LABS: INR 1.35 ratio
[2017-04-19 23:45] LABS: Magnesium 1.6 mg/dL (1.6-2.6)
[2017-04-19] MEDS ORDERED: Ondansetron 2 mg/mL 2 mL Inj ONE (23:52)
[2017-04-20] VITALS (11 sets, daily range): BP systolic 105–129; BP diastolic 63–81; PULSE 76–92; RESP 14–19; O2SAT 92–100
[2017-04-20] MEDS ORDERED: Ondansetron 2 mg/mL 2 mL Inj IVPUSH PRN ×2 (00:35→02:10)
[2017-04-20] MEDS ORDERED: Lactulose 20 Gm/30 mL 30 mL Syrup PO ONE (01:00)
[2017-04-20] MEDS ORDERED: Alum-Mag Hydrox-Simeth 30 mL Suspension PO PRN ×2 (02:10→03:20)
[2017-04-20] MEDS ORDERED: Potassium Chloride Inj 20 MEQ in Dextrose 5% 250 ML IV ONE (03:20)
[2017-04-20] MEDS ORDERED: Polyethylene Glycol (PEG) 17 Gm Powder PO PRN (03:20)
[2017-04-20] MEDS: 0.9% Sodium Chloride 1,000 ML IV SCH ×2 (03:35→15:50)
[2017-04-20] MEDS ORDERED: HYDROmorphone 0.5 mg/0.5 mL iSecure Syringe IVPUSH PRN (04:25)
--- NOTE | 2017-04-20 04:26 | PCM.HPMED ---
Subjective Date of Service Apr 20, 2017 Primary Provider: Admitting Physician: Angelique Vincent MD Primary Care Physician: Rito Thorne MD Attending Physician: Angelique Vincent MD Chief Complaint: Confusion, N/V, abdominal pain History of Present Illness: Pt is a 46 year old female with a history of alcoholism with alcoholic cirrhosis , chronic pancreatitis, and DM who presents complaining of decreased appetite onset 1 week and confusion. She reports weight loss of 10 lbs this week and vomiting onset 1 hour ago. 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 She denies any other symptoms. Per pt, she last drank this morning, and states she had about a fifth of vodka, which is her average daily intake. The family tried to get a blood sugar, but they were unable to get a good reading. Her father reports that she went "crazy today with vomiting and hallucinations." Pt reports that she is interested in detox eventually. On admission, vitals were normal. Hb 11.7, Hct 33.4, plt 104. INR 1.35. Na 146, K 3.4, BUN 3, Cr 0.3, glucose 120, bilirubin 3.9, AST 109, ALT 31, alk phos 109. Ammonia 177. Review of Systems: Comprehensive review of systems conducted and was negative except for the pertinent positives listed above. Allergies Coded Allergies: Penicillins (Verified Allergy, Severe, 04/20/17) "Make me stop breathing." codeine (Verified Allergy, Severe, Rash,Itching,, 04/20/17) Home Medications Calcium carbonate 500 mg BID Vit B12 1000 mcg daily Famotidine 20 mg BID Oxycodone 10 mg q4h PRN vitamin 2 tablets daily PMH Ovarian cyst Alcoholism Alcoholic liver cirrhosis Alcohol withdrawal seizures Diabetes mellitus Chronic pancreatitis Hepatic encephalopathy Hyperbillirubinemia Peripheral edema Surgical History None Family History Father - Alcoholism Grandmother - Colon cancer Social History Hx Alcohol Use: Yes (vodka daily, here for w/drawal symptoms desiring to detox) Alcoholic Drinks Per Day: Fifth of vodka per day Hx Substance Use: No Hx Tobacco Use: No Smoking Status: Never Smoker Exam Vital Signs Vital Sign - Last Date Time Temp Pulse Resp B/P Pulse Ox O2 Delivery O2 Flow Rate FiO2 04/20/17 02:57 87 7/5/17 02:35 36.4 18 121/81 95 Room Air Intake and Output 04/19/17 04/19/17 04/20/17 Cumulative From/Thru 15:00 23:00 07:00 04/19/17 21:41 - 04/20/17 02:35 Intake Total 1000 ml 1000 ml Output Total 300 ml 300 ml Balance 700 ml 700 ml Intake IV Total 1000 ml 1000 ml Output Urine Total 300 ml 300 ml Exam General: Alert, Oriented X3 but appears somewhat intoxicated, Cooperative, No acute distress Head: Normocephalic, atraumatic. External ears normal. Eyes: PERRLA, EOMI. Anicteric sclerae. Mouth: Mouth normal, Mucous membranes moist/pink Neck: Neck supple with full range of motion. Chest& Lungs: Clear to auscultation bilaterally with no crackles, wheezes, or rhonchi. Cardiovascular: Regular rate/rhythm, Normal S1, Normal S2, No murmurs/rubs/ gallops Abdomen: RUQ tenderness to palpation, Non-distended, No masses, Normoactive bowel tones, Soft Musculoskeletal: Normal range of motion Extremities: No cyanosis/clubbing/edema bilaterally Neurological: Grossly neurologically intact. Normal speech Lab and Diagnostics Result Diagram: 04/19/17 2315 04/19/175 Assessment & Plan Pt is a 46 year old female with a history of alcoholism with alcoholic cirrhosis , chronic pancreatitis, and DM who presents complaining of decreased appetite onset 1 week and confusion. Alcohol abuse - Pt presents intoxicated, reported she drank a fifth of vodka today. Hx of delirium tremens and withdrawal seizures. - Alcohol withdrawal protocol - Thiamine 100 mg daily - Social work consult - Case management Abdominal pain, acute on chronic. Present on admission. - Pt presents with RUQ pain, ongoing for months but worsened over the last few days. Per Dr. Gonzalez's note on 02/20/17, she has chronic RUQ pain, possibly secondary to chronic cholecystitis vs liver capsule pain from enlarged fatty liver. She is a high risk for surgery with her MELD score of 17 at the time, and any gallbladder surgery should be done at a liver transplant center. Abd US 02/28/17 showed increased hepatic echogenicity noted likely related to fatty infiltration of the liver, with gallbladder sludge without stones seen. - Lipase ordered - CT abdomen ordered - NPO - NS @ 100 ml/hr - Dilaudid 0.5 mg q4h PRN pain - Zofran PRN nausea Hepatic encephalopathy, acute. Present on admission. - Ammonia 177 - Lactulose 20 g PO TID. Titrate to produce 2-3 bowel movements per day. Alcoholic cirrhosis, chronic. - Pt has elevated INR, thrombocytopenia, AST>ALT. Discriminant function 13.1, indicating no benefit from glucocorticoid therapy. MELD Score 15, conferring a 6 % 3-month mortality. Previous workup includes negative iron panel, ceruloplasmin , alpha-1 antitrypsin, and negative Hepatitis panel. - Bowel regimen as needed - Antiemetic as needed Patient is admitted under inpatient status with expected length of stay greater than 2 midnights due to severity of presenting symptoms, risk of adverse event, and complexity of treatment plan. Resuscitation Status: CPR: Attempt Resuscitation Attending Statement Pt seen and examined by myself and agree with above plan. Khoi Foss Apr 20, 2017 03:24 Angelique Vincent MD Apr 20, 2017 05:57
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
[2017-04-20 06:26] LABS: BASOPHILS % (AUTO) 0.7 % (0-3); EOSINOPHILS % (AUTO) 2.6 % (0-5); MONOCYTES % (AUTO) 4.4 % (4-12); Mean Corpuscular Hemoglobin 33.9 pg (27.0-35.0); Mean Corpuscular Volume 99.7 fL (81-100); NEUTROPHILS % (AUTO) 37.2 % (40-74); Platelet Count 85 bil/L (150-400)
[2017-04-20] MEDS ORDERED: Magnesium Sulf 4 Gm/100 mL H2O 4 GM in IV Premix 1 EACH IV ONE (07:55)
[2017-04-20] MEDS ORDERED: Dextrose 5% 0.45% NaCl 1,000 ML IV SCH (08:00)
[2017-04-20] MEDS: Heparin 5,000 Unit/mL Inj SUBQ SCH ×2 (08:30→16:08)
[2017-04-20] MEDS: Lactulose 20 Gm/30 mL 30 mL Syrup PO SCH ×3 (08:56→20:58)
[2017-04-20] MEDS: Multivit-Miner-Folic Acid-Iron Tablet PO SCH (08:56)
[2017-04-20] MEDS: Ondansetron 2 mg/mL 2 mL Inj IVPUSH PRN ×4 (08:57→20:41)
--- NOTE | 2017-04-20 11:26 | PCM.PNMED ---
Subjective Date of Service Apr 20, 2017 Subjective Katerina Wan is a 46 year old woman with a history of alcoholism with alcoholic cirrhosis, chronic pancreatitis, and DM who presents complaining of decreased appetite onset 1 week and confusion. Currently under treatment for pancreatitis. Hospital day #1. Overnight: Patient was complaining of abdominal pain. Today: The patient states that she is quite hungry this morning and would like to try to drink a little bit of liquids or eat some pudding. She complains of severe epigastric abdominal pain that is worsened with movement. She is also very emotionally distraught about her drinking again. The remainder of review of systems is negative except as noted above. Exam Vital Signs Vital Sign - Last Date Time Temp Pulse Resp B/P Pulse Ox O2 Delivery O2 Flow Rate FiO2 04/20/17 10:02 76 04/20/17 08:52 36.4 18 108/67 96 Room Air Intake and Output 04/19/17 04/19/17 04/20/17 Cumulative From/Thru 15:00 23:00 07:00 04/19/17 21:41 - 04/20/17 06:27 Intake Total 1814 ml 1814 ml Output Total 300 ml 300 ml Balance 1514 ml 1514 ml Intake Oral 0 ml 0 ml IV Total 1814 ml 1814 ml Output Urine Total 300 ml 300 ml # Voids 1 1 Exam General: Alert, Oriented X3 but appears somewhat intoxicated, Cooperative, No acute distress Head: Normocephalic, atraumatic. External ears normal. Eyes: PERRLA, EOMI. Anicteric sclerae. Mouth: Mouth normal, Mucous membranes moist/pink Neck: Neck supple with full range of motion. Chest& Lungs: Clear to auscultation bilaterally with no crackles, wheezes, or rhonchi. Cardiovascular: Regular rate/rhythm, Normal S1, Normal S2, No murmurs/rubs/ gallops Abdomen: RUQ and epigastric tenderness to palpation, Non-distended, No masses, Normoactive bowel tones, Soft Musculoskeletal: Normal range of motion Extremities: No cyanosis/clubbing/edema bilaterally Neurological: Grossly neurologically intact. Normal speech Psych: She appears depressed and anxious. IVs and Medications Medications Reviewed: Medications were reviewed in detail Lab and Diagnostics Result Diagram: 04/20/1761404/20/17614 Assessment & Plan Katerina Wan is a 46 year old woman with a history of alcoholism with alcoholic cirrhosis, chronic pancreatitis, and DM who presents complaining of decreased appetite onset 1 week and confusion. Currently under treatment for pancreatitis. Hospital day #1. Acute alcohol intoxication without evidence of withdrawal, present on admission , active. - Patient presented intoxicated intoxicated, reported she drank a fifth of vodka today. History of delirium tremens and withdrawal seizures. Will continue close monitoring. - Alcohol withdrawal protocol - Thiamine 500 mg daily, daily multivitamin - Social work consult Acute pancreatitis in a patient with history of chronic pancreatitis. Present on admission. Stable. - Pt presents with RUQ pain, ongoing for months but worsened over the last few days. Per Dr. Gonzalez's note on 02/20/17, she has chronic RUQ pain, possibly secondary to chronic cholecystitis vs liver capsule pain from enlarged fatty liver. She is a high risk for surgery with her MELD score of 17 at the time, and any gallbladder surgery should be done at a liver transplant center. Abd US 02/28/17 showed increased hepatic echogenicity noted likely related to fatty infiltration of the liver, with gallbladder sludge without stones seen. - CT abdomen ordered and is pending - Advance diet to clear liquids per patient request, if however she develops worsening pain please go back to ice chips. - NS @ 100 ml/hr - Dilaudid 0.5 mg q2h PRN pain - Zofran PRN nausea Hepatic encephalopathy, acute. Present on admission. - Ammonia 177 - Lactulose 20 g PO TID. Titrate to produce 2-3 bowel movements per day. Hypovolemic hypernatremia, present on admission, worsening -Give 1 L of D5 1/2 NS and recheck her sodium in the afternoon. -She does require hydration due to her pancreatitis will be vigilant with her sodium as she is given IV fluids. Alcoholic cirrhosis, chronic. - Pt has elevated INR, thrombocytopenia, AST>ALT. Discriminant function 13.1, indicating no benefit from glucocorticoid therapy. MELD Score 15, conferring a 6 % 3-month mortality. Previous workup includes negative iron panel, ceruloplasmin , alpha-1 antitrypsin, and negative Hepatitis panel. Diabetes mellitus, diet controlled. -Continue to monitor blood sugars. Currently under goal of less than 180. No treatment required. - Bowel regimen as needed - Antiemetic as needed Disposition: Anticipate patient will be in the hospital for 1-2 more days as she is evaluated and treated for the above conditions. VTE Prophylaxis: Sub-Q Heparin (Unfractionated) Resuscitation Status: CPR: Attempt Resuscitation Attending Statement The patient was seen and examined with staff. Agree with all attached documentation. Marianna Clement DO Apr 20, 2017 11:07 João Hoskins MD Apr 21, 2017 10:54
[2017-04-20] MEDS: HYDROmorphone 0.5 mg/0.5 mL iSecure Syringe IVPUSH PRN ×5 (11:46→23:31)
--- NOTE | 2017-04-20 14:15 | NUR ---
Nausea / telemetry Patient has had two episodes of severe nausea and mild retching. At 1145 patient had nausea and retching requiring 8mg Zofran. At that time cat scan technologist reported a brief pause noted on telemetry. At 1405 patient had severe pain, nausea and retching and was medicated with 0.5mg hydromorphone. Again, while patient was retching, cat scan technologist reported brief pause on telemetry. Discussed finding with cat scan technologist as possible vaso vagal reaction. In both cases, medications are effective at alleviating symptoms. CIWA score 5 - 8 at this time. Primary MD has been paged and awaiting further instructions / orders. Bed low and locked, call light in reach, care and rounding ongoing.
--- NOTE | 2017-04-20 14:58 | NUR ---
Social Work-screening/ CD assessment: Data:EMR Reviewed. Pt is a 46 y/o female who was admitted on 04/20/17 for ETOH withdrawal per H&P. Pt's insurance is [facility] and PCP is Rito Thorne MD. EMR Reviewed. Pt's readmission score is 6-high risk. Pt has been in multiple times in the last month. SW met with pt at bedside, SW role explained. Pt is alert and oriented x3. Pt resides at home with parents where she remains independent with ADLS. Pt has no completed DPOA/ advanced directive and is not interested in any information. Pt has met with CDP from [facility] Krysta multiple times in last admissions. Pt is agreeable to meeting with krysta again. BENNY informed Krysta of pt's admission and Krysta to meet with pt. BENNY provided pt with discharge planing checklist booklet and encouraged pt to call with any questions. SW provided phone number and plan on white board in room. SW will continue to follow. Assessment:Pt who is independent at baseline. Plan:Pt to discharge home when medically stable via POV. CDP from [facility]a to meet with pt and discuss treatment options. SW will continue to follow. BENY Yee
--- NOTE | 2017-04-20 19:16 | DRSVH ---
PROCEDURE: CT ABDOMEN AND PELVIS WITH CONTRAST ([id number]) INDICATIONS: Abd pain, r/o cholecystitis vs pancreatitis TECHNIQUE: After the administration of oral and intravenous contrast, 5 mm thick sections acquired from the diap hragms to the symphysis. 5 mm thick coronal and sagittal reformats were performed. For radiation do se reduction, the following was used: automated exposure control, adjustment of mA and/or kV accordi ng to patient size. COMPARISON: [facility], CT, CT ABD PELVIS W CON, 02/17/2017, 12:27. FINDINGS: Image quality: Suboptimal as the patient was only able to tolerate a small amount of oral contrast ma terial ABDOMEN: Lung bases: Presumed scarring/atelectasis in the visualized lung bases although technically nonspecif ic. Solid organs: Liver and spleen are normal in size and enhancement. Gallbladder appears distended ot herwise unremarkable. Biliary system is non-dilated. There is hazy peripancreatic fat attenuation n ear the head of the pancreas. No adrenal nodules. Kidneys are normal in size and enhancement, withou t hydronephrosis. Peritoneum and bowel: No free identified. There is scattered ascites seen within the left paracolic g utter and right paracolic gutter. No evidence of bowel obstruction. There is questionable long segmen t wall thickening of the ascending, transverse and descending colon raising possibility of colitis. T he appendix is not well-seen. Nodes and vessels: No retroperitoneal or mesenteric adenopathy. Aorta and inferior vena cava are no rmal in caliber. Miscellaneous: No ventral hernias. PELVIS: Genitourinary: Bladder wall thickness is normal. Miscellaneous: No inguinal hernias or adenopathy. Bones: No suspicious bony lesions. No vertebral body compression fractures. IMPRESSION: Appendix not visualized, therefore clinical correlation is required to exclude acute appendicitis. Hazy peripancreatic attenuation near the head of pancreas raises the possibility of pancreatitis. Rec ommend correlation with pancreatic enzymes Possible long segment wall thickening the colon with adjacent fat stranding. Findings suggest infecti ous or inflammatory (less likely ischemic) colitis. Please correlate clinically and with laboratory d cathy Distended appearance of the gallbladder, with adjacent mild fat stranding although this could be rela puja to a colonic process. Please correlate clinically and with LFTs to exclude acute cholecystitis. Of note all of the above findings appear slightly less conspicuous since prior study dated 02/17/17. Dictated by: Tyrell Dalton M.D. on 04/20/2017 at 19:04 Approved by: Tyrell Dalton M.D. on 04/20/2017 at 19:14
--- NOTE | 2017-04-20 19:55 | NUR ---
CIWA Comfort Station Attendant found PT lying in bed shivering with sweat on her forehead and arms, visual tremors complaining of full head/headache, photophobia. She also complained of feeling very anxious as well as RT upper ABD pain. Valium 10mg IV given for a CIWA of 20, PT looked much more comfortable 10min after Valium.
--- NOTE | 2017-04-20 20:15 | NUR ---
O2 Sats PT sleeping quietly after Valium, states she feels better, she still has a visible tremor and diaphoresis, sats on RA 90% while sleeping, 2 L/NC applied and sats increased to 98-100%.
--- NOTE | 2017-04-20 23:41 | NUR ---
CIWA/BMs PT called stated ABD pain was getting worse at a 9 now; she was noted to be having moderate tremors with beads of sweat running down her head. She complained of feeling like she wanted to crawl out of her skin. PT is getting Lactulose but has only had a couple of small soft formed bowel movements. CIWA was 23 this time, Valium 10mg IV given with 0.5mg Dilaudid IV for ABD pain.
[2017-04-21] VITALS (8 sets, daily range): BP systolic 116–147; BP diastolic 77–90; PULSE 73–83; RESP 18–19; O2SAT 92–98
[2017-04-21] MEDS: Heparin 5,000 Unit/mL Inj SUBQ SCH ×3 (00:24→17:30)
[2017-04-21] MEDS: Ondansetron 2 mg/mL 2 mL Inj IVPUSH PRN ×5 (01:27→23:20)
[2017-04-21] MEDS: 0.9% Sodium Chloride 1,000 ML IV SCH ×3 (01:45→23:22)
[2017-04-21] MEDS: HYDROmorphone 0.5 mg/0.5 mL iSecure Syringe IVPUSH PRN ×7 (04:09→23:20)
--- NOTE | 2017-04-21 04:15 | NUR ---
Pain/BM/CIWA PT has been sleeping for the last 1.5hrs; she woke with ABD pain 7/10, nausea, diaphoresis and tremors. She has had a large amount of diarrhea now and complaining of stomach cramps. Valium 10mg IV given for CIWA of 21, Dilaudid 0.5mg IV for pain, its too early for zofran yet, will monitor PT.
--- NOTE | 2017-04-21 06:27 | NUR ---
CIWA Career Development Facilitator was called by Suzanne MITTAL, PT had called the manager front office asking for security saying she had a family emergency and had to leave, PT was reoriented to time and place by the TEST ENG. When sba underwriter entered the room she was diaphoretic, visible tremors and almost in a panic state. She was complaining of ABD pain 7/10 and wanting to leave to find her parents and her wallet. CIWA was 23, Valium and Dilaudid given to help with anxiety and pain. Report give to day shift charge.
[2017-04-21 06:39] LABS: BASOPHILS % (AUTO) 0.5 % (0-3); EOSINOPHILS % (AUTO) 3.3 % (0-5); MONOCYTES % (AUTO) 4.4 % (4-12); Mean Corpuscular Hemoglobin 33.9 pg (27.0-35.0); Mean Corpuscular Volume 98.7 fL (81-100); NEUTROPHILS % (AUTO) 46.6 % (40-74); Platelet Count 74 bil/L (150-400)
[2017-04-21] MEDS: Multivit-Miner-Folic Acid-Iron Tablet PO SCH (08:19)
[2017-04-21] MEDS: Lactulose 20 Gm/30 mL 30 mL Syrup PO SCH ×3 (08:30→20:30)
--- NOTE | 2017-04-21 09:14 | NUR ---
CIWA CIWA this morning was 11, pt itching, mild tremors, and hallucinating that mother was hear talking about pt to the SW, pt given Valium, with moderate relief, gave pt shower which helped considerably. Will continue to monitor.
--- NOTE | 2017-04-21 11:25 | NUR ---
CIWA/Behavior Pt was getting more agitated, stating "I don't want my mom talking to the SW, she's talking about negative things, can't she give me credit this is hard." Mother hasn't been in today. Pt hallucinating mother is out in the hallway, reassured pt mother hasn't been here yet. Pt got Valium and Dilaudid, with good relief. Pt sitting in bed much calmer, and less agitated. SW came in to speak to pt, at pt's request. Will continue to monitor.
--- NOTE | 2017-04-21 12:54 | PCM.PNMED ---
Subjective Date of Service Apr 21, 2017 Subjective Katerina Wan is a 46 year old woman with a history of alcoholism with alcoholic cirrhosis, chronic pancreatitis, and DM who presents complaining of decreased appetite onset 1 week and confusion. Currently under treatment for pancreatitis. Hospital day #2. 04/21/17- tolerated PO intake however did feel some discomfort and nausea. no fecer no chills, no diarrhea. still gets confused at times The remainder of review of systems is negative except as noted above. Exam Vital Signs Vital Sign - Last Date Time Temp Pulse Resp B/P Pulse Ox O2 Delivery O2 Flow Rate FiO2 04/21/17 09:02 36.9 77 19 136/83 92 Room Air Intake and Output 04/20/17 04/20/17 04/21/17 Cumulative From/Thru 15:00 23:00 07:00 04/19/17 21:41 - 04/21/17 06:06 Intake Total 1858 ml 691 ml 4363 ml Output Total 850 ml 1350 ml 2500 ml Balance 1008 ml -659 ml 1863 ml Intake Oral 300 ml 691 ml 991 ml IV Total 1558 ml 3372 ml Output Urine Total 850 ml 1350 ml 2500 ml # Voids 1 # Bowel Movements 6 6 Exam General: Alert, Oriented person, Cooperative, No acute distress Head: Normocephalic, atraumatic. External ears normal. Eyes: PERRLA, EOMI. Anicteric sclerae. Mouth: Mouth normal, Mucous membranes moist/pink Neck: Neck supple with full range of motion. Chest& Lungs: Clear to auscultation bilaterally with no crackles, wheezes, or rhonchi. Cardiovascular: Regular rate/rhythm, Normal S1, Normal S2, No murmurs/rubs/ gallops Abdomen: RUQ and epigastric tenderness to palpation, Non-distended, No masses, Normoactive bowel tones, Soft Musculoskeletal: Normal range of motion Extremities: No cyanosis/clubbing/edema bilaterally Neurological: Grossly neurologically intact. Normal speech, gets confused at times Psych: She appears depressed and anxious. Lab and Diagnostics Result Diagram: 04/21/1725 04/21/17624 Assessment & Plan Katerina Wan is a 46 year old woman with a history of alcoholism with alcoholic cirrhosis, chronic pancreatitis, and DM who presents complaining of decreased appetite onset 1 week and confusion. Currently under treatment for pancreatitis. Hospital day #1. presented with Acute alcohol intoxication, having mild symtpoms of withdrawl - Patient presented intoxicated intoxicated, reported she drank a fifth of vodka today. History of delirium tremens and withdrawal seizures. Will continue close monitoring. - Alcohol withdrawal protocol - Thiamine 500 mg daily, daily multivitamin - Social work consult Acute pancreatitis in a patient with history of chronic pancreatitis. Present on admission. Stable. - Pt presents with RUQ pain, ongoing for months but worsened over the last few days. Per Dr. Gonzalez's note on 02/20/17, she has chronic RUQ pain, possibly secondary to chronic cholecystitis vs liver capsule pain from enlarged fatty liver. She is a high risk for surgery with her MELD score of 17 at the time, and any gallbladder surgery should be done at a liver transplant center. Abd US 02/28/17 showed increased hepatic echogenicity noted likely related to fatty infiltration of the liver, with gallbladder sludge without stones seen. - CT abdomen ordered and is pending - Advance diet to clear liquids per patient request, if however she develops worsening pain please go back to ice chips. - NS @ 100 ml/hr - Dilaudid 0.5 mg q2h PRN pain - Zofran PRN nausea Hepatic encephalopathy, acute. Present on admission. - Ammonia 177 - Lactulose 20 g PO TID. Titrate to produce 2-3 bowel movements per day. Hypovolemic hypernatremia, present on admission, worsening -Give 1 L of D5 1/2 NS and recheck her sodium in the afternoon. -She does require hydration due to her pancreatitis will be vigilant with her sodium as she is given IV fluids. Alcoholic cirrhosis, chronic. - Pt has elevated INR, thrombocytopenia, AST>ALT. Discriminant function 13.1, indicating no benefit from glucocorticoid therapy. MELD Score 15, conferring a 6 % 3-month mortality. Previous workup includes negative iron panel, ceruloplasmin , alpha-1 antitrypsin, and negative Hepatitis panel. Diabetes mellitus, diet controlled. -Continue to monitor blood sugars. Currently under goal of less than 180. No treatment required. - Bowel regimen as needed - Antiemetic as needed Disposition: Anticipate patient will be in the hospital for 1-2 more days as she is evaluated and treated for the above conditions. GI Prophylaxis: Proton Pump Inhibitor VTE Prophylaxis: Sub-Q Heparin (Unfractionated) Resuscitation Status: CPR: Attempt Resuscitation Claudia Crowder MD Apr 21, 2017 12:54
--- NOTE | 2017-04-21 13:25 | NUR ---
Social Work: Continued Discharge Planning/AM Multi-Disciplinary Rounds D: EMR reviewed. Pt is on day 1 of hospitalization. Per MD/RN in AM multi-disciplinary rounds, pt has been agitated this morning and having hallucinations. Pt's CIWA score was at 11 around 0914. RN met with SW after rounds and stated that pt requested to see SW regarding CD. SW met with pt and pt stated "I am very serious and committed to getting sober and just have a bump in the road." SW asked if pt would like to see CDP again and pt requested CDP. Pt stated she was interested in inpt treatment for ETOH. SW contacted CDP and informed CDP that pt would like to see her again. SW to update note once CDP reports on pt's plan. A: Pt for whom a CDP assessment has been deemed medically necessary. P: Per pt request, SW contacted CDP and informed CDP that pt would like to see her again. SW to update note once CDP reports on pt's plan. BENY Holley
--- NOTE | 2017-04-21 21:54 | NUR ---
Pain / CIWA / Mentation 04/25 pain in abdomen. Administered 0.5mg Dilaudid and discussed diet control to allow Pancreatitis to heal by reducing the amount of fats/solid food consumed. CIWA 12. Administered 10mg Valium will continue to monitor. Visual hallucinations, seeing people in room that aren't there. States her $500 purse is missing with wallet and credit cards etc must be outside the window. Oriented to hospital room and possessions in room. Eventually confirmed via phone call by patient to home that possessions were all accounted for. Patient asked me what I was doing for 19 of April. Oriented to current date 04/21/17.
[2017-04-22] VITALS (8 sets, daily range): BP systolic 102–130; BP diastolic 59–81; PULSE 71–85; RESP 16–18; O2SAT 95–100
[2017-04-22] MEDS: Heparin 5,000 Unit/mL Inj SUBQ SCH (00:31)
--- NOTE | 2017-04-22 00:36 | NUR ---
Hematuria / Pain Badger tinged urine started today, not menstruating per patient. Pain controlled down to 2/10 from 04/25 with Dilaudid 0.5mg Q2-3 hours, only eating ice chips and drinking water so far this shift.
[2017-04-22] MEDS: Ondansetron 2 mg/mL 2 mL Inj IVPUSH PRN ×4 (05:26→20:35)
[2017-04-22] MEDS: HYDROmorphone 0.5 mg/0.5 mL iSecure Syringe IVPUSH PRN ×7 (05:28→22:16)
[2017-04-22 07:03] LABS: Mean Corpuscular Hemoglobin 33.6 pg (27.0-35.0); Mean Corpuscular Volume 98.3 fL (81-100)
[2017-04-22] MEDS: Pantoprazole 20 mg ER24 Tablet PO SCH (07:57)
[2017-04-22] MEDS: Lactulose 20 Gm/30 mL 30 mL Syrup PO SCH ×4 (07:58→20:30)
[2017-04-22 08:30] LABS: Magnesium 1.2 mg/dL (1.6-2.6)
[2017-04-22] MEDS: Multivit-Miner-Folic Acid-Iron Tablet PO SCH (08:30)
[2017-04-22] MEDS ORDERED: Potassium Chloride 20 mEq SR Tablet PO ONE (09:20)
[2017-04-22] MEDS ORDERED: Magnesium Sulf 4 Gm/100 mL H2O 4 GM in IV Premix 1 EACH IV ONE (09:20)
[2017-04-22] MEDS ORDERED: Potassium Chloride Inj 20 MEQ in Dextrose 5% 250 ML IV ONE (09:20)
--- NOTE | 2017-04-22 11:13 | PCM.PNMED ---
Subjective Date of Service Apr 22, 2017 Subjective Katerina Wan is a 46 year old woman with a history of alcoholism with alcoholic cirrhosis, chronic pancreatitis, and DM who presents complaining of decreased appetite onset 1 week and confusion. Currently under treatment for pancreatitis. Hospital day #3. 04/22/17- patient continues to get confused at times however much better mental functioning than yesterday. There were some concerns about blood-tinged urine. She did have a drop in her H&H was also thrombocytopenic I have stopped her heparin. Today she denies any abdominal pain no fevers chills no hemoptysis hematuria hematemesis hematochezia.. The remainder of review of systems is negative except as noted above. Exam Vital Signs Vital Sign - Last Date Time Temp Pulse Resp B/P Pulse Ox O2 Delivery O2 Flow Rate FiO2 04/22/17 09:13 36.8 72 18 111/67 98 Room Air Intake and Output 04/21/17 04/21/17 04/22/17 Cumulative From/Thru 15:00 23:00 07:00 04/19/17 21:41 - 04/22/17 06:01 Intake Total 2560 ml 1352 ml 8275 ml Output Total 575 ml 700 ml 3775 ml Balance 1985 ml 652 ml 4500 ml Intake Oral 440 ml 200 ml 1631 ml IV Total 2120 ml 1152 ml 6644 ml Output Urine Total 575 ml 700 ml 3775 ml # Voids 6 7 # Bowel Movements 2 0 8 Exam General: Alert, Oriented person, Cooperative, No acute distress Head: Normocephalic, atraumatic. External ears normal. Eyes: PERRLA, EOMI. Mouth: Mouth normal, Mucous membranes moist/pink Neck: Neck supple with full range of motion. Chest& Lungs: Clear to auscultation bilaterally with no crackles, wheezes, or rhonchi. Cardiovascular: Regular rate/rhythm, Normal S1, Normal S2, No murmurs/rubs/ gallops Abdomen: mild ruq tenderness, Non-distended, No masses, Normoactive bowel tones , Soft Musculoskeletal: Normal range of motion Extremities: No cyanosis/clubbing/edema bilaterally Neurological: Grossly neurologically intact. Normal speech, gets confused at times Psych: She appears depressed and anxious. Lab and Diagnostics Result Diagram: 04/22/1738 04/22/1738 Assessment & Plan Katerina Wan is a 46 year old woman with a history of alcoholism with alcoholic cirrhosis, chronic pancreatitis, and DM who presents complaining of decreased appetite onset 1 week and confusion. Currently under treatment for pancreatitis. Hospital day #3. presented with Acute alcohol intoxication, now having symptoms of withdrawl - Patient presented intoxicated intoxicated, reported she drank a fifth of vodka today. History of delirium tremens and withdrawal seizures. Will continue close monitoring. - Alcohol withdrawal protocol - Thiamine 500 mg daily, daily multivitamin - Social work consult Acute pancreatitis in a patient with history of chronic pancreatitis. Present on admission. Stable. - Pt presents with RUQ pain, ongoing for months but worsened over the last few days. Per Dr. Gonzalez's note on 02/20/17, she has chronic RUQ pain, possibly secondary to chronic cholecystitis vs liver capsule pain from enlarged fatty liver. She is a high risk for surgery with her MELD score of 17 at the time, and any gallbladder surgery should be done at a liver transplant center. Abd US 02/28/17 showed increased hepatic echogenicity noted likely related to fatty infiltration of the liver, with gallbladder sludge without stones seen. - Advance diet to clear liquids per patient request, if however she develops worsening pain please go back to ice chips. Continue with IV fluids will add potassium - Dilaudid 0.5 mg q2h PRN pain - Zofran PRN nausea Most probably her pancreatitis is from her chronic alcohol use however gallstones cannot be ruled out she did have a little bit of bump in her bilirubin. Again this could be secondary to alcoholic liver disease however I will get ultrasound of the upper quadrant to assess the gallbladder as well as the CBD for any dilatation. She has not spiked any fevers not concerned about infection at this point we will keep a close eye on her WBCs and vitals. Cultures have been ordered. Patient is not having any significant pain at this point. Hepatic encephalopathy, acute. Present on admission. - Mental status has improved today - Lactulose 20 g PO TID. Titrate to produce 2-3 bowel movements per day. Acute on chronic anemia and thrombocytopenia It could be from her chronic liver disease. She is also been receiving a fair amount of fluid so there could be dilutional component as well. I do not see an anemia panel. will order that at this point nO indication for transfusion. She is not having any further ongoing bleeding there was some mild blood-tinged urine. I did go ahead and get an urinalysis. We will keep a close eye on her H& H and if for any signs of bleeding. Her heparin has been Stopped continue with SCDs for prophylaxis. Alcoholic cirrhosis, chronic. - Pt has elevated INR, thrombocytopenia, AST>ALT. Discriminant function 13.1, indicating no benefit from glucocorticoid therapy. MELD Score 15, conferring a 6 % 3-month mortality. This has been extensively worked up in the past We will keep a close eye for worsening signs or decompensation. It was expected the patient said she does need to abstain from alcohol use most probably will need follow-up a liver transplant center. Diabetes mellitus, diet controlled. -Continue to monitor blood sugars. Currently under goal of less than 180. No treatment required. Multiple electrolyte abnormalities including hypokalemia and hypomagnesemia potassium as been added to her fluids we will also give her IV and oral potassium. We will give 4 g magnesium - Bowel regimen as needed - Antiemetic as needed Disposition: Patient overall condition has improved. Will correct her electrolytes advance her diet see if she tolerates that. Her slight bump in her bilirubin was concerning. This could be all secondary to her chronic liver disease. Anyhow we will get ultrasound upper quadrant follow-up on that. if she does have CBD dilation she may need further imaging or possible GI evaluation. Otherwise we will follow-up her H&H anemia panel as well as this point no indication for transfusion. I do anticipate 2 to 3 more days in the hospital for this patient. GI Prophylaxis: Proton Pump Inhibitor VTE Prophylaxis: SCDs Resuscitation Status: CPR: Attempt Resuscitation Claudia Crowder MD Apr 22, 2017 11:13
[2017-04-22] MEDS ORDERED: Lactulose 200 GM/Bottle Enema RECTAL STA (11:26)
[2017-04-22] MEDS: 0.9% NaCl + KCl 20 mEq/L 1,000 ML IV SCH ×2 (12:05→19:25)
--- NOTE | 2017-04-22 15:06 | DRSVH ---
PROCEDURE: US ABDOMEN, LIMITED ([id number]) INDICATIONS: ruq pain TECHNIQUE: Real-time focused scanning was performed of the abdomen, with image documentation. COMPARISON: [facility], , ABDOMEN LTD, 04/08/2017, 22:52. FINDINGS: There is mild gallbladder wall thickening without cholelithiasis or definite pericholecysti c fluid. Coarsening of hepatic echotexture may represent chronic parenchymal disease. No hepatic mass es. The pancreas is normal where seen. Ultrasonographic normal right kidney. Trace ascites. IMPRESSION: 1. Ultrasonographic findings do not support acute cholecystitis. If there is continued clinical rita rn for acute cholecystitis recommend a HIDA scan. 2. Trace ascites too small for percutaneous guided sampling. 3. Coarsening of hepatic echotexture may represent chronic hepatic parenchymal disease. Dictated by: Matheus Ronquillo M.D. on 04/22/2017 at 15:01 Approved by: Matheus Ronquillo M.D. on 04/22/2017 at 15:04
--- NOTE | 2017-04-22 19:13 | NUR ---
Mentation/pain/bowel movements Pt confused and drowsy at beginning of shift, CWIA of 12, 10 mg of Valium administered. Pt complaining of abdominal pain 05/26. IV Dilaudid given as ordered. Pt was able to rest quietly, no complains of increased pain. Confusion appeared to be decreasing Pain 03/26 around mid day, IV Dilaudid and 8 mg of Zofran medication administered. Pt able to tolerate clear liquids with no increase in pain. K pad applied provided additional pain relief. Lactulose given, pt had multiple large liquid stools, through out the afternoon Pt continues to complain of nausea and pain, slight increase in agitation noted, 5 Mg of Valium and Dilaudid given. Pt resting quietly. Call light in place, will continue to monitor.
[2017-04-23] MEDS: 0.9% NaCl + KCl 20 mEq/L 1,000 ML IV SCH (00:08)
[2017-04-23 01:17] VITALS: BP 108/70; PULSE 80; RESP 18; O2SAT 93
--- NOTE | 2017-04-23 03:38 | NUR ---
CIWA / Insomnia / Mentation CIWA last scored at 6 trending down. Pain 6/10 but not requiring Q2 pain meds and requesting return to solid food, advised to continue clears until morning and see if pain continues to trend down. Is sleeping more through the night than previous nights, awaking for vitals but generally resting well. Some mention of kittens in room but anxiety over missing belongings and demands from parents to go to school have dissipated.
[2017-04-23] MEDS: Ondansetron 2 mg/mL 2 mL Inj IVPUSH PRN ×4 (04:36→22:30)
[2017-04-23] MEDS: HYDROmorphone 0.5 mg/0.5 mL iSecure Syringe IVPUSH PRN ×3 (04:36→19:52)
[2017-04-23 05:20] VITALS: BP 118/74; PULSE 88; RESP 18; O2SAT 93
[2017-04-23 05:52] VITALS: PULSE 79
[2017-04-23 06:49] LABS: BASOPHILS % (AUTO) 0.4 % (0-3); EOSINOPHILS % (AUTO) 3.4 % (0-5); MONOCYTES % (AUTO) 7.3 % (4-12); Mean Corpuscular Hemoglobin 33.4 pg (27.0-35.0); NEUTROPHILS % (AUTO) 39.5 % (40-74); Platelet Count 58 bil/L (150-400)
[2017-04-23 07:28] LABS: Magnesium 1.3 mg/dL (1.6-2.6); Unsaturated Iron Binding 107.2 ug/dL
[2017-04-23 08:53] VITALS: PULSE 70
[2017-04-23] MEDS: Pantoprazole 20 mg ER24 Tablet PO SCH (09:31)
[2017-04-23] MEDS: Multivit-Miner-Folic Acid-Iron Tablet PO SCH (09:32)
[2017-04-23] MEDS: Lactulose 20 Gm/30 mL 30 mL Syrup PO SCH (09:32)
[2017-04-23] MEDS ORDERED: KCl 40 mEq/D5W 500 mL 40 MEQ in IV Premix 1 EACH IV ONE (11:05)
[2017-04-23] MEDS ORDERED: Magnesium Sulf 4 Gm/100 mL H2O 4 GM in IV Premix 1 EACH IV ONE (11:05)
[2017-04-23] MEDS ORDERED: Potassium Chloride 20 mEq/15 mL 15mL Oral Soln PO ONE ×3 (11:10→17:50)
--- NOTE | 2017-04-23 11:15 | PCM.PNMED ---
Subjective Date of Service Apr 23, 2017 Subjective Still with significant upper abdominal pain which is worse when she eats or drinks anything. Continues to have nausea and does not think she could tolerate oral narcotics. She notes frequent stools due to the lactulose which she says causes rectal bleeding. She is very unhappy being on lactulose and would like to discontinue this. Exam Vital Signs Vital Sign - Last Date Time Temp Pulse Resp B/P Pulse Ox O2 Delivery O2 Flow Rate FiO2 04/23/17 08:53 70 04/23/17 05:20 36.9 18 118/74 93 Room Air Intake and Output 04/22/17 04/22/17 04/23/17 Cumulative From/Thru 15:00 23:00 07:00 04/19/17 21:41 - 04/23/17 06:08 Intake Total 1791 ml 1527 ml 96731 ml Output Total 1250 ml 400 ml 5425 ml Balance 541 ml 1127 ml 6168 ml Intake Oral 720 ml 240 ml 2591 ml IV Total 1071 ml 1287 ml 9002 ml Output Urine Total 450 ml 4225 ml Stool Total 800 ml 800 ml Urine/Stool Mix 400 ml 400 ml # Voids 1 8 # Bowel Movements 1 9 Exam General: Alert and oriented x 3, no acute distress. Can spell world forwards and with just a bit of difficulty can also spell it backwards Heart: Regular Lungs: Clear Abdomen: Soft, complains of tenderness with light to moderate palpation across the upper abdomen but no tensing on exam Extremities: No pedal edema IVs and Medications Medications Reviewed: Medications were reviewed in detail Lab and Diagnostics Result Diagram: 04/23/1761104/23/17611 Assessment & Plan Katerina Wan is a 46 year old woman with a history of alcoholism with alcoholic cirrhosis, chronic pancreatitis, and DM who presents complaining of decreased appetite onset 1 week and confusion. Currently under treatment for pancreatitis. presented with Acute alcohol intoxication, withdrawl symptoms improving - Patient presented intoxicated intoxicated, reported she drank a fifth of vodka day of admission. - History of delirium tremens and withdrawal seizures. - Alcohol withdrawal protocol - Thiamine 500 mg daily, daily multivitamin - Social work consulted, patient says her plan is to stay with her mother at discharge and do an outpatient treatment program Acute pancreatitis in a patient with history of chronic pancreatitis. Present on admission. Stable. - Pt presents with RUQ pain, ongoing for months but worsened over the last few days prior to admission. Per Dr. Gonzalez's note on 02/20/17, she has chronic RUQ pain, possibly secondary to chronic cholecystitis vs liver capsule pain from enlarged fatty liver. She is a high risk for surgery with her MELD score of 17 at the time, and any gallbladder surgery should be done at a liver transplant center. Abd US 02/28/17 showed increased hepatic echogenicity noted likely related to fatty infiltration of the liver, with gallbladder sludge without stones seen. - Currently on clear liquids per patient request, these do cause some increasing pain so will not advanced further at this point - Adequate oral intake of fluids will DC maintenance IV, will get somewhat potassium and magnesium IV doses - Dilaudid 0.5 mg q2h PRN pain - Zofran PRN nausea - Abdominal ultrasound done yesterday IMPRESSION: 1. Ultrasonographic findings do not support acute cholecystitis. If there is continued clinical concern for acute cholecystitis recommend a HIDA scan. 2. Trace ascites too small for percutaneous guided sampling. 3. Coarsening of hepatic echotexture may represent chronic hepatic parenchymal disease. Hepatic encephalopathy, acute. Present on admission, now resolved. - Mental status has improved - Not able to tolerate Lactulose 20 g PO TID, will DC - Begin Rifaximin 550 mg twice a day Multiple electrolyte abnormalities including hypokalemia and hypomagnesemia - We will give another 4 g IV magnesium - potassium 40 meq IV - potassium 20 meq orally to see if can tolerate Alcoholic cirrhosis, chronic. - Pt has elevated INR, thrombocytopenia, AST>ALT. Discriminant function 13.1, indicating no benefit from glucocorticoid therapy. MELD Score 15, conferring a 6 % 3-month mortality. This has been extensively worked up in the past - says her PCP is arranging evaluation at a liver transplant center - discussed with her the need to be off alcohol to be considered for a transplant - total bili improved from 6.0 yesterday to 5.3 today Acute on chronic anemia and thrombocytopenia, stable from yesterday to today - could be from her chronic liver disease. She is also been receiving a fair amount of fluid so there could be dilutional component as well. - Her heparin has been Stopped, continue with SCDs for prophylaxis. - iron panel not consistent with iron deficiency - Vitamin B12 and folate level still pending Diabetes mellitus, diet controlled. -Continue to monitor blood sugars. Currently under goal of less than 180. No treatment required. - Bowel regimen as needed - Antiemetic as needed Disposition: Patient overall condition is slowly improving but it appears she will be in the hospital at least 2 more days GI Prophylaxis: Proton Pump Inhibitor VTE Prophylaxis: SCDs VTE Mechanical Devices: Venous Foot Pump Resuscitation Status: CPR: Attempt Resuscitation Kim Bhatti MD Apr 23, 2017 11:14 Resuscitation Status: CPR: Attempt Resuscitation Kim Bhatti MD Apr 23, 2017 11:14
[2017-04-23 12:53] VITALS: BP 126/68; PULSE 80; RESP 18; O2SAT 99
--- NOTE | 2017-04-23 14:45 | NUR ---
NUTRITION ASSESSMENT: ASSESS: 46 YO female admitted with alcoholic cirrhosis, acute on chronic pancreatitis. Today she endorses significant upper abdominal pain which is worse when she eats or drinks anything. She continues to have nausea and does not think she could tolerate oral narcotics. Patient notes frequent stools due to the lactulose which she says causes rectal bleeding. She is NPO / clear liquids x 3 D. PMHx: Type 2 diabetes, pancreatitis, alcoholism, cirrhosis. DIET: Clear liquids (NPO / clear liquids x 3 D). LABS: Reviewed. K+ 3.3, BUN 2, Cr < 0.30, Ca 8.3, Mg 1.3, AST 71, Alb 2.9. MEDICATIONS: Reviewed. Lactulose. NUTRITION FOCUSED PHYSICAL ASSESSMENT: GI symptoms / stool: BM x 1 today. Thom: 19.0. Skin Integrity: No issues reported. ANTHROPOMETRICS: Current Wt: 68.7 kg BMI: 23.0 kg/m2. Admit weight: 72.7 kg. IBW: 61.4 kg (112% IBW). ESTIMATED NEEDS (ALCOHOLISM): Calories: 1718 - 2061 kcal (25 - 30 kcal / kg BW) Protein: 82 - 103 g protein (1.2 - 1.5 g / kg BW) NUTRITION DIAGNOSIS: 1) Inadequate oral intake related to acute on chronic pancreatitis, as evidenced by NPO/clear liquid status x 3 D. INTERVENTION: 1) Will add Ensure Clear all trays. MONITOR/EVALUATE: NPO / clear liquid status, labs, nutritional status. Follow up per moderate nutrition risk guidelines.
--- NOTE | 2017-04-23 15:37 | NUR ---
Social Work: Multidisciplinary Rounds / Cont d/c planning Data: Pt is on day 3 of hospitalization. EMR reviewed. Pt discussed in rounds. MD states not quite ready for d/c. CDP is following. CONTROLLER REPAIRER AND TESTER will continue to follow. Assessment: Pt with alcohol use. Plan: Pt will d/c home via POV when medically stable. CONTROLLER REPAIRER AND TESTER will continue to follow. BENY Baptiste
--- NOTE | 2017-04-23 18:33 | NUR ---
N/V Requested Zofran x 1 with good effect. No emesis. Tolerating clear liquid diet. Now on full liquid diet and tolerating well.
[2017-04-23 20:33] VITALS: BP 126/75; PULSE 85; RESP 18; O2SAT 97
[2017-04-24] MEDS: HYDROmorphone 0.5 mg/0.5 mL iSecure Syringe IVPUSH PRN ×5 (01:04→23:21)
[2017-04-24 04:59] VITALS: BP 109/70; PULSE 81; RESP 20; O2SAT 96
[2017-04-24 06:01] LABS: Mean Corpuscular Hemoglobin 34.2 pg (27.0-35.0); Mean Corpuscular Volume 99.7 fL (81-100)
[2017-04-24 06:21] LABS: Magnesium 1.3 mg/dL (1.6-2.6)
[2017-04-24] MEDS: Multivit-Miner-Folic Acid-Iron Tablet PO SCH (08:29)
[2017-04-24] MEDS: Pantoprazole 20 mg ER24 Tablet PO SCH (08:29)
[2017-04-24] MEDS ORDERED: KCl 40 mEq/D5W 500 mL 40 MEQ in IV Premix 1 EACH IV ONE (10:15)
[2017-04-24] MEDS ORDERED: Magnesium Sulf 4 Gm/100 mL H2O 4 GM in IV Premix 1 EACH IV ONE (10:15)
[2017-04-24 12:45] VITALS: BP 134/76; PULSE 84; RESP 20; O2SAT 96
[2017-04-24] MEDS: Ondansetron 2 mg/mL 2 mL Inj IVPUSH PRN ×3 (12:59→21:05)
[2017-04-24] MEDS ORDERED: Potassium Chloride 20 mEq SR Tablet PO ONE (14:10)
--- NOTE | 2017-04-24 14:17 | PCM.PNMED ---
Subjective Date of Service Apr 24, 2017 Subjective Continues to have upper abdominal pain. Also some nausea which is limiting her food intake. She is anxious to be discharged home so tried an oral dose of oxycodone today which increased her nausea and did not adequately control pain Exam Vital Signs Vital Sign - Last Date Time Temp Pulse Resp B/P Pulse Ox O2 Delivery O2 Flow Rate FiO2 04/24/17 12:45 36.5 84 20 134/76 96 Room Air Intake and Output 04/23/17 04/23/17 04/24/17 Cumulative From/Thru 15:00 23:00 07:00 04/19/17 21:41 - 04/24/17 00:30 Intake Total 1563 ml 63778 ml Output Total 700 ml 6125 ml Balance 863 ml 7031 ml Intake Oral 520 ml 3111 ml IV Total 1043 ml 92288 ml Output Urine Total 300 ml 4525 ml Stool Total 800 ml Urine/Stool Mix 400 ml 800 ml # Voids 8 # Bowel Movements 1 10 Exam General: Alert and oriented, no acute distress Heart: Regular Lungs: Clear Abdomen: Soft, mild upper abd tenderness but improved Extremities: No pedal edema IVs and Medications Medications Reviewed: Medications were reviewed in detail Lab and Diagnostics Result Diagram: 04/24/17 0530 04/24/17 0530 Assessment & Plan Katerina Wan is a 46 year old woman with a history of alcoholism with alcoholic cirrhosis, chronic pancreatitis, and DM who presents complaining of decreased appetite onset 1 week and confusion. Currently under treatment for pancreatitis. presented with Acute alcohol intoxication, withdrawl symptoms improving - Patient presented intoxicated intoxicated, reported she drank a fifth of vodka day of admission. - History of delirium tremens and withdrawal seizures. - Alcohol withdrawal protocol - Thiamine 500 mg daily, daily multivitamin - Social work consulted, patient says her plan is to stay with her mother at discharge and do an outpatient treatment program Acute pancreatitis in a patient with history of chronic pancreatitis. Present on admission. Stable. - Pt presents with RUQ pain, ongoing for months but worsened over the last few days prior to admission. Per Dr. Gonzalez's note on 02/20/17, she has chronic RUQ pain, possibly secondary to chronic cholecystitis vs liver capsule pain from enlarged fatty liver. She is a high risk for surgery with her MELD score of 17 at the time, and any gallbladder surgery should be done at a liver transplant center. Abd US 02/28/17 showed increased hepatic echogenicity noted likely related to fatty infiltration of the liver, with gallbladder sludge without stones seen. - Currently on full liquids per patient request, these do cause some increasing pain so will not advanced further at this point - Adequate oral intake of fluids so maintenance IV DC'd yesterday, will get some with potassium and magnesium IV doses - Dilaudid 0.5 mg q2h PRN pain, attempting to transition to oxycodone for possible discharge tomorrow - Zofran PRN nausea - lipase 614 on 04/19 and pt wondering how it's doing, will repeat - Abdominal ultrasound done April 22 IMPRESSION: 1. Ultrasonographic findings do not support acute cholecystitis. If there is continued clinical concern for acute cholecystitis recommend a HIDA scan. 2. Trace ascites too small for percutaneous guided sampling. 3. Coarsening of hepatic echotexture may represent chronic hepatic parenchymal disease. Hepatic encephalopathy, acute. Present on admission, now resolved. - Mental status has improved - Not able to tolerate Lactulose 20 g PO TID, will DC - Begin Rifaximin 550 mg twice a day Multiple electrolyte abnormalities including hypokalemia (3.3 today) and hypomagnesemia (1.3 today), neither improved from yesterday - We will give another 4 g IV magnesium, recheck level this chucky and see if another dose needed (karen since hoping for DC tomorrow) - potassium 40 meq IV again - potassium 20 meq liquid orally was tolerated yesterday, will give 20 meq tablet today (in addition to IV dose) Alcoholic cirrhosis, chronic. - Pt has elevated INR, thrombocytopenia, AST>ALT. Discriminant function 13.1, indicating no benefit from glucocorticoid therapy. MELD Score 15, conferring a 6 % 3-month mortality. This has been extensively worked up in the past - says her PCP is arranging evaluation at a liver transplant center - discussed with her the need to be off alcohol to be considered for a transplant - total bili improved from 6.0 April 22 to 5.3 yesterday to 4.2 today Acute on chronic anemia and thrombocytopenia, stable - could be from her chronic liver disease and alcoholism. She also received a fair amount of fluid so there could be dilutional component as well. - Her heparin has been Stopped, continue with SCDs for prophylaxis. - iron panel not consistent with iron deficiency - Vitamin B12 and folate level still pending Diabetes mellitus, diet controlled. -Continue to monitor blood sugars. Currently under goal of less than 180. No treatment required. - Bowel regimen as needed - Antiemetic as needed Disposition: Patient overall condition is slowly improving but it appears she will be in the hospital at least 2 more days GI Prophylaxis: Proton Pump Inhibitor VTE Prophylaxis: SCDs VTE Mechanical Devices: Venous Foot Pump Resuscitation Status: CPR: Attempt Resuscitation Kim Bhatti MD Apr 24, 2017 14:17
[2017-04-24 20:47] VITALS: BP 107/70; PULSE 81; RESP 20; O2SAT 97
--- NOTE | 2017-04-25 04:25 | NUR ---
diet Pt had soft diet for dinner. Ate everything on the plate because she reported, "haven't eaten regular food for days". c/o increased abdominal pain and nausea 2hrs later, relieved by IV Dilaudid and Zofran. Roxicodone given with good pain relief with IV Dilaudid for breakthrough pain. No s/s of ETOH withdrawal. A&Ox3, able to make needs known.
[2017-04-25 06:02] VITALS: BP 105/63; PULSE 69; RESP 20; O2SAT 93
[2017-04-25 07:37] LABS: Magnesium 1.4 mg/dL (1.6-2.6)
[2017-04-25] MEDS ORDERED: Potassium Chloride 20 mEq SR Tablet PO ONE (08:25)
[2017-04-25] MEDS ORDERED: KCl 40 mEq/D5W 500 mL 40 MEQ in IV Premix 500 EACH IV ONE (08:25)
[2017-04-25] MEDS ORDERED: Magnesium Sulf 2 Gm/50mL Water 2 GM in IV Premix 1 EACH IV ONE (08:25)
[2017-04-25] MEDS: Multivit-Miner-Folic Acid-Iron Tablet PO SCH (08:47)
[2017-04-25] MEDS: Pantoprazole 20 mg ER24 Tablet PO SCH (08:47)
[2017-04-25] MEDS: Ondansetron 2 mg/mL 2 mL Inj IVPUSH PRN ×3 (12:20→21:07)
[2017-04-25 13:55] VITALS: BP 113/69; PULSE 72; RESP 20; O2SAT 96
--- NOTE | 2017-04-25 14:33 | NUR ---
Social Work: Multidisciplinary Rounds MD in morning round states pt will likely discharge home today. Pt will return home with family. [facility] from [facility] is following pt's care. BENY Yee
--- NOTE | 2017-04-25 17:36 | PCM.PNMED ---
Subjective Date of Service Apr 25, 2017 Subjective reports continued abdominal pain. mostly right upper and worse with eating. Denies any other new issues/complaints Exam Vital Signs Vital Sign - Last Date Time Temp Pulse Resp B/P Pulse Ox O2 Delivery O2 Flow Rate FiO2 04/25/17 13:55 36.5 72 20 113/69 96 Room Air Intake and Output 04/24/17 04/24/17 04/25/17 Cumulative From/Thru 15:00 23:00 07:00 04/19/17 21:41 - 04/24/17 18:34 Intake Total 475 ml 1143 ml 25569 ml Output Total 6125 ml Balance 475 ml 1143 ml 8649 ml Intake Oral 475 ml 556 ml 4142 ml IV Total 587 ml 17941 ml Output Urine Total 4525 ml Stool Total 800 ml Urine/Stool Mix 800 ml # Voids 3 4 15 # Bowel Movements 1 2 13 General: Alert, Cooperative, No Acute Distress Head: Normal Eyes: Scleral Anicteric Nose: Mucous Membr Moist/[place] Mouth: Mucous Membr Moist/[place] Neck: Supple Chest & Lungs: Chest Wall Normal, Clear to auscultation & percussion Cardiovascular: Regular Rate/Rhythm Pulses: NL carotid, radial, femoral, DP, PT Abdomen: Tender, Non-distended, Normoactive bowel tones, Soft Extremities: No cyanosis/clubbing/edma bilat Neurological: Grossly Neurologically Intact, Normal Speech IVs and Medications Medications Reviewed: Medications were reviewed in detail Lab and Diagnostics Result Diagram: 04/24/17 0530 04/25/17 0628 Assessment & Plan 46 year old woman with a history of alcoholism with alcoholic cirrhosis, chronic pancreatitis, and DM who presents complaining of decreased appetite onset 1 week and confusion. # Acute alcohol intoxication and acute withdrawal symptoms. present on admission - Improving - Patient presented intoxicated intoxicated, reported she drank a fifth of vodka day of admission. - Continue with CIWA protocol - Thiamine 500 mg daily, daily multivitamin - Social work consulted # Acute pancreatitis in a patient with history of chronic pancreatitis. Present on admission. - Pancreatitis likely resolved given location of pain and normalized Lipase. - Pt presents with RUQ pain, ongoing for months but worsened over the last few days prior to admission - Continue to advance diet as tolerated - IV Dilaudid 0.5 mg q2h PRN pain, attempting to transition to oxycodone for possible discharge tomorrow - Further followup with GI at a liver transplant center is recommended # Hepatic encephalopathy, acute. Present on admission, now resolved. - Mental status has improved - Not able to tolerate Lactulose 20 g PO TID - Continue Rifaximin 550 mg twice a day # Multiple electrolyte abnormalities including acute hypokalemia and acute hypomagnesemia. present on admission. Ongoing - Replete and followup # Alcoholic cirrhosis, chronic. - Pt has elevated INR, thrombocytopenia, AST>ALT. Discriminant function 13.1, indicating no benefit from glucocorticoid therapy. MELD Score 15, conferring a 6 % 3-month mortality. This has been extensively worked up in the past - Says her PCP is arranging evaluation at a liver transplant center # Acute on chronic anemia and thrombocytopenia, stable - Could be from her chronic liver disease and alcoholism. She also received a fair amount of fluid so there could be dilutional component as well. - Her heparin has been Stopped, continue with SCDs for prophylaxis. - Iron panel not consistent with iron deficiency - Vitamin B12 and folate level still pending # Diabetes mellitus, diet controlled. - Continue to monitor blood sugars. Dispo: likely home in am GI Prophylaxis: Proton Pump Inhibitor VTE Prophylaxis: SCDs VTE Mechanical Devices: Venous Foot Pump Resuscitation Status: CPR: Attempt Resuscitation Дмитрий Ponce Apr 25, 2017 17:36
--- NOTE | 2017-04-25 18:31 | NUR ---
Pain Patient's abdominal pain tolerable at 7-8/10 maximum with PO oxycodone 10mg. Encouraged patient to avoid IV hydromorphone in anticipation of discharge. Patient agrees and states she wants to "get better". BEd low and locked, call light in reach, care and rounding ongoing.
[2017-04-25 20:18] VITALS: BP 113/75; PULSE 80; RESP 20; O2SAT 97
[2017-04-26 04:06] VITALS: BP 106/68; PULSE 80; RESP 20; O2SAT 97
[2017-04-26] MEDS: Ondansetron 2 mg/mL 2 mL Inj IVPUSH PRN ×3 (05:01→20:34)
--- NOTE | 2017-04-26 06:03 | NUR ---
pain/nausea Pt reported tolerable pain level after getting 2 doses of 10mg oxycodone tonight with 4mg Zofran for nausea. no vomiting noted. able to tolerate soft diet when eating slowly and in intervals.
[2017-04-26 06:44] LABS: BASOPHILS % (AUTO) 0.6 % (0-3); EOSINOPHILS % (AUTO) 3.3 % (0-5); MONOCYTES % (AUTO) 12.8 % (4-12); Mean Corpuscular Hemoglobin 33.7 pg (27.0-35.0); NEUTROPHILS % (AUTO) 40.3 % (40-74); Platelet Count 66 bil/L (150-400)
[2017-04-26 07:10] LABS: Magnesium 1.4 mg/dL (1.6-2.6)
[2017-04-26 07:19] LABS: INR 1.52 ratio
[2017-04-26] MEDS ORDERED: Magnesium Sulf 2 Gm/50mL Water 2 GM in IV Premix 1 EACH IV ONE (08:35)
[2017-04-26] MEDS ORDERED: Potassium Chloride 20 mEq SR Tablet PO ONE (08:35)
[2017-04-26] MEDS: Pantoprazole 20 mg ER24 Tablet PO SCH (09:11)
[2017-04-26] MEDS: Multivit-Miner-Folic Acid-Iron Tablet PO SCH (09:12)
--- NOTE | 2017-04-26 13:04 | NUR ---
Social Work-readiness for discharge: Data:EMR reviewed. Pt is on day 6 of hospitalization for ETOH per H&P. Pt is not medically stable anticipate tomorrow. Pt has been up independent in her room. Krysta from [facility] has seen pt today and they have created plan of discharge home with family and outpt services at [facility]. BENNY updated pt and she is agreeable to plan. Pt requesting mental health resources which SW has provided to pt. Pt's family to provide transport home. No anticipated discharge needs. SW will continue to follow if needs arise. Assessment:Pt who is independent at baseline. Plan:Pt to discharge home when medically stable via pOV. SW provided pt with mental health resources. Pt to follow up with [facility] recovery outpt.No anticipated discharge needs. SW will continue to follow if needs arise. BENY Yee
[2017-04-26 13:13] VITALS: BP 102/69; PULSE 81; RESP 20; O2SAT 98
--- NOTE | 2017-04-26 16:10 | PCM.PNMED ---
Subjective Date of Service Apr 26, 2017 Subjective reports continued abdominal pain. mostly right upper and worse with eating. Denies any other new issues/complaints Exam Vital Signs Vital Sign - Last Date Time Temp Pulse Resp B/P Pulse Ox O2 Delivery O2 Flow Rate FiO2 04/26/17 13:13 36.7 81 20 102/69 98 Room Air Intake and Output 04/25/17 04/25/17 04/26/17 Cumulative From/Thru 15:00 23:00 07:00 04/19/17 21:41 - 04/26/17 06:40 Intake Total 732 ml 800 ml 600 ml 44634 ml Output Total 6125 ml Balance 732 ml 800 ml 600 ml 28280 ml Intake Oral 200 ml 800 ml 600 ml 5742 ml IV Total 532 ml 51940 ml Output Urine Total 4525 ml Stool Total 800 ml Urine/Stool Mix 800 ml # Voids 2 3 3 23 # Bowel Movements 13 Exam General: Alert, Cooperative, No Acute Distress Head: Normal Eyes: Scleral Anicteric Nose: Mucous Membr Moist/[place] Mouth: Mucous Membr Moist/[place] Neck: Supple Chest & Lungs: Chest Wall Normal, Clear to auscultation bilat Cardiovascular: Regular Rate/Rhythm Pulses: NL radial Abdomen: Tender, Non-distended, Normoactive bowel tones, Soft Extremities: No cyanosis/clubbing/edema bilat Neurological: Grossly Neurologically Intact, Normal Speech IVs and Medications Medications Reviewed: Medications were reviewed in detail Lab and Diagnostics Result Diagram: 04/26/17 0555 04/26/17 0555 Assessment & Plan 46 year old woman with a history of alcoholism with alcoholic cirrhosis, chronic pancreatitis, and DM who presents complaining of decreased appetite onset 1 week and confusion. # Multiple electrolyte abnormalities including acute hypokalemia and acute hypomagnesemia. present on admission. Ongoing - Continue to replete and followup # Acute alcohol intoxication and acute withdrawal symptoms. present on admission - Improving - Patient presented intoxicated intoxicated, reported she drank a fifth of vodka day of admission. - Continue with CIMD protocol - Thiamine 500 mg daily, daily multivitamin - Social work consulted # Acute pancreatitis in a patient with history of chronic pancreatitis. Present on admission. - Pancreatitis likely resolved given location of pain and normalized Lipase. - Pt presents with RUQ pain, ongoing for months but worsened over the last few days prior to admission - Continue to advance diet as tolerated - IV Dilaudid 0.5 mg q2h PRN pain, attempting to transition to oxycodone for possible discharge tomorrow - Further followup with GI at a liver transplant center is recommended # Hepatic encephalopathy, acute. Present on admission, now resolved. - Mental status has improved - Not able to tolerate Lactulose 20 g PO TID - Continue Rifaximin 550 mg twice a day # Alcoholic cirrhosis, chronic. - Pt has elevated INR, thrombocytopenia, AST>ALT. Discriminant function 13.1, indicating no benefit from glucocorticoid therapy. MELD Score 15, conferring a 6 % 3-month mortality. This has been extensively worked up in the past - Says her PCP is arranging evaluation at a liver transplant center # Acute on chronic anemia and thrombocytopenia, stable - Could be from her chronic liver disease and alcoholism. She also received a fair amount of fluid so there could be dilutional component as well. - Her heparin has been Stopped, continue with SCDs for prophylaxis. - Iron panel not consistent with iron deficiency - Vitamin B12 and folate level still pending # Diabetes mellitus, diet controlled. - Continue to monitor blood sugars. Dispo: likely home in am GI Prophylaxis: Proton Pump Inhibitor VTE Prophylaxis: SCDs VTE Mechanical Devices: Venous Foot Pump Resuscitation Status: CPR: Attempt Resuscitation Дмитрий Ponce Apr 26, 2017 16:10
--- NOTE | 2017-04-26 19:29 | NUR ---
Confusion/Activity Plan of care to have pt discharge tomorrow after monitoring labs. Pt aware of plan and cooperative. Later in shift pt took a nap and upon waking found pt in room dressed up and packed up ready to leave. Reoriented pt about leaving tomorrow, pt had the understanding that that conversation was from the day before, but cooperative with plan of care. Encouraged pt to walk around unit and get some exercise. Pt ambulated several times around unit with incident, strong and steady on feet. No other incidents of confusion during shift.
[2017-04-26 21:14] VITALS: BP 107/68; PULSE 82; RESP 16; O2SAT 96
--- NOTE | 2017-04-26 22:27 | NUR ---
Care Report given and care transferred to Catalina Huerta RN.
[2017-04-26] MEDS: HYDROmorphone 0.5 mg/0.5 mL iSecure Syringe IVPUSH PRN (23:28)
[2017-04-27] MEDS: HYDROmorphone 0.5 mg/0.5 mL iSecure Syringe IVPUSH PRN ×3 (01:34→08:58)
--- NOTE | 2017-04-27 05:15 | NUR ---
Shift Note Assumed pt care at 2245, pt a/o able o make needs known, notable for mild anxiety, redirectable,c/o intermittent abd pain, managed with PRN Oxycodone and Dilaudid, reinforced teaching on using po pain meds, reports nausea relieved by ice chips tonight, call light in reach at all times.
[2017-04-27 05:20] VITALS: BP 96/62; PULSE 70; RESP 16; O2SAT 92
[2017-04-27] MEDS: Ondansetron 2 mg/mL 2 mL Inj IVPUSH PRN ×3 (06:34→12:34)
[2017-04-27 07:36] LABS: Magnesium 1.3 mg/dL (1.6-2.6)
[2017-04-27] MEDS: Magnesium Sulf 4 Gm/100 mL H2O 4 GM in IV Premix 1 EACH IV ONE ×2 (08:20→08:46)
[2017-04-27] MEDS: Multivit-Miner-Folic Acid-Iron Tablet PO SCH (08:46)
[2017-04-27] MEDS: Pantoprazole 20 mg ER24 Tablet PO SCH (08:46)
--- NOTE | 2017-04-27 12:15 | PCM.DIMED ---
Discharge Instructions Date of Service Apr 27, 2017 Dates of Hospitalization Apr 20, 2017 at 01:47 Discharge Diagnosis Discharge Diagnosis # Multiple electrolyte abnormalities including acute hypokalemia and acute hypomagnesemia. present on admission. Improved # Acute alcohol intoxication and acute withdrawal symptoms. present on admission. Resolved # Acute pancreatitis with history of chronic pancreatitis. Present on admission. Improved. # Hepatic encephalopathy, acute. Present on admission. Resolved. # Alcoholic cirrhosis, chronic. # Acute on chronic anemia and thrombocytopenia, stable # Diabetes mellitus, diet controlled. Diet Discharge Diet: Diabetic Activity Discharge Activity: No restrictions Call your provider Call your provider for: Fever or Chills, Shortness of breath, Chest pain, Vomitting, Excessive diarrhea Patient Instructions Patient Instructions Seek immediate medical attention if any new or worsening signs or symptoms occur. Follow-up plan 1. Followup with primary care provider within one week Follow-up Provider: Rito Thorne MD, [place] Apr 27, 2017 12:14
[2017-04-27] MEDS ORDERED: ONDA8TAB7 PO (13:00)
[2017-04-27] MEDS ORDERED: OXYC5TAB72 PO (13:00)
--- NOTE | 2017-04-27 13:51 | NUR ---
Social Work-discharge: Data:EMR reviewed. Pt is on day 7 of hospitalization for ETOH intoxication per H&P. Pt is medically stable for discharge. Pt has met with AURELIO Chaparro from [facility] and is arranged for outpt services. Pt to return home with her family. No discharge needs identified. All updated and agreeable to plan. Assessment:Pt who is independent at baseline. Plan:Pt to discharge home today via POV. Pt to follow up outpt with [facility]. No discharge needs identified. All updated and agreeable to plan. BENY Yee
--- NOTE | 2017-04-27 18:58 | PCM.DC.MED ---
Discharge Summary Date of Service Apr 27, 2017 Dates of Hospitalization Date of Hospital Admission Apr 20, 2017 at 01:47 Date of Discharge: Apr 27, 2017 Providers: Admitting Physician: Angelique Vincent MD Primary Care Physician: Rito Thorne MD Attending Physician: Дмитрий Lim Diagnosis at Time of Discharge Diagnosis at Time of Discharge # Multiple electrolyte abnormalities including acute hypokalemia and acute hypomagnesemia. present on admission. Improved # Acute alcohol intoxication and acute withdrawal symptoms. present on admission. Resolved # Acute pancreatitis with history of chronic pancreatitis. Present on admission. Improved. # Hepatic encephalopathy, acute. Present on admission. Resolved. # Alcoholic cirrhosis, chronic. # Acute on chronic anemia and thrombocytopenia, stable # Diabetes mellitus, diet controlled. Procedures XRay, CTs & MRIs Date of Service: 04/20/17 0420 PROCEDURE: CT ABDOMEN AND PELVIS WITH CONTRAST ([id number]) IMPRESSION: Appendix not visualized, therefore clinical correlation is required to exclude acute appendicitis. Hazy peripancreatic attenuation near the head of pancreas raises the possibility of pancreatitis. Recommend correlation with pancreatic enzymes Possible long segment wall thickening the colon with adjacent fat stranding. Findings suggest infectious or inflammatory (less likely ischemic) colitis. Please correlate clinically and with laboratory data Distended appearance of the gallbladder, with adjacent mild fat stranding although this could be related to a colonic process. Please correlate clinically and with LFTs to exclude acute cholecystitis. Of note all of the above findings appear slightly less conspicuous since prior study dated 02/17/17. Dictated by: Tyrell Dalton M.D. on 04/20/2017 at 19:04 Approved by: Tyrell Dalton M.D. on 04/20/2017 at 19:14 Other Diagnostics Date of Service: 04/22/17 1055 PROCEDURE: US ABDOMEN, LIMITED ([id number]) IMPRESSION: 1. Ultrasonographic findings do not support acute cholecystitis. If there is continued clinical concern for acute cholecystitis recommend a HIDA scan. 2. Trace ascites too small for percutaneous guided sampling. 3. Coarsening of hepatic echotexture may represent chronic hepatic parenchymal disease. Dictated by: Matheus Ronquillo M.D. on 04/22/2017 at 15:01 Approved by: Matheus Ronquillo M.D. on 04/22/2017 at 15:04 Brief History As noted in H&P by Dr. Foss: Pt is a 46 year old female with a history of alcoholism with alcoholic cirrhosis , chronic pancreatitis, and DM who presents complaining of decreased appetite onset 1 week and confusion. She reports weight loss of 10 lbs this week and vomiting onset 1 hour ago. 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 She denies any other symptoms. Per pt, she last drank this morning, and states she had about a fifth of vodka, which is her average daily intake. The family tried to get a blood sugar, but they were unable to get a good reading. Her father reports that she went "crazy today with vomiting and hallucinations." Pt reports that she is interested in detox eventually. On admission, vitals were normal. Hb 11.7, Hct 33.4, plt 104. INR 1.35. Na 146, K 3.4, BUN 3, Cr 0.3, glucose 120, bilirubin 3.9, AST 109, ALT 31, alk phos 109. Ammonia 177. Hospital Course # Multiple electrolyte abnormalities including acute hypokalemia and acute hypomagnesemia. present on admission. - Improved with repletion - She received additional IV Mag supplement by day of discharge # Acute alcohol intoxication and acute withdrawal symptoms. present on admission - Resolved - Patient presented intoxicated, reported she drank a fifth of vodka day of admission. - Continued with [facility] protocol - Thiamine 500 mg daily, daily multivitamin - Social work consulted # Acute pancreatitis in a patient with history of chronic pancreatitis. Present on admission. - Pancreatitis likely resolved given location of pain and normalized Lipase. - Pt presented with RUQ pain, ongoing for months but worsened over the last few days prior to admission - Continued to advance diet as tolerated - IV Dilaudid 0.5 mg q2h PRN pain transitioned to oxycodone - Further followup with GI at a liver transplant center is recommended # Hepatic encephalopathy, acute. Present on admission, now resolved. - Mental status improved - Not able to tolerate Lactulose 20 g PO TID - Treated with Rifaximin 550 mg twice a day # Alcoholic cirrhosis, chronic. - Pt has elevated INR, thrombocytopenia, AST>ALT. Discriminant function 13.1, indicating no benefit from glucocorticoid therapy. MELD Score 15, conferring a 6 % 3-month mortality. This has been extensively worked up in the past - Says her PCP is arranging evaluation at a liver transplant center # Diabetes mellitus, diet controlled. - Continue to monitor blood sugars. by day of discharge reported continued abdominal pain with po intake but expresses eagerness to be discharged home Exam Vital Signs (Last) Date Time Temp Pulse Resp B/P Pulse Ox O2 Delivery O2 Flow Rate FiO2 04/27/17 05:20 36.4 70 16 96/62 92 Room Air Exam General: Alert, Cooperative, No Acute Distress Head: Normal Eyes: Scleral Anicteric Nose: Mucous Membr Moist/[place] Mouth: Mucous Membr Moist/[place] Neck: Supple Chest & Lungs: Chest Wall Normal, Clear to auscultation bilat Cardiovascular: Regular Rate/Rhythm Pulses: NL radial Abdomen: Tender, Non-distended, Normoactive bowel tones, Soft Extremities: No cyanosis/clubbing/edema bilat Neurological: Grossly Neurologically Intact, Normal Speech Test 04/19/17 23:15 04/22/17 06:38 04/23/17 06:12 04/24/17 18:25 Hold Urine Received (Received) Hold Ritchie Top Tube Received (Received) Ammonia 188ug/dL (18-53) Reticulocyte Count,Calculated 1.9% (0.6-2.6) Phosphorus Level 4.0mg/dL (2.5-4.9) Iron Level 85ug/dL (35-150) Total Iron Binding Capacity 192ug/dL (250-450) Percent Iron Saturation 44%sat (15-50) Unsaturated Iron Binding 107.2ug/dL Ferritin 340ng/mL (13-150) Vitamin B12 Level 1426pg/mL (211-946) Folate 15.7ng/mL (>3.0) Lipase 14U/L (13-60) Test 04/25/17 06:28 04/26/17 05:55 04/27/17 06:53 Total Bilirubin 3.5mg/dL (0.0-1.2) Aspartate Amino Transf (AST/SGOT) 61U/L (0-50) Alanine Aminotransferase (ALT/SGPT) 20U/L (0-32) Alkaline Phosphatase 85U/L (25-150) Total Protein 6.1g/dL (6.4-8.4) Albumin 3.2g/dL (3.4-5.0) White Blood Count 3.4th/mm3 (3.8-10.1) Red Blood Count 3.00mil/mm3 (3.90-5.20) Hemoglobin 10.1g/dL (12.0-15.6) Hematocrit 30.6% (35.0-46.0) Mean Corpuscular Volume 102.0fL (81-100) Mean Corpuscular Hemoglobin 33.7pg (27.0-35.0) Mean Corpuscular Hemoglobin Concent 33.0% (32.0-37.0) Red Cell Distribution Width 15.4% (12.3-15.4) Platelet Count 66bil/L (150-400) Neutrophils (%) (Auto) 40.3% (40-74) Lymphocytes (%) (Auto) 42.7% (14-46) Monocytes (%) (Auto) 12.8% (4-12) Eosinophils (%) (Auto) 3.3% (0-5) Basophils (%) (Auto) 0.6% (0-3) Prothrombin Time 16.4sec (8.1-12.5) Prothromb Time International Ratio 1.52ratio Activated Partial Thromboplast Time 32.0sec (22.8-33.0) Sodium Level 140mEq/L (134-144) Potassium Level 4.1mEq/L (3.5-5.2) Chloride Level 102mEq/L (97-108) Carbon Dioxide Level 25mmol/L (18-29) Blood Urea Nitrogen 3mg/dL (6-24) Creatinine 0.29mg/dL (0.57-1.00) Estimat Glomerular Filtration Rate 360mL/min (>59) Glucose Level 101mg/dL (60-99) Calcium Level 9.4mg/dL (8.5-10.1) Magnesium Level 1.3mg/dL (1.6-2.6) Discharge Medications Discharge Medications Calcium Carbonate (Tums) 500 Mg Tab.chew 500 MG PO BIDWM Prescribed by: JM STEPHENS DO Cyanocobalamin (Vitamin B12) 500 Mcg Tablet 1,000 MCG PO QAM (Reported) Famotidine (Pepcid) 20 Mg Tablet 20 MG PO BID Prescribed by: EDUARDO ROBBINS DO Magnesium Chloride (Mag64) 64 Mg Tablet.er 128 MG PO TID Prescribed by: EDUARDO ROBBINS DO Comb No.42/Folic Acid (Prena1 Chew Tablet) 1.4 Mg Tab.ch.bph 2 TABLET PO DAILY (Reported) As needed Ondansetron ODT (Zofran ODT) 8 Mg Tablet 8 MG PO Q4H PRN PRN For Nausea Prescribed by: ДМИТРИЙ LIM MD oxyCODONE (oxyCODONE) 5 Mg Tablet 5 MG PO Q4H PRN PRN For Pain Prescribed by: ДМИТРИЙ LIM MD Followup Plan Disposition: Home Follow-up plan 1. Followup with primary care provider within one week Discharge Diet: Diabetic Discharge Activity: No restrictions Patient Instructions Seek immediate medical attention if any new or worsening signs or symptoms occur. Follow-up Provider: Rito Thorne MD Time spent 35 min copies to: Riot Thorne MD, Masoud Apr 27, 2017 18:58
== END 2017-04-27 14:23 | disposition home or self-care (01) | DRG 279 ==
LOC: SED 21:39 → MPC 04-20 01:47
PROVIDERS: ADMIT Specialist; ATTEND Specialist
DX: K72.00 Acute and subacute hepatic failure without coma (principal); K85.20 Alcohol induced acute pancreatitis without necrosis or infection; D69.59 Other secondary thrombocytopenia; G31.2 Degeneration of nervous system due to alcohol; K86.0 Alcohol-induced chronic pancreatitis; E83.42 Hypomagnesemia; F10.239 Alcohol dependence with withdrawal, unspecified; K70.30 Alcoholic cirrhosis of liver without ascites; K70.0 Alcoholic fatty liver; E11.9 Type 2 diabetes mellitus without complications; E87.6 Hypokalemia; D63.8 Anemia in other chronic diseases classified elsewhere

== ENCOUNTER 2017-05-02 14:43 | Inpatient (IN) | payer OTHER ==
[~2017-05-02] VITALS: Ht 170.2 cm; Wt 65.3 kg
[~2017-05-02 14:43] MED LIST changes: -CLOT15CR5 TOPICAL; +ONDA8TAB7 PO
[2017-05-02 14:51] VITALS: BP 117/77; PULSE 79; RESP 14; O2SAT 98
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
[2017-05-02 20:28] LABS: BASOPHILS % (AUTO) 1.6 % (0-3); EOSINOPHILS % (AUTO) 1.3 % (0-5); MONOCYTES % (AUTO) 7.2 % (4-12); Mean Corpuscular Hemoglobin 33.1 pg (27.0-35.0); Mean Corpuscular Volume 97.8 fL (81-100); NEUTROPHILS % (AUTO) 40.5 % (40-74); Platelet Count 75 bil/L (150-400)
[2017-05-02 20:33] VITALS: BP 113/78; PULSE 69; O2SAT 96
[2017-05-03] VITALS (9 sets, daily range): BP systolic 122–148; BP diastolic 73–84; PULSE 66–72; RESP 18; O2SAT 95–97
[2017-05-03] MEDS ORDERED: LORazepam 1 mg Tablet PO ONE (00:20)
[2017-05-03] MEDS ORDERED: Heparin 5,000 Unit/mL Inj SUBQ SCH (00:35)
[2017-05-03] MEDS ORDERED: Polyethylene Glycol (PEG) 17 Gm Powder PO PRN (00:35)
[2017-05-03] MEDS ORDERED: Alum-Mag Hydrox-Simeth 30 mL Suspension PO PRN (00:35)
[2017-05-03] MEDS ORDERED: Thiamine Inj 100 MG, Folic Acid Inj 1 MG, Magnesium Sulfate 50% Inj 2 GM, Multivitamins... IV ONE ×5 (00:35)
[2017-05-03] MEDS: Ondansetron 2 mg/mL 2 mL Inj IVPUSH PRN ×6 (01:39→20:19)
[2017-05-03 02:02] LABS: APPEARANCE,URINE HAZY (CLEAR,HAZY); COLOR,URINE DARK YELLOW (YELLOW); OCCULT BLOOD,URINE NEGATIVE (NEGATIVE)
[2017-05-03 02:03] LABS: ICTOTEST,URINE POSITIVE (Negative)
--- NOTE | 2017-05-03 02:44 | NUR ---
Admit Pt admitted to [facility] floor from ED at 0120 for alcohol withdrawl. Last drink was 0800 05/02/17, and has history of seizures with etoh withdrawals. Pt is A/OX3, CIWA score of 6, and complains of pain to head and abdomen of 7 out of 10. IV Zofran given for nausea.
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
[2017-05-03] MEDS: 0.9% Sodium Chloride 1,000 ML IV SCH ×2 (04:01→14:13)
[2017-05-03 05:54] LABS: BASOPHILS % (AUTO) 1.4 % (0-3); EOSINOPHILS % (AUTO) 1.9 % (0-5); MONOCYTES % (AUTO) 10.5 % (4-12); Mean Corpuscular Hemoglobin 33.3 pg (27.0-35.0); Mean Corpuscular Volume 94.6 fL (81-100); NEUTROPHILS % (AUTO) 44.3 % (40-74); Platelet Count 103 bil/L (150-400)
[2017-05-03 06:11] LABS: INR 1.58 ratio
[2017-05-03 06:20] LABS: Magnesium 1.8 mg/dL (1.6-2.6); Phosphorus 4.5 mg/dL (2.5-4.9)
[2017-05-03] MEDS: Multivit-Miner-Folic Acid-Iron Tablet PO SCH (08:30)
[2017-05-03] MEDS ORDERED: Potassium Chloride 20 mEq SR Tablet PO ONE (08:35)
[2017-05-03] MEDS: Heparin 5,000 Unit/mL Inj SUBQ SCH ×2 (09:59→17:12)
[2017-05-03] MEDS ORDERED: CALC600T12 PO (10:33)
[2017-05-03] MEDS ORDERED: ASCO250T7 PO (10:34)
--- NOTE | 2017-05-03 16:16 | NUR ---
Social Work- Brief Note/Multidisciplinary rounds Per multidisciplinary rounds pt has been requesting CDP. Pt is admitted for alcohol withdrawal. SW met with pt at bedside briefly regarding meeting with CDP from [facility]. Pt is very agreeable to this. LEOBARDO has been obtained in prior admissions as pt is well known to CDP. SW will not see pt today to complete assessment due to high census. SW will continue to follow. BENY Belle
--- NOTE | 2017-05-03 16:59 | NUR ---
CIWA Pt CIWA score slowly has increased over the day. Most of the day 6-8. Although this afternoon MARIE increased, itchy skin, Tremors, Anxiety increased, and sweaty palms. CIWA score 10 at this time. Valium given which seamed to help significantly. Pain in lateral right side pt states has increased and is concerned something new is wrong. paged and aware of all of the the above. Continue orders as ordered.
[2017-05-04] MEDS: 0.9% Sodium Chloride 1,000 ML IV SCH ×4 (00:18→21:38)
[2017-05-04 00:28] VITALS: BP 122/77; PULSE 66; RESP 16; O2SAT 97
[2017-05-04] MEDS: Heparin 5,000 Unit/mL Inj SUBQ SCH ×3 (01:46→17:27)
[2017-05-04 04:44] VITALS: BP 130/87; PULSE 72; RESP 18; O2SAT 96
--- NOTE | 2017-05-04 05:27 | NUR ---
Activity Patient restless at start of shift, CIWA score peaking at after midnight, single dose effective enough to relax patient. Pain persists despite medications, she states pain worsens after meals. Lots of teaching opportunities about medications, and pain management. Voiced concern about anonymous status, this RN assured her that the staff is informed of this status. Will continue close monitoring and care.
[2017-05-04] MEDS: Ondansetron 2 mg/mL 2 mL Inj IVPUSH PRN ×2 (07:56→17:30)
[2017-05-04] MEDS: Multivit-Miner-Folic Acid-Iron Tablet PO SCH (07:58)
[2017-05-04 08:28] VITALS: BP 120/78; PULSE 64; RESP 18; O2SAT 98
[2017-05-04 08:49] LABS: BASOPHILS % (AUTO) 2.1 % (0-3); EOSINOPHILS % (AUTO) 3.2 % (0-5); MONOCYTES % (AUTO) 11.8 % (4-12); Mean Corpuscular Hemoglobin 32.8 pg (27.0-35.0); Mean Corpuscular Volume 96.2 fL (81-100); NEUTROPHILS % (AUTO) 38.5 % (40-74); Platelet Count 91 bil/L (150-400)
[2017-05-04 09:11] LABS: Magnesium 1.3 mg/dL (1.6-2.6)
[2017-05-04] MEDS ORDERED: Magnesium Sulf 2 Gm/50mL Water 2 GM in IV Premix 1 EACH IV ONE (09:55)
[2017-05-04 10:06] LABS: Bilirubin, Direct 1.4 mg/dL (0.0-0.3)
[2017-05-04 10:44] VITALS: PULSE 74
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
--- NOTE | 2017-05-04 17:29 | PCM.PNMED ---
Subjective Date of Service May 04, 2017 Subjective Patient reports continued right upper quadrant abdominal pain however is improved from yesterday. Denies any fever or chills. Exam Vital Signs Vital Sign - Last Date Time Temp Pulse Resp B/P Pulse Ox O2 Delivery O2 Flow Rate FiO2 05/04/17 10:44 74 05/04/17 08:28 36.4 18 120/78 98 Room Air Intake and Output 05/03/17 05/03/17 05/04/17 Cumulative From/Thru 15:00 23:00 07:00 05/02/17 14:51 - 05/04/17 06:19 Intake Total 1945 ml 1825 ml 5301 ml Output Total 200 ml 350 ml 1000 ml Balance 1745 ml 1475 ml 4301 ml Intake Oral 800 ml 622 ml 1772 ml IV Total 1145 ml 1203 ml 3529 ml Output Urine Total 200 ml 350 ml 1000 ml # Bowel Movements 0 0 Exam General: No acute distress, well-developed, well-nourished, appropriately interactive HEENT: Normocephalic, atraumatic. External ears without defect. Sclera icterus present. Pupils equal, round, and reactive to light and accommodation. Dry oral mucosa. Neck: Supple with full range of motion. No jugular venous distension. No bruits. No lymphadenopathy or thyromegaly. Cardiovascular: Regular rate and rhythm with no murmurs, rubs, or gallops appreciated Pulmonary: Clear to auscultation bilaterally with no crackles, wheezes, or rhonchi. Normal respiratory effort with no use of accessory muscles. Abdomen: Bowel tones present. Soft, diffusely tender, nondistended. Hepatomegaly present. No rebound or guarding. Odom's negative. Extremities: No clubbing, cyanosis, edema, or lymphadenopathy appreciated. Skin: Spider angiomas present on anterior upper chest. Normal temperature, turgor, and texture. Neurological: Cranial nerves grossly intact. Normal muscle strength, tone, and bulk. No known gait impairment. Psychiatric: Normal mood and affect. Alert and oriented to person, place, and time. IVs and Medications Medications Reviewed: Medications were reviewed in detail Lab and Diagnostics Result Diagram: 05/04/17 0835 05/04/17 0835 X-Rays, CTs and MRIs CT ABDOMEN AND PELVIS WITH CONTRAST ([id number]) IMPRESSION: Appendix not visualized, therefore clinical correlation is required to exclude acute appendicitis. Hazy peripancreatic attenuation near the head of pancreas raises the possibility of pancreatitis. Recommend correlation with pancreatic enzymes Possible long segment wall thickening the colon with adjacent fat stranding. Findings suggest infectious or inflammatory (less likely ischemic) colitis. Please correlate clinically and with laboratory data Distended appearance of the gallbladder, with adjacent mild fat stranding although this could be related to a colonic process. Please correlate clinically and with LFTs to exclude acute cholecystitis. Of note all of the above findings appear slightly less conspicuous since prior study dated 02/17/17. Dictated by: Tyrell Dalton M.D. on 04/20/2017 at 19:04 Approved by: Tyrell Dalton M.D. on 04/20/2017 at 19:14 US ABDOMEN, LIMITED ([id number]) IMPRESSION: 1. Ultrasonographic findings do not support acute cholecystitis. If there is continued clinical concern for acute cholecystitis recommend a HIDA scan. 2. Trace ascites too small for percutaneous guided sampling. 3. Coarsening of hepatic echotexture may represent chronic hepatic parenchymal disease. Dictated by: Matheus Ronquillo M.D. on 04/22/2017 at 15:01 Approved by: Matheus Ronquillo M.D. on 04/22/2017 at 15:04 Assessment & Plan Katerina Wan is a 46-year-old female with history of alcoholism and chronic pancreatitis last admitted on 04/20/17 who presents requesting to detox. Alcohol intoxication, present on admission, active. - Patient presents intoxicated with blood alcohol level of 0.126. Reports drinking a fifth of vodka for the past 6 weeks last drink 05/02/17 at 0800. - Patient has a history of delirium tremens and seizures with withdrawal. - CIWA protocol in place, CIWA scores of 6 on 05/04/2017. - Banana bag given. - Thiamine 100 mg daily. Right upper quadrant abdominal pain, present on admission, acute on chronic. - Numerous abdominal imaging including ultrasound and CT along with GI consultation has been completed over the last few months. Pain is unchanged from prior admission on 04/20/17. Per Dr. Gonzalez's note on 02/20/17, she has chronic RUQ pain, possibly secondary to chronic cholecystitis vs liver capsule pain from enlarged fatty liver. She is a high risk for surgery with her MELD score of 17 at the time, and any gallbladder surgery should be done at a liver transplant center. - Lipase 25. Bilirubin 4.0 which appears to be her baseline. - Abdominal CT and ultrasound from last admission included above. - Monitor LFTs. AST and ALT and Bilirubin appear to be at patient's baseline. - If suspicion for acute cholecystitis will get right upper quadrant ultrasound. - IV fluids at 100 ml/hr. - Zofran PRN nausea. - We will discuss with primary care physician before discharge regarding plan for eventual cholecystectomy and liver transplant center. Alcoholic cirrhosis, present on admission, chronic. - Stigmata present include mild scleral icterus and spider angiomas present on the anterior chest wall. - MELD score of 17 on admit conferring 6% 3 month mortality. - Previous workup includes negative iron panel, ceruloplasmin, alpha-1 antitrypsin, and negative Hepatitis panel. - Chronic thrombocytopenia, platelets are 91 this morning. Continue to monitor. Can continue prophylactic heparin unless significant decrease in platelets. Hypovolemic hypernatremia, present on admission, resolved. - Poor by mouth intake. - IV fluids at 100 ml/hr. - Repeat BMP in the morning. PRN Medications - Acetaminophen as needed for mild pain/fever/headache - Bowel regimen as needed - Antiemetic as needed Patient is admitted under inpatient status with expected length of stay greater than 2 midnights due to severity of presenting symptoms, risk of adverse event, and complexity of treatment plan. GI Prophylaxis: Not indicated VTE Prophylaxis: Sub-Q Heparin (Unfractionated) (platelet count of), SCDs VTE Mechanical Devices: Intermittant Pneumatic CD Resuscitation Status: CPR: Attempt Resuscitation Jose Regan MD May 04, 2017 17:29
--- NOTE | 2017-05-04 18:09 | NUR ---
Nausea / Pain / CIWA Nausea has decreased greatly since yesterday. Zofran works well when there is nausea present. Pain controlled with Oxycodone 5mg Q4 PO. CIWA scores have stayed around 6 today all day. Mostly c/o MARIE, itchy, anxiety. Care continues
[2017-05-04 20:44] VITALS: BP 113/73; PULSE 78; RESP 16; O2SAT 94
[2017-05-05 00:34] VITALS: BP 133/73; PULSE 82; RESP 18; O2SAT 95
[2017-05-05] MEDS: Heparin 5,000 Unit/mL Inj SUBQ SCH (01:29)
--- NOTE | 2017-05-05 02:12 | NUR ---
Sleep/ Pain Patient states has been able to sleep well through out this shift, pain has been managed well. Voiced concerns about hair thinning out, explained that she is getting multi vitamins that will improve the condition of her hair but results are delayed with hair. patient is pleased with care at this time.
[2017-05-05] MEDS: Ondansetron 2 mg/mL 2 mL Inj IVPUSH PRN (03:28)
[2017-05-05 04:35] VITALS: BP 112/67; PULSE 74; RESP 18; O2SAT 95
[2017-05-05 05:35] VITALS: PULSE 75
[2017-05-05 05:36] LABS: Mean Corpuscular Hemoglobin 33.7 pg (27.0-35.0); Mean Corpuscular Volume 99.7 fL (81-100)
[2017-05-05 05:37] LABS: EOSINOPHILS % (AUTO) 2.9 % (0-5); NEUTROPHILS % (AUTO) 48.9 % (40-74); Platelet Count 80 bil/L (150-400)
[2017-05-05 05:54] LABS: Bilirubin, Direct 1.2 mg/dL (0.0-0.3); Magnesium 1.3 mg/dL (1.6-2.6); Phosphorus 3.9 mg/dL (2.5-4.9)
[2017-05-05 08:00] VITALS: PULSE 77
[2017-05-05] MEDS ORDERED: Magnesium Sulf 2 Gm/50mL Water 2 GM in IV Premix 1 EACH IV ONE (08:25)
[2017-05-05] MEDS: Multivit-Miner-Folic Acid-Iron Tablet PO SCH (08:41)
[2017-05-05 10:00] VITALS: BP 125/81; PULSE 77; RESP 20; O2SAT 96
--- NOTE | 2017-05-05 13:44 | NUR ---
Social Work: Readiness for Discharge/Multi-Disciplinary Rounds D:EMR reviewed. Pt is on day 2 of hospitalization. Per rounds, pt is likely to discharge today pending magnesium in afternoon. Per RN, pt will return home with her parents at discharge who have removed all ETOH from home. Per MD, pt has chronic gallbladder complexities and has been instructed to [facility]. Pt has been seen by CDP who is working to get a bed date for inpt rehab in [place]. RN notified SW of pt's concerns for discharging to her parents house until a bed date is available in [place] because she is worried about relapsing. Pt stated she is serious about getting sober. SW called CDP to talk with pt about options other than discharging home due to fears of relapsing. CDP met with pt and reported that pt now wants to go home and that the CDP has made a plan with her regarding relapsing. CDP confirmed she will contact pt tomorrow for a bed date in [place] for inpt treatment. A: Pt who is independent at baseline and who is awaiting bed date for intpt tx. P: No concerns related to pt's capacity for self-care at this time. At this time pt to discharge home with her parents to transport via POV. Pt continues to await bed date - CDP made plan with pt regarding fears of relapsing and confirmed she will call pt with bed date tomorrow. SW will continue to follow. BENY Holley
--- NOTE | 2017-05-05 13:56 | PCM.PNMED ---
Subjective Date of Service May 05, 2017 Subjective Patient reports improving abdominal pain nausea. Exam Vital Signs Vital Sign - Last Date Time Temp Pulse Resp B/P Pulse Ox O2 Delivery O2 Flow Rate FiO2 05/05/17 10:00 36.6 77 20 125/81 96 Room Air Intake and Output 05/04/17 05/04/17 05/05/17 Cumulative From/Thru 15:00 23:00 07:00 05/02/17 14:51 - 05/05/17 06:08 Intake Total 1847 ml 696 ml 7844 ml Output Total 450 ml 700 ml 2150 ml Balance 1397 ml -4 ml 5694 ml Intake Oral 640 ml 696 ml 3108 ml IV Total 1207 ml 4736 ml Output Urine Total 450 ml 700 ml 2150 ml # Bowel Movements 0 0 Exam General: No acute distress, well-developed, well-nourished, appropriately interactive HEENT: Normocephalic, atraumatic. External ears without defect. Sclera icterus present. Pupils equal, round, and reactive to light and accommodation. Dry oral mucosa. Neck: Supple with full range of motion. No jugular venous distension. No bruits. No lymphadenopathy or thyromegaly. Cardiovascular: Regular rate and rhythm with no murmurs, rubs, or gallops appreciated Pulmonary: Clear to auscultation bilaterally with no crackles, wheezes, or rhonchi. Normal respiratory effort with no use of accessory muscles. Abdomen: Bowel tones present. Soft, nontender, nondistended. Hepatomegaly present. No rebound or guarding. Odom's negative. Extremities: No clubbing, cyanosis, edema, or lymphadenopathy appreciated. Skin: Spider angiomas present on anterior upper chest. Normal temperature, turgor, and texture. Neurological: Cranial nerves grossly intact. Normal muscle strength, tone, and bulk. No known gait impairment. Psychiatric: Normal mood and affect. Alert and oriented to person, place, and time. IVs and Medications Medications Reviewed: Medications were reviewed in detail Lab and Diagnostics Result Diagram: 05/05/17 0500 05/05/17 0500 X-Rays, CTs and MRIs CT ABDOMEN AND PELVIS WITH CONTRAST ([id number]) IMPRESSION: Appendix not visualized, therefore clinical correlation is required to exclude acute appendicitis. Hazy peripancreatic attenuation near the head of pancreas raises the possibility of pancreatitis. Recommend correlation with pancreatic enzymes Possible long segment wall thickening the colon with adjacent fat stranding. Findings suggest infectious or inflammatory (less likely ischemic) colitis. Please correlate clinically and with laboratory data Distended appearance of the gallbladder, with adjacent mild fat stranding although this could be related to a colonic process. Please correlate clinically and with LFTs to exclude acute cholecystitis. Of note all of the above findings appear slightly less conspicuous since prior study dated 02/17/17. Dictated by: Tyrell Dalton M.D. on 04/20/2017 at 19:04 Approved by: Tyrell Dalton M.D. on 04/20/2017 at 19:14 US ABDOMEN, LIMITED ([id number]) IMPRESSION: 1. Ultrasonographic findings do not support acute cholecystitis. If there is continued clinical concern for acute cholecystitis recommend a HIDA scan. 2. Trace ascites too small for percutaneous guided sampling. 3. Coarsening of hepatic echotexture may represent chronic hepatic parenchymal disease. Dictated by: Matheus Ronquillo M.D. on 04/22/2017 at 15:01 Approved by: Matheus Ronquillo M.D. on 04/22/2017 at 15:04 Assessment & Plan Katerina Wan is a 46-year-old female with history of alcoholism and chronic pancreatitis last admitted on 04/20/17 who presents requesting to detox. Alcohol intoxication, present on admission, active. - Patient presents intoxicated with blood alcohol level of 0.126. Reports drinking a fifth of vodka for the past 6 weeks last drink 05/02/17 at 0800. - Patient has a history of delirium tremens and seizures with withdrawal. - CIWA protocol in place, CIWA scores have been less than 10 since 05/04/2017, no additional benzodiazepines been given. - Banana bag given. - Thiamine 100 mg daily. Right upper quadrant abdominal pain, present on admission, acute on chronic. - Numerous abdominal imaging including ultrasound and CT along with GI consultation has been completed over the last few months. Pain is unchanged from prior admission on 04/20/17. Per Dr. Gonzalez's note on 02/20/17, she has chronic RUQ pain, possibly secondary to chronic cholecystitis vs liver capsule pain from enlarged fatty liver. She is a high risk for surgery with her MELD score of 17 at the time, and any gallbladder surgery should be done at a liver transplant center. - Lipase 25. Bilirubin 4.0 which appears to be her baseline. - Abdominal CT and ultrasound from last admission included above. - Monitor LFTs. AST and ALT and Bilirubin appear to be at patient's baseline. - If suspicion for acute cholecystitis will get right upper quadrant ultrasound. - IV fluids at 100 ml/hr. - Zofran PRN nausea. -She will follow-up with primary care physician regarding plan for eventual cholecystectomy and liver transplant center. Alcoholic cirrhosis, present on admission, chronic. - Stigmata present include mild scleral icterus and spider angiomas present on the anterior chest wall. - MELD score of 17 on admit conferring 6% 3 month mortality. - Previous workup includes negative iron panel, ceruloplasmin, alpha-1 antitrypsin, and negative Hepatitis panel. - Chronic thrombocytopenia, held a.m. heparin prophylaxis due to low platelets. Hypovolemic hypernatremia, present on admission, resolved. - Poor by mouth intake. - IV fluids at 100 ml/hr. . PRN Medications - Acetaminophen as needed for mild pain/fever/headache - Bowel regimen as needed - Antiemetic as needed Dispo- Pt has been in contact with CDP from [facility] during this admission regarding a bed date for inpatient treatment in [place]. Patient will be discharged home today with her parents who have removed all alcohol from home. Patient is encouraged to continue alcohol cessation. GI Prophylaxis: Not indicated VTE Prophylaxis: Sub-Q Heparin (Unfractionated) (platelet count of), SCDs VTE Mechanical Devices: Intermittant Pneumatic CD Resuscitation Status: CPR: Attempt Resuscitation Jose Regan MD May 05, 2017 13:55
--- NOTE | 2017-05-05 13:59 | PCM.DIMED ---
Discharge Instructions Date of Service May 05, 2017 Dates of Hospitalization May 03, 2017 at 01:04 Discharge Diagnosis Discharge Diagnosis Alcohol withdrawal, present on admission, resolved Right upper quadrant abdominal pain, present on admission, active. Alcoholic cirrhosis, present on admission, chronic. Hypovolemic hypernatremia, present on admission, resolved. Medication Instructions Additional med instructions Will provide 5 days of oxycodone to take only as needed Continue alcohol cessation Diet Discharge Diet: No restrictions Activity Discharge Activity: No restrictions Call your provider Call your provider for: Fever or Chills, Chest pain, Vomitting Patient Instructions Follow-up plan Follow-up with primary care physician in order to arrange for outpatient cholecystectomy with surgery. Follow-up Provider: Rito Thorne MD Follow-up with PCP in: 1 week Jose Regan MD May 05, 2017 13:59
[2017-05-05] MEDS ORDERED: ONDA4TAB12 PO (14:01)
[2017-05-05] MEDS ORDERED: POLY17PO6 PO (14:01)
[2017-05-05] MEDS ORDERED: OXYC5TAB72 PO (14:01)
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
--- NOTE | 2017-05-05 15:26 | NUR ---
Discharge Pt discharged to home with transportation by her parents. IV dc'd intact, telemetry removed and tech notified. Pt's discharge paperwork, new prescriptions and follow up appointments reviewed. All pt questions were answered and pt voiced understanding. Pt's belongings were gathered for transport with pt. Pt was escorted off unit to lobby were she requested that she could wait for her parents to pick her up.
--- NOTE | 2017-05-05 15:52 | NUR ---
Social Work: Discharge D: EMR reviewed. Pt is on day 2 of hospitalization. SW called CDP to talk with pt about options other than discharging home due to fears of relapsing. CDP met with pt and reported that pt now wants to go home and that the CDP has made a plan with her regarding relapsing. CDP confirmed she will contact pt tomorrow for a bed date in [place] for inpt treatment. A: Pt who is independent at baseline and who is awaiting bed date for intpt treatment. P: No concerns related to pt's capacity for self-care at this time. At this time pt to discharge home with her parents to transport via POV. Pt continues to await bed date - CDP made plan with pt regarding fears of relapsing and confirmed she will call pt with bed date tomorrow. BENNY will continue to follow. BENY Holley
== END 2017-05-05 15:26 | disposition home or self-care (01) | DRG 897 ==
LOC: SED 14:43 → OSC 05-03 01:04
PROVIDERS: ADMIT Hospitalist; ATTEND Internal Medicine
DX: F10.239 Alcohol dependence with withdrawal, unspecified (principal); E87.0 Hyperosmolality and hypernatremia; K70.30 Alcoholic cirrhosis of liver without ascites; Y90.6 Blood alcohol level of 120-199 mg/100 ml; F10.229 Alcohol dependence with intoxication, unspecified; R10.11 Right upper quadrant pain

== ENCOUNTER 2017-05-09 18:18 | Emergency (ER) | payer OTHER ==
[~2017-05-09] VITALS: Ht 170.2 cm; Wt 68.2 kg
[~2017-05-09 18:18] MED LIST changes: +ASCO250T7 PO; -CALC500T9 PO; +CALC600T12 PO; -FAMO20T PO; -MAGN64TA7 PO; +ONDA4TAB12 PO; -ONDA8TAB7 PO; +POLY17PO6 PO
[2017-05-09 18:21] VITALS: BP 127/78; PULSE 99; RESP 16; O2SAT 98
[2017-05-09 20:45] LABS: BASOPHILS % (AUTO) 0.2 % (0-3); EOSINOPHILS % (AUTO) 0.6 % (0-5); MONOCYTES % (AUTO) 6.9 % (4-12); Mean Corpuscular Hemoglobin 33.9 pg (27.0-35.0); Mean Corpuscular Volume 98.2 fL (81-100); Platelet Count 148 bil/L (150-400)
[2017-05-09 21:14] LABS: Lipase 21 U/L (13-60); Magnesium 1.3 mg/dL (1.6-2.6)
[2017-05-09 22:00] VITALS: BP 114/72; PULSE 87; RESP 16; O2SAT 96
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
[2017-05-09] MEDS ORDERED: Ondansetron 2 mg/mL 2 mL Inj IVPUSH PRN (22:15)
[2017-05-09] MEDS ORDERED: 0.9% Sodium Chloride 1,000 ML IV ONE (22:15)
[2017-05-09] MEDS: HYDROmorphone 0.5 mg/0.5 mL iSecure Syringe IVPUSH PRN (22:47)
[2017-05-10] MEDS: HYDROmorphone 0.5 mg/0.5 mL iSecure Syringe IVPUSH PRN ×2 (00:44→03:14)
[2017-05-10 00:49] VITALS: BP 114/74; PULSE 86; RESP 16; O2SAT 97
[2017-05-10 00:59] LABS: INR 1.61 ratio
[2017-05-10] MEDS ORDERED: LORazepam 1 mg Tablet PO ONE (01:35)
[2017-05-10] MEDS ORDERED: _LORazepam 2 MG Tablet PO SCH (01:35)
[2017-05-10 06:43] VITALS: BP 114/74; PULSE 75; RESP 16; O2SAT 98
--- NOTE | 2017-05-10 09:35 | DRSVH ---
PROCEDURE: US ABDOMEN, LIMITED ([id number]) INDICATIONS: jaundice RUQ pain TECHNIQUE: Real-time focused scanning was performed of the abdomen, with image documentation. COMPARISON: [facility], , ABDOMEN LTD, 04/22/2017, 13:48. FINDINGS: The liver is diffusely hyperechoic and coarse in echotexture, likely reflecting a combinati on of fatty infiltration and perhaps early cirrhosis. No biliary distention or mass within the liver is seen. Gallbladder is relatively large, consider hydropic, measuring up to 3.2 x 4.3 x 10.4 cm. No gallstones are found within, however. The common hepatic duct measures 3.6 mm and the common bile duct measures 5.8 mm. IMPRESSION: Increased echotexture throughout the liver, presumed fatty infiltration and possible supe rimposed early cirrhosis. Note was made that the direction of flow within the portal vein is towards the liver, normal. No ascites or varices are found. The gallbladder is consider hydropic given its large AP dimension of 10.4 cm with axial dimensions measuring up to 3.2 x 4.3 cm. However, no galls tones or evidence of gallbladder inflammation is seen. Nuclear medicine hepatobiliary scan may be wa rranted given this finding and the symptomatology reported. Note: These findings are concordant with the preliminary interpretation. Dictated by: Be Craig M.D. on 05/10/2017 at 9:31 Approved by: Be Craig M.D. on 05/10/2017 at 9:33
== END 2017-05-10 06:44 | disposition home or self-care (01) ==
LOC: SED 18:18
DX: F10.10 Alcohol abuse, uncomplicated (principal); K70.9 Alcoholic liver disease, unspecified; E11.9 Type 2 diabetes mellitus without complications; Z88.0 Allergy status to penicillin; Z88.5 Allergy status to narcotic agent
CPT/HCPCS: 36415; 76705; 80053; 81025; 82075; 83690; 83735; 85025; 85610; 93005; 96361; 96374; 96375; 96376; 99285; J1170; J2405; J7030

== ENCOUNTER 2017-05-13 09:56 | Emergency (ER) | payer OTHER ==
[~2017-05-13] VITALS: Ht 170.2 cm; Wt 68.0 kg
[2017-05-13 10:00] VITALS: BP 119/79; PULSE 88; RESP 20; O2SAT 96
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
[2017-05-13 11:51] LABS: BASOPHILS % (AUTO) 0.6 % (0-3); EOSINOPHILS % (AUTO) 1.5 % (0-5); MONOCYTES % (AUTO) 7.6 % (4-12); Mean Corpuscular Hemoglobin 32.9 pg (27.0-35.0); Mean Corpuscular Volume 95.8 fL (81-100); NEUTROPHILS % (AUTO) 65.8 % (40-74); Platelet Count 129 bil/L (150-400)
[2017-05-13 12:09] LABS: Lipase 32 U/L (13-60); Magnesium 1.5 mg/dL (1.6-2.6)
[2017-05-13 12:45] LABS: INR 1.5 ratio
--- NOTE | 2017-05-13 13:17 | DRSVH ---
PROCEDURE: US ABDOMEN, LIMITED ([id number]) INDICATIONS: RUQ abd pain, jaundice TECHNIQUE: Real-time focused scanning was performed of the abdomen, with image documentation. COMPARISON: [facility], , ABDOMEN LTD, 05/09/2017, 23:27. FINDINGS: Liver is normal in echotexture, normal in size. Gallbladder is tender during sonographic p alpation but there is no gallbladder wall thickening or stone or pericholecystic free fluid. Common duct measures 5 mm. Pancreas not well-seen due to bowel gas. IMPRESSION: Limited evaluation right upper quadrant, source of jaundice not found, source of right up per quadrant pain not seen. Followup MR cholangiography or contrast-enhanced CT scanning may be brent anted. Dictated by: Be Craig M.D. on 05/13/2017 at 13:13 Approved by: Be Craig M.D. on 05/13/2017 at 13:14
[2017-05-13 13:31] LABS: APPEARANCE,URINE HAZY (CLEAR,HAZY); COLOR,URINE DARK YELLOW (YELLOW); OCCULT BLOOD,URINE NEGATIVE (NEGATIVE); PH,URINE 6.5 (5.0-8.0)
[2017-05-13 13:33] LABS: ICTOTEST,URINE POSITIVE (Negative)
[2017-05-13 14:04] VITALS: BP 117/85; PULSE 71; RESP 16; O2SAT 100
[2017-05-13] MEDS ORDERED: OXYC-474 PO (14:39)
[2017-05-13 15:31] VITALS: BP 117/85; PULSE 71; RESP 16; O2SAT 100
== END 2017-05-13 15:05 | disposition home or self-care (01) ==
LOC: SED 09:56
DX: E83.42 Hypomagnesemia (principal); R10.11 Right upper quadrant pain; E11.9 Type 2 diabetes mellitus without complications; Z88.0 Allergy status to penicillin; Z88.5 Allergy status to narcotic agent

== ENCOUNTER 2017-05-17 11:42 | Emergency (ER) | payer OTHER ==
[~2017-05-17] VITALS: Ht 170.2 cm; Wt 68.2 kg
[~2017-05-17 11:42] MED LIST changes: +OXYC-474 PO
[2017-05-17 11:45] VITALS: BP 116/76; PULSE 87; RESP 16; O2SAT 100
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
[2017-05-17 13:32] LABS: BASOPHILS % (AUTO) 0.6 % (0-3); MONOCYTES % (AUTO) 10.9 % (4-12); Mean Corpuscular Hemoglobin 32.5 pg (27.0-35.0); NEUTROPHILS % (AUTO) 54.6 % (40-74); Platelet Count 112 bil/L (150-400)
[2017-05-17 13:52] LABS: INR 1.48 ratio
== END 2017-05-17 14:33 | disposition home or self-care (01) ==
LOC: SED 11:42
DX: R10.11 Right upper quadrant pain (principal); G89.29 Other chronic pain; E11.9 Type 2 diabetes mellitus without complications; K86.1 Other chronic pancreatitis; K70.30 Alcoholic cirrhosis of liver without ascites; Z88.0 Allergy status to penicillin; Z88.5 Allergy status to narcotic agent

== ENCOUNTER 2017-07-05 15:16 | Emergency (ER) | payer OTHER ==
[~2017-07-05] VITALS: Ht 170.2 cm; Wt 68.3 kg
[~2017-07-05 15:16] MED LIST changes: +OXYC-530 PO; -OXYC5TAB72 PO
[2017-07-05 15:18] VITALS: BP 174/98; PULSE 114; RESP 16; O2SAT 100
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
--- NOTE | 2017-07-05 17:52 | DRSVH ---
PROCEDURE: CT BRAIN WITHOUT CONTRAST ([id number]) INDICATIONS: head injury, LOC, headache TECHNIQUE: Noncontrast 4.5 mm thick angled axial sections acquired from the foramen magnum to the vertex, with c oronal reformats. COMPARISON: [facility], CT, CT BRAIN WO CON, 01/05/2017, 11:40. [facility], CT, BRAIN W/O CONTRAST, 04/29/2012, 12:01. FINDINGS: Image quality: Excellent. CSF spaces: Basal cisterns are patent. No extra-axial fluid collections. Ventricles are normal in size and shape. Brain: No midline shift. No intracranial masses or hemorrhage. Wilkerson-white matter interface is norm al. Skull and face: Calvarium and visualized facial bones are intact, without suspicious lesions. Sinuses: Visualized sinuses and mastoids are clear. IMPRESSION: No CT evidence of acute intracranial pathology. Dictated by: Matheus Ronquillo M.D. on 07/05/2017 at 17:48 Approved by: Matheus Ronquillo M.D. on 07/05/2017 at 17:50
[2017-07-05 19:24] VITALS: BP 123/76; PULSE 107; RESP 18; O2SAT 95
[2017-07-05 21:43] VITALS: BP 148/90; PULSE 110; RESP 18; O2SAT 97
== END 2017-07-05 21:45 | disposition home or self-care (01) ==
LOC: SED 15:16
DX: S00.83XA Contusion of other part of head, initial encounter (principal); S00.511A Abrasion of lip, initial encounter; Y04.2XXA Assault by strike against or bumped into by another person, initial encounter; Y93.89 Activity, other specified; Y92.89 Other specified places as the place of occurrence of the external cause; Y99.8 Other external cause status; F10.129 Alcohol abuse with intoxication, unspecified; K86.1 Other chronic pancreatitis; E11.9 Type 2 diabetes mellitus without complications; Z88.0 Allergy status to penicillin; Z88.5 Allergy status to narcotic agent

== ENCOUNTER 2017-07-08 09:57 | Inpatient (IN) | payer OTHER ==
[~2017-07-08] VITALS: Ht 170.2 cm; Wt 69.2 kg
[2017-07-08 09:59] VITALS: BP 157/88; PULSE 111; RESP 16; O2SAT 98
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
[2017-07-08] MEDS ORDERED: Multivitamin w/Vit K Inj 10 ML, Thiamine Inj 100 MG, Folic Acid Inj 1 MG, Magnesium Sul... IV ONE ×5 (10:57)
[2017-07-08] MEDS ORDERED: Pantoprazole 4 mg/mL 10 mL Inj IVPUSH ONE (11:00)
[2017-07-08 11:31] LABS: BASOPHILS % (AUTO) 0.5 % (0-3); EOSINOPHILS % (AUTO) 1.8 % (0-5); MONOCYTES % (AUTO) 4.4 % (4-12); Mean Corpuscular Hemoglobin 33.1 pg (27.0-35.0); Mean Corpuscular Volume 96.3 fL (81-100); NEUTROPHILS % (AUTO) 49.2 % (40-74); Platelet Count 71 bil/L (150-400)
[2017-07-08 11:47] LABS: INR 1.35 ratio
[2017-07-08 11:53] LABS: Lipase 24 U/L (13-60); Magnesium 1.4 mg/dL (1.6-2.6)
[2017-07-08 12:08] LABS: APPEARANCE,URINE CLOUDY (CLEAR,HAZY); COLOR,URINE DARK YELLOW (YELLOW); PH,URINE 6.5 (5.0-8.0)
[2017-07-08 12:11] LABS: OCCULT BLOOD,URINE LARGE (NEGATIVE)
[2017-07-08 12:12] LABS: ICTOTEST,URINE POS (Negative)
[2017-07-08 12:24] VITALS: BP 147/87; PULSE 111; RESP 20; O2SAT 98
[2017-07-08] MEDS ORDERED: Alum-Mag Hydrox-Simeth 30 mL Suspension PO PRN (12:30)
[2017-07-08] MEDS ORDERED: Thiamine Inj 100 MG, Folic Acid Inj 1 MG, Magnesium Sulfate 50% Inj 2 GM, Multivitamins... IV ONE ×5 (12:45)
[2017-07-08 13:23] VITALS: PULSE 92
[2017-07-08] MEDS ORDERED: Magnesium Sulf 2 Gm/50mL Water 2 GM in IV Premix 1 EACH IV ONE (13:30)
[2017-07-08] MEDS ORDERED: Potassium Chloride 20 mEq SR Tablet PO ONE (13:30)
[2017-07-08 13:38] VITALS: BP 142/84; PULSE 90; RESP 20; O2SAT 95
[2017-07-08] MEDS ORDERED: 0.9% Sodium Chloride 250 ML ONE (14:30)
--- NOTE | 2017-07-08 14:56 | NUR ---
Admit from ER Patient came to unit approx 1315. Alert and orientedX3. Able to make needs known. Denies any pain or discomfort. patient is resting comfortably at this time. Dr Cutler aware. per assessment CIWA 5. Stable vital signs. New orders for potassium and magnesium. On Telemetry. Admit and med Req done by Admit nurse. Independent ambulation. No sign and symptoms of alcohol with draw noted. continue to monitor.
[2017-07-08] MEDS ORDERED: Heparin 5,000 Unit/mL Inj SUBQ SCH (16:30)
[2017-07-08 16:35] VITALS: BP 126/67; PULSE 85; RESP 18; O2SAT 93
--- NOTE | 2017-07-08 17:01 | NUR ---
Blood sugar patient's blood sugar prior to dinner 54. Harmon juice 4 OZ and daily cracker given, blood sugar after 15 minutes 98. Cook paged Dr. nguyen and awaiting response back. patient is alert and orientedX3. C/o pain to right rib 8/10 with movement, PRN Tramadol given with effective results. continue to monitor. Addendum: 07/08/17 at 1708 by GUEVARA WEN RN charting meant for different patient.
--- NOTE | 2017-07-08 18:46 | NUR ---
Pain c/o pain 6/10 headaches and right abdominal pain. New orders for Oxycodone PRN, Medications given as ordered with effective results. Mild anxiety reported by patient, PRN anti anxiety given as ordered with effective results. Stable mood. CIWA 4. Continue seizure precautions. Stable mood. Continue to monitor.
[2017-07-08] MEDS: Ondansetron 2 mg/mL 2 mL Inj IVPUSH PRN (20:08)
[2017-07-08 21:31] VITALS: BP 146/84; PULSE 104; RESP 18; O2SAT 93
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
--- NOTE | 2017-07-08 22:52 | NUR ---
Nausea/Pain Pt c/o moderate to severe MARIE. Nausea. Mild agitation Treated with zofran and IV ativan. Pt ate one popscicle currently is resting with eyes closed. Will cont to monitor
[2017-07-09] VITALS (9 sets, daily range): BP systolic 124–140; BP diastolic 64–80; PULSE 81–97; RESP 18–19; O2SAT 92–97
[2017-07-09] MEDS: Ondansetron 2 mg/mL 2 mL Inj IVPUSH PRN ×3 (00:21→12:34)
[2017-07-09 07:27] LABS: Magnesium 1.4 mg/dL (1.6-2.6)
[2017-07-09] MEDS ORDERED: Multivit-Miner-Folic Acid-Iron Tablet PO SCH (08:30)
[2017-07-09] MEDS: Lactulose 20 Gm/30 mL 30 mL Syrup PO SCH ×3 (09:41→20:23)
[2017-07-09] MEDS: Multivit-Miner-Folic Acid-Iron Tablet PO SCH (09:42)
--- NOTE | 2017-07-09 18:13 | NUR ---
CIWA/Anxiety: Patients CIWA score is now 6. Patient received Ativan 2 mg x1 with good relief of her anxiety. Patient stated that she is making a good plan for her discharge and living arrangements. Patient has been taking all of her meds including her lactulose without issues.
[2017-07-09] MEDS ORDERED: Sodium Biphos-Phos 133 mL Enema RECTAL ONE (18:30)
--- NOTE | 2017-07-09 20:34 | NUR ---
Mentation Pt has been mildly lethargic. She is able to carry on a conversation with prompting but then drifts off. She states "Are my parents outside the door?" I explained that there are voices but these are not her parents. Pt verbalizes understanding. CIWA score 1-2. Pt has not had ativan x 5 hours. made aware of pt's lethargyand than No ammonia level has been drawn this hospital visit. Pt took her first dose of lactulose tonight. Will cont to monitor
[2017-07-09] MEDS ORDERED: Potassium Chloride 20 mEq SR Tablet PO ONE (20:35)
--- NOTE | 2017-07-09 20:37 | NUR ---
Potassium/Mag Potassium is 3.0/Mag 1.4 this AM NO replacements medications given today. RN reported the above values to night hospitalist.
--- NOTE | 2017-07-09 20:39 | PCM.PNMED ---
Subjective Date of Service Jul 09, 2017 Subjective Patient is seen and examined. She appears to be more tired, somewhat altered mentally. States that she is feeling anxious and confused at the same time. She has had no bowel movements even though she took lactulose as prescribed. No other concerns Exam Vital Signs Vital Sign - Last Date Time Temp Pulse Resp B/P Pulse Ox O2 Delivery O2 Flow Rate FiO2 07/09/17 06:26 93 07/09/17 05:43 36.7 18 138/76 95 Room Air Intake and Output 07/08/17 07/08/17 07/09/17 Cumulative From/Thru 15:00 23:00 07:00 07/08/17 09:59 - 07/09/17 06:42 Intake Total 772 ml 600 ml 1372 ml Output Total 700 ml 1050 ml 1750 ml Balance 72 ml -450 ml -378 ml Intake Oral 772 ml 600 ml 1372 ml Output Urine Total 700 ml 1050 ml 1750 ml # Voids 1 1 Exam Gen.: Mildly distressed HEENT: Dark discoloration of her face Heart: Regular rate and rhythm no S3/S4 murmurs Lungs are clear to auscultation no crackles or wheezes Abdomen: Soft, nontender positive for hepatomegaly Extremities: Symmetric edema Neurological: No focal deficits Psychiatric:: Affect resigned mood is depressed Skin: She has a rash over her chest that she states is very itchy. IVs and Medications IV Fluids None Medications Reviewed: Medications were reviewed in detail Lab and Diagnostics Result Diagram: 07/08/17 1100 07/09/17 0600 X-Rays, CTs and MRIs PROCEDURE: US ABDOMEN INDICATIONS: ABNL GB US IMPRESSION: 1. Increased hepatic echogenicity noted likely related to fatty infiltration of the liver but other sources of hepatocellular disease cannot be excluded. Recommend clinical correlation. 2. Mild hydropic appearance of the gallbladder redemonstrated and otherwise no definite stones or sludge present and gallbladder wall upper limits of normal in thickness. 3. Sonographic splenomegaly. Dictated by: Torey DASILVA Interpreted: Maximo [place] MD on 05/19/2017 at 9:11 Approved by: Maximo [place] M.D. on 05/19/2017 at 9:58 Assessment & Plan Assessment # alcohol withdrawal acute, present on admission -- She apparently had a C IWA score off 20 in the ER, she received a banana bag in the ER, does not appear that she received any benzo for acute withdrawal. -- Patient is stating that she wants to move out of her patient's home as she knows has some money such that she can be away from alcohol -- [facility] lorazepam protocol -- Thiamine, multivitamin daily -- She had needed Ativan couple of times during the daytime Alcoholic liver disease, chronic present on admission -- She has had no recent follow for her liver disease -- She has no home medications for 1-2 months now -- We will need to contact the pharmacy in the a.m. -- We will give her lactulose. Spironolactone 50 mg, Lasix 20 mg daily -- Lactulose is increased to 30 g TID, Fleet enema -- MELD Score: 17 -- She is advised to not request pain medications and try ibuprofen as these meds are altering her status even more -- Acute UTI, present on admission -- Follow the cultures: Gram neg E Coli -- No indication to treat asymptomatic 46-year-old female for UTI -- She might give a better history in the a.m. then she is better able to Acute hypomagnesemia present on admission -- 1.4 -- 2 g of IV mag were given, start her on by mouth magnesium supplementation 400 mg daily Acute hypokalemia present on admission -- 3.0 on 07/09 -- 50 meQ of PO potassium supplementation was given Chronic cholecystitis, present on admission -- 06/02 abdominal ultrasound showed Mild hydropic appearance of the gallbladder redemonstrated and otherwise no definite stones or sludge present and gallbladder wall upper limits of normal in thickness. -- She keeps complaining of right upper quadrant pain, however she has had no pain medications on her prescription list for a while now -- Counselled pt on avoiding narcotics at this pt. Discontinued oxycodone Chronic diabetes mellitus type II presumed controlled -- Currently has no home medications -- A1c is ordered Chronic hyperbilirubinemia, present on admission worsening -- Continue to monitor -- Patient has been told several times by general surgery that she is too high risk due to her liver disease to be operated on in this facility High risk medications: Ativan IV, oxycodone CODE STATUS: Full Alternate decision makers: Parents Patient is admitted under Inpatient status with expected length of stay greater than 2 midnights due to severity of presenting symptoms, risk of adverse event, and complexity of treatment plan. Pain Evaluation: Adequate Pain Control Resuscitation Status: CPR: Attempt Resuscitation (her parents) Time spent 30 min Angie Cutler DO Jul 09, 2017 08:45
[2017-07-09] MEDS ORDERED: Magnesium Sulf 2 Gm/50mL Water 2 GM in IV Premix 1 EACH IV ONE ×2 (20:40)
[2017-07-09] MEDS ORDERED: KCl 40 mEq/D5W 500 mL 40 MEQ in IV Premix 1 EACH IV ONE (20:40)
[2017-07-10] VITALS (9 sets, daily range): BP systolic 122–150; BP diastolic 72–82; PULSE 81–103; RESP 16–18; O2SAT 93–96
[2017-07-10 09:08] LABS: Magnesium 1.3 mg/dL (1.6-2.6)
[2017-07-10] MEDS ORDERED: Potassium Phos (mEq) Inj 40 MEQ in Dextrose 5% 500 ML IV ONE (09:40)
[2017-07-10] MEDS ORDERED: Magnesium Sulf 4 Gm/100 mL H2O 4 GM in IV Premix 1 EACH IV ONE (09:40)
[2017-07-10] MEDS: Multivit-Miner-Folic Acid-Iron Tablet PO SCH (10:49)
[2017-07-10] MEDS: Lactulose 20 Gm/30 mL 30 mL Syrup PO SCH ×3 (10:55→21:34)
[2017-07-10] MEDS ORDERED: Potassium Chloride 20 mEq SR Tab (K < 3 & Creat <2) PO ONE (11:45)
[2017-07-10] MEDS ORDERED: KCl 40 mEq/500 mL D5W (K < 3 & Creat <2) IV ONE (11:45)
[2017-07-10 12:21] LABS: Bilirubin, Direct 2.3 mg/dL (0.0-0.3)
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
[2017-07-10] MEDS: chlordiazePOXIDE 25 mg Capsule PO PRN ×2 (12:59→21:33)
--- NOTE | 2017-07-10 13:30 | NUR ---
Social Work- Substance Abuse Assessment Current Circumstances: Pt is a 46 year old female admitted for etoh withdrawal. Pt is a readmit, has presented to the [facility] 6 times for etoh detox in the last year, plus multiple other admissions for medical issues related to etoh consumption. ordered Substance Abuse assessment, order acknowledged. SW met with pt at bedside to complete assessment, pt agreeable to this. History of Substance Abuse: Pt has a longstanding history of etoh abuse, pt identifies "many years" of drinking. History of Treatment Programs: Pt has history of IOP with [facility] as well as inpt treatment in [place]. Pt was released from [facility] on 06/24 after thirty days of inpt treatment. History of Withdrawal Symptoms: Sweating, anxiety, tremors, restlessness, are all identified during withdrawal. Family History: Pt reports her parents both drink, states her father drinks up to 8 drinks daily. History of Sobriety and Supports: History of sobriety while she was in inpatient tx. Pt's identified supports are her friends. Pt listed multiple, including a friend from anabaptism. Pt reports that attending anabaptism is a new support for her. Pt's Perception of Use: Pt remains hopeful that she will be able to establish and maintain sobriety. Pt states that she has multiple steps lined up for d/c, including coordination of IOP and counseling at [facility] or [facility] after this admission, a meeting with the DV Specialist on Tuesday, and plans to move out of her parents home to live independently. Pt has good awareness of her triggers for relapse. Pt states that she is more comfortable reaching out for support than she has been in the past, which she recognizes is a protective factor. Per chart review, pt has presented with similar plans to address her etoh use but does not follow up (going to [facility], [facility], crisis respite, etc). Pt has an established relationship at [facility] at this time, pt is hopeful that she will be able to work with familiar staff. Pt declined SW offer to reach out to [facility] or [facility] to schedule an appointment. Pt declined CD and resources stating that she already has the contact information. Suicide Risk-- Pt denies any SI or HI at this time, states that she wants to feel better and is hopeful. Recommendations for Referral: Current plan is for pt to complete intake and begin IOP with either [facility] or [facility]. Pt would likely benefit from some MH counseling as well. Pt to follow up with the DV Specialist on Tuesday, appointment is already scheduled. Pt has an appropriate plan for discharge, declined SENIOR SQL DATABASE DEVELOPER assisting her with the plan at this time. SW encouraged pt to reach out if needs arise, phone number and business card provided to pt. Pt to d/c home with her parents to transport via POV. No additional needs. Clary Gomez MSW
--- NOTE | 2017-07-10 13:46 | PCM.PNMED ---
Subjective Date of Service Jul 10, 2017 Subjective Patient is seen and examined. She states that her abdominal pain is not controlled by oxycodone yesterday. I discussed once again hepatic encephalopathy, confusion. She has not had any bowel movements yet and we have to work on that before we can work on her pain control as she seems confused. She has tried lactulose and she has tried mag citrate and enema last night, still no bowel movement. She is not short of breath. She is not sure if she has increased symptoms but she does endorse some lower abdominal pain and some burning with urination that happened yesterday. Exam Vital Signs Vital Sign - Last Date Time Temp Pulse Resp B/P Pulse Ox O2 Delivery O2 Flow Rate FiO2 07/10/17 09:11 37.1 89 16 123/76 93 Room Air Intake and Output 07/09/17 07/09/17 07/10/17 Cumulative From/Thru 15:00 23:00 07:00 07/08/17 09:59 - 07/10/17 05:43 Intake Total 636 ml 150 ml 2158 ml Output Total 800 ml 900 ml 3450 ml Balance -164 ml -750 ml -1292 ml Intake Oral 636 ml 150 ml 2158 ml Output Urine Total 800 ml 900 ml 3450 ml # Voids 1 Exam Mildly distressed HEENT: Dark discoloration and mild rash or chest Heart: Soft systolic murmur regular rate and rhythm Lungs clear to auscultation no crackles or wheezes Neck remote but appears to be radiating to her next. She does have a rather distended right-sided jugular vein Abdomen: Palpable tenderness in the right upper and left upper quadrants Abdomen does not appear to be distended bowel sounds are present Neurologically she is answering questions but sometimes states that she is too tired to think about things that she is too confused Psychiatric appears to be depressed IVs and Medications IV Fluids None Medications Reviewed: Medications were reviewed in detail Lab and Diagnostics Result Diagram: 07/08/17 1100 07/10/17 0825 X-Rays, CTs and MRIs PROCEDURE: US ABDOMEN INDICATIONS: ABNL GB US IMPRESSION: 1. Increased hepatic echogenicity noted likely related to fatty infiltration of the liver but other sources of hepatocellular disease cannot be excluded. Recommend clinical correlation. 2. Mild hydropic appearance of the gallbladder redemonstrated and otherwise no definite stones or sludge present and gallbladder wall upper limits of normal in thickness. 3. Sonographic splenomegaly. Dictated by: Torey Rehman A Interpreted: Maximo Glover MD on 05/19/2017 at 9:11 Approved by: Maximo Glover M.D. on 05/19/2017 at 9:58 Assessment & Plan Assessment # alcohol withdrawal acute, present on admission -- She apparently had a C IWA score off 20 in the ER, she received a banana bag in the ER, does not appear that she received any benzo for acute withdrawal. -- Patient is stating that she wants to move out of her patient's home as she knows has some money such that she can be away from alcohol -- CIWA librium protocol (now she is on 25 mg BID PRN) -- Thiamine, multivitamin daily -- She had needed Ativan couple of times during the daytime -- Switch from Ativan to Librium as that is easier on the liver Acute new onset cardiac murmur, present on admission Echocardiogram is ordered Hepatic encephalopathy, for the noted admission -- She tried lactulose, enema, mag citrate yesterday -- LActulose 30 mg every 2 hours until diarrhea Alcoholic liver disease, chronic present on admission -- She has had no recent follow for her liver disease -- She has no home medications for 1-2 months now -- We will give her lactulose. Spironolactone 50 mg, Lasix 20 mg daily -- Lactulose is increased to 30 g Q2H on 07/10, Fleet enema -- MELD Score: 17 -- She is advised to not request pain medications and try ibuprofen as these meds are altering her status even more -- Discrimination function is 24.7, third less than 32 is not indicated with severe alcoholic hepatitis pentoxifylline and prednisone not yet indicated -- Consulted Dr. Mackey over the phone, appreciate their time -- She is started on rifaximin 500 mg twice a day on 07/10 -- INR ordered, worsened today at 1.48, worsened bili at 9 Acute UTI, present on admission -- Follow the cultures: Gram neg E Coli -- No indication to treat if asymptomatic 46-year-old female for UTI -- She seems to be having some sxs so we will go ahead and treat her with macrobid Acute hypomagnesemia present on admission -- 1.3 07/10 -- 4 g of IV mag were given, start her on by mouth magnesium supplementation 400 mg daily Acute hypokalemia present on admission -- 3.0 on 07/10 -- 40 meq IV potassium, PO 10meq was given Chronic cholecystitis, present on admission -- 06/02 abdominal ultrasound showed Mild hydropic appearance of the gallbladder redemonstrated and otherwise no definite stones or sludge present and gallbladder wall upper limits of normal in thickness. -- She keeps complaining of right upper quadrant pain, however she has had no pain medications on her prescription list for a while now -- Counselled pt on avoiding narcotics at this pt. Discontinued oxycodone -- Ultram for pain control, much easier on liver Chronic diabetes mellitus type II presumed controlled -- Currently has no home medications -- A1c is ordered 6.6 Chronic hyperbilirubinemia, present on admission worsening -- Continue to monitor -- Patient has been told several times by general surgery that she is too high risk due to her liver disease to be operated on in this facility -- Meld score of 17, will consult general surgery based on HIDA scan if this is called for -- Right upper quadrant ultrasound as above High risk medications: Ativan IV, oxycodone CODE STATUS: Full Alternate decision makers: Parents Patient is admitted under Inpatient status with expected length of stay greater than 2 midnights due to severity of presenting symptoms, risk of adverse event, and complexity of treatment plan. Resuscitation Status: CPR: Attempt Resuscitation (her parents) Time spent 40 minutes Angie Cutler DO Jul 10, 2017 13:46 Angie Cutler DO Jul 10, 2017 13:46
[2017-07-10] MEDS: Ondansetron 2 mg/mL 2 mL Inj IVPUSH PRN (17:28)
--- NOTE | 2017-07-10 18:31 | NUR ---
Bowel Movement: Patient received Magnesium Citrate and the increased dosing of the lactulose today . Patient has had so far 1 very large BM and 1 medium BM . today.
[2017-07-10 20:41] LABS: INR 1.48 ratio
[2017-07-10] MEDS: Nitrofurantoin Monohyd-Macrocryst 100 mg Capsule PO SCH (21:23)
[2017-07-11] VITALS (7 sets, daily range): BP systolic 125–157; BP diastolic 68–83; PULSE 85–96; RESP 16–18; O2SAT 93–97
--- NOTE | 2017-07-11 00:34 | NUR ---
skin patient complains of itching to skin (chest arms and back of neck) no new rash. raised red bumps (look like pimples) at back of neck patient reports have been there "for a while" patient requests benadryl. notified night hospitalist. patient given ice chips and a popsicle. Addendum: 07/11/17 at 0635 by SEN GARCIA RN given benadryl at 0150 25mg oral. effective. no further complaints of itching .
[2017-07-11] MEDS ORDERED: diphenhydrAMINE 25 mg Capsule PO PRN (00:50)
--- NOTE | 2017-07-11 03:47 | NUR ---
npo patient npo as per md orders for ultra soundld today. answered patient questions.
[2017-07-11 05:55] LABS: INR 1.52 ratio
[2017-07-11] MEDS: Lactulose 20 Gm/30 mL 30 mL Syrup PO SCH ×5 (08:37→20:30)
[2017-07-11] MEDS ORDERED: Magnesium Sulf 2 Gm/50mL Water 2 GM in IV Premix 1 EACH IV ONE (09:35)
--- NOTE | 2017-07-11 10:41 | DRSVH ---
[facility] [address] [place] [address] Echocardiogram Report Name: NICOLE PEREZ Da te: 07/11/2017 Height: 67 in Hospital Exam Location: [facility] Weight: 153 lb Gender: Female BSA: 1.8 m2 : 1970 Age: 46 yrs BP: 125/68 mmHg Reason For Study: [place] Ordering Physician: Bora He Performed By: Bladimir Link Referring Physician: Rito Thorne Interpretation Summary 1. Normal left ventricular size, wall thickness and systolic function with an estimated EF of 60-65%. Mildly elevated left ventricular outflow tract velocities 2. Normal right ventricular size and systolic function 3. No valvular pathology appreciated When compared with the previous study, no significant change other than an increase in the outflow tract velocities Procedure: A two-dimensional transthoracic echocardiogram with color flow and Doppler was performed. The study quality was technically adequate. Comparison is made with the echocardiogram of 06/03/11. The patient was in normal sinus rhythm during the exam. Left Ventricle: The left ventricle is normal in size. There is normal left ventricular wall thickness. The LVOT velocity is 1.34 m/s. The left ventricular outflow velocity with valsalva is 1.23. The ejection fraction is estimated to be 60-65%. Right Ventricle: The right ventricle is normal in size and function. Atria: The left atrium is mildly dilated. Right atrial size is normal. No color doppler evidence for an ASD. Mitral Valve: The mitral valve is normal in structure and function. There is trace mitral regurgitation. Aortic Valve: The aortic valve is trileaflet. The aortic valve opens well. No aortic regurgitation is present. Tricuspid Valve: The tricuspid valve is normal in structure and function. There is trace tricuspid regurgitation. The right ventricular systolic pressure is estimated at 23 mmHg assuming a right atrial pressure of 3 mm Hg. Pulmonic Valve: The pulmonic valve is normal in structure and function. There is trace pulmonic regurgitation. Great Vessels: The aortic root is normal size. The dimensions of the ascending aorta are normal. The pulmonary artery is normal size. The IVC is of normal diameter and collapses greater than 50% with a sniff. This suggests a low right atrial pressure of 3 mm Hg. Pericardium/ Pleura There is no pericardial effusion. There is no pleural effusion. MMode/2D Measurements & Calculations LVIDd: 5.4 cm LA dimension: 3.8 cm LVIDs: 3.2 cm FS: 40.6 % LA A2 area: 20.4 cm EPSS: 0.59 cm LA A4 area: 18.9 cm IVSd: 0.83 cm LA length (vol): 4.7 cm LVPWd: 0.83 cm LA vol: 69.5 ml LA vol index: 38.5 ml/m IVC diam: 1.6 cm RA long axis: 4.2 cm LVOT diam: 2.3 cm RA area: 10.4 cm Ao root diam: 3.0 cm RA vol: 22.3 ml Aortic Jxn: 2.6 cm RA : 12.3 ml/m2 asc Aorta Diam: 3.0 cm Ao Arch Diam (Prox Trans): 2.5 cm LV higgins. diameter/BSA (cm/m^2): 3.0 LV sys. diameter/BSA (cm/m^2): 1.8 Doppler Measurements & Calculations Ao V2 max: 168.3 cm/sec MV E max han: 84.8 cm/sec Ao max P.3 mmHg MV A max han: 63.7 cm/sec Ao mean P.3 mmHg LVOT Max Han: 134.0 cm/sec TONEY(I,D): 3.4 cm sev ratio: 0.86 MV E/A: 1.3 TR max han: 223.9 cm/sec Med Peak E' Han: 6.7 cm/sec TR max P.0 mmHg E/E' med: 12.6 PA V2 max: 112.2 cm/sec Pulm A Revs Dur: 0.09 sec PA mean P.1 mmHg PA Accel Time: 0.07 sec MV dec time: 0.18 sec Ao V2 mean: 108.7 cm/sec Ao V2 VTI: 31.9 cm TONEY(V,D): 3.2 cm2 LV V1 max P.2 mmHg PA V2 mean: 85.2 cm/sec LV V1 VTI: 27.5 cm PA pr(Accel): 44.1 mmHg TONEY indexed to BSA (cm^2/m^2): 1.9 Reading Physician:10:41 AM
[2017-07-11] MEDS: Multivit-Miner-Folic Acid-Iron Tablet PO SCH (12:46)
[2017-07-11] MEDS: Nitrofurantoin Monohyd-Macrocryst 100 mg Capsule PO SCH ×2 (12:55→23:23)
--- NOTE | 2017-07-11 17:05 | DRSVH ---
PROCEDURE: US ABDOMEN INDICATIONS: RUQ PAIN,CHRONIC CHOLECYSTITIS TECHNIQUE: Real-time scanning was performed of the abdominal and retroperitoneal organs, with image documentatio n. COMPARISON: [facility] Ultrasound, US, US ABDOMEN, 05/19/2017, 7:40. [facility], US, ABDOMEN LTD, 05/13/2017, 11:47. [facility], US, ABDOMEN LTD, 05/09/2017, 23:27. [facility], US, ABDOMEN LTD, 04/22/2017, 13:48. FINDINGS: Liver length: 17.55 cm Gallbladder Wall Thickness: 3.40 mm CBD: 4.70 mm Spleen length: 13.55 cm Right kidney length: 11.37 cm Left kidney length: 10.72 cm Aorta(Proximal): 2.07 cm Aorta(Mid): 1.89 cm Aorta(Distal): 1.75 cm RCIA: 1.39 cm LCIA: 1.19 cm Liver: Liver is diffusely increased in echogenicity. No focal hepatic abnormalities identified. No rmal hepatic size. Gallbladder: No gallstones. Gallbladder castro mildly thickened measuring roughly 3.7 mm. Negative s onographic Doom sign and no pericholecystic fluid. Biliary ducts: Intrahepatic bile ducts are non-dilated. Extrahepatic bile duct caliber is normal. Normal is 6-7 mm or less in diameter, or 10 mm or less post-cholecystectomy. Pancreas: Visualized portions of the pancreas are sonographically normal. Spleen: Spleen is mildly enlarged in size and homogeneous in echotexture. Kidneys: Kidneys are normal in size and echotexture. No hydronephrosis or nephrolithiasis. No diaz d masses. Aorta: Visualized aorta is normal in caliber at less than 3 cm. Iliacs: Proximal common iliac arteries are normal in caliber at less than 2.5 cm. IVC: Intrahepatic inferior vena cava is patent. Miscellaneous: No free abdominal fluid. IMPRESSION: 1. Increased hepatic echogenicity noted likely related to fatty infiltration of the liver but other s ources of hepatocellular disease cannot be excluded. Recommend clinical correlation. 2. Mild sonographic splenomegaly. 3. Mildly thickened gallbladder wall. Early developing cholecystitis cannot be excluded and clinical correlation is recommended. If indicated nuclear medicine HIDA scan could be performed. Dictated by: Torey DASILVA Interpreted: Palma Brown MD on 07/11/2017 at 13:19 Approved by: Palma Brown M.D. on 07/11/2017 at 17:03
--- NOTE | 2017-07-11 18:46 | NUR ---
BM/Lactulose/PAIN Pt reports having last BM during NOC shift around 3AM. Administered Lactulose as ordered. Pt reports to have had 6 BM during day shift. Stool is watery/loose diarrhea. Near end of shift pt reports that she feels sore/irritated on rectum with some possible bleeding. No visible blood in stool - stool is liquid green and brown. Held 2 doses of lactulose. Pt also having periodic pain/abd cramping. Administered Ultram per orders.
[2017-07-11] MEDS ORDERED: Neomycin-Bacitracin-Polymyxin 15 Gm Ointment TOPICAL PRN (20:00)
[2017-07-11] MEDS ORDERED: CLINDAMYCIN 1% TOPICAL SCH (20:30)
--- NOTE | 2017-07-11 23:07 | PCM.PNMED ---
Subjective Date of Service Jul 11, 2017 Subjective Patient is seen and examined. She states that she has had 7 or 8 bowel movements. She appears to be more alert and oriented. Complaints of skin rash on the back and on the forearm. She is asking for increase in dose of Ultram . She has no other concerns Exam Vital Signs Vital Sign - Last Date Time Temp Pulse Resp B/P Pulse Ox O2 Delivery O2 Flow Rate FiO2 07/11/17 09:58 94 07/11/17 09:13 36.6 18 138/78 94 Room Air Intake and Output 07/10/17 07/10/17 07/11/17 Cumulative From/Thru 15:00 23:00 07:00 07/08/17 09:59 - 07/11/17 05:53 Intake Total 1479 ml 600 ml 4237 ml Output Total 1200 ml 4650 ml Balance 1479 ml -600 ml -413 ml Intake Oral 1036 ml 600 ml 3794 ml IV Total 443 ml 443 ml Output Urine Total 400 ml 3850 ml Urine/Stool Mix 800 ml 800 ml # Voids 3 4 # Bowel Movements 3 2 5 Exam Gen.: A acute distress sitting up in bed HEENT: Icteric sclera Heart: Soft systolic murmur regular rate and rhythm Lungs clear to auscultation no crackles or wheezes abdomen, soft nontender palpable hepatomegaly, normal bowel sounds Extremities: Trace edema is present Neurological: Alert and oriented by 3 Psychiatric: Negative for anxiety IVs and Medications IV Fluids None Medications Reviewed: Medications were reviewed in detail Lab and Diagnostics Result Diagram: 07/11/17 0500 07/11/17 0500 X-Rays, CTs and MRIs PROCEDURE: US ABDOMEN INDICATIONS: ABNL GB US IMPRESSION: 1. Increased hepatic echogenicity noted likely related to fatty infiltration of the liver but other sources of hepatocellular disease cannot be excluded. Recommend clinical correlation. 2. Mild hydropic appearance of the gallbladder redemonstrated and otherwise no definite stones or sludge present and gallbladder wall upper limits of normal in thickness. 3. Sonographic splenomegaly. Dictated by: Torey DASILVA Interpreted: Maximo Glover MD on 05/19/2017 at 9:11 Approved by: Maximo Glover M.D. on 05/19/2017 at 9:58 Assessment & Plan Assessment # alcohol withdrawal acute, present on admission -- She apparently had a C IWA score off 20 in the ER, she received a banana bag in the ER, does not appear that she received any benzo for acute withdrawal. -- Patient is stating that she wants to move out of her patient's home as she knows has some money such that she can be away from alcohol -- CIWA librium protocol (now she is on 25 mg BID PRN) -- Thiamine, multivitamin daily -- She had needed Ativan couple of times during the daytime -- Switch from Ativan to Librium as that is easier on the liver -- May DC Librium on 07/12 this patient has not needed this on 07/11 Acute new onset cardiac murmur, present on admission Echocardiogram is ordered: "Interpretation Summary 1. Normal left ventricular size, wall thickness and systolic function with an estimated EF of 60-65%. Mildly elevated left ventricular outflow tract velocities" Hepatic encephalopathy, for the noted admission improving -- She tried lactulose, enema, mag citrate 07/09 -- LActulose 30 mg every 2 hours until diarrhea, changed dose back to TID as she has had a number of BM today. Alcoholic liver disease, chronic present on admission -- She has had no recent follow for her liver disease -- She has no home medications for 1-2 months now -- We will give her Lactulose 30 g TID, Spironolactone 50 mg, Lasix 40 mg daily -- MELD Score: 17 at admission -- She is advised to not request pain medications and try ibuprofen as these meds are altering her status even more -- Discrimination function is 24.7 at admission, third less than 32 is not indicated with severe alcoholic hepatitis pentoxifylline and prednisone not yet indicated -- Consulted Dr. Mackey over the phone, appreciate their time -- She is started on rifaximin 500 mg twice a day on 07/10 -- INR ordered, 1.35->1.48->1.52 increasing, PT also worsening -- DF is on 07/11 is 33.5, >32 indicates severe disease with 30 day mortality approaching 50%, patient may need to start pentoxyfilline 400 mg TID, methylprednisolone 32 mg/d x 4wks-> 4-6 wk taper. Consider official consult with GI in the AM and run this regimen by them. They are aware of this pt as they have consulted on her in the past, I discussed the case with them over the phone. Acute UTI, present on admission -- Follow the cultures: Gram neg E Coli -- No indication to treat if asymptomatic 46-year-old female for UTI -- She seems to be having some sxs so we will go ahead and treat her with macrobid Acute hypomagnesemia present on admission -- 1.5 07/11 -- He has been given IV mag supplementation during her early admission days -- start her on by mouth magnesium supplementation 400 mg daily Acute hypokalemia present on admission improving -- 3.4 on 07/08 -- She has been repleted with IV and by mouth -- Continue to monitor Chronic cholecystitis, present on admission -- 06/02 abdominal ultrasound showed Mild hydropic appearance of the gallbladder redemonstrated and otherwise no definite stones or sludge present and gallbladder wall upper limits of normal in thickness. -- She keeps complaining of right upper quadrant pain, however she has had no pain medications on her prescription list for a while now -- Counselled pt on avoiding narcotics at this pt. Discontinued oxycodone -- Ultram for pain control, much easier on liver -- HIDA scan is ordered, scheduled. Tomorrow a.m. Chronic diabetes mellitus type II presumed controlled -- Currently has no home medications -- A1c is ordered 6.6 Chronic hyperbilirubinemia, present on admission worsening -- Continue to monitor -- Patient has been told several times by general surgery that she is too high risk due to her liver disease to be operated on in this facility -- Meld score of 17, will consult general surgery based on HIDA scan if this is called for -- Right upper quadrant ultrasound as above -- Down to 7.4 today Skin Rash acute, POA -- clindamycin gel for upper back -- neosporin for fore arm High risk medications: Librium CODE STATUS: Full Alternate decision makers: Parents Patient is admitted under Inpatient status with expected length of stay greater than 2 midnights due to severity of presenting symptoms, risk of adverse event, and complexity of treatment plan. Disposition: This patient with history of alcoholism, liver disease is noncompliant with alcohol treatment protocols. She has been known to the service, each time her hepatic function seems to be getting worse. She will need an official GI consult in the morning. Also checking HIDA scan again (03/02 last one). Gen Surg has declined surgery for her in this facility in the past due to MELD score. Pain Evaluation: Pain not Controlled Resuscitation Status: CPR: Attempt Resuscitation (her parents) Time spent 40 min Angie Cutler DO Jul 11, 2017 12:53
[2017-07-11] MEDS: NEOMY/BACITRA/POLYMYX OINT 1 PACKET/0.9 GM PACKET TOPICAL SCH (23:09)
[2017-07-11] MEDS: diphenhydrAMINE 25 mg Capsule PO PRN (23:23)
[2017-07-12] VITALS (7 sets, daily range): BP systolic 118–140; BP diastolic 74–80; PULSE 85–107; RESP 16–18; O2SAT 94–98
--- NOTE | 2017-07-12 05:06 | NUR ---
Off Tele for shower: MD Ana Perez ok'd pt to be off tele to take a shower.
--- NOTE | 2017-07-12 05:07 | NUR ---
Pain: Pt c/o abdominal pain, medication administered; effective. Pt took a shower at HS, new bedding and gown provided; stated she felt much better. Pt requested an increase in Benadryl due to itching. Pt slept off/on throughout the night, NPO at midnight, pleasant and cooperative with care.
[2017-07-12 06:51] LABS: INR 1.61 ratio
--- NOTE | 2017-07-12 08:10 | NUR ---
Pt off floor for HIDA Scan Kept NPO for test, Tele notified
[2017-07-12] MEDS: NEOMY/BACITRA/POLYMYX OINT 1 PACKET/0.9 GM PACKET TOPICAL SCH ×2 (08:30→22:26)
[2017-07-12] MEDS ORDERED: NEOMY/BACITRA/POLYMYX OINT 1 PACKET/0.9 GM PACKET TOPICAL SCH (08:30)
[2017-07-12] MEDS ORDERED: CLINDAMYCIN 1% TOPICAL SCH (08:30)
[2017-07-12] MEDS: Lactulose 20 Gm/30 mL 30 mL Syrup PO SCH ×3 (10:37→22:13)
[2017-07-12] MEDS: Multivit-Miner-Folic Acid-Iron Tablet PO SCH (10:38)
[2017-07-12] MEDS: Nitrofurantoin Monohyd-Macrocryst 100 mg Capsule PO SCH ×2 (10:45→22:09)
--- NOTE | 2017-07-12 13:35 | NUR ---
Discharge Reviewed discharge paperwork, care notes and medications with pt -disclaimer signed. IVs DCd intact, tele removed, all belongings with pt. Pt denies pain at this time and SOB. VSS. Declines WC escort out of unit. Pt walking out on foot with who will drive home. Addendum: 07/12/17 at 1337 by CHRIS WARD RN NO DISCHARGE - WRONG Pt
--- NOTE | 2017-07-12 13:37 | NUR ---
Discharge note on wrong pt
[2017-07-12] MEDS: Ondansetron 2 mg/mL 2 mL Inj IVPUSH PRN (15:26)
--- NOTE | 2017-07-12 15:46 | DRSVH ---
PROCEDURE: NM HIDA SCAN WITH CCK PHARMACEUTICAL: 5.5 mCi Tc-99m mebrofenin IV; Ensure p.o. INDICATIONS: ABDOMEN PAIN TECHNIQUE: Following intravenous administration of Tc-99m mebrofenin, sequential anterior abdominal images were obtained. To evaluate the contractile response of the gallbladder in response to ingestion of Ensure the liquid was swallowed and subsequent planar imaging was obtained. Gallbladder ejection fraction was calculated. COMPARISON: [facility], [place], [place] HIDA SCAN W CCK STD, 02/18/2017, 15:03. FINDINGS: Biliary scan: There is normal tracer uptake and excretion by the liver. There is normal visualizati on of the intrahepatic ducts, common bile duct, and gallbladder. There is normal tracer transit into the duodenum. CCK stimulation: There is normal contractile response of the gallbladder to CCK infusion. The calcu lated gallbladder ejection fraction is 82%; normal values are above 35%. It has been shown that any patient abdominal pain after CCK administration is related to the rate of CCK injection, rather than to any underlying gallbladder disease (Clinical Nuclear Medicine 2012; 37: 63-70. Journal of Nuclear Medicine 2014; 55: 1-9). IMPRESSION: Normal gallbladder ejection fraction of 82%, normal hepatocellular uptake of the isotope and patency of the cystic duct is documented. Normal excretion of isotope through the bile ducts int o the duodenal lumen and antegrade transit into the small bowel was documented. Dictated by: Be Craig M.D. on 07/12/2017 at 15:40 Approved by: Be Craig M.D. on 07/12/2017 at 15:43
--- NOTE | 2017-07-12 16:47 | PCM.PNMED ---
Subjective Date of Service Jul 12, 2017 Subjective Continues to have mild RUQ pain,HIDA scan negative. Exam Vital Signs Vital Sign - Last Date Time Temp Pulse Resp B/P Pulse Ox O2 Delivery O2 Flow Rate FiO2 07/12/17 15:51 37.0 94 18 118/74 97 Room Air Intake and Output 07/11/17 07/11/17 07/12/17 Cumulative From/Thru 15:00 23:00 07:00 07/08/17 09:59 - 07/12/17 06:27 Intake Total 473 ml 4710 ml Output Total 1700 ml 6350 ml Balance -1227 ml -1640 ml Intake Oral 473 ml 4267 ml IV Total 443 ml Output Urine Total 3850 ml Urine/Stool Mix 1700 ml 2500 ml # Voids 4 # Bowel Movements 4 9 Exam en.: A acute distress sitting up in bed HEENT: Icteric sclera Heart: Soft systolic murmur regular rate and rhythm Lungs clear to auscultation no crackles or wheezes abdomen, soft nontender palpable hepatomegaly, normal bowel sounds Extremities: Trace edema is present Neurological: Alert and oriented by 3 Psychiatric: Negative for anxiety IVs and Medications Medications Reviewed: Medications were reviewed in detail Lab and Diagnostics Result Diagram: 07/11/17 0500 07/12/17 0535 X-Rays, CTs and MRIs PROCEDURE: US ABDOMEN INDICATIONS: ABNL GB US IMPRESSION: 1. Increased hepatic echogenicity noted likely related to fatty infiltration of the liver but other sources of hepatocellular disease cannot be excluded. Recommend clinical correlation. 2. Mild hydropic appearance of the gallbladder redemonstrated and otherwise no definite stones or sludge present and gallbladder wall upper limits of normal in thickness. 3. Sonographic splenomegaly. Dictated by: Torey Rehman [facility] Interpreted: Maximo Glover MD on 05/19/2017 at 9:11 Approved by: Maximo Glover M.D. on 05/19/2017 at 9:58 PROCEDURE: NM HIDA SCAN WITH CCK PHARMACEUTICAL: 5.5 mCi Tc-99m mebrofenin IV; Ensure p.o. INDICATIONS: ABDOMEN PAIN IMPRESSION: Normal gallbladder ejection fraction of 82%, normal hepatocellular uptake of the isotope and patency of the cystic duct is documented. Normal excretion of isotope through the bile ducts into the duodenal lumen and antegrade transit into the small bowel was documented. Dictated by: Be Craig M.D. on 07/12/2017 at 15:40 Assessment & Plan # alcohol withdrawal acute, present on admission -- She apparently had a C IWA score off 20 in the ER, she received a banana bag in the ER, does not appear that she received any benzo for acute withdrawal. -- Patient is stating that she wants to move out of her patient's home as she knows has some money such that she can be away from alcohol -- CIWA librium protocol (now she is on 25 mg BID PRN) -- Thiamine, multivitamin daily -- She had needed Ativan couple of times during the daytime -- Switch from Ativan to Librium as that is easier on the liver -- DC Librium prn up on discharge # Hepatic encephalopathy, for the noted admission improving -- She tried lactulose, enema, mag citrate 07/09 -- LActulose 30 mg every 2 hours until diarrhea, changed dose back to TID as she has had a number of BM today. # Alcoholic liver disease, chronic present on admission -- She has had no recent follow for her liver disease -- She has no home medications for 1-2 months now -- We will give her Lactulose 30 g TID, Spironolactone 50 mg, Lasix 40 mg daily -- MELD Score: 17 at admission -- She is advised to not request pain medications and try ibuprofen as these meds are altering her status even more -- Discrimination function is 24.7 at admission, third less than 32 is not indicated with severe alcoholic hepatitis pentoxifylline and prednisone not yet indicated -- Consulted Dr. Mackey over the phone, appreciate their time -- She is started on rifaximin 500 mg twice a day on 07/10 -- INR ordered, 1.35->1.48->1.52 increasing, PT also worsening -- DF is on 07/11 is 33.5, >32 indicates severe disease with 30 day mortality approaching 50%, patient may need to start pentoxyfilline 400 mg TID, methylprednisolone 32 mg/d x 4wks-> 4-[address] Huerta today 07/12 ,will start pentoxyphylline for 4 weeks # Acute UTI, present on admission -- Follow the cultures: Gram neg E Coli -- No indication to treat if asymptomatic 46-year-old female for UTI -- She seems to be having some sxs so we will go ahead and treat her with macrobid # Acute hypomagnesemia present on admission -- 1.5 07/11 -- He has been given IV mag supplementation during her early admission days -- start her on by mouth magnesium supplementation 400 mg daily # Chronic cholecystitis, present on admission -- 06/02 abdominal ultrasound showed Mild hydropic appearance of the gallbladder redemonstrated and otherwise no definite stones or sludge present and gallbladder wall upper limits of normal in thickness. -- She keeps complaining of right upper quadrant pain, however she has had no pain medications on her prescription list for a while now -- Counselled pt on avoiding narcotics at this pt. Discontinued oxycodone -- Ultram for pain control, much easier on liver -- HIDA scan negative with 82 % EF # Chronic diabetes mellitus type II presumed controlled -- Currently has no home medications -- A1c is ordered 6.6 # Chronic hyperbilirubinemia, present on admission worsening -- Continue to monitor -- Patient has been told several times by general surgery that she is too high risk due to her liver disease to be operated on in this facility -- Meld score of 17, will consult general surgery based on HIDA scan if this is called for -- Right upper quadrant ultrasound as above # Skin Rash acute, POA -- clindamycin gel for upper back -- neosporin for fore arm High risk medications: Librium CODE STATUS: Full Alternate decision makers: Parents Patient is admitted under Inpatient status with expected length of stay greater than 2 midnights due to severity of presenting symptoms, risk of adverse event, and complexity of treatment plan. Disposition: discharge in 2-3 days VTE Mechanical Devices: Venous Foot Pump Resuscitation Status: CPR: Attempt Resuscitation (her parents) Carlos Monson MD Jul 12, 2017 16:47 than 2 midnights due to severity of presenting symptoms, risk of adverse event, and complexity of treatment plan. Disposition: This patient with history of alcoholism, liver disease is noncompliant with alcohol treatment protocols. She has been known to the service, each time her hepatic function seems to be getting worse. She will need an official GI consult in the morning. Also checking HIDA scan again (03/02 last one). Gen Surg has declined surgery for her in this facility in the past due to MELD score. VTE Mechanical Devices: Venous Foot Pump Resuscitation Status: CPR: Attempt Resuscitation (her parents) Carlos Monson MD Jul 12, 2017 16:47
[2017-07-12] MEDS: Pentoxifylline 400 mg ER12 Tablet PO SCH ×2 (18:05→22:11)
--- NOTE | 2017-07-12 19:21 | NUR ---
Nausea/BM Pt reported having Nausea around 1600. Administered IV Zofran. Pt reports nausea reduced but shortly after returned. Pt also reports feeling groggy in her mentation. 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 Lactolose administered per schedule. Pt instructed to use call light when getting up because of current mentation. NOC shift to follow.
--- NOTE | 2017-07-12 21:10 | PCM.ADCARE ---
Advance Care Planning Note Purpose of Encounter: To understand patient's goals of care by discussing her current health, treatments and director long term care prognosis Parties in Attendance: Patient and Dr. Deanna Cutler Decisional Capacity: Good Subjective: I reviewed her repeated attempts at alcohol detox/rehab and alcoholic liver disease and her desire for ongoing aggressive care including intubation and potential mechanical ventilation should she be unable to breath on her own; also discussed who would speak on her behalf should she be unable to do so and discussed what conversation she had had with her family so they understand her desires if such situation occurred now or in the future. Objective: Patient is young, educated female but has not been successful at rehabilitating herself with alcohol issues. She has a father who continues to drink large amounts of alcohol at home. She seems to be seeking skilled nursing at her parents when she is between rehab programs and this is not helping her alcohol detox efforts as she has alcohol readily available at home. Her liver disease has been progressing and she is at risk of developing alcoholic hepatitis, cirrhosis and eventually End Stage Liver Disease. Plan: We will once again help her to detox safely. We will restart her liver medications. Will watch fro alcoholic hepatitis and signs of cirrhosis. She will need to follow up at an advanced center for a liver transplant as we can not offer that at [facility]. patient has been advised of this in the past. CODE STATUS: Full Code ADM: Parents Time Spent Adv.Care Planning: Total time spent [id number] and education directly related to advanced planning 30 min Adv. Care Plan Documenation: As above and also in H&P Angie Cutler DO Jul 12, 2017 21:10
[2017-07-12] MEDS: diphenhydrAMINE 25 mg Capsule PO PRN (22:26)
[2017-07-13 00:32] VITALS: BP 122/72; PULSE 83; RESP 18; O2SAT 97
[2017-07-13] MEDS: Ondansetron 2 mg/mL 2 mL Inj IVPUSH PRN ×5 (02:44→21:38)
[2017-07-13 04:45] VITALS: BP 128/75; PULSE 90; RESP 18; O2SAT 97
--- NOTE | 2017-07-13 05:40 | NUR ---
BM, nausea: Lactulose administered at bedtime. Pt stated not having any BMs during day shift and was feeling "backed up". Has had three BMs tonight, feeling much better. Medicated for nausea x1, reported x2, non pharmacological methods used to help first episode. Medicated for abdominal pain x2. CIWA 1-4 this shift. Pt discussed goals of care for when discharged. Understands needing to find better coping skills. Verbalized acceptance of outside treatments.
[2017-07-13 09:37] VITALS: PULSE 94
[2017-07-13] MEDS: Lactulose 20 Gm/30 mL 30 mL Syrup PO SCH ×4 (09:39→20:58)
[2017-07-13] MEDS: Multivit-Miner-Folic Acid-Iron Tablet PO SCH (09:40)
[2017-07-13] MEDS: Nitrofurantoin Monohyd-Macrocryst 100 mg Capsule PO SCH (09:45)
[2017-07-13] MEDS: Pentoxifylline 400 mg ER12 Tablet PO SCH ×3 (09:45→20:30)
[2017-07-13 09:56] LABS: BASOPHILS % (AUTO) 0.3 % (0-3); EOSINOPHILS % (AUTO) 0.6 % (0-5); MONOCYTES % (AUTO) 7.8 % (4-12); Mean Corpuscular Hemoglobin 33.2 pg (27.0-35.0); Mean Corpuscular Volume 96.7 fL (81-100); NEUTROPHILS % (AUTO) 80.1 % (40-74); Platelet Count 58 bil/L (150-400)
[2017-07-13 10:11] VITALS: BP 132/77; PULSE 92; RESP 18; O2SAT 94
[2017-07-13 10:28] LABS: Magnesium 1.4 mg/dL (1.6-2.6); Phosphorus 3.2 mg/dL (2.5-4.9)
--- NOTE | 2017-07-13 10:42 | NUR ---
Social Work-readiness for discharge/ bedside rounds: Data:EMR Reviewed. Pt is on day 5 of hospitalization for ETOH w/d per H&P. Pt is not medically stable anticipate 1-2 more days. Bedside rounding completed, provided update. Pt states she still plans on returning home with her parents at discharge. Pt has not yet followed up with [facility] or [facility], but states she will. SW offered phone number,resources, and pt has declined. Per RN, pt has been up independent in her room. Pt's parents to provide transport home at discharge. No anticipated discharge needs. SW will continue to follow if needs arise. Assessment:pt who is independent at baseline. Plan:Pt to discharge home when medically stable via POV. No anticipated discharge needs. SW will continue to follow if needs arise. BENY Yee
[2017-07-13] MEDS ORDERED: Potassium Chloride 20 mEq SR Tablet PO ONE (10:45)
[2017-07-13] MEDS ORDERED: Magnesium Sulf 4 Gm/100 mL H2O 4 GM in IV Premix 1 EACH IV ONE (10:45)
[2017-07-13] MEDS: NEOMY/BACITRA/POLYMYX OINT 1 PACKET/0.9 GM PACKET TOPICAL SCH ×2 (13:18→21:20)
[2017-07-13 14:50] VITALS: BP 129/77; PULSE 88; RESP 18; O2SAT 97
--- NOTE | 2017-07-13 15:58 | PCM.PNMED ---
Subjective Date of Service Jul 13, 2017 Subjective Continues to have elevated bilirubin and significant itching. Exam Vital Signs Vital Sign - Last Date Time Temp Pulse Resp B/P Pulse Ox O2 Delivery O2 Flow Rate FiO2 07/13/17 14:50 36.7 88 18 129/77 97 Room Air Intake and Output 07/12/17 07/12/17 07/13/17 Cumulative From/Thru 15:00 23:00 07:00 07/08/17 09:59 - 07/13/17 05:51 Intake Total 1036 ml 600 ml 6346 ml Output Total 600 ml 6950 ml Balance 436 ml 600 ml -604 ml Intake Oral 1036 ml 600 ml 5903 ml IV Total 443 ml Output Urine Total 600 ml 4450 ml Urine/Stool Mix 2500 ml # Voids 4 8 # Bowel Movements 3 12 Exam no acute distress ,sitting up in bed HEENT: Icteric sclera and skin Heart: Soft systolic murmur regular rate and rhythm Lungs clear to auscultation no crackles or wheezes abdomen, soft nontender palpable hepatomegaly, normal bowel sounds Extremities: Trace edema is present Neurological: Alert and oriented by 3 Psychiatric: Negative for anxiety IVs and Medications Medications Reviewed: Medications were reviewed in detail Lab and Diagnostics Result Diagram: 07/13/17 0949 07/13/17 0949 X-Rays, CTs and MRIs PROCEDURE: US ABDOMEN INDICATIONS: ABNL GB US IMPRESSION: 1. Increased hepatic echogenicity noted likely related to fatty infiltration of the liver but other sources of hepatocellular disease cannot be excluded. Recommend clinical correlation. 2. Mild hydropic appearance of the gallbladder redemonstrated and otherwise no definite stones or sludge present and gallbladder wall upper limits of normal in thickness. 3. Sonographic splenomegaly. Dictated by: Torey Rehman [facility] Interpreted: Maximo Glover MD on 05/19/2017 at 9:11 Approved by: Maximo Glover M.D. on 05/19/2017 at 9:58 PROCEDURE: NM HIDA SCAN WITH CCK PHARMACEUTICAL: 5.5 mCi Tc-99m mebrofenin IV; Ensure p.o. INDICATIONS: ABDOMEN PAIN IMPRESSION: Normal gallbladder ejection fraction of 82%, normal hepatocellular uptake of the isotope and patency of the cystic duct is documented. Normal excretion of isotope through the bile ducts into the duodenal lumen and antegrade transit into the small bowel was documented. Dictated by: Be Craig M.D. on 07/12/2017 at 15:40 Assessment & Plan # Alcoholic hepatitis, acute on chronic ,present on admission -- She has had no recent follow for her liver disease -- She is advised to not request pain medications and try ibuprofen as these meds are altering her status even more -- Discrimination function is 24.7 at admission, DF on 07/11 was 33.5, >32 indicates severe disease with 30 day mortality approaching 50%, patient started pentoxyfilline 400 mg TID on 07/[address] Huerta ,will continue pentoxyphylline for [address] Ruffin -- She is started on rifaximin 500 mg twice a day on 07/10 -- INR ordered, 1.35->1.48->1.52 increasing, PT also worsening #Alcoholic liver cirrhosis -- She has no home medications for 1-2 months now,she was drinking a day prior to presentation -- We will give her Lactulose 30 g TID, Spironolactone 50 mg, Lasix 40 mg daily -- MELD Score: 17 at admission -Patient continues to drink. Declines any help.will consider palliative consult # alcohol withdrawal acute, present on admission -- She apparently had a C IWA score off 20 in the ER, she received a banana bag in the ER, does not appear that she received any benzo for acute withdrawal. -- Patient is stating that she wants to move out of her patient's home as she knows has some money such that she can be away from alcohol -- CIWA librium protocol (now she is on 25 mg BID PRN) -- Thiamine, multivitamin daily -- She had needed Ativan couple of times during the daytime -- Switch from Ativan to Librium as that is easier on the liver -- DC Librium prn up on discharge # Hepatic encephalopathy, for the noted admission -- She tried lactulose, enema, mag citrate 07/09 -- LActulose 30 mg TID ,titrate to 2-3 BMs # Chronic hyperbilirubinemia with significant itching, present on admission worsening -- Continue to monitor -- Patient has been told several times by general surgery that she is too high risk due to her liver disease to be operated on in this facility -- Meld score of 17, will consult general surgery based on HIDA scan if this is called for -- Right upper quadrant ultrasound as above # Acute UTI, present on admission -- Follow the cultures: Gram neg E Coli -- No indication to treat if asymptomatic 46-year-old female for UTI -- She seems to be having some sxs and treated with macrobid. Discontinue 07/13 # Acute hypomagnesemia present on admission -- 1.5 07/11 -- He has been given IV mag supplementation during her early admission days -- start her on by mouth magnesium supplementation 400 mg daily # Chronic cholecystitis, present on admission -- 06/02 abdominal ultrasound showed Mild hydropic appearance of the gallbladder redemonstrated and otherwise no definite stones or sludge present and gallbladder wall upper limits of normal in thickness. -- She keeps complaining of right upper quadrant pain, however she has had no pain medications on her prescription list for a while now -- Counselled pt on avoiding narcotics at this pt. Discontinued oxycodone -- Ultram for pain control, much easier on liver -- HIDA scan negative with 82 % EF # Chronic diabetes mellitus type II presumed controlled -- Currently has no home medications -- A1c 6.6 # Skin Rash due to bilirubin acute, POA -- clindamycin gel for upper back -- neosporin for fore arm High risk medications: Librium CODE STATUS: Full Alternate decision makers: Parents Patient is admitted under Inpatient status with expected length of stay greater than 2 midnights due to severity of presenting symptoms, risk of adverse event, and complexity of treatment plan. Disposition: discharge in 2-3 days VTE Mechanical Devices: Venous Foot Pump Resuscitation Status: CPR: Attempt Resuscitation (her parents) Carlos Monson MD Jul 13, 2017 15:58 Carlos Monson MD Jul 13, 2017 15:58
--- NOTE | 2017-07-13 18:33 | NUR ---
Bowels and nausea Patient reports BM x3. Reports one BM was large and the other 2 were smaller. Continues to have poor appetite. C/O nausea majority of shift. Stated nausea meds were helpful. No emesis.
[2017-07-13 18:37] VITALS: BP 145/76; PULSE 89; RESP 18; O2SAT 97
--- NOTE | 2017-07-13 19:29 | PCM.HPMED ---
Subjective Date of Service Jul 13, 2017 Primary Provider: Admitting Physician: Angie Cutler DO Primary Care Physician: Rito Thorne MD Attending Physician: Carlos Monson MD Chief Complaint: Alcohol Withdrawl History of Present Illness: Pt is a 46 year old female with a history of alcoholism (and recent alcohol consumption relapse) with alcoholic cirrhosis, chronic pancreatitis, and DM who presents complaining of alcohol withdrawal. She reports most initial symptoms have resolved, including; Headache abdominal pain, nausea, vomiting. She denies fevers and chills. Review of Systems: A comprehensive review of systems was conducted with the patient and found to be negative except as above in the History of Present Illness. Allergies Coded Allergies: Penicillins (Verified Allergy, Severe, 07/08/17) "Make me stop breathing." codeine (Verified Allergy, Severe, Rash,Itching,, 07/08/17) Home Medications NONE PMH Alcoholism, alcoholic liver cirrhosis, chronic pancreatitis, hepatic encephalopathy, hyperbilirubinemia, peripheral edema, diabetes mellitus type II , pancreatitis, chronic cholecystitis Surgical History Breast augmentation, ovarian cyst removal Family History Patient declined writing family history, stating that she still too "mixed up" Social History Hx Alcohol Use: Yes (Hx of alcoholism) Hx Substance Use: No Hx Tobacco Use: No Smoking Status: Never Smoker Living Arrangement: with Family (lives with elderly parents, local resident) Exam Vital Signs Vital Sign - Last Date Time Temp Pulse Resp B/P Pulse Ox O2 Delivery O2 Flow Rate FiO2 07/13/17 14:50 36.7 88 18 129/77 97 Room Air Intake and Output 07/12/17 07/12/17 07/13/17 Cumulative From/Thru 15:00 23:00 07:00 07/08/17 09:59 - 07/13/17 05:51 Intake Total 1036 ml 600 ml 6346 ml Output Total 600 ml 6950 ml Balance 436 ml 600 ml -604 ml Intake Oral 1036 ml 600 ml 5903 ml IV Total 443 ml Output Urine Total 600 ml 4450 ml Urine/Stool Mix 2500 ml # Voids 4 8 # Bowel Movements 3 12 Exam General: No acute distress, darker discoloration skin, appropriately interactive HEENT: Normocephalic, atraumatic. External ears without defect. Pupils equal, round, and reactive to light and accommodation. Anicteric sclerae, moist conjunctivae, and no lid lag. Oropharynx free of erythema and cobble stoning with moist mucosa. Neck: Supple with full range of motion. No jugular venous distension. No bruits. No lymphadenopathy or thyromegaly. Cardiovascular: Regular rate and rhythm with no murmurs, rubs, or gallops appreciated Vascular:: Pulsating jugular vein on the right side of her neck Pulmonary: Clear to auscultation bilaterally with no crackles, wheezes, or rhonchi. Normal respiratory effort with no use of accessory muscles. Abdomen: Bowel tones present. Soft, nondistended. non tenderness to palpation. Extremities: No clubbing, cyanosis, edema, or lymphadenopathy appreciated. Skin: Normal temperature, turgor, and texture; ulcers, or subcutaneous nodules appreciated. She has a diffuse rash on her chest Neurological: Cranial nerves grossly intact. Normal muscle strength, tone, and bulk. Reflexes, coordination, and sensory function within normal limits. No known gait impairment. No tremors are noted Psychiatric: Normal mood and affect. Alert and oriented to person, place, and time. Lab and Diagnostics Result Diagram: 07/13/17 0949 07/13/17 0949 X-Rays, CTs and MRIs PROCEDURE: US ABDOMEN INDICATIONS: ABNL GB US IMPRESSION: 1. Increased hepatic echogenicity noted likely related to fatty infiltration of the liver but other sources of hepatocellular disease cannot be excluded. Recommend clinical correlation. 2. Mild hydropic appearance of the gallbladder redemonstrated and otherwise no definite stones or sludge present and gallbladder wall upper limits of normal in thickness. 3. Sonographic splenomegaly. Dictated by: Torey Rehman [facility] Interpreted: Maximo Glover MD on 05/19/2017 at 9:11 Approved by: Maximo Glover M.D. on 05/19/2017 at 9:58 PROCEDURE: NM HIDA SCAN WITH CCK PHARMACEUTICAL: 5.5 mCi Tc-99m mebrofenin IV; Ensure p.o. INDICATIONS: ABDOMEN PAIN IMPRESSION: Normal gallbladder ejection fraction of 82%, normal hepatocellular uptake of the isotope and patency of the cystic duct is documented. Normal excretion of isotope through the bile ducts into the duodenal lumen and antegrade transit into the small bowel was documented. Dictated by: Be Craig M.D. on 07/12/2017 at 15:40 Assessment & Plan # Alcoholic hepatitis - Discrimination function is 24.7 at admission, DF on 07/11 was 33.5, >32 indicates severe disease with 30 day mortality approaching 50%, patient - Continue Pentoxyfilline 400 mg TID for 4 weeks. - Continue rifaximin 500 mg twice a day - Follow daily PT/INR # Alcoholic liver cirrhosis - She has no home medications for 1-2 months lactone 50 mg, Lasix 40 mg daily - MELD Score currently 24.4 - Recommend complete abstinence from ETOH. # Alcohol withdrawal acute, present on admission - Continue CIWA librium protocol # Hepatic encephalopathy, for the noted admission - Continue Lactulose 30 mg TID ,titrate to 2-3 BMs # Chronic hyperbilirubinemia with significant itching, present on admission worsening - Continue to monitor - Right upper quadrant ultrasound as above # Acute UTI, present on admission # Acute hypomagnesemia present on admission - Continue repletion # Chronic cholecystitis, present on admission - Continue Ultram for pain control, much easier on liver - HIDA scan negative with 82 % EF # Chronic diabetes mellitus type II presumed controlled # Skin Rash due to bilirubin acute, POA Pain Evaluation: Adequate Pain Control VTE Mechanical Devices: Venous Foot Pump Resuscitation Status: CPR: Attempt Resuscitation (her parents) Attending Statement Patient seen and examined. Agree with assessment and plan as described by Dr Taylor. DAVY TAYLOR DO Jul 13, 2017 17:03 Eduar Ruffin MD Jul 13, 2017 22:53
[2017-07-13] MEDS: diphenhydrAMINE 25 mg Capsule PO PRN (22:13)
[2017-07-14 00:08] VITALS: BP 126/80; PULSE 94; RESP 18; O2SAT 98
[2017-07-14 03:59] VITALS: BP 115/61; PULSE 90; RESP 16; O2SAT 98
--- NOTE | 2017-07-14 04:21 | NUR ---
Nausea/Anxiety/CIWA PT complained of severe nausea at the beginning of shift, Zofran 8mg not really controlling it, she also complained of having 8 large diarrhea stools since 1300hrs yesterday, Lactulose held at HS. Dr. Clemons paged and orders for Ativan 1mg IV and Promethazine 25mg PO received, both given and PT was able to settle for most the night. CIWA score have been 4 all night; the nausea is her main complaint. The rash to her upper back and neck persists but is improving per PT report.
[2017-07-14 06:28] VITALS: PULSE 90
[2017-07-14] MEDS: Lactulose 20 Gm/30 mL 30 mL Syrup PO SCH ×2 (07:33→12:11)
[2017-07-14 08:00] VITALS: PULSE 88
[2017-07-14] MEDS: Multivit-Miner-Folic Acid-Iron Tablet PO SCH (08:59)
[2017-07-14] MEDS: NEOMY/BACITRA/POLYMYX OINT 1 PACKET/0.9 GM PACKET TOPICAL SCH (09:02)
[2017-07-14] MEDS: Pentoxifylline 400 mg ER12 Tablet PO SCH (09:02)
[2017-07-14 09:17] VITALS: BP 115/73; PULSE 85; RESP 16; O2SAT 95
[2017-07-14 10:10] LABS: Magnesium 1.5 mg/dL (1.6-2.6)
[2017-07-14] MEDS ORDERED: Magnesium Sulf 2 Gm/50mL Water 2 GM in IV Premix 1 EACH IV ONE (10:30)
--- NOTE | 2017-07-14 11:08 | NUR ---
Social Work-readiness for discharge/multidisciplinary rounds: Data:EMR reviewed. Pt is on day 6 of hospitalization for ETOH w/d per H&P. Pt is likely medically stable later today or tomorrow. SW updated in morning rounds that pt would like SW to check back in regarding CD resources. SW followed up with pt at bedside, SW role explained. Pt states she has already figured it all out and does not need help from SW. Pt states she is planning on going to [facility] and then going to . Pt states she has not made an appointment yet at [facility], but plans to do this outpt. Pt declines any assistance from SW. Pt has been up independent at baseline. No anticipated discharge needs. SW will continue to follow if needs arise. Assessment:Pt who is independent at baseline. Plan:Pt to discharge home when medically stable via pOV. Pt declining any assistance with CD resources. Pt already has figured out where she is going to go. No anticipated discharge needs. SW will continue to follow if needs arise. BENY Yee
--- NOTE | 2017-07-14 12:13 | PCM.DIMED ---
Discharge Instructions Date of Service Jul 14, 2017 Dates of Hospitalization Jul 08, 2017 at 12:21 Discharge Diagnosis Discharge Diagnosis # Alcoholic hepatitis, acute on chronic ,present on admission #Alcoholic liver cirrhosis # alcohol withdrawal acute, present on admission, resolved # Hepatic encephalopathy, for the noted admission, resolved # Chronic hyperbilirubinemia with significant itching, present on admission worsening # Acute UTI, present on admission: Resolved # Acute on chronic hypomagnesemia present on admission,Resolved # Chronic cholecystitis, present on admission # Chronic diabetes mellitus type II presumed controlled # Skin Rash due to bilirubin acute, POA Diet Discharge Diet: Low fat, Low Sodium Activity Discharge Activity: Limited until seen by PCP Call your provider Call your provider for: Fever or Chills, Shortness of breath, Bleeding, Chest pain, Vomitting, Excessive diarrhea, Weakness (unilateral) Patient Instructions Patient Instructions # You were hospitalized due to alcohol withdrawal symptoms. Symptoms improved. # You were noted to have acute on chronic acute on chronic alcoholic hepatitis. You started on pentoxifylline for that. Please take pentoxifylline for 4 weeks. # Your liver disease is worsening due to continued alcohol drinking. Please take every effort and help to abstain from alcohol. Please follow-up with outpatient counselor and AA. Follow-up Provider: Rito Thorne MD Follow-up with PCP in: 1 week Provider: Dylan Smith MD Follow-up in: 3 weeks Carlos Monson MD Jul 14, 2017 12:12
[2017-07-14] MEDS ORDERED: RIFA550T3 PO (12:15)
[2017-07-14] MEDS ORDERED: DIPH25CA6 PO (12:15)
[2017-07-14] MEDS ORDERED: MAGN400T23 PO (12:15)
[2017-07-14] MEDS ORDERED: LACT10SO60 PO (12:15)
[2017-07-14] MEDS ORDERED: SPIR25TA PO (12:15)
[2017-07-14] MEDS ORDERED: FUR20 PO (12:15)
[2017-07-14] MEDS ORDERED: PENT400T PO (12:15)
--- NOTE | 2017-07-14 12:30 | NUR ---
Social Work-discharge: Data:EMR reviewed. Pt is on day 6 of hospitalization for ETOH w/d per H&P. Pt is medically stable for discharge. Pt has been up independent in her room. Pt declined any resources from SW and plans to follow up with [facility] and also AA. No other SW needs identified. All updated and agreeable to plan. Assessment:Pt who is independent at baseline. Plan:Pt to discharge home today via POV. Pt declining any assistance with CD resources. No other SW needs identified. All updated and agreeable to plan. BENY Yee
--- NOTE | 2017-07-14 12:51 | NUR ---
Discharge IV discontinued fully intact. Discharge instructions explained to patient who verbalizes understanding and agrees to POC. This RN did offer resources for chemical dependency counselors which patient states that she will follow up on. All personal belongings given to patient. Patient ambulated off of unit without distress.
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
== END 2017-07-14 12:49 | disposition home or self-care (01) | DRG 433 ==
LOC: SED 09:57 → MPC 12:21
PROVIDERS: ADMIT Family Medicine; ATTEND Internal Medicine
DX: K70.10 Alcoholic hepatitis without ascites (principal); F10.239 Alcohol dependence with withdrawal, unspecified; K70.30 Alcoholic cirrhosis of liver without ascites; K72.90 Hepatic failure, unspecified without coma; K86.0 Alcohol-induced chronic pancreatitis; N39.0 Urinary tract infection, site not specified; K81.1 Chronic cholecystitis; E83.42 Hypomagnesemia; Z91.410 Personal history of adult physical and sexual abuse; E87.6 Hypokalemia; E11.9 Type 2 diabetes mellitus without complications; E80.6 Other disorders of bilirubin metabolism; R01.1 Cardiac murmur, unspecified; R21 Rash and other nonspecific skin eruption; Z51.5 Encounter for palliative care; B96.20 Unspecified Escherichia coli [E. coli] as the cause of diseases classified elsewhere